=== PATIENT | male | born 1945 | race Caucasian/White ===

== ENCOUNTER 2017-03-19 12:20 | Inpatient (IN) ==
--- NOTE | 2017-03-19 12:45 | Emergency Department Note ---
Disposition Clinical Impression: Aneurysm of left renal artery, Bilateral hydronephrosis, DAVE (acute kidney injury), Parietal lobe infarction, Occipital infarction, Elevated troponin, Acute hyperkalemia, Pulmonary nodule Disposition: Admitted As Inpatient Condition: Undetermined Referrals: Roseann Marinelli DO [Primary Care Provider] - Forms: ED Satisfaction Letter, Work/School Release Time of Disposition: 15:33 General Adult HPI - General Chief complaint: ED General Medical Stated complaint: A-FIB sent per pre-admission Testing Time Seen by Provider: 03/19/17 12:29 Source: patient Mode of arrival: wheelchair Limitations: no limitations Nursing Notes Reviewed: Yes Vital Signs Reviewed: Yes - History of Present Illness HPI Narrative: 71-year-old male with history of atrial fibrillation, hematuria, arrives to [facility] emergency department with concern for not feeling well as well as decreased vision in right eye. The patient was at preadmission testing for determination of an etiology for his hematuria. The patient states that yesterday evening he began experiencing a decreased vision in his right eye. Denies any other complaints at this time. The patient states is morbidly blurred vision and was not feeling well. The patient states upon transport to the hospital for preadmission testing he stated to the nurse that he did not feel well and was experiencing at this decreased vision in right eye. At that time and NIH was performed and the patient was transported to the emergency department with concern for possible CVA given the patient's recent coming off Coumadin for the hematuria despite history of atrial fibrillation. The patient denies any other complaints at this time other than just generally not feeling well as well as his blurred vision in right eye. We are not performing a stroke alert due to the patient's symptoms starting just under 24 hours prior to arrival. Onset (ago): day(s) (1) Pain Scale: 0 Improves with: nothing Worsens with: nothing Associated symptoms: Reports: denies other symptoms Treatments Prior to Arrival: none - Related Data Allergies Allergy/AdvReac Type Severity Reaction Status Date / Time No Known Allergies Allergy Verified 03/19/17 11:56 All systems ED: reviewed and negative except as stated. Constitutional: Denies: fever, chills, weakness Eyes: Reports: vision change. Denies: eye pain, eye discharge ENT ED: Denies: ear pain, dental pain, hearing loss, congestion Cardiovascular: Denies: chest pain, syncope Respiratory: Denies: cough, dyspnea, wheezes Gastrointestinal: Denies: abdominal pain, nausea, vomiting Genitourinary: Denies: urgency, dysuria Musculoskeletal: Denies: back pain Neurological: Denies: headache, weakness, numbness, paresthesias, confusion, abnormal gait, vertigo Past Medical History - Past Medical History Attestation: Yes The following information was validated with the patient. Source: patient Medical history: Reports: non-contributory, GI bleed, hypertension Surgical history: Reports: non-contributory - Social History Smoking Status: Current some day smoker Smokeless Tobacco Status: No Alcohol use: Reports: none Drug use: Reports: none Physical Exam - General Limitations: no limitations General appearance: alert, in no apparent distress - Head Head exam: atraumatic, normocephalic, normal inspection - Eye Eye exam: Present: normal appearance, PERRL, EOMI, other (20/30 in left, 20/25 right eye). Absent: nystagmus, miosis, mydriasis - ENT ENT exam: normal exam, normal oropharynx, mucous membranes moist - Neck Neck exam: Present: normal inspection, full ROM, trachea midline - Chest Chest inspection: Present: normal inspection, symmetric chest wall rise - Respiratory Respiratory exam: Present: normal lung sounds bilaterally - Cardiovascular Cardiovascular exam: Present: regular rate, normal rhythm, normal heart sounds - Abdominal Exam Abdominal exam: Present: soft, Non-Tender. Absent: tenderness, distention, guarding, rebound, rigidity - Extremities Exam Extremities exam: Present: normal inspection, full ROM. Absent: tenderness, pedal edema - Neurological Exam Neurological exam: Present: alert, oriented X3, CN II-XII intact, normal gait - Expanded Neurological Exam Patient oriented to: Present: person, place, time Speech: Present: fluid speech Cranial nerves: EOM function (II, III, IV, ): Normal, facial sensation (V): Normal, facial palsy (VII): Normal Cerebellar function: finger to nose: Normal, heel to gipson: Normal Cerebellar function: normal gait Motor strength - LUE: 5/5 Motor strength - RUE: 5/5 Motor strength - LLE: 5/5 Motor strength - RLE: 5/5 Sensory exam upper extremity: light touch: Normal Sensory exam lower extremity: light touch: Normal Coma Scale Eye Opening: Spontaneous Coma Scale Motor Response: Obeys Commands Coma Scale Verbal Response: Oriented Coma Scale Total: 15 Course - Reevaluation(s) Reevaluation #1: Patient's renal function is worsened. Urinary bladder is not enlarged after urination. Time: 13:59 Reevaluation #2: Radiology called to inform me of an acute infarct in the right parietal- occipital lobes of the head CT. Time: 14:35 - Consultations Consultation #1: Spoke to Dr. Fernández in urology who states that he will see the patient on the floor. He states that he will likely take the patient to the OR tomorrow for this bladder mass as well as bilateral hydroureter renal failure. He did request a PSA. We will perform. Time: 15:13 Consultation #2: Spoke with Dr. Rodas in neurology who agrees that he will see the patient on the floor. Time: 15:46 Vital Signs Temperature 98.1 F 03/19/17 12:22 Pulse Rate 61 03/19/17 12:22 Respiratory Rate 16 03/19/17 12:22 Blood Pressure 177/111 03/19/17 12:22 O2 Sat by Pulse Oximetry 99 03/19/17 12:22 Temperature 98.2 F 03/19/17 15:25 Pulse Rate 66 03/19/17 15:25 Respiratory Rate 25 03/19/17 15:25 Blood Pressure 166/92 03/19/17 15:25 O2 Sat by Pulse Oximetry 96 03/19/17 15:25 Oxygen Delivery Oxygen Delivery Room Air Medical Decision Making - MDM Narrative Medical decision making narrative: Patient CT scan of the head demonstrates new right sided parietal and occipital infarct. Given the patient's symptoms being roughly 24 hours ago, a stroke alert was not activated. The patient was administered 1 dose of aspirin here in the emergency department. The patient's CT scan of the abdomen reveals new pulmonary nodule, new bladder mass that is noted with bilateral hydronephrosis. 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 The patient will be admitted to the hospitalist. After speaking with Dr. Fernández in urology he requested that we perform a PSA. In addition the patient will likely go to the operating room tomorrow per urology. The patient was made aware and agrees to this plan. The patient's NIH is 0. The patient denies any other complaints at this time. We will admit him to the hospitalist service accepted by Dr. Zavala. - Medical Records Medical records reviewed: Yes I reviewed the patient's medical records. - Lab Data Lab results reviewed: Yes I reviewed the patient's lab results. Result diagrams: 03/19/17 12:56 03/19/17 12:56 Lab Results 03/19/17 03/19/17 03/19/17 Range/Units 12:56 12:56 12:56 WBC 14.3 H (4.3-11.1) K/mcL RBC 5.06 (4.19-5.50) M/mcL Hgb 14.3 (12.9-16.9) g/dL Hct 41.9 (37.5-50.1) % MCV 82.8 L (83.0-100.0) fL MCH 28.3 (28.0-33.3) pg MCHC 34.1 (31.6-35.5) g/dL RDW 13.8 (11.5-14.5) % Plt Count 237 (140-400) K/mcL MPV 10.9 (9.4-12.4) fL Immature Gran % 0.4 (0-4) % Seg Neutrophils % 83.7 % Lymphocytes % 8.3 % Monocytes % 6.7 % Eosinophils % 0.6 % Basophils % 0.3 % Neutrophils # 12.0 H (1.6-8.9) K/mcL Lymphocytes # 1.2 (0.6-4.6) K/mcL Monocytes # 1.0 (0.0-1.3) K/mcL Eosinophils # 0.1 (0.0-0.6) K/mcL Basophils # 0.1 (0.0-0.2) K/mcL PT 11.5 (9.4-12.1) Seconds INR 1.1 APTT 26.5 (26.0-36.0) Seconds Sodium 142 (136-145) mEq/L Potassium 5.1 H (3.5-4.5) mEq/L Chloride 109 (98-109) mEq/L Carbon Dioxide 17 L (19-29) mEq/L BUN 96 H (8-26) mg/dL Creatinine 11.86 H (0.72-1.25) mg/dL Est GFR ( Amer) 5 L (> 60) Est GFR (Non-Af Amer) 4 L (> 60) BUN/Creatinine Ratio 8 (6-26) Glucose 120 H (70-99) mg/dL Calculated Osmolality 325 H (280-300) Calcium 9.6 (8.6-10.8) mg/dL Troponin I (0-0.03) ng/mL Ur Specimen Adequacy Urine Color (Yellow) Urine Clarity (Clear) Urine pH (5.0-8.0) pH Units Ur Specific [place] (1.010-1.025) Urine Protein (Neg-Trace) mg/dL Urine Glucose (UA) (Normal) mg/dL Urine Ketones (Negative) mg/dL Urine Blood (Negative) Urine Nitrite (Negative) Urine Bilirubin (Negative) Urine Urobilinogen (Normal) mg/dL Ur Leukocyte Esterase (Negative) Ur Culture Indicated? (NO) 03/19/17 03/19/17 Range/Units 12:56 13:33 WBC (4.3-11.1) K/mcL RBC (4.19-5.50) M/mcL Hgb (12.9-16.9) g/dL Hct (37.5-50.1) % MCV (83.0-100.0) fL MCH (28.0-33.3) pg MCHC (31.6-35.5) g/dL RDW (11.5-14.5) % Plt Count (140-400) K/mcL MPV (9.4-12.4) fL Immature Gran % (0-4) % Seg Neutrophils % % Lymphocytes % % Monocytes % % Eosinophils % % Basophils % % Neutrophils # (1.6-8.9) K/mcL Lymphocytes # (0.6-4.6) K/mcL Monocytes # (0.0-1.3) K/mcL Eosinophils # (0.0-0.6) K/mcL Basophils # (0.0-0.2) K/mcL PT (9.4-12.1) Seconds INR APTT (26.0-36.0) Seconds Sodium (136-145) mEq/L Potassium (3.5-4.5) mEq/L Chloride (98-109) mEq/L Carbon Dioxide (19-29) mEq/L BUN (8-26) mg/dL Creatinine (0.72-1.25) mg/dL Est GFR ( Amer) (> 60) Est GFR (Non-Af Amer) (> 60) BUN/Creatinine Ratio (6-26) Glucose (70-99) mg/dL Calculated Osmolality (280-300) Calcium (8.6-10.8) mg/dL Troponin I 0.13 H* (0-0.03) ng/mL Ur Specimen Adequacy Urine Color Red A (Yellow) Urine Clarity Cloudy A (Clear) Urine pH 7.5 (5.0-8.0) pH Units Ur Specific [place] 1.017 (1.010-1.025) Urine Protein >=1000 H (Neg-Trace) mg/dL Urine Glucose (UA) 100 H (Normal) mg/dL Urine Ketones Negative (Negative) mg/dL Urine Blood Moderate H (Negative) Urine Nitrite Negative (Negative) Urine Bilirubin Negative (Negative) Urine Urobilinogen Normal (Normal) mg/dL Ur Leukocyte Esterase Negative (Negative) Ur Culture Indicated? NO (NO) - Radiology Data Radiology results reviewed: Yes I reviewed the patient's radiology results. - EKG Data EKG #1 EKG attestation: Yes I reviewed and interpreted this EKG. EKG results narrative: Heart rate 60 bpm. QTc 455 ms. Electronic ventricular pacemaker. No ST elevation or ST depression noted. EKG similar appearance EKG performed just prior to arrival. NIH Stroke Scale - Level of Consciousness LOC: Alert - LOC Questions LOC Questions: Answers both correctly - LOC Commands LOC Commands: Performs both correctly - Best Gaze Best Gaze: Normal - Visual Visual: No visual loss - Facial Palsy Facial Palsy: Normal - Motor Arms Motor Arm-Left: No drift for 10 seconds Motor Arm-Right: No drift for 10 seconds - Motor Legs Motor Leg-Left: No drift for 5 seconds Motor Leg-Right: No drift for 5 seconds - Limb Ataxia Limb Ataxia: Normal, No Ataxia - Sensory Sensory: Normal - Best Language Best Language: No aphasia - Dysarthria Dysarthria: Normal - Extinction and Inattention Extinction and Inattention: Normal - NIHSS Total Score NIHSS Total Score: 0
--- NOTE | 2017-03-19 13:02 | Emergency Department Note ---
START Narrative - START START: I examined this patient and my medical decision-making was reviewed with the Resident Physician. I agree with the documented findings, disposition and treatment plan as described except to the extent set forth below. 71 yo M sent to ER from preadmission testing for blurry vision and not feeling right. had a blurry vision episode while driving today. no cp. hx of a fib. off coumadin for few days due to hematuria and is supposed to have a cystoscopy for this by dr gayle. will eval with head CT and labs. looks well ekg shows paced rhythm vss
[2017-03-19 13:13] LABS: Basophils # 0.1 K/mcL (0.0-0.2); Basophils % 0.3 %; Eosinophils # 0.1 K/mcL (0.0-0.6); Eosinophils % 0.6 %; Hematocrit 41.9 % (37.5-50.1); Hemoglobin 14.3 g/dL (12.9-16.9); Immature Granulocytes % 0.4 % (0-4); Lymphocytes # 1.2 K/mcL (0.6-4.6); Lymphocytes % 8.3 %; Mean Corpuscular HGB Conc 34.1 g/dL (31.6-35.5); Mean Corpuscular Hemoglobin 28.3 pg (28.0-33.3); Mean Corpuscular Volume 82.8 fL (83.0-100.0); Mean Platelet Volume 10.9 fL (9.4-12.4); Monocytes % 6.7 %; Platelet Count 237 K/mcL (140-400); Red Blood Count 5.06 M/mcL (4.19-5.50); Red Cell Distribution Width 13.8 % (11.5-14.5); Segmented Neutrophils % 83.7 %
[2017-03-19 13:18] LABS: INR 1.1; Prothrombin Time 11.5 Seconds (9.4-12.1)
[2017-03-19 13:20] LABS: Activated Partial Thrombo Time 26.5 Seconds (26.0-36.0)
[2017-03-19 13:31] LABS: Calcium 9.6 mg/dL (8.6-10.8); Potassium 5.1 mEq/L (3.5-4.5)
[2017-03-19 13:59] LABS: Bilirubin,Urine Negative (Negative); Blood,Urine Moderate (Negative); Clarity,Urine Cloudy (Clear); Glucose,Urine (UA) 100 mg/dL (Normal); Ketones,Urine Negative (Negative); Leukocyte Esterase,Urine Negative (Negative); Nitrite,Urine Negative (Negative); PH,Urine 7.5 pH Units (5.0-8.0); Protein,Urine >=1000 mg/dL (Neg-Trace); Specific Gravity,Urine 1.017 (1.010-1.025); Urobilinogen,Urine Normal (Normal)
[2017-03-19 14:01] LABS: Color,Urine Red (Yellow)
[2017-03-19] MEDS ORDERED: 0.9 % Sodium Chloride 1,000 ML IVC ONE (14:02)
[2017-03-19] MEDS ORDERED: Aspirin 325 MG TABLET PO ONE (14:05)
--- NOTE | 2017-03-19 18:15 | Urology - Consult Note ---
Date of Encounter: 03/19/17 Time of Encounter: 18:02 - Assessment and Plan (1) Elevated serum creatinine Current Visit: Yes Status: Acute Assessment and plan: I spoke with Dr. Read with nephrology and he is going to evaluate the patient this evening. We discussed rushing the patient back to the operating room tonight versus possible dialysis prior to scheduled surgery tomorrow afternoon. We both believe that the patient would benefit from dialysis first then operating room tomorrow afternoon. I have spoken with the anesthesiologist who also agrees with this approach. (2) Malignant neoplasm of prostate Current Visit: Yes Status: Acute Assessment and plan: Mass in the prostatic fossa is most likely recurrent prostate cancer. We will need to obtain the operative note at some point in the future. Plan on possible need for resection of mass tomorrow in the operating room. Sometimes placing ureteral stents in the face of invasive cancer is quite difficult and patient may need interventional radiology to place nephrostomy tubes. (3) Bilateral hydronephrosis Current Visit: Yes Status: Acute Assessment and plan: Likely secondary to recurrent prostate cancer. Patient will be taken to the operating room tomorrow for cystoscopy and possible bilateral ureteral stent placement depending on visualization of ureteral orifices. Again, sometimes placing ureteral stents in the face of metastatic cancers quite difficult and patient could require interventional radiology to place bilateral nephrostomy tubes. This is likely contributing significantly to his renal failure as his bladder is completely decompressed on CT scan. Urology CN:HPI Consult date: 03/19/17 Reason for consult Urology: Hydronephrosis Requesting physician: Aron Nunes History of present illness: Moses is a 71-year-old male who presented today for preadmission testing appointments for surgery scheduled tomorrow. Patient at the time of the visit appeared to have strokelike symptoms. He was sent to the emergency department where a CT head was done which showed a new stroke area in the right side. Patient was also known to me to have a elevated creatinine of 3 which is the reason for his urgent scheduling of the surgery tomorrow. Patient at the arrival of the emergency department was found to have serum creatinine just below 12. Potassium was 5.1. Patient's blood pressure was also markedly elevated. He was having blurry vision as well as some confusion. CT abdomen and pelvis was done which showed stable bilateral hydronephrosis down to mass within the prostatic fossa. Patient failed to mention to me at the initial appointment that he had a prostatectomy done. At this time he cannot tell me the date of the procedure. His PSA was repeated today which was 17. I do not have a comparable PSA. Patient is somewhat confused. Past Med Surg Social Fam HX - Past Medical History Medical history: non-contributory, GI bleed, hypertension - Past Surgical History Surgical History: non-contributory - Social History Smoking Status: Current some day smoker Smokeless Tobacco Status: No Alcohol use: none Drug use: none Medications and Allergies Atorvastatin Calcium [Lipitor] 20 mg PO HS 03/19/17 [History] Cholecalciferol (Vitamin D3) [Vitamin D] 1,000 unit PO DAILY 03/19/17 [History] Losartan Potassium [Cozaar] 50 mg PO DAILY 03/19/17 [History] Meloxicam [Mobic] 7.5 - 15 mg PO DAILY PRN 03/19/17 [History] Metoprolol XL (24 HR) Succ [Toprol XL] 150 mg PO DAILY 03/19/17 [History] Multivitamin [One Daily Multivitamin] 1 each PO DAILY 03/19/17 [History] 3 Allergy/AdvReac Type Severity Reaction Status Date / Time No Known Allergies Allergy Verified 03/19/17 11:56 Review of Systems ROS unobtainable: due to mental status Exam Initial Vital Signs Temp Pulse Resp BP Pulse Ox 98.1 F 61 16 177/111 99 03/19/17 12:22 03/19/17 12:22 03/19/17 12:22 03/19/17 12:22 03/19/17 12:22 - General physical appearance Present: well developed - Neck Present: no masses - Respiratory Present: normal respiratory effort - Abdomen Abdomen: Present: soft - Integumentary Present: no rash - Neurologic Present: normal coordination (Equal strength with bilateral grasp) Urology Results - Labs 03/19/17 12:56 03/19/17 12:56 Abnormal lab results WBC 14.3 K/mcL (4.3-11.1) H 03/19/17 12:56 MCV 82.8 fL (83.0-100.0) L 03/19/17 12:56 Neutrophils # 12.0 K/mcL (1.6-8.9) H 03/19/17 12:56 Potassium 5.1 mEq/L (3.5-4.5) H 03/19/17 12:56 Carbon Dioxide 17 mEq/L (19-29) L 03/19/17 12:56 BUN 96 mg/dL (8-26) H 03/19/17 12:56 Creatinine 11.86 mg/dL (0.72-1.25) H 03/19/17 12:56 Est GFR ( Amer) 5 (> 60) L 03/19/17 12:56 Est GFR (Non-Af Amer) 4 (> 60) L 03/19/17 12:56 Glucose 120 mg/dL (70-99) H 03/19/17 12:56 Calculated Osmolality 325 (280-300) H 03/19/17 12:56 Troponin I 0.13 ng/mL (0-0.03) H* 03/19/17 12:56 Prostate Specific Ag 17.94 ng/mL (0.00-4.00) H 03/19/17 12:56 Urine Color Red (Yellow) A 03/19/17 13:33 Urine Clarity Cloudy (Clear) A 03/19/17 13:33 Urine Protein >=1000 mg/dL (Neg-Trace) H 03/19/17 13:33 Urine Glucose (UA) 100 mg/dL (Normal) H 03/19/17 13:33 Urine Blood Moderate (Negative) H 03/19/17 13:33 All other labs normal. - Imaging CT scan - abdomen: image reviewed CT scan - pelvis: image reviewed Consult Discharge Plan - Plan Referrals: Roseann Marinelli DO [Primary Care Provider] -
[2017-03-19] MEDS ORDERED: Furosemide 40 MG/4 ML VIAL IVP STA (18:21)
[2017-03-19] MEDS ORDERED: Furosemide 40 MG/4 ML VIAL ONE (18:22)
[2017-03-19] MEDS ORDERED: Ondansetron 4 MG/2 ML VIAL IVP PRN (18:23)
--- NOTE | 2017-03-19 18:35 | Nephrology Consult Note ---
Date of Encounter: 03/19/17 Time of Encounter: 18:00 Assessment and Plan (1) DAVE (acute kidney injury) Current Visit: Yes Status: Acute DAVE with b/l hydronephrosis and with uremic symptom. One week ago his SCr was 3.76 and today >11. He will need BUTTERMILK DRIER OPERATOR, but ideally can arrange first thing in the AM. I've placed a consult to IR to request their assistance in the AM. On exam, he has b/l crackles. I suspect there may be pulm edema developing s/p IVF. His admission CXR was without pulm edema. Will check BNP and since he's going to need BUTTERMILK DRIER OPERATOR anyway, to improve his respiratory status overnight, I will give Lasix 40mg IV stat. He may need repeat CXR. Discussed with the hospitalist , and with Dr. Fernández earlier this evening. Hydronephrosis: agree with urologic intervention tomorrow after HD. He was also was taking NSAIDs. There is also concern for CVA. Thank you for consulting me on this very ill, high-risk patient. Will continue to closely follow with you. (2) Dyspnea Current Visit: Yes Status: Acute See above Qualifiers: Dyspnea type: unspecified Qualified Code(s): R06.00 - Dyspnea, unspecified (3) Acute hyperkalemia Current Visit: Yes Status: Resolved See above (4) Bilateral hydronephrosis Current Visit: Yes Status: Acute See above (5) Malignant neoplasm of prostate Current Visit: Yes Status: Acute See above History of Present Illness - Reason for Consult Consult date: 03/19/17 Acute Kidney Injury Requesting physician: Wilfred Fernández - Chief Complaint Renal failure - History of Present Illness Moses Reich is a very pleasant 71 y/o who presented with altered mental status and findings of severe renal failure and bilateral hydronephrosis. I was consulted by [facility] Dr. Fernández and I saw the pt urgently. He was by himself in the room and was very slow to communicate -- thus limiting a complete HPI and ROS. He was able to relate that he has not seen a prior underwater trapper. He denied use of NSAIDs. Had not been eating well and has become progressively more fatigued. He was not short of breath he said until the last hour. He had received IVF in the ER, but these were stopped when the pt arrived on the floor complaining of a new and developing cough/shortness of breath. He thought it was worsening even during my exam and interview. Past Med Surg Social Fam HX - Past Medical History Medical history: non-contributory, GI bleed, hypertension - Past Surgical History Surgical History: non-contributory - Social History Smoking Status: Current some day smoker Smokeless Tobacco Status: No Alcohol use: none Drug use: none Medications and Allergies Atorvastatin Calcium [Lipitor] 20 mg PO HS 03/19/17 [History] Cholecalciferol (Vitamin D3) [Vitamin D] 1,000 unit PO DAILY 03/19/17 [History] Losartan Potassium [Cozaar] 50 mg PO DAILY 03/19/17 [History] Meloxicam [Mobic] 7.5 - 15 mg PO DAILY PRN 03/19/17 [History] Metoprolol XL (24 HR) Succ [Toprol XL] 150 mg PO DAILY 03/19/17 [History] Multivitamin [One Daily Multivitamin] 1 each PO DAILY 03/19/17 [History] Amlodipine Besylate [Amlodipine Besylate] 10 mg PO DAILY 03/21/17 [History] Clopidogrel [Plavix] 75 mg PO DAILY 03/21/17 [History] Warfarin [Coumadin] 5 mg PO 1800 03/21/17 [History] 3 Allergy/AdvReac Type Severity Reaction Status Date / Time No Known Allergies Allergy Verified 03/19/17 11:56 Review of Systems ROS unobtainable: due to mental status Exam - Vital Signs Vital signs: Initial Vital Signs Temp Pulse Resp BP Pulse Ox 98.1 F 61 16 177/111 99 03/19/17 12:22 03/19/17 12:22 03/19/17 12:22 03/19/17 12:22 03/19/17 12:22 Vital Signs - Last 8 Hours Temp Pulse Resp BP Pulse Ox 03/19/17 16:55 98.5 F 62 18 174/71 95 03/19/17 16:40 20 159/84 03/19/17 16:29 63 20 159/84 - General Appearance General appearance: well-developed, well-nourished, appears started age, moderate distress EENT: ATNC, mucous membranes moist Neck: supple Respiratory: rales, course breath sounds Cardiology: edema (trace pretibial pitting edema bilaterally (the pt said this was his normal).), regular rate, regular rhythm, normal S1, normal S2 Gastrointestinal: normoactive bowel sounds, no guarding, obese Integumentary: warm and dry Neurologic: no asterixis, alert and oriented x3, disoriented Musculoskeletal: no erythema, no cyanosis, no clubbing Psychiatric: cooperative Results - Lab Results 03/26/17 05:11 03/26/17 05:11 Most recent lab results Calcium 9.6 mg/dL (8.6-10.8) 03/19/17 12:56 I reviewed the progress notes, labs, meds, vials, imaging. Consult Discharge Plan - Plan Referrals: Roseann Marinelli DO [Primary Care Provider] -
--- NOTE | 2017-03-19 19:21 | Anesthesia Evaluation PreOp ---
Date of Encounter: 03/19/17 Time of Encounter: 19:19 - Past History Planned Operation: Cystoscopy, Bilat. Ureteroascopy Cardiac History: HTN, Hyperlipidemia, Arrhythmia (hx Afib/Flutter), Pacemaker/ ICD ( 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: CVA (within past 24 hrs, loss of vision, no UE or LE weakness or sensory loss) Other Medical History: Renal (ESRD, plan dialysis 03/20/2017, after IR places port for IV acess.), Other (Hx GI Bleed, prostate CA,) Anesthesia History: No Prior Anesthetic Complications, Past Anesthesia (Robotic prostatectomy 2-3 years ago, T&A) Alcohol Use: none Drug use: none Medications and Allergies Atorvastatin Calcium [Lipitor] 20 mg PO HS 03/19/17 [History] Cholecalciferol (Vitamin D3) [Vitamin D] 1,000 unit PO DAILY 03/19/17 [History] Losartan Potassium [Cozaar] 50 mg PO DAILY 03/19/17 [History] Meloxicam [Mobic] 7.5 - 15 mg PO DAILY PRN 03/19/17 [History] Metoprolol XL (24 HR) Succ [Toprol XL] 150 mg PO DAILY 03/19/17 [History] Multivitamin [One Daily Multivitamin] 1 each PO DAILY 03/19/17 [History] 3 Allergy/AdvReac Type Severity Reaction Status Date / Time No Known Allergies Allergy Verified 03/19/17 11:56 - Meds/Allergy Pre-op Review Medications Reviewed: Yes Allergies Reviewed: Yes Beta Blockers on Current Med List: Yes Anesthesia Results - Labs 03/19/17 12:56 03/19/17 12:56 CT OF THE HEAD WITHOUT CONTRAST 03/19/2017 2:20 pm IMPRESSION: Acute infarct involving the right parieto-occipital lobe. No associated mass effect or midline shift. Sequela of remote infarct in the left MCA territory. Age related changes including chronic small vessel ischemic disease and cerebral atrophy. Findings were discussed with Dr. Nunes on 03/19/2017 at 2:34 p.m. - Imaging EKG: other (EKG ordered) Chest x-ray: report reviewed (Bilateral perihilar opacification, right greater than left, likely representing early pulmonary edema. Infiltrate not excluded. Stable mild cardiomegaly.) Anesthesia Exam O2 Sat Height 1.8 m Height 1.8 m Weight 117.934 kg Weight 117.934 kg O2 Sat by Pulse Oximetry 95 O2 Sat by Pulse Oximetry 96 O2 Sat by Pulse Oximetry 97 O2 Sat by Pulse Oximetry 96 O2 Sat by Pulse Oximetry 99 Vital Signs Temp Pulse Resp BP Pulse Ox 98.1 F 61 16 177/111 99 03/19/17 12:22 03/19/17 12:22 03/19/17 12:22 03/19/17 12:22 03/19/17 12:22 Vital Signs/O2 Sat, Most Current Temp Pulse Resp BP Pulse Ox 98.5 F 62 18 174/71 95 03/19/17 16:55 03/19/17 16:55 03/19/17 16:55 03/19/17 16:55 03/19/17 16:55 Height: 5'11'' Weight: 260# NPO (# of Hours): > 8 hrs Pain Scale: 0 Pain Scale Used: Numeric (1 - 10) - HEENT Pupil (Motor): Pupils equal, EOMI Mallampati: III Teeth: Normal Oral Opening: Greater than 3 - VEGETABLE GRADER LOC: Oriented VEGETABLE GRADER Motor: Normal RUE, Normal LUE, Normal RLE, Normal LLE, Normal Face VEGETABLE GRADER Sensory: Normal: RUE, LUE, RLE, LLE, Face - Cardiac Rhythm: Regular Murmur: None JVD: No Carotid Bruit: No - Pulmonary Breath Sounds: bilateral Clear Respiratory Effort: Symmetrical Anesthesia Assess/Plan ASA Score: 4 Modified Deaver Scale for Level of Consciousness: Cooperative, oriented, and tranquil Anesthetic Plan: General Autologous Blood: Yes Monitoring Plan: Standard Monitors Recovery Plan: PACU
--- NOTE | 2017-03-19 19:43 | Neurology - Consult Note ---
Date of Encounter: 03/19/17 Time of Encounter: 19:40 Assessment and Plan (1) Occipital infarction Current Visit: Yes Status: Acute Patient is a 71 year old man with atrial fibrillation, s/p pacemaker placement, currently off coumadin with INR 1.1 who developed acute onset of blurry vision. CT of head positive for right occipital lobe infarct, accounting for his left hemianopsia finding. No other focal neurological deficits. Unable to get MRI of brain due to pacemaker placement. Patient certainly needs anticoagulation once surgery is completed and no longer contraindicated, this has to be coordinated with urology service. Please continue medical and supportive care. Call if any questions History of Present Illness Chief complaint: blurry vision HPI: Mr. Reich is a 71 year old male with PMH significant for atrial fibrillation, pacemaker placement, off coumadin recently for an urgent urological procedure who developed acute onset of blurry vision, especially when looking to the left side. CT of head showed new right occipital parietal infarct. no midline shift. Patient not a candidate for tPA thrombolysis due to symptoms presented more than 24 hours. No focal weakness. No mental status changes. He relates that he was having urinary bleeding and has been evaluated and treated by urology. Currently patient denies neurological symptoms except blurry vision. Has clear left hemianopsia. Past Med Surg Social Fam HX - Past Medical History Medical history: non-contributory, GI bleed, hypertension - Past Surgical History Surgical History: non-contributory - Social History Smoking Status: Current some day smoker Smokeless Tobacco Status: No Alcohol use: none Drug use: none Medications and Allergies Atorvastatin Calcium [Lipitor] 20 mg PO HS 03/19/17 [History] Cholecalciferol (Vitamin D3) [Vitamin D] 1,000 unit PO DAILY 03/19/17 [History] Losartan Potassium [Cozaar] 50 mg PO DAILY 03/19/17 [History] Meloxicam [Mobic] 7.5 - 15 mg PO DAILY PRN 03/19/17 [History] Metoprolol XL (24 HR) Succ [Toprol XL] 150 mg PO DAILY 03/19/17 [History] Multivitamin [One Daily Multivitamin] 1 each PO DAILY 03/19/17 [History] 3 Allergy/AdvReac Type Severity Reaction Status Date / Time No Known Allergies Allergy Verified 03/19/17 11:56 All Systems: A 10-system review of systems was performed and is negative for pertinent findings except as documented above in the HPI. Physical Examination - Vital Signs Vital Signs: Initial Vital Signs Temp Pulse Resp BP Pulse Ox 98.1 F 61 16 177/111 99 03/19/17 12:22 03/19/17 12:22 03/19/17 12:22 03/19/17 12:22 03/19/17 12:22 - Constitutional General appearance: comfortable - Neurologic Sensorimotor examination: intact Detailed motor examination: grossly full strength in all extremities Motor examination - right side: 5/5: deltoids, biceps, triceps, wrist flexion, wrist extension, wildlife biology technician, hip flexors, tibialis Anterior, quadriceps, toe extension (EHL), plantarflexion Motor examination - left side: 5/5: deltoids, biceps, triceps, wrist flexion, wrist extension, hip flexors, wildlife biology technician, quadriceps, tibialis Anterior, toe extension (EHL), plantarflexion Detailed sensory examination: intact (Grossly intact) Posture: other (None) Reflex and gait examination: other (Gait not assessed) Reflexes: Biceps: 1+, Triceps: 1+, Brachioradialis: 1+, Patella: 1+, Achilles: 1 + Mental Status Examination: awake, alert, oriented to person, oriented to place, oriented to time, follows commands appropriately, answers questions appropriately, no agnosia, no aphasia, no aproxia Cranial nerve examination: PERRL, visual moreno intact (Left visual field loss noted), corneal reflexes brisk symmetrically, sensory to face intact, mastication intact, no facial asymmetry is present, no dysarthria, hearing is intact symmetrically, soft palate elevates bilaterally upon phonation, gag reflex intact, flexes SCM and trapezius muscles symmetrically with full power, tongue protrudes midline Results - Laboratory Findings CBC and BMP: 03/19/17 12:56 03/19/17 12:56 Abnormal lab findings: Abnormal lab results WBC 14.3 K/mcL (4.3-11.1) H 03/19/17 12:56 MCV 82.8 fL (83.0-100.0) L 03/19/17 12:56 Neutrophils # 12.0 K/mcL (1.6-8.9) H 03/19/17 12:56 Potassium 5.1 mEq/L (3.5-4.5) H 03/19/17 12:56 Carbon Dioxide 17 mEq/L (19-29) L 03/19/17 12:56 BUN 96 mg/dL (8-26) H 03/19/17 12:56 Creatinine 11.86 mg/dL (0.72-1.25) H 03/19/17 12:56 Est GFR ( Amer) 5 (> 60) L 03/19/17 12:56 Est GFR (Non-Af Amer) 4 (> 60) L 03/19/17 12:56 Glucose 120 mg/dL (70-99) H 03/19/17 12:56 Calculated Osmolality 325 (280-300) H 03/19/17 12:56 Troponin I 0.13 ng/mL (0-0.03) H* 03/19/17 12:56 Prostate Specific Ag 17.94 ng/mL (0.00-4.00) H 03/19/17 12:56 Urine Color Red (Yellow) A 03/19/17 13:33 Urine Clarity Cloudy (Clear) A 03/19/17 13:33 Urine Protein >=1000 mg/dL (Neg-Trace) H 03/19/17 13:33 Urine Glucose (UA) 100 mg/dL (Normal) H 03/19/17 13:33 Urine Blood Moderate (Negative) H 03/19/17 13:33 Consult Discharge Plan - Plan Referrals: Roseann Marinelli DO [Primary Care Provider] -
--- NOTE | 2017-03-19 20:19 | Anesthesia Evaluation PreOp ---
Date of Encounter: 03/19/17 Time of Encounter: 20:17 - Past History Planned Operation: Cystoscopy Cardiac History: Pacemaker/ICD (pacemaker placed over 20 years ago for AFib/ Flutter. 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: CVA (within past 24 hrs, loss of vision, no UE or LE weakness) Other Medical History: Other (Hematuria) Alcohol Use: none Drug use: none Medications and Allergies Atorvastatin Calcium [Lipitor] 20 mg PO HS 03/19/17 [History] Cholecalciferol (Vitamin D3) [Vitamin D] 1,000 unit PO DAILY 03/19/17 [History] Losartan Potassium [Cozaar] 50 mg PO DAILY 03/19/17 [History] Meloxicam [Mobic] 7.5 - 15 mg PO DAILY PRN 03/19/17 [History] Metoprolol XL (24 HR) Succ [Toprol XL] 150 mg PO DAILY 03/19/17 [History] Multivitamin [One Daily Multivitamin] 1 each PO DAILY 03/19/17 [History] 3 Allergy/AdvReac Type Severity Reaction Status Date / Time No Known Allergies Allergy Verified 03/19/17 11:56 Anesthesia Results - Labs 03/19/17 12:56 03/19/17 12:56
[2017-03-19 20:37] LABS: Hepatitis A Antibody IgM Nonreactive (Nonreactive); Hepatitis B Core IgM Nonreactive (Nonreactive); Hepatitis B Surface Antigen Nonreactive (Nonreactive); Hepatitis C Virus Antibody Nonreactive (Nonreactive)
--- NOTE | 2017-03-19 22:13 | Internal Med History&Physical ---
Date of Encounter: 03/19/17 Time of Encounter: 18:15 Assessment and Plan (1) Hematuria Current visit: Yes Status: Acute CT dbomen/pelvis shows bladder mass in inferior part, could be recurrence of prostate cancer; PSA elevated at 17.94. Urology consult appreciated- plan for possible OR tomorrow for excision of bladder mass and possible ureteral stent placement; monitor Hb Q8hrly; Knox catheterization; monitor urine output; Qualifiers: Hematuria type: gross Qualified Code(s): R31.0 - Gross hematuria (2) DAVE (acute kidney injury) Current visit: Yes Status: Acute Prior serum creatinine values not available; creatinine noted to be 11.86 today , up from 3.69 a week ago. Likely post-renal etiology due to obstructive uropathy. CT abdomen/pelvis shows B/L moderate hydronephrosis and bladder mass, could be blocking urine flow. Nephrology consulted; recommend IV Lasix spot dosing and close monitoring of vital signs. Patient also has associated hyperkalemia, metabolic acidosis, uremic encephalopathy; may need hemodialysis in am prior to scheduled OR; high risk for complications. Continue Telemetry monitoring. Repeat chest XRay does show pulmonary edema; (3) Occipital infarction Current visit: Yes Status: Acute Patient presented with acute right-sided blurred vision; CT head shows acute infarct in right parieto-occipital lobe. Neurology consult appreciated, recommend to continue anticoagulation with Coumadin when cleared by Urology after OR tomorrow. PT/OT evaluation. Check lipid profile and HbA1C. Continue statin. (4) Acute hyperkalemia Current visit: Yes Status: Acute continue to monitor; low K, renal diet; Telemetry monitoring; plan for HD tomorrow; (5) Malignant neoplasm of prostate Current visit: Yes Status: Chronic F/up with Urology; s/p TURP; noted top have elevated PSA; (6) Atrial fibrillation Current visit: Yes Status: Chronic s/p PPM placement. Currently rate-controlled; continue beta juan pablo; anticoagulation with Coumadin currently on hold due to surgery; INR 1.1; Qualifiers: Atrial fibrillation type: chronic Qualified Code(s): I48.2 - Chronic atrial fibrillation (7) Elevated troponin Current visit: Yes Status: Acute likely due to volume overload and acute renal failure; continue to trend Troponins and Telemetry; Internal Medicine - H&P: HPI Chief complaint: Blurred vision Admitted From: Emergency Dept Plans for Post Hospital Care: Transfer Inp Rehab Fac History of present illness: Mr. Reich is a 71 year old male with h/o- prostate cancer s/p TURP, a.fib on Coumadin was sent from Preop clinic with c/o- blurred vision in his right eye and not feeling well for the last 1-2 days. Patient has been taken off Coumadin for the last 2 weeks in anticipation of Cystoscopy to evaluate hematuria. Patient is currently able to answer appropriately although he does seem a bit confused intermittently. He denies nausea, vomiting, abdominal pain but has had hematuria off and on for the last month. No recent cough, cold, chest congestion or antibiotic use. He is ADL-independent and ambulatory at baseline. He does not recollect having CKD. He further denies focal weakness, paresthesias, dysphagia, slurred speech or facial deviation. No other neurologic symptoms except right-sided blurred vision. Past Med Surg Social Fam HX - Past Medical History Medical history: atrial fibrillation, cancer (prostate cancer), GI bleed, hypertension - Past Surgical History Surgical History: other (TURP, tonsillectomy), pacemaker - Social History Smoking Status: Former smoker Smokeless Tobacco Status: No Alcohol use: none Drug use: none Occupational status: retired Current living situation: Home, With Family Activity Level: Independent ambulation Recent Out of Country Travel Within the Last 8 Weeks: No Exposure or Possible Exposure to Illness During Travel: No - Additional Family History Additional family history: Patient is adopted, does not know biological family history Internal Medicine - H&P: Meds Atorvastatin Calcium [Lipitor] 20 mg PO HS 03/19/17 [History] Cholecalciferol (Vitamin D3) [Vitamin D] 1,000 unit PO DAILY 03/19/17 [History] Losartan Potassium [Cozaar] 50 mg PO DAILY 03/19/17 [History] Meloxicam [Mobic] 7.5 - 15 mg PO DAILY PRN 03/19/17 [History] Metoprolol XL (24 HR) Succ [Toprol XL] 150 mg PO DAILY 03/19/17 [History] Multivitamin [One Daily Multivitamin] 1 each PO DAILY 03/19/17 [History] 3 Allergy/AdvReac Type Severity Reaction Status Date / Time No Known Allergies Allergy Verified 03/19/17 11:56 All Systems PM: A 10-system review of systems was performed and is negative for pertinent findings except as documented above in the HPI. - Constitutional Constitutional: lethargy - EENT Eyes: as per HPI, blurry vision, change in vision Ears: no ear discharge, no ear pain, no tinnitus Nose, mouth and throat: no dysphagia, no nasal discharge, no neck pain, no sore throat - Cardiovascular Cardiovascular ROS IM: no chest pain, no diaphoresis, no dyspnea, no lightheadedness, no palpitations, no syncope - Respiratory Respiratory: no cough, no dyspnea, no wheezing, no excessive phlegm production - Gastrointestinal Gastrointestinal: no abdominal pain, no diarrhea, no hematemesis, no hematochezia, no melena, no nausea, no vomiting - Genitourinary Genitourinary ROS male: hematuria - Musculoskeletal Musculoskeletal ROS IM: no numbness, no tingling - Integumentary Integumentary IM: no rash, no unusual bruising - Neurological Neurological ROS: no confusion, no convulsions, no focal weakness, no numbness, no tingling, no tremor(s) - Hematologic/Lymphatic Hematologic/Lymphatic: no easy bruising - Constitutional Vitals: Temp Pulse Resp BP Pulse Ox 98.5 F 62 18 174/71 95 03/19/17 16:55 03/19/17 16:55 03/19/17 16:55 03/19/17 16:55 03/19/17 16:55 General appearance: Present: A&O X 3 (slightly confused occasionally), answers questions appropriately - Neck Neck exam general surgery: Present: supple, trachea midline. Absent: lymphadenopathy - Respiratory Respiratory exam: Present: rales (B/l coarse breath sounds with bibasal crackles +). Absent: accessory muscle use, rhonchi, wheezes - Cardiovascular Cardiovascular exam: Present: RRR, +S1, +S2. Absent: diastolic murmur, gallop, rubs, systolic murmur - GI/Abdominal GI/Abdominal exam: Present: normal bowel sounds, soft (obese), no peritoneal signs. Absent: distended, tenderness - Extremities Exam Extremities exam: Present: warm, radial pulses palpable and symmetrical. Absent : calf tenderness, cyanotic, pedal edema - Neurological Exam Neurological exam: Present: oriented X3, no focal deficits. Absent: pronater drift, facial droop, speech deficit - Skin Skin exam: Present: dry, intact Internal Med - H&P Results - Labs CBC & Chem 7: 03/19/17 12:56 03/19/17 12:56 Labs: Cardiac Enzymes 03/19/17 Range/Units 18:59 Troponin I 0.11 H* (0-0.03) ng/mL - EKG Data -: EKG Interpreted by Myself (ventricular paced rhythm) - Impressions ITS Impressions Chest X-Ray 03/19/17 18:42 IMPRESSION: Bilateral perihilar opacification, right greater than left, likely representing early pulmonary edema. Infiltrate not excluded. Stable mild cardiomegaly. D/ / Fredrick Hester MD / Fredrick Hester MD Interpreting Provider: Fredrick Hester MD
[2017-03-19 23:48] LABS: Basophils # 0.1 K/mcL (0.0-0.2); Basophils % 0.3 %; Eosinophils # 0.1 K/mcL (0.0-0.6); Eosinophils % 0.5 %; Hematocrit 44.6 % (37.5-50.1); Hemoglobin 14.7 g/dL (12.9-16.9); Immature Granulocytes % 0.5 % (0-4); Lymphocytes # 1.1 K/mcL (0.6-4.6); Lymphocytes % 6.3 %; Mean Corpuscular Hemoglobin 28.2 pg (28.0-33.3); Mean Corpuscular Volume 85.6 fL (83.0-100.0); Mean Platelet Volume 11.6 fL (9.4-12.4); Monocytes # 1.1 K/mcL (0.0-1.3); Monocytes % 6.6 %; Neutrophils # 14.8 K/mcL (1.6-8.9); Platelet Count 265 K/mcL (140-400); Red Blood Count 5.21 M/mcL (4.19-5.50); Red Cell Distribution Width 13.6 % (11.5-14.5); Segmented Neutrophils % 85.8 %
[2017-03-20] MEDS ORDERED: 0.9 % Sodium Chloride 250 ML IVC PRN (06:00)
[2017-03-20 06:49] LABS: Basophils # 0.1 K/mcL (0.0-0.2); Basophils % 0.3 %; Eosinophils % 0.2 %; Hematocrit 42.1 % (37.5-50.1); Hemoglobin 14.1 g/dL (12.9-16.9); Immature Granulocytes % 0.6 % (0-4); Lymphocytes % 6.6 %; Mean Corpuscular HGB Conc 33.5 g/dL (31.6-35.5); Mean Corpuscular Hemoglobin 27.8 pg (28.0-33.3); Mean Platelet Volume 11.2 fL (9.4-12.4); Monocytes % 6.6 %; Neutrophils # 13.2 K/mcL (1.6-8.9); Platelet Count 251 K/mcL (140-400); Red Blood Count 5.07 M/mcL (4.19-5.50); Red Cell Distribution Width 13.9 % (11.5-14.5); Segmented Neutrophils % 85.7 %
[2017-03-20 06:59] LABS: Hemoglobin A1C 6.1 %
[2017-03-20 07:06] LABS: Calcium 9.7 mg/dL (8.6-10.8); Magnesium 2.6 mg/dL (1.6-2.6); Phosphorous 6.4 mg/dL (2.3-4.7); Potassium 5.3 mEq/L (3.5-4.5)
--- NOTE | 2017-03-20 07:16 | Internal Med Progress Note ---
<Fredrick Smiley - Last Filed: 03/20/17 14:10> Date of Encounter: 03/20/17 Time of Encounter: 07:16 - Assessment and plan (1) DAVE (acute kidney injury) Current Visit: Yes Status: Acute Assessment and plan: Creatinine 13.97, was 11.86 yesterday, and 3.69 a week ago. Likely post-renal etiology due to obstructive uropathy. CT abdomen/pelvis shows B/L moderate hydronephrosis and bladder mass, could be blocking urine flow. CXR shows pulmonary edema Patient also has associated hyperkalemia, metabolic acidosis, uremic encephalopathy; Nephrology consulted; recommends IV Lasix spot dosing and close monitoring of vital signs. Anticipate temp CVC placement and hemodialysis today; re-evaluate need for another dialysis treatment tomorrow Anticipate bilateral pcn tubes by IR placement this am after dialysis early this am Continue Telemetry monitoring. (2) Malignant neoplasm of prostate Current Visit: Yes Status: Acute Assessment and plan: Patient will have bilateral pcn tubes placed by IR placed this AM Urology following (3) Occipital infarction Current Visit: Yes Status: Acute Assessment and plan: Patient presented with acute right-sided blurred vision CT head shows acute infarct in right parieto-occipital lobe Unable to get MRI of brain due to pacemaker placement Neurology consult appreciated, recommended to continue anticoagulation with Coumadin when cleared by Urology after OR today. PT/OT evaluation. Continue statin (4) Acute encephalopathy Current Visit: Yes Status: Acute Assessment and plan: Multifactorial, likely due to uremia Patient passed bedside swallow at 14:25, will start cardiac diet Continue to monitor (5) Acute hyperkalemia Current Visit: Yes Status: Acute Assessment and plan: K+ 5.3 Should improve after dialysis Continue to monitor (6) Elevated troponin Current Visit: Yes Status: Acute Assessment and plan: Likely due to volume overload and acute renal failure; continue to trend serial troponins, dialysis, and telemetry (7) Hematuria Current Visit: Yes Status: Acute Assessment and plan: CT abdomen/pelvis shows bladder mass in inferior part, could be recurrence of prostate cancer; PSA elevated at 17.94. Urology consult appreciated- plan for possible OR today for excision of bladder mass and possible ureteral stent placement; Monitor Hgb Q8h [place] catheterization Monitor input and urine output Qualifiers: Hematuria type: gross Qualified Code(s): R31.0 - Gross hematuria (8) Atrial fibrillation Current Visit: Yes Status: Chronic Assessment and plan: S/p PPM placement. Currently rate-controlled; continue beta juan pablo; h/o anticoagulation with Coumadin; INR 1.1 Coumadin held for the last 2 weeks in anticipation of Cystoscopy to evaluate hematuria Qualifiers: Atrial fibrillation type: chronic Qualified Code(s): I48.2 - Chronic atrial fibrillation (9) DVT prophylaxis Current Visit: Yes Status: Acute Assessment and plan: SCDs - Subjective Interval history: Patient seen and examined. Patient appears slightly confused, disoriented to time, and answers questions appropriately. He c/o blurry vision, dry mouth, and chills. Patient denies fever, chills, CP, SOB, abd pain, N/V/D, or leg edema. Case discussed with family at bedside. - Constitutional Vitals: Temp Pulse Resp BP Pulse Ox 98.9 F 60 27 168/90 100 03/20/17 04:15 03/20/17 04:15 03/20/17 04:36 03/20/17 04:15 03/20/17 04:36 General appearance: Present: cooperative, A&O X 2, mild distress, obese, answers questions appropriately Exam: slightly confused, disoriented to time, and answers questions appropriately - Head Head exam: Present: atraumatic, normal inspection, normocephalic - Eye Eye exam: Present: EOMI, PERRL - ENT ENT exam: Present: mucous membranes dry, normal oropharynx - Neck Neck exam general surgery: Present: normal inspection, supple - Respiratory Respiratory exam: Present: CTAB. Absent: wheezes - Cardiovascular Cardiovascular exam: Present: RRR, +S1, +S2 - GI/Abdominal GI/Abdominal exam: Present: normal bowel sounds, soft. Absent: distended, tenderness - Extremities Exam Extremities exam: Present: normal capillary refill, normal inspection, pedal edema (2+), warm - Back Exam Back exam: Absent: paraspinal tenderness, tenderness Additional comments: bilateral nephrostomy tubes in place with good urine output - Neurological Exam Neurological exam: Present: altered, oriented X3, no focal deficits, strengths equal and symetr throughout. Absent: motor sensory deficit, facial droop, speech deficit - Psychiatric Psychiatric exam: Present: anxious, normal affect - Skin Skin exam: Present: dry, normal color, warm Internal Medicine: Result - Labs CBC & Chem 7: 03/20/17 06:34 03/20/17 06:34 Labs: Short CBC 03/19/17 03/20/17 Range/Units 21:48 06:34 WBC 17.2 H 15.4 H (4.3-11.1) K/mcL Hgb 14.7 14.1 (12.9-16.9) g/dL Hct 44.6 42.1 (37.5-50.1) % Plt Count 265 251 (140-400) K/mcL Neutrophils # 14.8 H 13.2 H (1.6-8.9) K/mcL BMP 03/20/17 06:34 Sodium 142 Potassium 5.3 H Chloride 109 Carbon Dioxide 14 L BUN 102 H Creatinine 13.97 H Glucose 125 H Calcium 9.7 Cardiac Enzymes 03/19/17 03/20/17 03/20/17 Range/Units 18:59 01:04 06:34 Troponin I 0.11 H* 0.12 H* 0.13 H* (0-0.03) ng/mL - ABG Interpretation ABG results: PT/INR, D-dimer PT 11.5 Seconds (9.4-12.1) 03/19/17 12:56 - Impressions ITS Impressions Chest X-Ray 03/19/17 12:37 IMPRESSION: No acute abnormality identified. No abnormal pulmonary vascular congestion. Elevated right hemidiaphragm. Pacemaker in place. D/ / Lucien Villagomez MD / Lucien Villagomez MD Interpreting Provider: Lucien Villagomez MD Head CT 03/19/17 12:37 IMPRESSION: Acute infarct involving the right parieto-occipital lobe. No associated mass effect or midline shift. Sequela of remote infarct in the left MCA territory. Age related changes including chronic small vessel ischemic disease and cerebral atrophy. Findings were discussed with Dr. Nunes on 03/19/2017 at 2:34 p.m. D/ / 03/19/2017 14:59:41 Joseline Villar MD / pablo Interpreting Provider: Joseline Villar MD Abdomen/Pelvis CT 03/19/17 13:59 IMPRESSION: Persistent overall stable bilateral moderate hydronephrosis. This is felt secondary to a soft tissue mass seen along the inferior aspect of the bladder, best seen on and around axial images 138 through 149. As discussed on the previous examination, in this patient status post prostatectomy, this is concerning for possible recurrence or related to a bladder mass. 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 Small bilateral pleural effusions. There is a 4.3 mm pulmonary nodule in the right middle lobe. Recommend follow up based on Fleischner criteria as below for a nodule seen in the lung bases on a abdomen study. RECOMMENDATIONS: Guidelines for follow-up and management of pulmonary nodules found on abdomen CT: <6 mm - No follow up recommend on the basis of the estimated low risk of malignancy. 6-8-mm - recommend follow-up chest CT after an appropriate interval (3-12 months depending on clinical risk). >8mm - immediate chest CT for further evaluation. Radiology 2017 http://pubs.rsna.org/doi/full/10.1148/radiol.[email or web address] D/ / Fredrick Ramos MD / Fredrick Ramos MD Interpreting Provider: Fredrick Ramos MD Chest X-Ray 03/19/17 18:42 IMPRESSION: Bilateral perihilar opacification, right greater than left, likely representing early pulmonary edema. Infiltrate not excluded. Stable mild cardiomegaly. D/ / Fredrick Hester MD / Fredrick Hester MD Interpreting Provider: Fredrick Hester MD Guidance Needle Placement Ultrasound 03/20/17 00:00 IMPRESSION: Successful ultrasound guided non-tunneled temporary hemodialysis catheter placement. D/ / 03/20/2017 14:31:04 Toya Stanford MD / pablo Interpreting Provider: Toya Stanford MD Insertion Non-Tunneled Catheter 03/20/17 00:00 IMPRESSION: Successful ultrasound guided non-tunneled temporary hemodialysis catheter placement. D/ / 03/20/2017 14:31:04 Toya Stanford MD / pablo Interpreting Provider: Toya Stanford MD Chest X-Ray 03/20/17 11:29 IMPRESSION: Placement of right IJ central venous catheter with tip at SVC/right atrial junction. No pneumothorax. Mild pulmonary vascular congestion along with mild patchy airspace opacities to the lungs bilaterally, right worse than left. Opacities to the left appear similar to prior exam whereas opacities to the right appear mildly worsened from prior exam. Findings may reflect worsening multifocal infiltrates or somewhat asymmetric pulmonary edema. Stable cardiomegaly. D/ / 03/20/2017 11:50:51 Lam Eastman MD / geovany Interpreting Provider: Lam Eastman MD Consult Discharge Plan - Plan Referrals: Roseann Marinelli DO [Primary Care Provider] - <Catarino Agustin P - Last Filed: 03/20/17 18:19> Date of Encounter: 03/20/17 - Constitutional Vitals: Temp Pulse Resp BP Pulse Ox 98.3 F 63 18 166/83 96 03/20/17 14:35 03/20/17 14:35 03/20/17 14:35 03/20/17 14:35 03/20/17 14:35 Internal Medicine: Result - Labs CBC & Chem 7: 03/20/17 06:34 03/20/17 06:34 Labs: Short CBC 03/19/17 03/20/17 Range/Units 21:48 06:34 WBC 17.2 H 15.4 H (4.3-11.1) K/mcL Hgb 14.7 14.1 (12.9-16.9) g/dL Hct 44.6 42.1 (37.5-50.1) % Plt Count 265 251 (140-400) K/mcL Neutrophils # 14.8 H 13.2 H (1.6-8.9) K/mcL BMP 03/20/17 06:34 Sodium 142 Potassium 5.3 H Chloride 109 Carbon Dioxide 14 L BUN 102 H Creatinine 13.97 H Glucose 125 H Calcium 9.7 Cardiac Enzymes 03/19/17 03/20/17 03/20/17 Range/Units 18:59 01:04 06:34 Troponin I 0.11 H* 0.12 H* 0.13 H* (0-0.03) ng/mL - ABG Interpretation ABG results: PT/INR, D-dimer PT 11.5 Seconds (9.4-12.1) 03/19/17 12:56 - Impressions Impressions Chest X-Ray 03/19/17 18:42 IMPRESSION: Bilateral perihilar opacification, right greater than left, likely representing early pulmonary edema. Infiltrate not excluded. Stable mild cardiomegaly. D/ / Fredrick Hester MD / Fredrick Hester MD Interpreting Provider: Fredrick Hester MD Guidance Needle Placement Ultrasound 03/20/17 00:00 IMPRESSION: Successful ultrasound guided non-tunneled temporary hemodialysis catheter placement. D/ / 03/20/2017 14:31:04 Toya Stanford MD / pablo Interpreting Provider: Toya Stanford MD Guidance Needle Placement Ultrasound 03/20/17 00:00 IMPRESSION: Successful bilateral percutaneous nephrostomy tube placement. Moderate sedation given over 30 minutes. D/ / 03/20/2017 15:10:43 Toya Stanford MD / pablo Interpreting Provider: Toya Stanford MD Insertion Non-Tunneled Catheter 03/20/17 00:00 IMPRESSION: Successful ultrasound guided non-tunneled temporary hemodialysis catheter placement. D/ / 03/20/2017 14:31:04 Toya Stanford MD / pablo Interpreting Provider: Toya Stanford MD Nephrostomy 03/20/17 00:00 IMPRESSION: Successful bilateral percutaneous nephrostomy tube placement. Moderate sedation given over 30 minutes. D/ / 03/20/2017 15:10:43 Toya Stanford MD / pablo Interpreting Provider: Toay Stanford MD Nephrostomy 03/20/17 00:00 IMPRESSION: Successful bilateral percutaneous nephrostomy tube placement. Moderate sedation given over 30 minutes. D/ / 03/20/2017 15:10:43 Toya Stanford MD / pablo Interpreting Provider: Toya Stanford MD Chest X-Ray 03/20/17 11:29 IMPRESSION: Placement of right IJ central venous catheter with tip at SVC/right atrial junction. No pneumothorax. Mild pulmonary vascular congestion along with mild patchy airspace opacities to the lungs bilaterally, right worse than left. Opacities to the left appear similar to prior exam whereas opacities to the right appear mildly worsened from prior exam. Findings may reflect worsening multifocal infiltrates or somewhat asymmetric pulmonary edema. Stable cardiomegaly. D/ / 03/20/2017 11:50:51 Lam Eastman MD / [facility] Interpreting Provider: Lam Eastman MD - Attending Attestation I examined this patient and my medical decision-making was reviewed with the Resident Physician. I agree with the documented findings, disposition and treatment plan as described except to the extent set forth below. We will follow the recommendation from nephrology/urology
--- NOTE | 2017-03-20 07:25 | Urology Progress Note ---
Date of Encounter: 03/20/17 Time of Encounter: 07:22 - Assessment and Plan (1) Elevated serum creatinine Current Visit: Yes Status: Acute (2) Malignant neoplasm of prostate Current Visit: Yes Status: Chronic Assessment and plan: goal at this time is renal decompression. will need to start ketoconazole and prednisone in near future. patient will also need to be started on lupron as outpatient. (3) Bilateral hydronephrosis Current Visit: Yes Status: Acute Assessment and plan: patient will have attempted bilateral pcn tubes by IR placed this am. patient going for dialysis access early this am and makes most sense to have IR try to place pcn tubes. will leave patient on OR schedule incase they are unable to place them. Progress Note Narrative: patient seen. sleeping this am. serum creatinine worse. no uop overnight. Objective Initial Vital Signs Temp Pulse Resp BP Pulse Ox 98.1 F 61 16 177/111 99 03/19/17 12:22 03/19/17 12:22 03/19/17 12:22 03/19/17 12:22 03/19/17 12:22 - General physical appearance Present: well developed - Abdomen Present: soft - Labs 03/20/17 06:34 03/20/17 06:34 Diabetes panel 03/20/17 03/20/17 Range/Units 06:34 06:34 Sodium 142 (136-145) mEq/L Potassium 5.3 H (3.5-4.5) mEq/L Chloride 109 (98-109) mEq/L Carbon Dioxide 14 L (19-29) mEq/L BUN 102 H (8-26) mg/dL Creatinine 13.97 H (0.72-1.25) mg/dL Glucose 125 H (70-99) mg/dL Hemoglobin A1c 6.1 H ( - 5.6) % Calcium 9.7 (8.6-10.8) mg/dL Triglycerides 139 (< 150) mg/dL HDL Cholesterol 35 L (40-59) mg/dL Calcium panel 03/20/17 Range/Units 06:34 Calcium 9.7 (8.6-10.8) mg/dL Phosphorus 6.4 H (2.3-4.7) mg/dL Pituitary panel 03/20/17 Range/Units 06:34 Sodium 142 (136-145) mEq/L Potassium 5.3 H (3.5-4.5) mEq/L Chloride 109 (98-109) mEq/L Carbon Dioxide 14 L (19-29) mEq/L BUN 102 H (8-26) mg/dL Creatinine 13.97 H (0.72-1.25) mg/dL Glucose 125 H (70-99) mg/dL Calcium 9.7 (8.6-10.8) mg/dL Adrenal panel 03/20/17 Range/Units 06:34 Sodium 142 (136-145) mEq/L Potassium 5.3 H (3.5-4.5) mEq/L Chloride 109 (98-109) mEq/L Carbon Dioxide 14 L (19-29) mEq/L BUN 102 H (8-26) mg/dL Creatinine 13.97 H (0.72-1.25) mg/dL Glucose 125 H (70-99) mg/dL Calcium 9.7 (8.6-10.8) mg/dL Consult Discharge Plan - Plan Referrals: Roseann Marinelli DO [Primary Care Provider] -
[2017-03-20] MEDS ORDERED: Metoprolol XL (24 HR) Succ 50 MG TAB.ER.24H PO SCH (09:00)
--- NOTE | 2017-03-20 09:06 | Nephrology Progress Note ---
Date of Encounter: 03/20/17 Time of Encounter: 09:04 - Assessment and Plan (1) DAVE (acute kidney injury) Current Visit: Yes Status: Acute Kidney function continues to worsen Scr 13.97, GFr 4 Temp HD line to be placed this morning followed by HD. Bilat PCN tubes to be placed this morning also Strict I/Os Will re-evaluate need for another dialysis treatment tomorrow; hopefully with pcn tubes patient will have a large amount of urine output and kidney function will start to improve. (2) Acute hyperkalemia Current Visit: Yes Status: Acute K+ 5.3 Should improve after dialysis (3) Bilateral hydronephrosis Current Visit: Yes Status: Acute per urology team (4) Malignant neoplasm of prostate Current Visit: Yes Status: Acute per primary team Subjective Principal diagnosis: DAVE, hyperkalemia, bilateral hydronephrosis Interval history: Patient seen and examined. Lying on side in bed, appears to have some difficulty in answering my questions--takes him a little bit of time to respond. Objective - Vital Signs Vital signs: Vital Signs Temp Pulse Resp BP Pulse Ox 03/20/17 07:25 97.8 F 60 20 164/84 94 03/20/17 04:36 27 100 03/20/17 04:15 98.9 F 60 26 168/90 03/20/17 04:13 98.9 F 63 26 168/90 98 03/20/17 00:50 25 96 03/20/17 00:33 63 20 188/96 96 03/20/17 00:15 98.5 F 63 20 188/96 03/19/17 22:00 190/102 03/19/17 20:15 98.5 F 62 20 189/101 93 Intake and Output 03/19/17 03/20/17 03/20/17 23:59 07:59 15:59 Intake Total 0 / 0 50 / 50 Balance 0 / 0 50 / 50 Intake: Oral 0 / 0 50 / 50 Other: # Voids 1 0 - General Appearance General appearance: Present: obese EENT: Present: ATNC, mucous membranes moist, hearing intact, vision intact Neck: Present: supple Respiratory: Present: clear Cardiology: Present: edema, normal S1, normal S2 Gastrointestinal: Present: no tenderness, no guarding, obese Integumentary: Present: warm and dry Neurologic: Present: alert and oriented x3 (slow responses to questions) Psychiatric: Present: mood/affect appropriate, cooperative - Lab 03/20/17 06:34 03/20/17 06:34 Most recent lab results Calcium 9.7 mg/dL (8.6-10.8) 03/20/17 06:34 Phosphorus 6.4 mg/dL (2.3-4.7) H 03/20/17 06:34 Magnesium 2.6 mg/dL (1.6-2.6) 03/20/17 06:34 Consult Discharge Plan - Plan Referrals: Roseann Marinelli DO [Primary Care Provider] -
[2017-03-20] MEDS ORDERED: Heparin 1,000 UNITS/500 mL NS 500 ML ONE (09:36)
[2017-03-20] MEDS ORDERED: Piperacillin/Tazobactam 3.375 GM in D5% in Water (Mini-Bag+) 100 ML IVPB ONE (09:50)
--- NOTE | 2017-03-20 09:53 | Pre-Sedation Evaluation ---
Pre-sedation evaluation - Pre-sedation checklist Date of procedure: 03/20/17 Procedure: nephrostomy bilateral, central line Recent Vitals: Last Vital Signs Temp 97.8 F 03/20/17 07:25 Pulse 60 03/20/17 07:25 Resp 20 03/20/17 07:25 BP 164/84 03/20/17 07:25 Pulse Ox 94 03/20/17 07:25 Dietary Status: NPO after Midnight Airway Assessment: Patient can open mouth completely, TMJ function normal, Micrognathia (under-bite, receding chin) absent, Neck with adequate range of motion Possible difficult airway: No ASA Classification *see protocol: CLASS II-Mild systemic disease Plan of Care: Pt appropriate candidate for procedure/moderate/conscious sedation , Risks/benefits of procedure/sedation discussed w/ patient/family, If not NPO; Risk of intake outweiged by necessity to perform procedure
[2017-03-20] MEDS ORDERED: Ampicillin/Sulbactam 1,500 MG in 0.9 % Sodium Chloride Mini Bag 100 ML IVPB ONE (09:57)
[2017-03-20] MEDS: Multivit/Ca/Min/Fe/FA 1 TAB TABLET PO SCH (10:00)
[2017-03-20] MEDS: Cholecalciferol (D-3) 1,000 UNIT TABLET PO SCH (10:00)
[2017-03-20] MEDS ORDERED: 0.9 % Sodium Chloride 1,000 ML ONE (10:14)
[2017-03-20] MEDS: *HR* FentaNYL (PF) 100 MCG/2 ML VIAL IVP PRN ×3 (10:32→11:05)
[2017-03-20] MEDS: *HR* Midazolam HCl 2 MG/2 ML VIAL IVP PRN ×3 (10:32→11:05)
[2017-03-20] MEDS ORDERED: *HR* Heparin 5,000 UNIT/ML VIAL ONE (10:39)
--- NOTE | 2017-03-20 11:16 | Electrocardiograph Report ---
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
[2017-03-20] MEDS ORDERED: *HR* FentaNYL (PF) 100 MCG/2 ML VIAL ONE (11:36)
[2017-03-20] MEDS ORDERED: *HR* Propofol 200 MG/20 ML VIAL IVP ONE (11:36)
--- NOTE | 2017-03-20 11:46 | IR Procedure Note ---
Date of procedure: 03/20/17 Consent Obtained: Written consent Timeout: Correct patient and procedure verified, Correct site verified, Time out performed, Skin prep completed Indications: renal failure, bilareal renal obstruction, prostate cancer Procedure Performed: temp HDC, bilateral nephrostomy tubes Site/Technique: rt IJ temp HD, bilateral 10F nephrostomy tubes Results/Findings: adequate placement Estimated blood loss (cc): 4 Complications: None; Tolerated procedure well Post Procedure Treatment Plan: OK to use catheters
[2017-03-20] MEDS ORDERED: *HR* Morphine 2 MG/ML SYRINGE IVP PRN ×2 (16:16→16:28)
--- NOTE | 2017-03-20 17:01 | Electrocardiograph Report ---
[address] [address] Test Date: 2017-03-19 Pat Name: Moses Reich Department: 103 Room: [facility] Gender: M Liability Analyst: AM : 1945 Requested By: Catarino Agustin Order Number: [id number] Reading MD: Can Dennis Measurements Intervals [place] Rate: 60 P: [place]: 0 QRS: -52 QRSD: 160 T: 17 QT: 455 QTc: 455 Interpretive Statements ELECTRONIC VENTRICULAR PACEMAKER ABNORMAL RHYTHM ECG Electronically Signed On 03-20-2017 16:59:42 EDT by Can Dennis
--- NOTE | 2017-03-20 17:06 | Electrocardiograph Report ---
[address] [address] Test Date: 2017-03-19 Pat Name: Moses Reich Department: 111 Room: [facility] Gender: M Principal Cloud Architect: [id number] : 1945 Requested By: Catarino Agustin Order Number: [id number] Reading MD: Can Dennis Measurements Intervals [place] Rate: 62 P: ID: 0 QRS: -80 QRSD: 165 T: 71 QT: 460 QTc: 465 Interpretive Statements ELECTRONIC VENTRICULAR PACEMAKER ABNORMAL RHYTHM ECG Electronically Signed On 03-20-2017 17:04:15 EDT by Can Dennis
[2017-03-21 05:27] LABS: INR 1.2; Prothrombin Time 13.4 Seconds (9.4-12.1)
[2017-03-21 05:36] LABS: Hematocrit 43.9 % (37.5-50.1); Hemoglobin 14.9 g/dL (12.9-16.9); Mean Corpuscular HGB Conc 33.9 g/dL (31.6-35.5); Mean Corpuscular Hemoglobin 28.1 pg (28.0-33.3); Mean Corpuscular Volume 82.7 fL (83.0-100.0); Mean Platelet Volume 11.1 fL (9.4-12.4); Platelet Count 244 K/mcL (140-400); Red Blood Count 5.31 M/mcL (4.19-5.50); Red Cell Distribution Width 13.8 % (11.5-14.5)
[2017-03-21 05:37] LABS: Calcium 10.1 mg/dL (8.6-10.8)
[2017-03-21 05:40] LABS: Potassium 4.1 mEq/L (3.5-4.5)
[2017-03-21] MEDS ORDERED: 0.9 % Sodium Chloride 250 ML IVC PRN (06:04)
--- NOTE | 2017-03-21 06:45 | Internal Med Progress Note ---
<Fredrick Smiley - Last Filed: 03/21/17 09:10> Date of Encounter: 03/21/17 Time of Encounter: 06:45 - Assessment and plan (1) DAVE (acute kidney injury) Current Visit: Yes Status: Acute Assessment and plan: Creatinine 7.97. Likely post-renal etiology due to obstructive uropathy. CT abdomen/pelvis shows B/L moderate hydronephrosis and bladder mass, could be blocking urine flow. CXR shows pulmonary edema Patient also has associated uremic encephalopathy; Nephrology consulted; recommends IV Lasix spot dosing and close monitoring of vital signs. S/p temp CVC placement and hemodialysis 03/20/17 S/p bilateral pcn tubes by IR placement He accidentally pulled on of his nephrostomy tubes during transfer but it seems to be draining adequately. KUB pending. Continue Telemetry monitoring S/p another dialysis treatment today Nephrology following (2) Malignant neoplasm of prostate Current Visit: Yes Status: Acute Assessment and plan: Continue anticoagulation for A-fib with Coumadin once cleared by Urology Will need to be started on anti-androgen soon once ok with nephrology Urology following (3) Occipital infarction Current Visit: Yes Status: Acute Assessment and plan: Patient presented with acute right-sided blurred vision CT head shows acute infarct in right parieto-occipital lobe Unable to get MRI of brain due to pacemaker placement Neurology consult appreciated, recommended to continue anticoagulation with Coumadin when cleared by Urology PT/OT evaluation. Continue statin (4) Acute encephalopathy Current Visit: Yes Status: Resolved Assessment and plan: Multifactorial, likely due to uremic encephalopathy A&Ox3 today after dialysis Patient passed bedside swallow, on cardiac diet Continue to monitor (5) Acute hyperkalemia Current Visit: Yes Status: Resolved Assessment and plan: S/p dialysis Continue to monitor (6) Elevated troponin Current Visit: Yes Status: Acute Assessment and plan: Likely due to volume overload and acute renal failure; continue telemetry (7) Hematuria Current Visit: Yes Status: Acute Assessment and plan: CT abdomen/pelvis shows bladder mass in inferior part, could be recurrence of prostate cancer; PSA elevated at 17.94. Urology consult appreciated Monitor input and urine output Qualifiers: Hematuria type: gross Qualified Code(s): R31.0 - Gross hematuria (8) Atrial fibrillation Current Visit: Yes Status: Chronic Assessment and plan: S/p PPM placement. Currently rate-controlled; continue beta juan pablo; h/o anticoagulation with Coumadin; INR 1.1 Coumadin held for the last 2 weeks in anticipation of Cystoscopy to evaluate hematuria Continue anticoagulation with Coumadin when cleared by Urology Qualifiers: Atrial fibrillation type: chronic Qualified Code(s): I48.2 - Chronic atrial fibrillation (9) DVT prophylaxis Current Visit: Yes Status: Acute Assessment and plan: SCDs - Subjective Interval history: Patient seen and examined. Patient A&Ox3, reports mild discomfort, weakness, and answers questions appropriately. He accidentally pulled on of his nephrostomy tubes during transfer but it seems to be draining adequately. KUB pending. Patient denies fever, chills, CP, SOB, abd pain, N/V/D, or leg edema. Patient is asking for food. - Constitutional Vitals: Temp Pulse Resp BP Pulse Ox 98.2 F 60 16 176/92 97 03/20/17 23:20 03/21/17 04:54 03/21/17 04:54 03/21/17 04:54 03/21/17 03:44 General appearance: Present: mild distress, A&O X 3, pleasant, obese, answers questions appropriately Exam: General appearance: Present: cooperative, A&O X 2, mild distress, obese, answers questions appropriately Exam: slightly confused, disoriented to time, and answers questions appropriately - Head Head exam: Present: atraumatic, normal inspection, normocephalic - Eye Eye exam: Present: EOMI, PERRL - ENT ENT exam: Present: mucous membranes dry, normal oropharynx - Neck Neck exam general surgery: Present: normal inspection, supple - Respiratory Respiratory exam: Present: CTAB. Absent: wheezes - Cardiovascular Cardiovascular exam: Present: RRR, +S1, +S2 - GI/Abdominal GI/Abdominal exam: Present: normal bowel sounds, soft. Absent: distended, tenderness - Extremities Exam Extremities exam: Present: normal capillary refill, normal inspection, pedal edema (2+), warm - Back Exam Back exam: Absent: paraspinal tenderness, tenderness Additional comments: bilateral nephrostomy tubes in place with good urine output - Neurological Exam Neurological exam: Present: altered, oriented X3, no focal deficits, strengths equal and symetr throughout. Absent: motor sensory deficit, facial droop, speech deficit - Psychiatric Psychiatric exam: Present: anxious, normal affect - Skin Skin exam: Present: dry, normal color, warm - Head Head exam: Present: atraumatic, normal inspection, normocephalic - Eye Eye exam: Present: EOMI, PERRL - ENT ENT exam: Present: mucous membranes moist, normal oropharynx - Neck Neck exam general surgery: Present: normal inspection, supple. Absent: lymphadenopathy, tenderness - Respiratory Respiratory exam: Present: CTAB. Absent: accessory muscle use, rales, respiratory distress, rhonchi, wheezes - Cardiovascular Cardiovascular exam: Present: RRR, +S1, +S3 - GI/Abdominal GI/Abdominal exam: Present: normal bowel sounds, soft. Absent: distended, guarding, tenderness - Additional comments: Bilateral nephrostomy tubes in place, serosangiunous drainage, dressing C/D/I - Extremities Exam Extremities exam: Present: full ROM, warm. Absent: pedal edema - Incison Incision: Present: clean and dry, intact - Back Exam Back exam: Present: normal inspection Additional comments: Bilateral nephrostomy tubes in place, serosangiunous drainage, dressing C/D/I - Neurological Exam Neurological exam: Present: alert, oriented X3, no focal deficits. Absent: altered, speech deficit - Psychiatric Psychiatric exam: Present: normal affect, normal mood - Skin Skin exam: Present: dry, normal color, warm Internal Medicine: Result - Labs CBC & Chem 7: 03/21/17 04:58 03/21/17 04:58 Labs: Short CBC 03/20/17 03/21/17 Range/Units 06:34 04:58 WBC 15.4 H 12.9 H (4.3-11.1) K/mcL Hgb 14.1 14.9 (12.9-16.9) g/dL Hct 42.1 43.9 (37.5-50.1) % Plt Count 251 244 (140-400) K/mcL Neutrophils # 13.2 H (1.6-8.9) K/mcL BMP 03/20/17 03/21/17 06:34 04:58 Sodium 142 144 Potassium 5.3 H 4.1 D Chloride 109 108 Carbon Dioxide 14 L 20 BUN 102 H 66 H D Creatinine 13.97 H 7.97 H Glucose 125 H 118 H Calcium 9.7 10.1 Cardiac Enzymes 03/20/17 Range/Units 06:34 Troponin I 0.13 H* (0-0.03) ng/mL - ABG Interpretation ABG results: PT/INR, D-dimer PT 13.4 Seconds (9.4-12.1) H 03/21/17 04:58 - Impressions Impressions Guidance Needle Placement Ultrasound 03/20/17 00:00 IMPRESSION: Successful ultrasound guided non-tunneled temporary hemodialysis catheter placement. D/ / 03/20/2017 14:31:04 Toya Stanford MD / pablo Interpreting Provider: Toya Stanford MD Guidance Needle Placement Ultrasound 03/20/17 00:00 IMPRESSION: Successful bilateral percutaneous nephrostomy tube placement. Moderate sedation given over 30 minutes. D/ / 03/20/2017 15:10:43 Toya Stanford MD / pablo Interpreting Provider: Toya Stanford MD Insertion Non-Tunneled Catheter 03/20/17 00:00 IMPRESSION: Successful ultrasound guided non-tunneled temporary hemodialysis catheter placement. D/ / 03/20/2017 14:31:04 Toya Stanford MD / pablo Interpreting Provider: Toya Stanford MD Nephrostomy 03/20/17 00:00 IMPRESSION: Successful bilateral percutaneous nephrostomy tube placement. Moderate sedation given over 30 minutes. D/ / 03/20/2017 15:10:43 Toya Stanford MD / pablo Interpreting Provider: Toya Stanford MD Nephrostomy 03/20/17 00:00 IMPRESSION: Successful bilateral percutaneous nephrostomy tube placement. Moderate sedation given over 30 minutes. D/ / 03/20/2017 15:10:43 Toya Stanford MD / pablo Interpreting Provider: Toya Stanford MD Chest X-Ray 03/20/17 11:29 IMPRESSION: Placement of right IJ central venous catheter with tip at SVC/right atrial junction. No pneumothorax. Mild pulmonary vascular congestion along with mild patchy airspace opacities to the lungs bilaterally, right worse than left. Opacities to the left appear similar to prior exam whereas opacities to the right appear mildly worsened from prior exam. Findings may reflect worsening multifocal infiltrates or somewhat asymmetric pulmonary edema. Stable cardiomegaly. D/ / 03/20/2017 11:50:51 Lam Eastman MD / geovany Interpreting Provider: Lam Eastman MD Consult Discharge Plan - Plan Referrals: Roseann Marinelli DO [Primary Care Provider] - <Catarino Agustin P - Last Filed: 03/21/17 17:45> Date of Encounter: 03/21/17 - Constitutional Vitals: Temp Pulse Resp BP Pulse Ox 99 F 60 18 140/88 97 03/21/17 15:00 03/21/17 15:00 03/21/17 15:00 03/21/17 15:00 03/21/17 15:00 Internal Medicine: Result - Labs CBC & Chem 7: 03/21/17 04:58 03/21/17 04:58 Labs: Short CBC 03/21/17 Range/Units 04:58 WBC 12.9 H (4.3-11.1) K/mcL Hgb 14.9 (12.9-16.9) g/dL Hct 43.9 (37.5-50.1) % Plt Count 244 (140-400) K/mcL BMP 03/21/17 04:58 Sodium 144 Potassium 4.1 D Chloride 108 Carbon Dioxide 20 BUN 66 H D Creatinine 7.97 H Glucose 118 H Calcium 10.1 - ABG Interpretation ABG results: PT/INR, D-dimer PT 13.4 Seconds (9.4-12.1) H 03/21/17 04:58 - Impressions Impressions KUB X-Ray 03/21/17 09:00 IMPRESSION: Bilateral nephrostomy tubes are noted, do not seem significantly changed since 03/20/2017. If there remains clinical suspicion for displacement recommend ultrasound or CT. D/ / 03/21/2017 10:31:59 Aleja Trejo MD / geovany Interpreting Provider: Aleja Trejo MD - Attending Attestation I examined this patient and my medical decision-making was reviewed with the Resident Physician. I agree with the documented findings, disposition and treatment plan as described except to the extent set forth below.
[2017-03-21] MEDS: Multivit/Ca/Min/Fe/FA 1 TAB TABLET PO SCH (06:46)
[2017-03-21] MEDS: Cholecalciferol (D-3) 1,000 UNIT TABLET PO SCH (06:46)
--- NOTE | 2017-03-21 08:14 | Urology Progress Note ---
Date of Encounter: 03/21/17 Time of Encounter: 08:12 - Assessment and Plan (1) Elevated serum creatinine Current Visit: Yes Status: Acute Assessment and plan: improving (2) Malignant neoplasm of prostate Current Visit: Yes Status: Acute Assessment and plan: will need to clarify whether patient had a prostatectomy or not. will need to be started on anti-androgen soon. (3) Bilateral hydronephrosis Current Visit: Yes Status: Acute Assessment and plan: improving. ok to start anticoag. just will need to keep a close eye on urine color. Progress Note Narrative: patient seen. asleep. creatinine improved (unsure whether from dialysis or nephrostomy tubes). urine clearing in bags Objective Initial Vital Signs Temp Pulse Resp BP Pulse Ox 98.1 F 61 16 177/111 99 03/19/17 12:22 03/19/17 12:22 03/19/17 12:22 03/19/17 12:22 03/19/17 12:22 - General physical appearance Present: well developed - Abdomen Present: soft - Labs 03/21/17 04:58 03/21/17 04:58 Diabetes panel 03/21/17 Range/Units 04:58 Sodium 144 (136-145) mEq/L Potassium 4.1 D (3.5-4.5) mEq/L Chloride 108 (98-109) mEq/L Carbon Dioxide 20 (19-29) mEq/L BUN 66 H D (8-26) mg/dL Creatinine 7.97 H (0.72-1.25) mg/dL Glucose 118 H (70-99) mg/dL Calcium 10.1 (8.6-10.8) mg/dL Calcium panel 03/21/17 Range/Units 04:58 Calcium 10.1 (8.6-10.8) mg/dL Pituitary panel 03/21/17 Range/Units 04:58 Sodium 144 (136-145) mEq/L Potassium 4.1 D (3.5-4.5) mEq/L Chloride 108 (98-109) mEq/L Carbon Dioxide 20 (19-29) mEq/L BUN 66 H D (8-26) mg/dL Creatinine 7.97 H (0.72-1.25) mg/dL Glucose 118 H (70-99) mg/dL Calcium 10.1 (8.6-10.8) mg/dL Adrenal panel 03/21/17 Range/Units 04:58 Sodium 144 (136-145) mEq/L Potassium 4.1 D (3.5-4.5) mEq/L Chloride 108 (98-109) mEq/L Carbon Dioxide 20 (19-29) mEq/L BUN 66 H D (8-26) mg/dL Creatinine 7.97 H (0.72-1.25) mg/dL Glucose 118 H (70-99) mg/dL Calcium 10.1 (8.6-10.8) mg/dL Consult Discharge Plan - Plan Referrals: Roseann Marinelli DO [Primary Care Provider] -
[2017-03-21] MEDS: Metoprolol XL (24 HR) Succ 50 MG TAB.ER.24H PO SCH (11:30)
--- NOTE | 2017-03-21 12:09 | Nephrology Progress Note ---
Date of Encounter: 03/21/17 Time of Encounter: 12:07 - Assessment and Plan (1) DAVE (acute kidney injury) Current Visit: Yes Status: Acute Secondary to obstruction. S/p Placement of nephrostomy tube. HD today. Will assess for renal recovery over the weekend. (2) Bilateral hydronephrosis Current Visit: Yes Status: Acute S/p bilateral nephrostomy tubes. Per urology. (3) Atrial fibrillation Current Visit: Yes Status: Chronic Rate controlled. Qualifiers: Atrial fibrillation type: chronic Qualified Code(s): I48.2 - Chronic atrial fibrillation (4) Acute hyperkalemia Current Visit: Yes Status: Resolved Resolved with dialysis. (5) Acidosis Current Visit: Yes Status: Acute Improved with dialysis. Subjective Principal diagnosis: DAVE, hyperkalemia, bilateral hydronephrosis Interval history: Patient seen while on dialysis. He has no new complaint other than wanting something to eat. Objective - Vital Signs Vital signs: Vital Signs Temp Pulse Resp BP Pulse Ox 03/21/17 10:42 98.4 F 63 18 168/102 97 03/21/17 09:35 98.9 F 18 168/88 03/21/17 09:20 162/88 03/21/17 09:05 154/88 03/21/17 08:50 135/77 03/21/17 08:35 141/83 03/21/17 08:20 144/88 03/21/17 08:05 177/95 03/21/17 07:50 81/60 03/21/17 07:35 180/95 03/21/17 07:20 190/83 03/21/17 07:07 99 F 64 16 174/82 96 03/21/17 07:05 192/98 03/21/17 06:50 98.8 F 16 196/95 03/21/17 04:54 60 16 176/92 03/21/17 03:44 66 16 176/92 97 03/20/17 23:20 98.2 F 64 14 173/83 96 03/20/17 21:45 98.2 F 64 16 173/83 96 03/20/17 20:20 98.1 F 61 18 103/85 03/20/17 19:12 98.1 F 61 20 103/85 91 03/20/17 14:35 98.3 F 63 18 166/83 96 03/20/17 14:25 97.7 F 18 183/94 03/20/17 14:16 57 16 166/83 94 03/20/17 13:55 176/91 03/20/17 13:40 195/92 03/20/17 13:25 188/91 03/20/17 13:10 171/66 03/20/17 12:55 166/87 03/20/17 12:40 135/95 03/20/17 12:25 187/87 03/20/17 12:10 202/85 Intake and Output 03/20/17 03/21/17 03/21/17 23:59 07:59 15:59 Intake Total 60 / 60 1600 / 1600 Output Total 2250 / 2250 1675 / 1675 2850 / 2850 Balance -2190 / -2190 -75 / -75 -2850 / -2850 Intake: Oral 60 / 60 1000 / 1000 Intake, Rinseback and Flushes 600 / 600 Output: Urine 400 / 400 Total Dialysis (HD) Output 2100 / 2100 Left Nephrostomy 1275 / 1275 550 / 550 250 / 250 Right Nephrostomy 225 / 225 125 / 125 100 / 100 Wound Drainage 750 / 750 1000 / 1000 Left Lower Back 250 / 250 900 / 900 Right Lower Back 500 / 500 100 / 100 Other: Meal Dinner Percent of Meal Consumed 5% Weight 118.4 kg Hemodialysis Net Fluid Removed 842 1500 (mL) Patient Weight 03/21/17 23:59 Weight 118.4 kg - General Appearance General appearance: Present: well-developed, well-nourished, obese EENT: Present: ATNC Neck: Present: supple Additional Comments: Respirations are unlabored. Cardiology: Present: regular rate Gastrointestinal: Present: obese Integumentary: Present: warm and dry Neurologic: Present: alert and oriented x3 Musculoskeletal: Present: no cyanosis Psychiatric: Present: mood/affect appropriate - Lab 03/21/17 04:58 03/21/17 04:58 Most recent lab results Calcium 10.1 mg/dL (8.6-10.8) 03/21/17 04:58 Phosphorus 6.4 mg/dL (2.3-4.7) H 03/20/17 06:34 Magnesium 2.6 mg/dL (1.6-2.6) 03/20/17 06:34 Consult Discharge Plan - Plan Referrals: Roseann Marinelli DO [Primary Care Provider] -
--- NOTE | 2017-03-22 04:44 | Event Note ---
Date of Encounter: 03/22/17 Time of Encounter: 04:39 Response code was called at 0422 this morning. Patient was reportedly being taken to the bathroom when he began to slump to the side, had a blank expression on his face with diaphoresis and looked pale. Physician arrived at bedside. Vital signs upon arrival within normal limits. EKG was obtained and showed ventricularly paced rhythm without evidence of ischemia. Physical examination revealed patient alert and oriented 3, answering questions appropriately, voiced no complaints. No postictal confusion. No incontinence. cardiac auscultion revealed regular rate and rhythm. No motor or sensory deficits. Likely vasovagal episode. Pt was stable and resting comfortably immediately following episode.
--- NOTE | 2017-03-22 07:45 | Internal Med Progress Note ---
<Fredrick Smiley - Last Filed: 03/22/17 09:33> Date of Encounter: 03/22/17 Time of Encounter: 07:44 - Assessment and plan (1) DAVE (acute kidney injury) Current Visit: Yes Status: Acute Assessment and plan: Creatinine 5.27. Likely post-renal etiology due to obstructive uropathy. CT abdomen/pelvis shows B/L moderate hydronephrosis and bladder mass, could be blocking urine flow. CXR shows pulmonary edema Patient had associated uremic encephalopathy; Nephrology consulted; recommended IV Lasix spot dosing and close monitoring of vital signs. S/p temp CVC placement and hemodialysis 03/20/17 & 03/21/17 S/p bilateral pcn tubes placed by IR KUB shows no nephrostomy tube displacement Continue Telemetry monitoring Nephrology following, may need another dialysis treatment today (2) Malignant neoplasm of prostate Current Visit: Yes Status: Acute Assessment and plan: Continue anticoagulation for A-fib with Coumadin once cleared by Urology Will need to be started on anti-androgen soon once ok with nephrology Urology following (3) Occipital infarction Current Visit: Yes Status: Acute Assessment and plan: Patient presented with acute right-sided blurred vision CT head shows acute infarct in right parieto-occipital lobe Unable to get MRI of brain due to pacemaker placement Neurology consult appreciated, recommended to continue anticoagulation with Coumadin when cleared by Urology PT/OT evaluation. Continue statin (4) Acute encephalopathy Current Visit: Yes Status: Resolved Assessment and plan: Multifactorial, likely due to uremic encephalopathy A&Ox3 today after dialysis Patient passed bedside swallow, on cardiac diet Continue to monitor (5) Acute hyperkalemia Current Visit: Yes Status: Resolved Assessment and plan: Resolved s/p dialysis Continue to monitor (6) Elevated troponin Current Visit: Yes Status: Acute Assessment and plan: Likely due to volume overload and acute renal failure; continue telemetry Downtrending serial troponins (7) Hematuria Current Visit: Yes Status: Acute Assessment and plan: CT abdomen/pelvis shows bladder mass in inferior part, could be recurrence of prostate cancer; PSA elevated at 17.94. Urology consult appreciated Monitor input and urine output Qualifiers: Hematuria type: gross Qualified Code(s): R31.0 - Gross hematuria (8) Atrial fibrillation Current Visit: Yes Status: Chronic Assessment and plan: S/p PPM placement. Currently rate-controlled; continue beta juan pablo; h/o anticoagulation with Coumadin; INR 1.2 Coumadin held for the last 2 weeks in anticipation of Cystoscopy to evaluate hematuria Continue anticoagulation with Coumadin when cleared by Urology Qualifiers: Atrial fibrillation type: chronic Qualified Code(s): I48.2 - Chronic atrial fibrillation (9) DVT prophylaxis Current Visit: Yes Status: Acute Assessment and plan: SCDs - Subjective Interval history: Patient seen and examined. Nursing reports vasovagal episode last PM while attempting to use the bathroom. Patient does not recall passing out episode overnight. Patient denies fever, chills, CP, SOB, abd pain, N/V/D, or leg edema. Patient refused morning labs this morning but later agreed to blood draw after discussion at bedside. - Constitutional Vitals: Temp Pulse Resp BP Pulse Ox 99.7 F H 66 20 160/97 94 03/22/17 07:10 03/22/17 07:10 03/22/17 07:10 03/22/17 07:10 03/22/17 07:10 General appearance: Present: pleasant, no acute distress, obese, answers questions appropriately Exam: somnolent - Head Head exam: Present: atraumatic, normal inspection, normocephalic - Eye Eye exam: Present: EOMI, PERRL - ENT ENT exam: Present: mucous membranes dry, normal oropharynx - Neck Neck exam general surgery: Present: normal inspection, supple - Respiratory Respiratory exam: Present: CTAB. Absent: rales, rhonchi, wheezes - Cardiovascular Cardiovascular exam: Present: RRR, +S1, +S2 - GI/Abdominal GI/Abdominal exam: Present: normal bowel sounds, soft. Absent: distended, tenderness - Additional comments: bilateral nephrostomy tubes with serosanguineous drainage - Extremities Exam Extremities exam: Present: normal inspection, warm. Absent: pedal edema - Back Exam Back exam: Present: normal inspection. Absent: paraspinal tenderness, tenderness - Neurological Exam Neurological exam: Present: alert. Absent: no focal deficits, speech deficit - Psychiatric Psychiatric exam: Present: flat affect, normal mood - Skin Skin exam: Present: dry, normal color, warm Internal Medicine: Result - Labs CBC & Chem 7: 03/22/17 08:14 03/22/17 08:14 - ABG Interpretation ABG results: PT/INR, D-dimer PT 13.4 Seconds (9.4-12.1) H 03/21/17 04:58 - Impressions Impressions KUB X-Ray 03/21/17 09:00 IMPRESSION: Bilateral nephrostomy tubes are noted, do not seem significantly changed since 03/20/2017. If there remains clinical suspicion for displacement recommend ultrasound or CT. D/ / 03/21/2017 10:31:59 Aleja Trejo MD / geovany Interpreting Provider: Aleja Trejo MD Consult Discharge Plan - Plan Referrals: Roseann Marinelli DO [Primary Care Provider] - <Catarino Agustin P - Last Filed: 03/22/17 18:37> Date of Encounter: 03/22/17 - Constitutional Vitals: Temp Pulse Resp BP Pulse Ox 97.4 F L 63 18 153/84 95 03/22/17 15:29 03/22/17 15:29 03/22/17 15:29 03/22/17 15:29 03/22/17 15:29 Internal Medicine: Result - Labs CBC & Chem 7: 03/22/17 08:14 03/22/17 08:14 Labs: Short CBC 03/22/17 Range/Units 08:14 WBC 15.3 H (4.3-11.1) K/mcL Hgb 16.1 (12.9-16.9) g/dL Hct 47.7 (37.5-50.1) % Plt Count 237 (140-400) K/mcL Neutrophils # 12.5 H (1.6-8.9) K/mcL BMP 03/22/17 08:14 Sodium 141 Potassium 3.8 Chloride 103 Carbon Dioxide 23 BUN 47 H D Creatinine 5.27 H Glucose 132 H Calcium 10.1 Cardiac Enzymes 03/22/17 Range/Units 08:14 Troponin I 0.11 H* (0-0.03) ng/mL - ABG Interpretation ABG results: PT/INR, D-dimer PT 13.4 Seconds (9.4-12.1) H 03/21/17 04:58 - Attending Attestation I examined this patient and my medical decision-making was reviewed with the Resident Physician. I agree with the documented findings, disposition and treatment plan as described except to the extent set forth below.
--- NOTE | 2017-03-22 07:56 | Urology Progress Note ---
Date of Encounter: 03/22/17 Time of Encounter: 07:55 - Assessment and Plan (1) Elevated serum creatinine Current Visit: Yes Status: Acute Assessment and plan: awaiting labs (2) Malignant neoplasm of prostate Current Visit: Yes Status: Acute (3) Bilateral hydronephrosis Current Visit: Yes Status: Acute Assessment and plan: sp bilateral pcn tube placement. continue drainage. Progress Note Narrative: patient seen. sleepy this am. labs pending. ok uop from pcn tubes. Objective Initial Vital Signs Temp Pulse Resp BP Pulse Ox 98.1 F 61 16 177/111 99 03/19/17 12:22 03/19/17 12:22 03/19/17 12:22 03/19/17 12:22 03/19/17 12:22 - General physical appearance Present: well developed - Abdomen Present: soft (bilateral pcn tubes with slightly bloody urine in each. ) - Labs 03/21/17 04:58 03/21/17 04:58 Consult Discharge Plan - Plan Referrals: Roseann Marinelli DO [Primary Care Provider] -
[2017-03-22 09:10] LABS: Basophils # 0.1 K/mcL (0.0-0.2); Basophils % 0.3 %; Eosinophils % 0.2 %; Hematocrit 47.7 % (37.5-50.1); Hemoglobin 16.1 g/dL (12.9-16.9); Immature Granulocytes % 0.7 % (0-4); Immature Platelets 9.8 % (1.1-6.1); Lymphocytes # 1.1 K/mcL (0.6-4.6); Lymphocytes % 7.4 %; Mean Corpuscular HGB Conc 33.8 g/dL (31.6-35.5); Mean Corpuscular Hemoglobin 28.1 pg (28.0-33.3); Mean Corpuscular Volume 83.4 fL (83.0-100.0); Mean Platelet Volume 11.4 fL (9.4-12.4); Monocytes # 1.5 K/mcL (0.0-1.3); Monocytes % 9.6 %; Neutrophils # 12.5 K/mcL (1.6-8.9); Platelet Count 237 K/mcL (140-400); Red Blood Count 5.72 M/mcL (4.19-5.50); Red Cell Distribution Width 13.5 % (11.5-14.5); Segmented Neutrophils % 81.8 %
[2017-03-22 09:24] LABS: Calcium 10.1 mg/dL (8.6-10.8); Potassium 3.8 mEq/L (3.5-4.5)
[2017-03-22] MEDS: Cholecalciferol (D-3) 1,000 UNIT TABLET PO SCH (10:36)
[2017-03-22] MEDS: Multivit/Ca/Min/Fe/FA 1 TAB TABLET PO SCH (10:36)
[2017-03-22] MEDS: Metoprolol XL (24 HR) Succ 50 MG TAB.ER.24H PO SCH (10:36)
--- NOTE | 2017-03-22 11:51 | Nephrology Progress Note ---
Date of Encounter: 03/22/17 Time of Encounter: 11:51 - Assessment and Plan (1) DAVE (acute kidney injury) Current Visit: Yes Status: Acute Secondary to obstruction. S/p Placement of nephrostomy tube. No HD today. Will assess for renal recovery over the weekend. (2) Bilateral hydronephrosis Current Visit: Yes Status: Acute S/p bilateral nephrostomy tubes. Per urology. Good urine output. (3) Atrial fibrillation Current Visit: Yes Status: Chronic Rate controlled. Qualifiers: Atrial fibrillation type: chronic Qualified Code(s): I48.2 - Chronic atrial fibrillation (4) Acute hyperkalemia Current Visit: Yes Status: Resolved Resolved with dialysis. (5) Acidosis Current Visit: Yes Status: Acute Improved with dialysis. Subjective Principal diagnosis: DAVE, hyperkalemia, bilateral hydronephrosis Interval history: Patient seen. No new complaint. Primary team in the room. Objective - Vital Signs Vital signs: Vital Signs Temp Pulse Resp BP Pulse Ox 03/22/17 10:58 97.6 F 65 18 161/97 95 03/22/17 07:10 99.7 F H 66 20 160/97 94 03/22/17 04:34 98.8 F 66 16 158/105 91 03/22/17 03:27 98.4 F 67 17 163/100 93 03/21/17 23:26 99.7 F H 62 17 156/81 97 03/21/17 19:18 98.9 F 60 18 142/87 91 03/21/17 15:00 99 F 60 18 140/88 97 Intake and Output 03/21/17 03/22/17 03/22/17 23:59 07:59 15:59 Intake Total 700 / 700 300 / 300 Output Total 750 / 750 1100 / 1100 650 / 650 Balance -50 / -50 -800 / -800 -650 / -650 Intake: Oral 700 / 700 300 / 300 Output: Urine 0 / 0 0 / 0 Wound Drainage 750 / 750 1100 / 1100 650 / 650 Left Lower Back 750 / 750 800 / 800 500 / 500 Right Lower Back 300 / 300 150 / 150 Other: Meal Dinner Percent of Meal Consumed 50% Blood Glucose* 139 - General Appearance General appearance: Present: well-developed, well-nourished EENT: Present: ATNC Cardiology: Present: regular rate Psychiatric: Present: mood/affect appropriate - Lab 03/22/17 08:14 03/22/17 08:14 Most recent lab results Calcium 10.1 mg/dL (8.6-10.8) 03/22/17 08:14 Phosphorus 6.4 mg/dL (2.3-4.7) H 03/20/17 06:34 Magnesium 2.6 mg/dL (1.6-2.6) 03/20/17 06:34 Consult Discharge Plan - Plan Referrals: Roseann Marinelli DO [Primary Care Provider] -
[2017-03-22] MEDS: *HR* OxyCODONE/APAP 5/325 TABLET PO PRN (22:48)
[2017-03-23 03:36] LABS: Hematocrit 46.8 % (37.5-50.1); Hemoglobin 15.9 g/dL (12.9-16.9); Mean Corpuscular Hemoglobin 27.9 pg (28.0-33.3); Mean Corpuscular Volume 82.2 fL (83.0-100.0); Mean Platelet Volume 11.3 fL (9.4-12.4); Platelet Count 235 K/mcL (140-400); Red Blood Count 5.69 M/mcL (4.19-5.50); Red Cell Distribution Width 13.4 % (11.5-14.5)
[2017-03-23 03:43] LABS: Potassium 3.9 mEq/L (3.5-4.5)
--- NOTE | 2017-03-23 07:17 | Internal Med Progress Note ---
<Fredrick Smiley - Last Filed: 03/23/17 12:33> Date of Encounter: 03/23/17 Time of Encounter: 07:15 - Assessment and plan (1) Meningitis Current Visit: Yes Status: Suspected Assessment and plan: Suspected acute meningitis Patent with fever 100.3F, nuchal rigidity, and change in mental status Case discussed with neurologist, Dr. Cherry, recommends holding off on Dexamethasone ath ithis time, start Ampicillin, Rocephin, and Vancomycin ( pharmacy to dose due to DAVE/acute renal failure) Anticipate lumbar puncture Transfer patient to ICU step-down (2N unit) Neurology consulted (2) Sepsis Current Visit: Yes Status: Acute Assessment and plan: Patient febrile 100.3F overnight, WBC increasing 18.9, encephalopathic Roca-cultures pending Lactic acid 1.1 CXR shows improved pulmonary edema Case discussed with Nephrology/ Dr. Brennan, one time dose of Vancomycn is ok Continue empiric antibiotics Qualifiers: Sepsis type: sepsis due to unspecified organism Qualified Code(s): A41.9 - Sepsis, unspecified organism (3) DAVE (acute kidney injury) Current Visit: Yes Status: Acute Assessment and plan: Creatinine 4.83. Likely post-renal etiology due to obstructive uropathy. CT abdomen/pelvis shows B/L moderate hydronephrosis and bladder mass, could be blocking urine flow. CXR shows pulmonary edema Patient had associated uremic encephalopathy S/p temp CVC placement and hemodialysis 03/20/17 & 03/21/17 S/p bilateral pcn tubes placed by IR KUB shows no nephrostomy tube displacement Continue Telemetry monitoring Nephrology following, may need another dialysis treatment today (4) Malignant neoplasm of prostate Current Visit: Yes Status: Acute Assessment and plan: Continue anticoagulation for A-fib with Coumadin once cleared by Urology Will need to be started on anti-androgen, casodex, lupron as outpatient Urology following (5) Occipital infarction Current Visit: Yes Status: Acute Assessment and plan: Patient presented with acute right-sided blurred vision CT head shows acute infarct in right parieto-occipital lobe Unable to get MRI of brain due to pacemaker placement PT/OT evaluation. Continue statin Echo pending Carotid U/S pending Repeat CT brain reveals subacute right parieto-occipital infarct. No new acute abnormality. EEG pending Neurology consult appreciated, recommended to continue anticoagulation with Coumadin when cleared by Urology (6) Acute encephalopathy Current Visit: Yes Status: Acute Assessment and plan: Persistent, multifactorial, likely due to uremic encephalopathy A&Ox3 today after dialysis Patient passed bedside swallow, on cardiac diet Continue to monitor (7) Acute hyperkalemia Current Visit: Yes Status: Resolved Assessment and plan: Resolved s/p dialysis Continue to monitor (8) Elevated troponin Current Visit: Yes Status: Acute Assessment and plan: Likely due to volume overload and acute renal failure; continue telemetry Downtrending serial troponins (9) Hematuria Current Visit: Yes Status: Acute Assessment and plan: CT abdomen/pelvis shows bladder mass in inferior part, could be recurrence of prostate cancer; PSA elevated at 17.94. Urology consult appreciated Monitor input and urine output Qualifiers: Hematuria type: gross Qualified Code(s): R31.0 - Gross hematuria (10) Atrial fibrillation Current Visit: Yes Status: Chronic Assessment and plan: CHADS-VASc Score 4 S/p PPM placement. Currently rate-controlled; continue beta juan pablo; h/o anticoagulation with Coumadin; INR 1.2 Coumadin held for the last 2 weeks in anticipation of Cystoscopy to evaluate hematuria Echo pending to r/o apical clot formation TSH 2.628 Resume anticoagulation with Coumadin when cleared by Urology Qualifiers: Atrial fibrillation type: chronic Qualified Code(s): I48.2 - Chronic atrial fibrillation (11) DVT prophylaxis Current Visit: Yes Status: Acute Assessment and plan: SCDs, resume anticoagulation with Coumadin when cleared by Urology - Subjective Interval history: Patient seen and examined. Nursing reports was hypertensive last night 170/83. He is A&Ox4 but is still confused. He report fatigue, neck stiffness, and had low grade temperature overnight. Patient denies chills, CP, SOB, abd pain, N/V/D , or leg edema. Case discussed with Nephrology/ Dr. Brennan and Neurology/ Dr. Lopez. - Constitutional Vitals: Temp Pulse Resp BP Pulse Ox 100.3 F H 84 16 169/84 95 03/23/17 00:02 03/23/17 05:33 03/23/17 05:33 03/23/17 05:33 03/23/17 05:33 General appearance: Present: pleasant, no acute distress, obese, answers questions appropriately - Head Head exam: Present: atraumatic, normal inspection, normocephalic - Eye Eye exam: Present: EOMI, PERRL - ENT ENT exam: Present: mucous membranes moist, normal oropharynx - Neck Neck exam general surgery: Present: normal inspection, tenderness, nuchal rigidity, trachea midline. Absent: full ROM, lymphadenopathy, supple - Respiratory Respiratory exam: Present: CTAB. Absent: rales, wheezes - Cardiovascular Cardiovascular exam: Present: RRR, +S1, +S2 - GI/Abdominal GI/Abdominal exam: Present: normal bowel sounds, soft. Absent: guarding - Additional comments: bilateral nephrostomy tubes in place with serosanguineous drainage. dressing C/D /I - Extremities Exam Extremities exam: Present: normal inspection, warm. Absent: pedal edema - Back Exam Back exam: Present: normal inspection. Absent: paraspinal tenderness, tenderness Additional comments: bilateral nephrostomy tubes in place with serosanguineous drainage. dressing C/D /I - Neurological Exam Neurological exam: Present: alert, altered, oriented X3, strengths equal and symetr throughout. Absent: no focal deficits, facial droop, speech deficit - Expanded Neurological Exam Neurological exam expanded: Present: inattentive. Absent: expressive aphasia, tremor Patient oriented to: Present: person, place, time Speech: Absent: slurred Cranial Nerves: EOM's intact PM: Abnormal Left, Abnormal Right, nystagmus PM: Abnormal Left, Abnormal Right (unale to co-operate with exam), tongue deviation PM: Normal Sensory exam: lower extremity light touch: Normal, upper extremity light touch: Normal Neuro motor strength exam: LUE: 5, RUE: 5, LLE: 4, RLE: 4 Coma Scale Eye Opening: Spontaneous Coma Scale Motor Response: Obeys Commands Coma Scale Verbal Response: Confused Coma Scale Total: 14 - Psychiatric Psychiatric exam: Present: normal affect, normal mood - Skin Skin exam: Present: dry, intact, normal color, warm Internal Medicine: Result - Labs CBC & Chem 7: 03/23/17 03:22 03/23/17 03:22 Labs: Short CBC 03/22/17 03/23/17 Range/Units 08:14 03:22 WBC 15.3 H 18.9 H (4.3-11.1) K/mcL Hgb 16.1 15.9 (12.9-16.9) g/dL Hct 47.7 46.8 (37.5-50.1) % Plt Count 237 235 (140-400) K/mcL Neutrophils # 12.5 H (1.6-8.9) K/mcL BMP 03/22/17 03/23/17 08:14 03:22 Sodium 141 140 Potassium 3.8 3.9 Chloride 103 103 Carbon Dioxide 23 22 BUN 47 H D 52 H Creatinine 5.27 H 4.83 H Glucose 132 H 141 H Calcium 10.1 10.0 Cardiac Enzymes 03/22/17 Range/Units 08:14 Troponin I 0.11 H* (0-0.03) ng/mL - ABG Interpretation ABG results: PT/INR, D-dimer PT 13.4 Seconds (9.4-12.1) H 03/21/17 04:58 Consult Discharge Plan - Plan Referrals: Roseann Marinelli DO [Primary Care Provider] - <Catarino Agustin P - Last Filed: 03/23/17 17:55> Date of Encounter: 03/23/17 - Constitutional Vitals: Temp Pulse Resp BP Pulse Ox 98.6 F 63 20 186/96 97 03/23/17 13:00 03/23/17 13:00 03/23/17 13:00 03/23/17 13:00 03/23/17 13:00 Internal Medicine: Result - Labs CBC & Chem 7: 03/23/17 03:22 03/23/17 03:22 Labs: Short CBC 03/23/17 Range/Units 03:22 WBC 18.9 H (4.3-11.1) K/mcL Hgb 15.9 (12.9-16.9) g/dL Hct 46.8 (37.5-50.1) % Plt Count 235 (140-400) K/mcL [facility] 03/23/17 03:22 Sodium 140 Potassium 3.9 Chloride 103 Carbon Dioxide 22 BUN 52 H Creatinine 4.83 H Glucose 141 H Calcium 10.0 Liver Function 03/23/17 Range/Units 11:27 Total Bilirubin 1.5 H (0.2-1.2) mg/dL Direct Bilirubin 0.6 H (0.0-0.5) mg/dL AST 22 (5-34) Units/L ALT 22 (0-55) Units/L Alkaline Phosphatase 92 (38-126) Units/L Albumin 3.9 (3.5-5.0) g/dL Urine 03/23/17 Range/Units 12:10 Urine Color Yellow (Yellow) Urine Clarity Cloudy A (Clear) Urine pH 6.0 (5.0-8.0) pH Units Ur Specific [place] > 1.030 H (1.010-1.025) Urine Protein 100 H (Neg-Trace) mg/dL Urine Glucose (UA) Normal (Normal) mg/dL - ABG Interpretation ABG results: ABG ABG pH 7.50 pH Units (7.32-7.45) H 03/23/17 10:14 ABG pCO2 30 mmHg (35-45) L 03/23/17 10:14 ABG pO2 64 mmHg (85-104) L 03/23/17 10:14 ABG O2 Saturation 94 % (95-98) L 03/23/17 10:14 PT/INR, D-dimer PT 13.7 Seconds (9.4-12.1) H 03/23/17 11:17 - Impressions Impressions KUB X-Ray 03/21/17 09:00 IMPRESSION: Bilateral nephrostomy tubes are noted, do not seem significantly changed since 03/20/2017. If there remains clinical suspicion for displacement recommend ultrasound or CT. D/ / 03/21/2017 10:31:59 Aleja Trejo MD / [email or web address] Interpreting Provider: Aleja Trejo MD Chest X-Ray 03/23/17 09:42 IMPRESSION: Improved pulmonary edema. Interval placement of a right IJ central line with the tip projecting over the right atrium. D/ / Sheldon Patel MD / Sheldon Patel MD Interpreting Provider: Sheldon Patel MD Head CT 03/23/17 09:59 IMPRESSION: Subacute right parieto-occipital infarct. No new acute abnormality. D/ / 03/23/2017 11:05:49 Calin Vazquez MD / [email or web address] Interpreting Provider: Calin Vazquez MD - Attending Attestation I examined this patient and my medical decision-making was reviewed with the Resident Physician. I agree with the documented findings, disposition and treatment plan as described except to the extent set forth below. 71/male Admitted with uremic encephalopathy secondary to bladder outlet obstruction. He has bilateral PCN tubes. He has a right central venous catheter for dialysis. Noted that today patient had an abnormal behavior this morning. White count is elevated and concern for sepsis was raised. Case discussed with neurology and we will follow their recommendations. Case discussed with nephrology and per nephrology: A gram of vancomycin one dose is adequate for now. We will follow the recommendations from nephrology. Input from nephrology/urology/neurology really appreciated
--- NOTE | 2017-03-23 08:20 | Urology Progress Note ---
Date of Encounter: 03/23/17 Time of Encounter: 08:18 - Assessment and Plan (1) Elevated serum creatinine Current Visit: Yes Status: Acute Assessment and plan: improving. continue b/l pcn tubes (2) Malignant neoplasm of prostate Current Visit: Yes Status: Acute Assessment and plan: will start casodex, lupron as outpatient. trying to clarify if patient had his prostate removed and if he did when and where. Will f/u with pcp tomorrow for those records. (3) Bilateral hydronephrosis Current Visit: Yes Status: Acute Assessment and plan: continue pcn tubes at this time. Progress Note Narrative: patient seen this am. much more confused. Still can not answer me where he had his prostate surgery done. Objective Initial Vital Signs Temp Pulse Resp BP Pulse Ox 98.1 F 61 16 177/111 99 03/19/17 12:22 03/19/17 12:22 03/19/17 12:22 03/19/17 12:22 03/19/17 12:22 - General physical appearance Present: well developed - Abdomen Present: soft (one perumbilical incision with possible one right lat abd port incision. no other obvious trocar sites. ) - Labs 03/23/17 03:22 03/23/17 03:22 Diabetes panel 03/22/17 03/23/17 Range/Units 08:14 03:22 Sodium 141 140 (136-145) mEq/L Potassium 3.8 3.9 (3.5-4.5) mEq/L Chloride 103 103 (98-109) mEq/L Carbon Dioxide 23 22 (19-29) mEq/L BUN 47 H D 52 H (8-26) mg/dL Creatinine 5.27 H 4.83 H (0.72-1.25) mg/dL Glucose 132 H 141 H (70-99) mg/dL Calcium 10.1 10.0 (8.6-10.8) mg/dL Calcium panel 03/22/17 03/23/17 Range/Units 08:14 03:22 Calcium 10.1 10.0 (8.6-10.8) mg/dL Pituitary panel 03/22/17 03/23/17 Range/Units 08:14 03:22 Sodium 141 140 (136-145) mEq/L Potassium 3.8 3.9 (3.5-4.5) mEq/L Chloride 103 103 (98-109) mEq/L Carbon Dioxide 23 22 (19-29) mEq/L BUN 47 H D 52 H (8-26) mg/dL Creatinine 5.27 H 4.83 H (0.72-1.25) mg/dL Glucose 132 H 141 H (70-99) mg/dL Calcium 10.1 10.0 (8.6-10.8) mg/dL Adrenal panel 03/22/17 03/23/17 Range/Units 08:14 03:22 Sodium 141 140 (136-145) mEq/L Potassium 3.8 3.9 (3.5-4.5) mEq/L Chloride 103 103 (98-109) mEq/L Carbon Dioxide 23 22 (19-29) mEq/L BUN 47 H D 52 H (8-26) mg/dL Creatinine 5.27 H 4.83 H (0.72-1.25) mg/dL Glucose 132 H 141 H (70-99) mg/dL Calcium 10.1 10.0 (8.6-10.8) mg/dL Consult Discharge Plan - Plan Referrals: Roseann Marinelli DO [Primary Care Provider] -
[2017-03-23] MEDS ORDERED: Vancomycin (wt based) 1,000 MG VIAL IVPB ONE (09:47)
[2017-03-23] MEDS: Cholecalciferol (D-3) 1,000 UNIT TABLET PO SCH (09:54)
[2017-03-23] MEDS: Multivit/Ca/Min/Fe/FA 1 TAB TABLET PO SCH (09:55)
[2017-03-23] MEDS: Acetaminophen 325 MG TABLET PO PRN (09:55)
[2017-03-23] MEDS: Metoprolol XL (24 HR) Succ 50 MG TAB.ER.24H PO SCH (09:55)
[2017-03-23] MEDS ORDERED: Piperacillin/Tazobactam 3.375 GM in D5% in Water (Mini-Bag+) 100 ML IVPB SCH (10:00)
[2017-03-23 10:18] LABS: ABG Base Excess 1 mEq/L (-2 to 3); ABG HCO3 23 mEq/L (21-27); ABG Oxygen Saturation 94 % (95-98); ABG PCO2 30 mmHg (35-45); ABG PO2 64 mmHg (85-104); ABG TCO2 24 mEq/L (20-26)
[2017-03-23] MEDS ORDERED: Vancomycin 1,750 MG in D5% in Water 500 ML IVPB ONE (11:00)
[2017-03-23] MEDS: Piperacillin/Tazobactam 3.375 GM in D5% in Water (Mini-Bag+) 100 ML IVPB SCH ×2 (11:20→22:53)
[2017-03-23] MEDS: Bicalutamide 50 MG TABLET PO SCH (11:29)
[2017-03-23 11:48] LABS: INR 1.3; Prothrombin Time 13.7 Seconds (9.4-12.1)
[2017-03-23 11:51] LABS: Activated Partial Thrombo Time 25.2 Seconds (26.0-36.0)
[2017-03-23 11:52] LABS: Albumin 3.9 g/dL (3.5-5.0); Albumin/Globulin Ratio 0.8 (1.1-2.2); Bilirubin,Direct 0.6 mg/dL (0.0-0.5); Bilirubin,Indirect 0.9 mg/dL (0.0-1.2); Bilirubin,Total 1.5 mg/dL (0.2-1.2); Total Protein 8.9 g/dL (6.0-8.3)
[2017-03-23 12:19] LABS: Bilirubin,Urine Negative (Negative); Blood,Urine Large (Negative); Clarity,Urine Cloudy (Clear); Color,Urine Yellow (Yellow); Glucose,Urine (UA) Normal (Normal); Ketones,Urine Negative (Negative); Leukocyte Esterase,Urine Negative (Negative); Nitrite,Urine Negative (Negative); Protein,Urine 100 mg/dL (Neg-Trace); Specific Gravity,Urine > 1.030 (1.010-1.025); Urobilinogen,Urine Normal (Normal)
[2017-03-23 12:21] LABS: Bacteria,Urine None Seen per hpf (None-Few); Hyaline Casts,Urine None Seen per lpf (None-Few); RBC,Urine TNTC per hpf (0-3); Squamous Epithelial Cell,Urine Many per lpf (None-Few)
[2017-03-23] MEDS: Ampicillin 2 GM in 0.9 % Sodium Chloride Mini Bag 100 ML IVPB SCH ×3 (12:31→20:06)
[2017-03-23] MEDS ORDERED: Vancomycin 1,750 MG in D5% in Water 250 ML IVPB SCH (13:00)
--- NOTE | 2017-03-23 13:14 | Nephrology Progress Note ---
Date of Encounter: 03/23/17 Time of Encounter: 13:13 - Assessment and Plan (1) DAVE (acute kidney injury) Current Visit: Yes Status: Acute Secondary to obstruction. S/p Placement of nephrostomy tube. No need for HD today. Will assess for renal recovery over the weekend. Renal dose medications. Avoid nephrotoxins. (2) Bilateral hydronephrosis Current Visit: Yes Status: Acute S/p bilateral nephrostomy tubes. Per urology. Good urine output. (3) Atrial fibrillation Current Visit: Yes Status: Chronic Rate controlled. Primary team awaiting clearance by urology for anticoagulation. Qualifiers: Atrial fibrillation type: chronic Qualified Code(s): I48.2 - Chronic atrial fibrillation (4) Sepsis Current Visit: Yes Status: Acute Patient with sepsis of unclear etiology. Discussed plan of care with Dr. Agustin (hospitalist) and later Dr. Arvizu ( neurology). With new sepsis and neck pain I think that empiric antibiotics is prudent, although the patient reports that at least part of the neck pain is reproducible. Will defer to primary team and neurology the decision regarding lumbar puncture. Ok with vancomycin with very close monitoring until culture data is available. Qualifiers: Sepsis type: sepsis due to unspecified organism Qualified Code(s): A41.9 - Sepsis, unspecified organism (5) Hypertension Current Visit: Yes Status: Acute Uncontrolled off home antihypertensives. With subacute CVA will slowly add back antihypertensives. Will add amlodipine now at 1/2 home dose and this can be increased to home dose as needed. Patient with neck pain that may need imaging. Will defer to primary team. Analgesia as needed. Qualifiers: Qualified Code(s): I10 - Essential (primary) hypertension (6) Parietal lobe infarction Current Visit: Yes Status: Acute Per primary team. Agree with neurology consult. (7) Occipital infarction Current Visit: Yes Status: Acute Per primary team. Agree with neurology consult. Subjective Principal diagnosis: DAVE, hyperkalemia, bilateral hydronephrosis Interval history: Patient seen. No new complaint. Discussed care with primary team. His son and daughter are in the room. I had a long discussion with both of them regarding the patient's care as it pertains to renal function. Objective - Vital Signs Vital signs: Vital Signs Temp Pulse Resp BP Pulse Ox 03/23/17 05:33 84 16 169/84 95 03/23/17 00:02 100.3 F H 53 15 163/66 93 03/22/17 21:42 97.6 F 63 17 170/83 95 03/22/17 15:29 97.4 F L 63 18 153/84 95 Intake and Output 03/22/17 03/23/17 03/23/17 23:59 07:59 15:59 Output Total 1050 / 1050 900 / 900 600 / 600 Balance -1050 / -1050 -900 / -900 -600 / -600 Output: Left Nephrostomy 300 / 300 Right Nephrostomy 100 / 100 Wound Drainage 1050 / 1050 900 / 900 200 / 200 Left Lower Back 800 / 800 650 / 650 200 / 200 Right Lower Back 250 / 250 250 / 250 - General Appearance General appearance: Present: well-developed, well-nourished EENT: Present: ATNC Additional Comments: Pain on the left side of the patient's neck. He will not allow me to palpate the area. Reproducible with movement. Respiratory: Present: course breath sounds Cardiology: Present: no edema, regular rate Gastrointestinal: Present: obese Integumentary: Present: warm and dry Neurologic: Present: alert and oriented x3 Psychiatric: Present: mood/affect appropriate - Lab 03/23/17 03:22 03/23/17 03:22 Most recent lab results ABG pH 7.50 pH Units (7.32-7.45) H 03/23/17 10:14 ABG pCO2 30 mmHg (35-45) L 03/23/17 10:14 ABG pO2 64 mmHg (85-104) L 03/23/17 10:14 ABG HCO3 23 mEq/L (21-27) 03/23/17 10:14 ABG O2 Saturation 94 % (95-98) L 03/23/17 10:14 Calcium 10.0 mg/dL (8.6-10.8) 03/23/17 03:22 Phosphorus 6.4 mg/dL (2.3-4.7) H 03/20/17 06:34 Magnesium 2.6 mg/dL (1.6-2.6) 03/20/17 06:34 Consult Discharge Plan - Plan Referrals: Roseann Marinelli DO [Primary Care Provider] -
[2017-03-23] MEDS: *HR* Morphine 2 MG/ML SYRINGE IVP PRN (13:29)
--- NOTE | 2017-03-23 13:58 | Neurology - Consult Note ---
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 His already been started on broad-spectrum antibiotics suggested that he should continue to try to attempt the spinal tap at the bedside and I believe it would be difficult because of the positioning as he is also complaining of this left- sided neck pain at the same time he also has bilateral tube placed in because of hydronephrosis. At the same time I suggest that we should check for other metabolic infectious etiologies as well and continue to treat accordingly (2) Occipital infarction Current Visit: Yes Status: Acute This patient who already had a occipital infarct. Residual left hemianopia seems to be stable and did not have any other new symptoms CT scan today seems to be stable unfortunately he cannot be on any anticoagulation or even antiplatelet agent because of hematuria and with these multiple tubes placed in. He also has a history of atrial fibrillation and he remained at very high risk for any embolic infarct but unfortunately at this time do not have any option for the treatment. Suggest continue to monitor his heart and keep his heart rate and a stable range (3) Bilateral hydronephrosis Current Visit: Yes Status: Acute (4) DAVE (acute kidney injury) Current Visit: Yes Status: Acute History of Present Illness HPI: Mr. Reich is a 71 year old male H significant for atrial fibrillation, pacemaker placement, off coumadin due to hematuria and recent placement of urostomy , also had prostate cancer and found to have right occipital infarct on CT (03/19) with complain of blurry vision, in left eye. he didt not had any focal weakness and No mental status changes untill for the past two days noted to have confusion off and on. despite that his kidney function is getter better. repeat CT of head showed right occipital infarct no new infarct or bleed reported clinically no other symptoms except blurred vision in left eye, episodic confusion and neck pain on left side of neck sharp in nature. Past Med Surg Social Fam HX - Past Medical History Medical history: atrial fibrillation, cancer (prostate cancer), GI bleed, hypertension - Past Surgical History Surgical History: other (TURP, tonsillectomy), pacemaker - Social History Smoking Status: Former smoker Smokeless Tobacco Status: No Alcohol use: none Drug use: none Medications and Allergies Atorvastatin Calcium [Lipitor] 20 mg PO HS 03/19/17 [History] Cholecalciferol (Vitamin D3) [Vitamin D] 1,000 unit PO DAILY 03/19/17 [History] Losartan Potassium [Cozaar] 50 mg PO DAILY 03/19/17 [History] Meloxicam [Mobic] 7.5 - 15 mg PO DAILY PRN 03/19/17 [History] Metoprolol XL (24 HR) Succ [Toprol XL] 150 mg PO DAILY 03/19/17 [History] Multivitamin [One Daily Multivitamin] 1 each PO DAILY 03/19/17 [History] Amlodipine Besylate [Amlodipine Besylate] 10 mg PO DAILY 03/21/17 [History] Clopidogrel [Plavix] 75 mg PO DAILY 03/21/17 [History] Warfarin [Coumadin] 5 mg PO 1800 03/21/17 [History] 3 Allergy/AdvReac Type Severity Reaction Status Date / Time No Known Allergies Allergy Verified 03/19/17 11:56 All Systems: A 10-system review of systems was performed and is negative for pertinent findings except as documented above in the HPI. Physical Examination - Vital Signs Vital Signs: Initial Vital Signs Temp Pulse Resp BP Pulse Ox 98.1 F 61 16 177/111 99 03/19/17 12:22 03/19/17 12:22 03/19/17 12:22 03/19/17 12:22 03/19/17 12:22 - Constitutional General appearance: comfortable - Neurologic Sensorimotor examination: intact Detailed motor examination: grossly full strength in all extremities Detailed sensory examination: intact Reflexes: Biceps: 1+, Triceps: 1+, Brachioradialis: 1+, Patella: 1+, Achilles: 1 + Mental Status Examination: awake, alert, oriented to person, oriented to place, makes eye contact, follows simple commands, localizes noxious stimulation Cranial nerve examination: PERRL, EOMI (decrease vision in lEFT visual field ( Left Hemianopsia) ), sensory to face intact, no facial asymmetry is present, no dysarthria, hearing is intact symmetrically Cerebellar examination: no dysmetria Results - Laboratory Findings CBC and BMP: 10/29/17 03:22 03/23/17 03:22 Abnormal lab findings: Abnormal lab results WBC 18.9 K/mcL (4.3-11.1) H 03/23/17 03:22 RBC 5.69 M/mcL (4.19-5.50) H 03/23/17 03:22 MCV 82.2 fL (83.0-100.0) L 03/23/17 03:22 MCH 27.9 pg (28.0-33.3) L 03/23/17 03:22 Neutrophils # 12.5 K/mcL (1.6-8.9) H 03/22/17 08:14 Monocytes # 1.5 K/mcL (0.0-1.3) H 03/22/17 08:14 Immature Plt Fraction 9.8 % (1.1-6.1) H 03/22/17 08:14 PT 13.7 Seconds (9.4-12.1) H 03/23/17 11:17 APTT 25.2 Seconds (26.0-36.0) L 03/23/17 11:17 ABG pH 7.50 pH Units (7.32-7.45) H 03/23/17 10:14 ABG pCO2 30 mmHg (35-45) L 03/23/17 10:14 ABG pO2 64 mmHg (85-104) L 03/23/17 10:14 ABG O2 Saturation 94 % (95-98) L 03/23/17 10:14 BUN 52 mg/dL (8-26) H 03/23/17 03:22 Creatinine 4.83 mg/dL (0.72-1.25) H 03/23/17 03:22 Est GFR ( Amer) 15 (> 60) L 03/23/17 03:22 Est GFR (Non-Af Amer) 12 (> 60) L 03/23/17 03:22 Glucose 141 mg/dL (70-99) H 03/23/17 03:22 Hemoglobin A1c 6.1 % (-5.6) H 03/20/17 06:34 Calculated Osmolality 306 (280-300) H 03/23/17 03:22 Phosphorus 6.4 mg/dL (2.3-4.7) H 03/20/17 06:34 Total Bilirubin 1.5 mg/dL (0.2-1.2) H 03/23/17 11:27 Direct Bilirubin 0.6 mg/dL (0.0-0.5) H 03/23/17 11:27 Troponin I 0.11 ng/mL (0-0.03) H* 03/22/17 08:14 B-Natriuretic Peptide 552 pg/mL (0-100) H 03/19/17 18:59 Serum Total Protein 8.9 g/dL (6.0-8.3) H 03/23/17 11:27 Globulin 5.0 g/dL (2.4-3.5) H 03/23/17 11:27 Albumin/Globulin Ratio 0.8 (1.1-2.2) L 03/23/17 11:27 LDL Cholesterol, Calc 111 mg/dL (0-99) H 03/20/17 06:34 HDL Cholesterol 35 mg/dL (40-59) L 03/20/17 06:34 Cholesterol/HDL Ratio 5.0 (0-4.9) H 03/20/17 06:34 Prostate Specific Ag 17.94 ng/mL (0.00-4.00) H 03/19/17 12:56 Urine Clarity Cloudy (Clear) A 03/23/17 12:10 Ur Specific [place] > 1.030 (1.010-1.025) H 03/23/17 12:10 Urine Protein 100 mg/dL (Neg-Trace) H 03/23/17 12:10 Urine Blood Large (Negative) H 03/23/17 12:10 Urine Microscopic RBC TNTC per hpf (0-3) H 03/23/17 12:10 Urine Microscopic WBC 5-15 per hpf (0-3) H 03/23/17 12:10 Ur Squamous Epith Cells Many per lpf (None-Few) H 03/23/17 12:10 Consult Discharge Plan - Plan Referrals: Roseann Marinelli DO [Primary Care Provider] -
[2017-03-23] MEDS ORDERED: Aminoglycoside Consult 1 EACH MC ONE (14:37)
[2017-03-23] MEDS ORDERED: Lidocaine -MPF 2% 5 ML VIAL INFILT ONE (14:45)
[2017-03-23 16:00] LABS: Glucose,CSF 108 mg/dL (40-70); Total Protein,CSF 42 mg/dL (15-45)
[2017-03-23 16:11] LABS: Red Blood Cell,CSF < 0.002 M/mcL
[2017-03-23 16:12] LABS: Appearance,CSF Clear (Clear)
[2017-03-23] MEDS ORDERED: Ampicillin 2 GM VIAL ONE ×2 (16:39→16:40)
[2017-03-23] MEDS: amLODIPine 5 MG TABLET PO SCH (17:22)
[2017-03-24] MEDS ORDERED: Ampicillin 2 GM in 0.9 % Sodium Chloride Mini Bag 100 ML IVPB SCH (02:00)
[2017-03-24 04:11] LABS: Hematocrit 47.7 % (37.5-50.1); Mean Corpuscular HGB Conc 33.5 g/dL (31.6-35.5); Mean Corpuscular Hemoglobin 28.1 pg (28.0-33.3); Mean Corpuscular Volume 83.7 fL (83.0-100.0); Mean Platelet Volume 11.2 fL (9.4-12.4); Platelet Count 234 K/mcL (140-400); Red Cell Distribution Width 13.9 % (11.5-14.5)
[2017-03-24 04:24] LABS: Potassium 3.7 mEq/L (3.5-4.5)
[2017-03-24] MEDS: *HR* Morphine 2 MG/ML SYRINGE IVP PRN (06:17)
--- NOTE | 2017-03-24 07:07 | Internal Med Progress Note ---
<Fredrick Smiley - Last Filed: 03/24/17 13:14> Date of Encounter: 03/24/17 Time of Encounter: 07:07 - Assessment and plan (1) Meningitis Current Visit: Yes Status: Suspected Assessment and plan: Suspected acute viral meningitis, s/p lumbar puncture 03/23/17 CSF results show increased CSF glucose, total nucleated cells < 3, total protein 42, CSF culture pending Patent was fever 100.3F, nuchal rigidity, and change in mental status. Patient reports mild relief in neck pain after occipital nerve block yesterday and lidocaine patch application. Case discussed with neurologist, Dr. Cherry, recommends holding off on Dexamethasone at this time Acyclovir started EEG pending Case discussed with Sourcing Analyst/ Dr. Brennan, will discontinue Vancomycin and consider another dialysis treatment tomorrow. Transfer patient to ICU step-down (2N unit) Neurology following ID consulted (2) Sepsis Current Visit: Yes Status: Acute Assessment and plan: Patient was febrile 100.3F, WBC downtrending, encephalopathic Roca-cultures pending Lactic acid 1.1 --> 1.2 CXR shows improved pulmonary edema Case discussed with Nephrology/ Dr. Brennan, one time dose of Vancomycn given Continue empiric antibiotics Qualifiers: Sepsis type: sepsis due to unspecified organism Qualified Code(s): A41.9 - Sepsis, unspecified organism (3) Cerebrovascular accident (CVA) due to bilateral stenosis of carotid arteries Current Visit: Yes Status: Acute Assessment and plan: Patient with acute residual left hemianopia 03/19/17 CT head shows acute infarct in right parieto-occipital lobe 03/23/[address] brain reveals subacute right parieto-occipital infarct. No new acute abnormality. Unable to get MRI of brain due to pacemaker placement PT/OT evaluation. Continue statin Echo LVEF 50-55%. Overall, LV systolic function appears normal. There is atypical septal motion present. Carotid U/S revealed left ICA 60-79% stenosis and calcified plaque. Right carotid unable to image due to tubing in neck CTA head and neck reveals severe, greater than 70%, stenosis of the bilateral internal carotid arteries, moderate stenosis of the right vertebral artery origin, moderate narrowing of the distal right M1 segment, severe focal narrowing of the bilateral intracranial vertebral arteries, proximal to the bilateral PICA origins, severe stenosis of the right posterior cerebral artery at the P2/P3 junction. Vascular surgery consulted for bilateral carotid stenosis. EEG pending Neurology consult appreciated, recommended to continue anticoagulation with Coumadin when cleared by Urology (4) DAVE (acute kidney injury) Current Visit: Yes Status: Acute Assessment and plan: Creatinine 5.22. Likely post-renal etiology due to obstructive uropathy and IV contrast CT abdomen/pelvis shows B/L moderate hydronephrosis and bladder mass, could be blocking urine flow. CXR shows pulmonary edema Patient had associated uremic encephalopathy S/p temp CVC placement and hemodialysis 03/20/17 & 03/21/17 S/p bilateral pcn tubes placed by IR KUB shows no nephrostomy tube displacement Continue Telemetry monitoring Case discussed with Sourcing Analyst/ Dr. Brennan, will discontinue Vancomycin Nephrology following, may need another dialysis treatment tomorrow if SrCr continue to rise (5) Malignant neoplasm of prostate Current Visit: Yes Status: Acute Assessment and plan: Continue anticoagulation for A-fib with Coumadin once cleared by Urology Will need to be started on anti-androgen, casodex, lupron as outpatient Urology following (6) Acute encephalopathy Current Visit: Yes Status: Acute Assessment and plan: Persistent, multifactorial, likely due to uremic encephalopathy vs. meningitis Patient passed bedside swallow, on cardiac diet Continue to monitor (7) Acute hyperkalemia Current Visit: Yes Status: Resolved Assessment and plan: Resolved s/p dialysis Continue to monitor (8) Elevated troponin Current Visit: Yes Status: Acute Assessment and plan: Likely due to volume overload and acute renal failure; continue telemetry Downtrending serial troponins (9) Hematuria Current Visit: Yes Status: Acute Assessment and plan: CT abdomen/pelvis shows bladder mass in inferior part, could be recurrence of prostate cancer; PSA elevated at 17.94. Urology consult appreciated Monitor input and urine output Qualifiers: Hematuria type: gross Qualified Code(s): R31.0 - Gross hematuria (10) Atrial fibrillation Current Visit: Yes Status: Chronic Assessment and plan: CHADS-VASc Score 4 S/p PPM placement. Currently rate-controlled; continue beta juan pablo; h/o anticoagulation with Coumadin; INR 1.2 Coumadin held for the last 2 weeks in anticipation of Cystoscopy to evaluate hematuria Echo LVEF 50-55%. Overall, LV systolic function appears normal. There is atypical septal motion present. TSH 2.628 Resume anticoagulation with Coumadin when cleared by Urology Qualifiers: Atrial fibrillation type: chronic Qualified Code(s): I48.2 - Chronic atrial fibrillation (11) DVT prophylaxis Current Visit: Yes Status: Acute Assessment and plan: SCDs, resume anticoagulation with Coumadin when cleared by Urology - Subjective Interval history: Patient seen and examined. Nursing reports was hypertensive last night 199/91. He is A&Ox4 but remains mildly confused per family. He reports fatigue, neck stiffness, and afebrile overnight. Patient reports mild relief in neck pain after occipital nerve block yesterday and lidocaine patch application. Vascular surgery consulted today for bilateral carotid stenosis. Serum creatinine is elevated today due to IV contrast yesterday. Case discussed with Sourcing Analyst/ Dr. Brennan, will discontinue Vancomycin and consider another dialysis treatment tomorrow. Patient denies fever, chills, CP, SOB, abd pain, N/V/D, or leg edema. - Constitutional Vitals: Temp Pulse Resp BP Pulse Ox 98.3 F 62 17 167/97 96 03/23/17 20:19 03/24/17 05:17 03/24/17 05:17 03/24/17 05:17 03/24/17 05:17 General appearance: Present: mild distress, A&O X 3, pleasant, obese, answers questions appropriately Exam: remains mildly confused - Head Head exam: Present: atraumatic, normal inspection, normocephalic - Eye Eye exam: Present: EOMI, PERRL - ENT ENT exam: Present: mucous membranes moist, normal oropharynx - Neck Neck exam general surgery: Present: normal inspection, tenderness, nuchal rigidity, trachea midline. Absent: full ROM, lymphadenopathy, thyromegaly, supple Additional comments: slightly improved neck ROM compared to yesterday but still very tender - Respiratory Respiratory exam: Present: CTAB. Absent: rales, wheezes - Cardiovascular Cardiovascular exam: Present: irregular rhythm, +S1, +S2 - GI/Abdominal GI/Abdominal exam: Present: normal bowel sounds, soft. Absent: distended, guarding, tenderness - Additional comments: bilateral nephrostomy tubes in place with adequate yellow and serosanquinous drainage - Extremities Exam Extremities exam: Present: normal inspection, warm, radial pulses palpable and symmetrical. Absent: full ROM, pedal edema Additional comments: positive pain with Kernig's maneuver - Back Exam Additional comments: bilateral nephrostomy tubes in place with adequate yellow and serosanquinous drainage - Neurological Exam Neurological exam: Present: alert, altered, oriented X3, strengths equal and symetr throughout. Absent: facial droop, speech deficit Additional comments: pain with Kernig's maneuver - Psychiatric Psychiatric exam: Present: flat affect Additional comments: mildly confused - Skin Skin exam: Present: dry, intact, warm. Absent: rash Internal Medicine: Result - Labs CBC & Chem 7: 03/24/17 03:50 03/24/17 03:50 Labs: Short CBC 03/24/17 Range/Units 03:50 WBC 17.9 H (4.3-11.1) K/mcL Hgb 16.0 (12.9-16.9) g/dL Hct 47.7 (37.5-50.1) % Plt Count 234 (140-400) K/mcL BMP 03/24/17 03:50 Sodium 141 Potassium 3.7 Chloride 103 Carbon Dioxide 21 BUN 54 H Creatinine 5.22 H Glucose 154 H Calcium 10.0 Liver Function 03/23/17 Range/Units 11:27 Total Bilirubin 1.5 H (0.2-1.2) mg/dL Direct Bilirubin 0.6 H (0.0-0.5) mg/dL AST 22 (5-34) Units/L ALT 22 (0-55) Units/L Alkaline Phosphatase 92 (38-126) Units/L Albumin 3.9 (3.5-5.0) g/dL Urine 03/23/17 Range/Units 12:10 Urine Color Yellow (Yellow) Urine Clarity Cloudy A (Clear) Urine pH 6.0 (5.0-8.0) pH Units Ur Specific [place] > 1.030 H (1.010-1.025) Urine Protein 100 H (Neg-Trace) mg/dL Urine Glucose (UA) Normal (Normal) mg/dL - ABG Interpretation ABG results: ABG ABG pH 7.50 pH Units (7.32-7.45) H 03/23/17 10:14 ABG pCO2 30 mmHg (35-45) L 03/23/17 10:14 ABG pO2 64 mmHg (85-104) L 03/23/17 10:14 ABG O2 Saturation 94 % (95-98) L 10/29/17 10:14 PT/INR, D-dimer PT 13.7 Seconds (9.4-12.1) H 03/23/17 11:17 - Pulse Oximetry Interpretation Digit-Finger Pulse Oximetry Readin (on 2L O2 via NC) - Impressions Impressions KUB X-Ray 03/21/17 09:00 IMPRESSION: Bilateral nephrostomy tubes are noted, do not seem significantly changed since 03/20/2017. If there remains clinical suspicion for displacement recommend ultrasound or CT. D/ / 03/21/2017 10:31:59 Aleja Trejo MD / geovany Interpreting Provider: Aleja Trejo MD Chest X-Ray 03/23/17 09:42 IMPRESSION: Improved pulmonary edema. Interval placement of a right IJ central line with the tip projecting over the right atrium. D/ / Sheldon Patel MD / Sheldon Patel MD Interpreting Provider: Sheldon Patel MD Head CT 03/23/17 09:59 IMPRESSION: Subacute right parieto-occipital infarct. No new acute abnormality. D/ / 03/23/2017 11:05:49 Calin Vazquez MD / [email or web address] Interpreting Provider: Calin Vazquez MD Head CTA 03/23/17 17:03 IMPRESSION: There is severe, greater than 70%, stenosis of the bilateral internal carotid arteries by NASCET criteria. There is moderate stenosis of the right vertebral artery origin. Moderate narrowing of the distal right M1 segment. Severe focal narrowing of the bilateral intracranial vertebral arteries, proximal to the bilateral PICA origins. Severe stenosis of the right posterior cerebral artery at the P2/P3 junction. Loss of li-white matter differentiation in the medial right occipital and parietal lobes is unchanged and consistent with acute to subacute infarct. Remote small left MCA vascular territory infarct is unchanged. D/ / 03/23/2017 19:56:50 Karthik Trejo MD / david Interpreting Provider: Karthik Trejo MD Neck CTA 03/23/17 17:03 IMPRESSION: There is severe, greater than 70%, stenosis of the bilateral internal carotid arteries by NASCET criteria. There is moderate stenosis of the right vertebral artery origin. Moderate narrowing of the distal right M1 segment. Severe focal narrowing of the bilateral intracranial vertebral arteries, proximal to the bilateral PICA origins. Severe stenosis of the right posterior cerebral artery at the P2/P3 junction. Loss of li-white matter differentiation in the medial right occipital and parietal lobes is unchanged and consistent with acute to subacute infarct. Remote small left MCA vascular territory infarct is unchanged. D/ / 03/23/2017 19:56:50 Karthik Trejo MD / david Interpreting Provider: Karthik Trejo MD - VTE Documentation of Mechanical Device: Intermittent pneumatic compression device Consult Discharge Plan - Plan Referrals: Roseann Marinelli DO [Primary Care Provider] - <Catarino Agustin P - Last Filed: 03/24/17 17:53> Date of Encounter: 03/24/17 - Constitutional Vitals: Temp Pulse Resp BP Pulse Ox 97.9 F 60 18 175/87 96 03/24/17 15:24 03/24/17 15:24 03/24/17 15:24 03/24/17 17:19 03/24/17 15:24 Internal Medicine: Result - Labs CBC & Chem 7: 03/24/17 03:50 03/24/17 03:50 Labs: Short CBC 03/24/17 Range/Units 03:50 WBC 17.9 H (4.3-11.1) K/mcL Hgb 16.0 (12.9-16.9) g/dL Hct 47.7 (37.5-50.1) % Plt Count 234 (140-400) K/mcL BMP 03/24/17 03:50 Sodium 141 Potassium 3.7 Chloride 103 Carbon Dioxide 21 BUN 54 H Creatinine 5.22 H Glucose 154 H Calcium 10.0 - ABG Interpretation ABG results: ABG ABG pH 7.50 pH Units (7.32-7.45) H 03/23/17 10:14 ABG pCO2 30 mmHg (35-45) L 03/23/17 10:14 ABG pO2 64 mmHg (85-104) L 03/23/17 10:14 ABG O2 Saturation 94 % (95-98) L 03/23/17 10:14 PT/INR, D-dimer PT 13.7 Seconds (9.4-12.1) H 03/23/17 11:17 - Impressions Impressions Echocardiogram 03/23/17 07:22 Impressions: LVEF 50-55%. Overall, LV systolic function appears normal. Not all wall segments were well visualized. There is atypical septal motion present. Indeterminate diastolic function. Mild concentric left ventricular hypertrophy. No significant valvular dysfunction. There is a trivial pericardial effusion present without tamponade. Borderline pulmonary hypertension by TR gradient. Suboptimal image quality to detect PFO with saline contrast injection. Left Ventricular Wall Motion: Rest Echo Findings The apex, apical inferior, mid inferior, basal inferior, apical anterior, mid anterior and basal anterior thomas were not visualized. All other wall segments showed normal motion. Findings: Study Quality * Technically adequate exam. ECG Findings * Paced rhythm. Left Ventricle * Indeterminate diastolic function. * Atypical septal motion consistent with paced rhythm. * Mild concentric left ventricular hypertrophy. * LVEF 50-55%. Right Ventricle * Not well visualized. Left Atrium * Moderately dilated left atrium. Right Atrium * Normal right atrial size. Aortic Valve * No aortic regurgitation. * Trileaflet aortic valve. * No aortic stenosis. Mitral Valve * Normal mitral valve structure. * No mitral stenosis. * Trace mitral regurgitation. Tricuspid Valve * Tricuspid valve not well visualized. * Trace tricuspid regurgitation. Pulmonic Valve * Pulmonic valve is not well visualized. * No pulmonic stenosis. * No pulmonic regurgitation. Pulmonary Artery * Pulmonary artery not well visualized. Aorta * Normally sized aortic root. Pericardium * There is a trivial pericardial effusion present. Interatrial Septum * No evidence of PFO by color Doppler. IVC * The IVC is not well evaluated. Head CTA 03/23/17 17:03 IMPRESSION: There is severe, greater than 70%, stenosis of the bilateral internal carotid arteries by NASCET criteria. There is moderate stenosis of the right vertebral artery origin. Moderate narrowing of the distal right M1 segment. Severe focal narrowing of the bilateral intracranial vertebral arteries, proximal to the bilateral PICA origins. Severe stenosis of the right posterior cerebral artery at the P2/P3 junction. Loss of li-white matter differentiation in the medial right occipital and parietal lobes is unchanged and consistent with acute to subacute infarct. Remote small left MCA vascular territory infarct is unchanged. D/ / 03/23/2017 19:56:50 Karthik Trejo MD / david Interpreting Provider: Karthik Trejo MD Neck CTA 03/23/17 17:03 IMPRESSION: There is severe, greater than 70%, stenosis of the bilateral internal carotid arteries by NASCET criteria. There is moderate stenosis of the right vertebral artery origin. Moderate narrowing of the distal right M1 segment. Severe focal narrowing of the bilateral intracranial vertebral arteries, proximal to the bilateral PICA origins. Severe stenosis of the right posterior cerebral artery at the P2/P3 junction. Loss of li-white matter differentiation in the medial right occipital and parietal lobes is unchanged and consistent with acute to subacute infarct. Remote small left MCA vascular territory infarct is unchanged. D/ / 03/23/2017 19:56:50 Karthik Trejo MD / david Interpreting Provider: Karthik Trejo MD - Attending Attestation I examined this patient and my medical decision-making was reviewed with the Resident Physician. I agree with the documented findings, disposition and treatment plan as described except to the extent set forth below. 71M Acute CVA, Meningitis, DAEV due to obstructive uropathy from prostate cancer. S/p bilateral nephrostomy tube placement 03/20/17. Started on temporary dialysis, creatinine 5.22. Allow permissive HTN due to acute CVA. CTA neck shows severe bilateral carotid stenosis. LP results pending. Urology, vascular surgery, nephrology, ID, and neurology following.
[2017-03-24] MEDS: Acyclovir 750 MG in D5% in Water 250 ML IVPB SCH (10:36)
[2017-03-24] MEDS: Ampicillin 2 GM in 0.9 % Sodium Chloride Mini Bag 100 ML IVPB SCH ×3 (10:36→21:51)
[2017-03-24] MEDS: Multivit/Ca/Min/Fe/FA 1 TAB TABLET PO SCH (10:37)
[2017-03-24] MEDS: amLODIPine 5 MG TABLET PO SCH (10:37)
[2017-03-24] MEDS: Cholecalciferol (D-3) 1,000 UNIT TABLET PO SCH (10:37)
[2017-03-24] MEDS: Bicalutamide 50 MG TABLET PO SCH (10:37)
[2017-03-24] MEDS: Metoprolol XL (24 HR) Succ 50 MG TAB.ER.24H PO SCH (10:37)
--- NOTE | 2017-03-24 12:51 | Nephrology Progress Note ---
Date of Encounter: 03/24/17 Time of Encounter: 12:49 - Assessment and Plan (1) DAVE (acute kidney injury) Current Visit: Yes Status: Acute Secondary to obstruction. S/p Placement of nephrostomy tube. No need for HD today. Will assess for renal recovery. Patient received vancomycin and CT with contrast 03/23 which may impair his recovery. Renal dose medications. Avoid nephrotoxins. (2) Bilateral hydronephrosis Current Visit: Yes Status: Acute S/p bilateral nephrostomy tubes. Per urology. Good urine output. Need accurate Is and Os (3) Atrial fibrillation Current Visit: Yes Status: Chronic Rate controlled. Primary team awaiting clearance by urology for anticoagulation. Qualifiers: Atrial fibrillation type: chronic Qualified Code(s): I48.2 - Chronic atrial fibrillation (4) Sepsis Current Visit: Yes Status: Acute Patient with sepsis of unclear etiology. Started on empiric antibiotics 03/23. LP without infection. Await culture data. I recommend discontinuing vancomycin for now. Currently afebrile. Qualifiers: Sepsis type: sepsis due to unspecified organism Qualified Code(s): A41.9 - Sepsis, unspecified organism (5) Hypertension Current Visit: Yes Status: Acute Uncontrolled off home antihypertensives. With subacute CVA will slowly add back antihypertensives. Added amlodipine 5mg daily 03/23. Will increase to 5mg bid 03/24. Qualifiers: Qualified Code(s): I10 - Essential (primary) hypertension (6) Cerebrovascular accident (CVA) due to bilateral stenosis of carotid arteries Current Visit: Yes Status: Acute Per primary team. Neurology following. Patient with significant carotid stenosis and a history of afib. Holding anticoagulation until cleared by urology. Patient may need palliative care to discuss goals of care. PT/OT consult. Subjective Principal diagnosis: DAVE, hyperkalemia, bilateral hydronephrosis Interval history: Patient seen. No new complaint. Discussed care with primary team. His son is in the room. Patient asks numerous questions. Occasionally he seems to have difficulty focusing on the topic. Objective - Vital Signs Vital signs: Vital Signs Temp Pulse Resp BP Pulse Ox 03/24/17 11:08 98.1 F 63 14 185/100 93 03/24/17 07:09 98.1 F 63 18 176/81 95 03/24/17 05:17 62 17 167/97 96 03/24/17 01:00 61 17 168/84 97 03/23/17 20:19 98.3 F 60 16 199/91 97 03/23/17 19:53 96 03/23/17 13:00 98.6 F 63 20 186/96 97 Intake and Output 03/23/17 03/24/17 03/24/17 23:59 07:59 15:59 Intake Total 300 / 300 Output Total 1050 / 1050 950 / 950 280 / 280 Balance -750 / -750 -950 / -950 -280 / -280 Intake: IV Fluids 300 / 300 Ampicillin 2 GM In 0.9 % Sodium 100 / 100 Chloride (Mini-Bag +) 100 ML @ 200 mls/hr IVPB Q4HR KATHLEEN Rx#: [id number] Zosyn 3.375 GM In Dextrose 5% ( 100 / 100 Minibag+) 100 ML 100 ML @ 25 mls/hr IVPB Q12H KATHLEEN Rx#: [id number] Rocephin 2,000 MG In Dextrose 5 100 / 100 % (Minibag+) 100 ML 100 ML @ 200 mls/hr IVPB Q12HR KATHLEEN Rx#: [id number] Output: Left Nephrostomy 300 / 300 425 / 425 100 / 100 Right Nephrostomy 250 / 250 525 / 525 180 / 180 Wound Drainage 500 / 500 Left Lower Back 400 / 400 Right Lower Back 100 / 100 - General Appearance General appearance: Present: well-developed, well-nourished EENT: Present: ATNC Additional Comments: Right IJ dialysis catheter in place. Additional Comments: respirations are unlabored. Cardiology: Present: regular rate Additional Comments: Alert. Psychiatric: Present: mood/affect appropriate - Lab 03/24/17 03:50 03/24/17 03:50 Most recent lab results ABG pH 7.50 pH Units (7.32-7.45) H 03/23/17 10:14 ABG pCO2 30 mmHg (35-45) L 03/23/17 10:14 ABG pO2 64 mmHg (85-104) L 03/23/17 10:14 ABG HCO3 23 mEq/L (21-27) 03/23/17 10:14 ABG O2 Saturation 94 % (95-98) L 03/23/17 10:14 Calcium 10.0 mg/dL (8.6-10.8) 03/24/17 03:50 Phosphorus 6.4 mg/dL (2.3-4.7) H 03/20/17 06:34 Magnesium 2.6 mg/dL (1.6-2.6) 03/20/17 06:34 - VTE Documentation of Mechanical Device: Intermittent pneumatic compression device Consult Discharge Plan - Plan Referrals: Roseann Marinelli DO [Primary Care Provider] -
--- NOTE | 2017-03-24 14:19 | Neurology Progress Note ---
Date of Encounter: 03/24/17 Time of Encounter: 08:00 Assessment and Plan (1) Acute encephalopathy Current Visit: Yes Status: Acute Patient continued to have mild confusion though he is more awake and alert today did not have any seizures last night not complaining of neck pain as much. CSF was negative for any acute infectious etiology at this time I would recommend that patient check for other causes of fever and particularly he has multiple lines as well as nephrostomy tube need to check that they could be the source of the infection. Will review EEG today no evidence of acute stroke on his previous imaging studies may do MRI when he is clinically more stable (2) Occipital infarction Current Visit: Yes Status: Acute (3) Bilateral hydronephrosis Current Visit: Yes Status: Acute (4) DAVE (acute kidney injury) Current Visit: Yes Status: Acute Subjective Principal diagnosis: DAVE, hyperkalemia, bilateral hydronephrosis Interval history: The patient is slightly improved though still having some confusion. Not much neck pain as he was screaming yesterday and today he seems to be quite and stable. CSF negative for any acute infectious etiology white count has been negative as well as Gram stain proteins were also within normal limits cultures are pending Objective - Constitutional Vitals: Temp Pulse Resp BP Pulse Ox 98.1 F 63 14 185/100 93 03/24/17 11:08 03/24/17 11:08 03/24/17 11:08 03/24/17 11:08 03/24/17 11:08 - Neurological Exam Sensorimotor examination: Present: intact Motor Examination: Present: grossly full strength in all extremities Motor examination - left side: 5/5: deltoids, biceps, triceps, wrist flexion, wrist extension, hip flexors, sizer machine, quadriceps, tibialis Anterior, toe extension (EHL), plantarflexion Sensation intact: Present: intact Posture: Present: other (None) Reflex and gait examination: other (Gait not assessed) Mental Status Examination: Present: awake, alert, oriented to person, oriented to place, makes eye contact, follows simple commands, localizes noxious stimulation Cranial nerve examination: Present: PERRL, EOMI (decrease vision in lEFT visual field ( Left Hemianopsia) ), sensory to face intact, no facial asymmetry is present, no dysarthria, hearing is intact symmetrically Cerebellar examination: Present: no dysmetria - VTE Documentation of Mechanical Device: Intermittent pneumatic compression device Results - Laboratory Findings CBC and BMP: 03/24/17 03:50 03/24/17 03:50 Abnormal lab findings: Abnormal lab results WBC 17.9 K/mcL (4.3-11.1) H 03/24/17 03:50 RBC 5.70 M/mcL (4.19-5.50) H 03/24/17 03:50 Neutrophils # 12.5 K/mcL (1.6-8.9) H 03/22/17 08:14 Monocytes # 1.5 K/mcL (0.0-1.3) H 03/22/17 08:14 Immature Plt Fraction 9.8 % (1.1-6.1) H 03/22/17 08:14 PT 13.7 Seconds (9.4-12.1) H 03/23/17 11:17 APTT 25.2 Seconds (26.0-36.0) L 03/23/17 11:17 ABG pH 7.50 pH Units (7.32-7.45) H 03/23/17 10:14 ABG pCO2 30 mmHg (35-45) L 03/23/17 10:14 ABG pO2 64 mmHg (85-104) L 03/23/17 10:14 ABG O2 Saturation 94 % (95-98) L 03/23/17 10:14 BUN 54 mg/dL (8-26) H 03/24/17 03:50 Creatinine 5.22 mg/dL (0.72-1.25) H 03/24/17 03:50 Est GFR ( Amer) 13 (> 60) L 03/24/17 03:50 Est GFR (Non-Af Amer) 11 (> 60) L 03/24/17 03:50 Glucose 154 mg/dL (70-99) H 03/24/17 03:50 POC Glucose 139 (58-89) H 03/22/17 04:45 Hemoglobin A1c 6.1 % (-5.6) H 03/20/17 06:34 Calculated Osmolality 310 (280-300) H 03/24/17 03:50 Phosphorus 6.4 mg/dL (2.3-4.7) H 03/20/17 06:34 Total Bilirubin 1.5 mg/dL (0.2-1.2) H 03/23/17 11:27 Direct Bilirubin 0.6 mg/dL (0.0-0.5) H 03/23/17 11:27 Troponin I 0.11 ng/mL (0-0.03) H* 03/22/17 08:14 B-Natriuretic Peptide 552 pg/mL (0-100) H 03/19/17 18:59 Serum Total Protein 8.9 g/dL (6.0-8.3) H 03/23/17 11:27 Globulin 5.0 g/dL (2.4-3.5) H 03/23/17 11:27 Albumin/Globulin Ratio 0.8 (1.1-2.2) L 03/23/17 11:27 LDL Cholesterol, Calc 111 mg/dL (0-99) H 03/20/17 06:34 HDL Cholesterol 35 mg/dL (40-59) L 03/20/17 06:34 Cholesterol/HDL Ratio 5.0 (0-4.9) H 03/20/17 06:34 Prostate Specific Ag 17.94 ng/mL (0.00-4.00) H 03/19/17 12:56 Urine Clarity Cloudy (Clear) A 03/23/17 12:10 Ur Specific [place] > 1.030 (1.010-1.025) H 03/23/17 12:10 Urine Protein 100 mg/dL (Neg-Trace) H 03/23/17 12:10 Urine Blood Large (Negative) H 03/23/17 12:10 Urine Microscopic RBC TNTC per hpf (0-3) H 03/23/17 12:10 Urine Microscopic WBC 5-15 per hpf (0-3) H 03/23/17 12:10 Ur Squamous Epith Cells Many per lpf (None-Few) H 03/23/17 12:10 CSF Glucose 108 mg/dL (40-70) H 03/23/17 14:35 Consult Discharge Plan - Plan Referrals: Roseann Marinelli DO [Primary Care Provider] -
--- NOTE | 2017-03-24 14:49 | EEG/EMG/Oth Biometrics Report ---
EEG Procedure Report Date of procedure: 03/24/17 EEG Procedure: Routine EEG Procedure Note: pt with episodic confusion Routine 18-channel digital EEG was obtained to rule out any seizure activity or focal abnormalities. FINDINGS: Background rhythm during awake stage shows well-organized, well- developed, average voltage 4 to 8 hertz theta and delta mixed activity in the posterior regions. It blocks with eye opening and it is bilaterally synchronous and symmetrical. No [id number] discharges or any lateralizing abnormalities are seen. Photic stimulation did not produce any abnormalities. Hyperventilation was not performed. No abnormalities were found during the procedure. Intermittent EMG artifacts were seen. Stage II sleep was not achieved. IMPRESSION: Abnormal study. This study demonstrated evidence of generalized Mild slowing, which is a nonspecific pattern predominantly seen in patient with diffuse cortical dysfunction, consistent with Mild encephalopathy No epileptiform discharges or any other paroxysmal activities or focal abnormalities seen. Clinical correlation is recommended.
--- NOTE | 2017-03-24 15:45 | Urology Progress Note ---
Date of Encounter: 03/24/17 Time of Encounter: 15:43 - Assessment and Plan (1) Elevated serum creatinine Current Visit: Yes Status: Acute Assessment and plan: per nephrology. (2) Malignant neoplasm of prostate Current Visit: Yes Status: Acute Assessment and plan: on casodex. per daughter had robotic prostatectomy. (3) Bilateral hydronephrosis Current Visit: Yes Status: Acute Assessment and plan: keep pcn tubes in place Progress Note Narrative: patient seen. feeling slightly better. serum creatinine slighlty worse. ok uop Objective Initial Vital Signs Temp Pulse Resp BP Pulse Ox 98.1 F 61 16 177/111 99 03/19/17 12:22 03/19/17 12:22 03/19/17 12:22 03/19/17 12:22 03/19/17 12:22 - Abdomen Present: soft - Labs 03/24/17 03:50 03/24/17 03:50 Diabetes panel 03/24/17 Range/Units 03:50 Sodium 141 (136-145) mEq/L Potassium 3.7 (3.5-4.5) mEq/L Chloride 103 (98-109) mEq/L Carbon Dioxide 21 (19-29) mEq/L BUN 54 H (8-26) mg/dL Creatinine 5.22 H (0.72-1.25) mg/dL Glucose 154 H (70-99) mg/dL Calcium 10.0 (8.6-10.8) mg/dL Calcium panel 03/24/17 Range/Units 03:50 Calcium 10.0 (8.6-10.8) mg/dL Pituitary panel 03/24/17 Range/Units 03:50 Sodium 141 (136-145) mEq/L Potassium 3.7 (3.5-4.5) mEq/L Chloride 103 (98-109) mEq/L Carbon Dioxide 21 (19-29) mEq/L BUN 54 H (8-26) mg/dL Creatinine 5.22 H (0.72-1.25) mg/dL Glucose 154 H (70-99) mg/dL Calcium 10.0 (8.6-10.8) mg/dL Adrenal panel 03/24/17 Range/Units 03:50 Sodium 141 (136-145) mEq/L Potassium 3.7 (3.5-4.5) mEq/L Chloride 103 (98-109) mEq/L Carbon Dioxide 21 (19-29) mEq/L BUN 54 H (8-26) mg/dL Creatinine 5.22 H (0.72-1.25) mg/dL Glucose 154 H (70-99) mg/dL Calcium 10.0 (8.6-10.8) mg/dL - VTE Documentation of Mechanical Device: Intermittent pneumatic compression device Consult Discharge Plan - Plan Referrals: Roseann Marinelli DO [Primary Care Provider] -
--- NOTE | 2017-03-24 16:57 | Electrocardiograph Report ---
[place] [id number] Test Date: 2017-03-22 Pat Name: Moses Reich Department: 111 Room: [facility] Gender: M Pie Dough Roller: [id number] : [id number] Requested By: Catarino Agustin Order Number: [id number] Reading MD: Niki Otero Measurements Intervals [place] Rate: 65 P: [place]: 0 QRS: 261 QRSD: 163 T: 74 QT: 482 QTc: 494 Interpretive Statements ELECTRONIC VENTRICULAR PACEMAKER ABNORMAL RHYTHM ECG Electronically Signed On 03-24-2017 16:55:53 EDT by Niki Otero
--- NOTE | 2017-03-24 16:58 | Vascular/Endovascular H&P ---
Date of Encounter: 03/24/17 Assessment and Plan (1) DAVE (acute kidney injury) Current Visit: Yes Status: Acute (2) Hypertension Current Visit: Yes Status: Acute Qualifiers: Qualified Code(s): I10 - Essential (primary) hypertension (3) Cerebrovascular accident (CVA) due to bilateral stenosis of carotid arteries Current Visit: Yes Status: Acute History of Present Illness HPI: Mr. Reich is a 71 year old male Past Med Surg Social Fam HX - Past Medical History Medical history: atrial fibrillation, cancer, GI bleed, hypertension - Past Surgical History Surgical History: other, pacemaker - Social History Smoking Status: Former smoker Smokeless Tobacco Status: No Alcohol use: none Drug use: none Medications and Allergies Atorvastatin Calcium [Lipitor] 20 mg PO HS 03/19/17 [History] Cholecalciferol (Vitamin D3) [Vitamin D] 1,000 unit PO DAILY 03/19/17 [History] Losartan Potassium [Cozaar] 50 mg PO DAILY 03/19/17 [History] Meloxicam [Mobic] 7.5 - 15 mg PO DAILY PRN 03/19/17 [History] Metoprolol XL (24 HR) Succ [Toprol XL] 150 mg PO DAILY 03/19/17 [History] Multivitamin [One Daily Multivitamin] 1 each PO DAILY 03/19/17 [History] Amlodipine Besylate [Amlodipine Besylate] 10 mg PO DAILY 03/21/17 [History] Clopidogrel [Plavix] 75 mg PO DAILY 03/21/17 [History] Warfarin [Coumadin] 5 mg PO 1800 03/21/17 [History] 3 Allergy/AdvReac Type Severity Reaction Status Date / Time No Known Allergies Allergy Verified 03/19/17 11:56 All Systems Review: A 10-system review of systems was performed and is negative for pertinent findings except as documented above in the HPI. Exam Vital Signs, Last 4 Hours Temp Pulse Resp BP Pulse Ox 03/24/17 15:24 97.9 F 60 18 193/95 96 Results 03/24/17 03:50 03/24/17 03:50 Lab Results, Last 24 hours 03/24/17 03/24/17 03:50 03:50 WBC 17.9 H Hgb 16.0 Hct 47.7 Plt Count 234 Sodium 141 Potassium 3.7 Chloride 103 Carbon Dioxide 21 BUN 54 H Creatinine 5.22 H Glucose 154 H Calcium 10.0 - Imaging / Other Tests CT/CTA: image reviewed (There is severe, greater than 70%, stenosis of the bilateral internal carotid arteries by NASCET criteria. There is moderate stenosis of the right vertebral artery origin. Moderate narrowing of the distal right M1 segment. Severe focal narrowing of the bilateral intracranial vertebral arteries, proximal to the bilateral PICA origins. Severe stenosis of the right posterior cerebral artery at the P2/P3 junction. Loss of li-white matter differentiation in the medial right occipital and parietal lobes is unchanged and consistent with acute to subacute infarct. Remote small left MCA vascular territory infarct is unchanged.) - VTE Documentation of Mechanical Device: Intermittent pneumatic compression device
[2017-03-24] MEDS: cefTRIAXone 2,000 MG in Water for inj. (sterile) 20 ML IVP SCH (18:15)
[2017-03-25] MEDS: Ampicillin 2 GM in 0.9 % Sodium Chloride Mini Bag 100 ML IVPB SCH ×2 (01:46→08:12)
[2017-03-25] MEDS: cefTRIAXone 2,000 MG in Water for inj. (sterile) 20 ML IVP SCH (05:23)
[2017-03-25 06:10] LABS: Hematocrit 43.7 % (37.5-50.1); Hemoglobin 14.4 g/dL (12.9-16.9); Mean Corpuscular Hemoglobin 27.9 pg (28.0-33.3); Mean Corpuscular Volume 84.5 fL (83.0-100.0); Mean Platelet Volume 11.5 fL (9.4-12.4); Platelet Count 255 K/mcL (140-400); Red Blood Count 5.17 M/mcL (4.19-5.50); Red Cell Distribution Width 13.7 % (11.5-14.5)
[2017-03-25 06:26] LABS: Calcium 9.7 mg/dL (8.6-10.8); Potassium 3.9 mEq/L (3.5-4.5)
--- NOTE | 2017-03-25 06:38 | Vascular/Endovasc Consult Note ---
Date of Encounter: 03/24/17 Time of Encounter: 17:15 Assessment and Plan (1) Cerebrovascular accident (CVA) due to bilateral stenosis of carotid arteries Current Visit: Yes Status: Acute The pathophsyiology and natural history of carotid stenosis was discussed with the patient and all questions were answered. The patient has bilateral 70% internal carotid artery stenosis and a recent right parieto-occipital lobe infarct with resultanat left hemianopsia. The patient is not currently a candidate for surgery given his ongoing acute kidney injury, elevated white blood cell count and confusion. At this time, continue with a statin. Begin aspirin when patient is able to tolerate. Carotid endarterectomy can be considered once his acute issues resolve. (2) DAVE (acute kidney injury) Current Visit: Yes Status: Acute (3) Hypertension Current Visit: Yes Status: Acute Qualifiers: Hypertension type: essential hypertension Qualified Code(s): I10 - Essential (primary) hypertension - History of Present Illness Consult date: 03/24/17 Requesting physician: Fredrick Smiley Consult reason: Carotid stenosis, CVA Chief complaint: Carotid stenosis History of present illness: Mr. Reich is a 71 year old male with a history of atrial fibrillation s/p pacemaker placement and hypertension. He was seen in the ER and admitted on with complaints of hematuria, hydronephrosis and acute renal failure. He had been off his coumadin due to his hematuria and need for cystoscopy. The patient also reported visual disturbances left hemianopsia. He was found on CT scan to have cerebral infarction in the right parieto-occipital lobe. After admission, he underwent a CTA of the head and neck and was found to have significant carotid and vertebral artery stenosis. The patient has had a complicated course during his hospitalization including requiring dialysis an elevated white blood cell count of uncertain etiology and ongoing confusion. Vascular surgery has been consulted regarding his carotid stenosis. At the time of consultation, the patient is alert and pleasant. He is without complaints except his left hemianopsia. He denies any chest pain or shortness of breath. Past Med Surg Social Fam HX - Past Medical History Medical history: atrial fibrillation, cancer, GI bleed, hypertension - Past Surgical History Surgical History: other, pacemaker - Social History Smoking Status: Former smoker Smokeless Tobacco Status: No Alcohol use: none Drug use: none Medications and Allergies Atorvastatin Calcium [Lipitor] 20 mg PO HS 03/19/17 [History] Cholecalciferol (Vitamin D3) [Vitamin D] 1,000 unit PO DAILY 03/19/17 [History] Losartan Potassium [Cozaar] 50 mg PO DAILY 03/19/17 [History] Meloxicam [Mobic] 7.5 - 15 mg PO DAILY PRN 03/19/17 [History] Metoprolol XL (24 HR) Succ [Toprol XL] 150 mg PO DAILY 03/19/17 [History] Multivitamin [One Daily Multivitamin] 1 each PO DAILY 03/19/17 [History] Amlodipine Besylate [Amlodipine Besylate] 10 mg PO DAILY 03/21/17 [History] Clopidogrel [Plavix] 75 mg PO DAILY 03/21/17 [History] Warfarin [Coumadin] 5 mg PO 1800 03/21/17 [History] 3 Allergy/AdvReac Type Severity Reaction Status Date / Time No Known Allergies Allergy Verified 03/19/17 11:56 All Systems Review: A 10-system review of systems was performed and is negative for pertinent findings except as documented above in the HPI. - Constitutional Constitutional: no chills, no fever(s) Exam Vital Signs, Last 4 Hours Temp Pulse Resp BP Pulse Ox 03/25/17 05:10 98.3 F 64 20 162/87 98 General: Present: Conversant, No Apparent Distress HEENT: Present: Atraumatic, Normocephaly, Pupils equal Neck: Present: Left Carotid bruit, Right Carotid bruit. Absent: JVD, Lymphadenopathy, Tracheal deviation Cardiac: Present: Reg Rate and Rhythm (paced), Normal S1 and S2 Lungs: Present: Normal Breath Sounds, No Wheeze, Rales, Rhonchi Neuro: Present: Alert and responsive, Motor nerves grossly intact, Sensory nerves grossly intact Abdomen: Present: Soft, Non-tender. Absent: Masses Vascular: Present: Normal capillary refill. Absent: Cyanosis, Edema Skin: Absent: No rashes noted on visualized skin Musculoskeletal: Present: No Chest Wall Tenderness Consult Discharge Plan - Plan Instructions: Atrial Fibrillation (DC), Hemodialysis (DC), Hemodialysis (GEN), Dialysis Diet (DC), Dialysis Diet (GEN), Peripheral Vascular Disorders (DC), Sepsis (DC), Ischemic Stroke (DC), Ischemic Stroke (GEN), Chronic Hypertension ( DC) Referrals: Roseann Marinelli DO [Primary Care Provider] -
[2017-03-25] MEDS: Bicalutamide 50 MG TABLET PO SCH (08:09)
[2017-03-25] MEDS: amLODIPine 5 MG TABLET PO SCH (08:09)
[2017-03-25] MEDS: Metoprolol XL (24 HR) Succ 50 MG TAB.ER.24H PO SCH (08:09)
[2017-03-25] MEDS: Multivit/Ca/Min/Fe/FA 1 TAB TABLET PO SCH (08:09)
[2017-03-25] MEDS: Cholecalciferol (D-3) 1,000 UNIT TABLET PO SCH (08:10)
[2017-03-25] MEDS: Acyclovir 750 MG in D5% in Water 250 ML IVPB SCH (08:12)
[2017-03-25] MEDS ORDERED: *HR* Heparin 10,000 UNIT/10 ML VIAL IV PRN (09:11)
[2017-03-25] MEDS ORDERED: 0.9 % Sodium Chloride 250 ML IVC PRN (09:11)
--- NOTE | 2017-03-25 10:22 | Infectious Disease Consult ---
Date of Encounter: 03/25/17 Time of Encounter: 10:20 Assessment and Plan (1) Leukocytosis Status: Acute Assessment and plan: The patient's WBC has been elevated since admission. Stable at around 17. No bands. Neutrophilic predominance. Etiology unclear, but given the clinical picture, consider non-infectious etiologies (malignancy, stroke, etc.). The patient had one isolated low-grade fever on 03/23/17 and has been afebrile since then. Clinically, the patient's urine does not appear infected. Would not recommend collecting urine specimen from the PCN tube bags as they are likely contaminated at this point. Status post LP. No pleocytosis. Culture is negative. Not likely meningitis. The patient does complain of left posterior/lateral neck pain, but CT of the neck shows no infectious etiologies. Check procalcitonin. Check peripheral smear. Get blood cultures x 2 sets from the patient's HD line. Consider getting CT of the chest, abdomen, and pelvis to evaluate for infectious etiologies. Discontinue Rocephin, Ampicillin, and Acyclovir and observe off antibiotics. Case discussed with Dr. Terrell via telephone. We will continue to follow. Qualifiers: Leukocytosis type: unspecified Qualified Code(s): D72.829 - Elevated white blood cell count, unspecified (2) Bladder mass Status: Acute Assessment and plan: CT of the abdomen and pelvis completed 03/19/17 showed bilateral moderate hydronephrosis, likely secondary to a soft tissue mass seen along the inferior aspect of the bladder concerning for recurrence of prostate cancer. Urology consulted and following. High index of suspicion that this is recurrence of the patient's prostate cancer. (3) Cerebrovascular accident (CVA) due to bilateral stenosis of carotid arteries Status: Acute Assessment and plan: The patient presented with confusion and hemianopsia. CT of the head showed an acute infarct involving the right parieto-occipital lobe without associated mass effect or midline shift. Neurology consulted and following. CTA of the head and neck showed severe, greater than 70%, stenosis of the bilateral ICA, moderate stenosis of the right vertebral artery origin, moderate narrowing of the distal right M1 segment, severe focal narrowing of the bilateral intracranial vertebral arteries, proximal to the bilateral PICA origins, and severe stenosis of the right posterior cerebral artery at the P2/ P3 junction. Vascular surgery consulted. Await recommendations. (4) Acute encephalopathy Status: Acute Assessment and plan: Likely secondary to CVA. Improved per family's report. Repeat CT of the head showed no additional findings. EEG negative for seizures. Continue to monitor closely. (5) DAVE (acute kidney injury) Status: Acute Assessment and plan: Likely post-renal, secondary to bladder mass. Serum creatinine 11 on arrival. Improved overall, but serum creatinine when back up today. The patient did receive IV contrast and IV Vancomycin that could be contributing to the acute worsening. Nephrology consulted and following. Case discussed with Dr. Brennan. Planning for HD later today. Continue to trend. Dose-adjust antibiotics as needed. Avoid nephrotoxins as able. (6) Bilateral hydronephrosis Status: Acute Assessment and plan: Likely secondary to bladder mass. Status post PCN tube placement 03/20/17 by Interventional Radiology. (7) Hematuria Status: Acute Assessment and plan: Likely secondary to bladder mass. Resolved. Qualifiers: Hematuria type: gross Qualified Code(s): R31.0 - Gross hematuria (8) Neck pain Status: Acute Assessment and plan: Etiology unclear, but does not appear to be infectious. CT of the neck is negative for abscess. Status post cervical nerve block. Pain management per the primary team. (9) Aneurysm of left renal artery Status: Acute (10) Elevated troponin Status: Acute (11) Pulmonary nodule Status: Acute (12) Atrial fibrillation Status: Chronic Assessment and plan: Previously on Coumadin, but the patient tells me he was recently switched to Eliquis about a month ago. Rate controlled. Further management per the primary team. Qualifiers: Atrial fibrillation type: chronic Qualified Code(s): I48.2 - Chronic atrial fibrillation Infectious Disease HPI - Data of Consult Patient: new to practice Consult date: 03/25/17 Requesting Physician: Hoda Zavala MD Primary Care Provider: Roseann Marinelli - Consult Narrative Reason for consult: "Likely meningitis" History of present illness: Mr. Reich is a 71 year old male with a past medical history of A-fib, HTN, pacemaker, hematuria, and prostate cancer status post robotic prostatectomy in 2010. The patient was admitted to the hospital 03/19/17 for DAVE and CVA. We are consulted 03/25/17 for possible meningitis. The patient is a 71 year old male with a past medical history as stated above. The patient presented to the ER from pre-admission testing with complaints of blurred vision in the right eye and confusion. The patient had been evaluated by Dr. Fernández ([facility]) for hematuria and hydronephrosis and was scheduled to undergo cystoscopy and bilateral ureteroscopy on 03/20/17. Upon arrival to the [facility] clinic, he was noted to have right eye hemianopsia and was feeling generally unwell and was transported to the ED. Upon arrival, the patient was afebrile, but was hypertensive. Labs revealed a neutrophilic leukocytosis and an DAVE. CXR was normal. CT of the head showed an acute right parieto-occipital love infarct. CT of the abdomen and pelvis showed bilateral moderate hydronephrosis, likely secondary to a soft tissue mass in the bladder. The patient was admitted to the hospital for further evaluation and treatment. Since admission, the patient has been evaluated by urology and nephrology. He underwent the insertion of a temporary dialysis catheter and bilateral percutaneous nephrostomy tube placement. His leukocytosis improved, but then worsened again and 17 today. He did have one isolated low-grade fever of 100.3. Repeat CXR showed pulmonary edema, but no infiltrate. Repeat CT of the head showed no acute abnormality. Urinalysis was unremarkable. The patient complained of left posteriolateral neck and head pain so an LP was performed that showed no pleocytosis and minimally elevated glucose. He was started on empiric Rocephin, Ampicillin, and Acyclovir. He was also given one dose of IV Vanc. CSF culture is negative. Blood cultures were obtained x 2 sets and are pending. The patient had a CTA of the head and neck that showed multiple areas of stenosis, but no evidence of infection. Vascular surgery has been consulted for carotid stenosis. The patient's DAVE has been improving. We've been asked to evaluate and make further recommendations. During my exam today, the patient is awake, alert, oriented x 3. He is somewhat of a poor historian regarding the events leading up to his hospitalization and why he was going to [facility], so some information is obtained from his son and daughter who are at the bedside. The patient states that as far as he can remember he was in his usual state of health until a couple of days before he went to his [facility] appt. He said he started feeling generally unwell on Friday and noticed that his right eye was blurry on Friday. He denies any fevers, chills, or rigors. Denies headache or neck pain prior to admission. Denies congestion, earache, or sore throat. Denies nausea, vomiting, or diarrhea. Denies abdominal pain and states his appetite has been good. Denies pain in his back or extremities, but reports bilateral foot and ankle pain when performing my exam. He denies difficulty swallowing. He denies oral thrush or new skin lesions. The patient lives at home, essentially alone. He does have a , but she spends the majority of her time staying in an apartment in [place] where she has family. He is retired from the [employer]. He smokes about a pack of cigarettes per day. Denies alcohol or illicit drug use. He recently traveled to [place] to visit his family about 4 months ago. CC: Hoda aZvala MD Past Med Surg Social Fam HX - Past Medical History Attestation: Yes The following information was validated with the patient. Source: patient, old records reviewed, nursing notes reviewed Medical history: atrial fibrillation, cancer (Prostate cancer 2010 s/p robotic prostatectomy), GI bleed, hypertension Psychiatric history: no psych history - Past Surgical History Surgical History: other (robotic prostatectomy 2010), pacemaker - Social History Smoking Status: Former smoker Smokeless Tobacco Status: No Alcohol use: none Drug use: none Occupational status: retired Current living situation: Home - Independent Activity Level: Independent ambulation Recent Out of Country Travel Within the Last 8 Weeks: No Exposure or Possible Exposure to Illness During Travel: No Infectious Disease-CN:Meds Atorvastatin Calcium [Lipitor] 20 mg PO HS 03/19/17 [History] Cholecalciferol (Vitamin D3) [Vitamin D] 1,000 unit PO DAILY 03/19/17 [History] Losartan Potassium [Cozaar] 50 mg PO DAILY 03/19/17 [History] Meloxicam [Mobic] 7.5 - 15 mg PO DAILY PRN 03/19/17 [History] Metoprolol XL (24 HR) Succ [Toprol XL] 150 mg PO DAILY 03/19/17 [History] Multivitamin [One Daily Multivitamin] 1 each PO DAILY 03/19/17 [History] Amlodipine Besylate [Amlodipine Besylate] 10 mg PO DAILY 03/21/17 [History] Clopidogrel [Plavix] 75 mg PO DAILY 03/21/17 [History] Warfarin [Coumadin] 5 mg PO 1800 03/21/17 [History] 3 Allergy/AdvReac Type Severity Reaction Status Date / Time No Known Allergies Allergy Verified 03/19/17 11:56 All systems: reviewed and no additional remarkable complaints except as stated Exam - Constitutional Vitals: Temp Pulse Resp BP Pulse Ox 98.0 F 63 16 141/81 97 03/25/17 07:00 03/25/17 07:00 03/25/17 07:00 03/25/17 07:00 03/25/17 07:00 General appearance: cooperative, no acute distress, obese - Head Head exam: Present: atraumatic, normal inspection, normocephalic - Eye Eye exam: Present: EOMI, normal appearance, PERRL Pupils: Present: normal accommodation Additional comments: No subconjunctival hemorrhage noted. - ENT ENT exam: Present: mucous membranes moist Additional comments: Poor dentition noted, but no obvious abscess noted. - Neck Neck exam: Present: normal inspection, tenderness (Left posterior/lateral). Absent: full ROM (ROM limited due to left posterolateral neck pain) - Respiratory Respiratory exam: Present: CTAB. Absent: rales, respiratory distress, rhonchi, wheezes - Cardiovascular Cardiovascular exam: Present: irregular rhythm. Absent: tachycardia - GI/Abdominal GI/Abdominal exam: Present: normal bowel sounds, soft. Absent: distended, tenderness - Extremities Exam Extremities exam: Present: normal inspection, tenderness (Bilateral ankles and feet). Absent: joint swelling, pedal edema - Back Exam Additional comments: Bilateral nephrostomy tubes draining clear yellow urine. - Neurological Exam Neurological exam: Present: alert, oriented X3, no focal deficits. Absent: facial droop, speech deficit Additional comments: A/O x 3 with some inappropriate comments during conversation. Has difficulty remembering proper nouns (names, streets, specific locations, etc.). - Psychiatric Psychiatric exam: Present: normal affect, normal mood - Skin Skin exam: Present: dry, intact, normal color, warm Infectious Disease CN: Results - Labs CBC & Chem 7: 03/25/17 05:36 03/25/17 05:36 Cultures: Cultures 03/23/17 11:25 Blood Culture - Preliminary Peripheral Venipuncture No growth. 03/23/17 11:17 Blood Culture - Preliminary Peripheral Venipuncture No growth. 03/23/17 14:35 Gram Stain - Final Cerebral Spinal Fluid CSF Culture - Preliminary Serology: Serology 03/23/17 03/23/17 03/19/17 Range/Units 14:35 12:10 18:59 Urine Color Yellow (Yellow) Urine Clarity Cloudy A (Clear) Urine pH 6.0 (5.0-8.0) pH Units Ur Specific [place] > 1.030 H (1.010-1.025) Urine Protein 100 H (Neg-Trace) mg/dL Urine Glucose (UA) Normal (Normal) mg/dL Urine Ketones Negative (Negative) mg/dL Urine Blood Large H (Negative) Urine Nitrite Negative (Negative) Urine Bilirubin Negative (Negative) Urine Urobilinogen Normal (Normal) mg/dL Ur Leukocyte Esterase Negative (Negative) Urine Microscopic RBC TNTC H (0-3) per hpf Urine Microscopic WBC 5-15 H (0-3) per hpf Ur Squamous Epith Cells Many H (None-Few) per lpf Urine Bacteria None Seen (None-Few) per hpf Hyaline Casts None Seen (None-Few) per lpf CSF Volume 7.0 mL CSF Appearance Clear (Clear) CSF Color Colorless (Colorless) CSF RBC < 0.002 (0.000 - 0.002) M/mcL CSF Tot Nucleated Cells < 3 (0-5) TNC/mcL CSF Seg Neutrophils TNP CSF Band Neutrophils % TNP CSF Lymphocytes % TNP CSF Monocytes % TNP CSF Eosinophils % TNP CSF Basophils % TNP CSF Other Cells % TNP CSF Glucose 108 H (40-70) mg/dL CSF Xanth Comm Not Observed (Not Observe) CSF Total Protein 42 (15-45) mg/dL Hepatitis A IgM Ab (Nonreactive) Hep Bs Antigen (Nonreactive) Hep Bs Antibody 0.64 mIU/mL Hep B Core IgM Ab (Nonreactive) Hepatitis C Ab Screen (Nonreactive) 03/19/17 Range/Units 18:59 Urine Color (Yellow) Urine Clarity (Clear) Urine pH (5.0-8.0) pH Units Ur Specific [place] (1.010-1.025) Urine Protein (Neg-Trace) mg/dL Urine Glucose (UA) (Normal) mg/dL Urine Ketones (Negative) mg/dL Urine Blood (Negative) Urine Nitrite (Negative) Urine Bilirubin (Negative) Urine Urobilinogen (Normal) mg/dL Ur Leukocyte Esterase (Negative) Urine Microscopic RBC (0-3) per hpf Urine Microscopic WBC (0-3) per hpf Ur Squamous Epith Cells (None-Few) per lpf Urine Bacteria (None-Few) per hpf Hyaline Casts (None-Few) per lpf CSF Volume mL CSF Appearance (Clear) CSF Color (Colorless) CSF RBC (0.000 - 0.002) M/mcL CSF Tot Nucleated Cells (0-5) TNC/mcL CSF Seg Neutrophils CSF Band Neutrophils % CSF Lymphocytes % CSF Monocytes % CSF Eosinophils % CSF Basophils % CSF Other Cells % CSF Glucose (40-70) mg/dL CSF Xanth Comm (Not Observe) CSF Total Protein (15-45) mg/dL Hepatitis A IgM Ab Nonreactive (Nonreactive) Hep Bs Antigen Nonreactive (Nonreactive) Hep Bs Antibody mIU/mL Hep B Core IgM Ab Nonreactive (Nonreactive) Hepatitis C Ab Screen Nonreactive (Nonreactive) - VTE Documentation of Mechanical Device: Intermittent pneumatic compression device Consult Discharge Plan - Plan Referrals: Roseann Marinelli DO [Primary Care Provider] -
--- NOTE | 2017-03-25 11:04 | Neurology Progress Note ---
Date of Encounter: 03/25/17 Time of Encounter: 08:30 Assessment and Plan (1) Acute encephalopathy Current Visit: Yes Status: Acute Patient continued to show this encephalopathic picture without any focal sign of meningitis on his exam detailed on his CSF. EEG also shows generalized slowing consistent with mild encephalopathy. ID services has been consulted so far no source of infection has been isolated. He did have an occipital infarct but I do not think that should be the cause of his fever or mental status changes due to the fact that it was only in the occipital lobe. With this significant stenosis in his carotid as well as vertebral system perhaps he could be having hypoperfusion and that may explain his fluctuating mental status but at the same time he also has multiple conditions and metabolic reason for his mental status changes. As far as critical stenosis in his carotid and vertebral along with the stroke I would suggest that we should start him at least on a coated regular aspirin along with the statin for secondary stroke prevention, if there is no sign of active bleeding otherwise do not have much option and he remained at high risk for any Devastating stroke. Vascular surgery has been consulted for critical stenosis awaits Recommendations. Patient condition as well as imaging studies results were discussed with the son who is at the bedside (2) Occipital infarction Current Visit: Yes Status: Acute (3) Bilateral hydronephrosis Current Visit: Yes Status: Acute (4) DAVE (acute kidney injury) Current Visit: Yes Status: Acute Subjective Principal diagnosis: DAVE, hyperkalemia, bilateral hydronephrosis Interval history: The patient is stable , still having some confusion. neck pain is improved not complaining as much now, some tenderness, CSF negative for any acute infectious etiology white count has been negative as well as Gram stain proteins were also within normal limits cultures are pending. She did not have any new focal motor weakness. He was also found to have significant bilateral carotid stenosis 70% along with intracranial focal stenosis in both vertebrals. He did have an occipital infarct but apparently off all anticoagulation as well as any antiplatelet agent due to the hematuria and had tube placement because of hydronephrosis he also has a prostate cancer. Objective - Constitutional Vitals: Temp Pulse Resp BP Pulse Ox 98.0 F 63 16 141/81 97 03/25/17 07:00 03/25/17 07:00 03/25/17 07:00 03/25/17 07:00 03/25/17 07:00 - Neurological Exam Sensorimotor examination: Present: intact Motor Examination: Present: grossly full strength in all extremities Motor examination - left side: 5/5: deltoids, biceps, triceps, wrist flexion, wrist extension, hip flexors, molder operator, quadriceps, tibialis Anterior, toe extension (EHL), plantarflexion Sensation intact: Present: intact Posture: Present: other (None) Reflex and gait examination: other (Gait not assessed) Reflexes: Biceps: 1+, Triceps: 1+, Brachioradialis: 1+, Patella: 1+, Achilles: 1 + Mental Status Examination: Present: awake, alert, oriented to person, oriented to place, makes eye contact, follows simple commands, localizes noxious stimulation Cranial nerve examination: Present: PERRL, EOMI (decrease vision in lEFT visual field ( Left Hemianopsia) ), sensory to face intact, no facial asymmetry is present, no dysarthria, hearing is intact symmetrically Cerebellar examination: Present: no dysmetria - VTE Documentation of Mechanical Device: Intermittent pneumatic compression device Results - Laboratory Findings CBC and BMP: 03/25/17 05:36 03/25/17 05:36 Abnormal lab findings: Abnormal lab results WBC 17.0 K/mcL (4.3-11.1) H 03/25/17 05:36 MCH 27.9 pg (28.0-33.3) L 03/25/17 05:36 Neutrophils # 12.5 K/mcL (1.6-8.9) H 03/22/17 08:14 Monocytes # 1.5 K/mcL (0.0-1.3) H 03/22/17 08:14 Immature Plt Fraction 9.8 % (1.1-6.1) H 03/22/17 08:14 PT 13.7 Seconds (9.4-12.1) H 03/23/17 11:17 APTT 25.2 Seconds (26.0-36.0) L 03/23/17 11:17 ABG pH 7.50 pH Units (7.32-7.45) H 03/23/17 10:14 ABG pCO2 30 mmHg (35-45) L 03/23/17 10:14 ABG pO2 64 mmHg (85-104) L 03/23/17 10:14 ABG O2 Saturation 94 % (95-98) L 03/23/17 10:14 BUN 63 mg/dL (8-26) H 03/25/17 05:36 Creatinine 7.22 mg/dL (0.72-1.25) H 03/25/17 05:36 Est GFR ( Amer) 9 (> 60) L 03/25/17 05:36 Est GFR (Non-Af Amer) 8 (> 60) L 03/25/17 05:36 Glucose 172 mg/dL (70-99) H 03/25/17 05:36 POC Glucose 139 (58-89) H 03/22/17 04:45 Hemoglobin A1c 6.1 % (-5.6) H 03/20/17 06:34 Calculated Osmolality 308 (280-300) H 03/25/17 05:36 Phosphorus 6.4 mg/dL (2.3-4.7) H 03/20/17 06:34 Total Bilirubin 1.5 mg/dL (0.2-1.2) H 03/23/17 11:27 Direct Bilirubin 0.6 mg/dL (0.0-0.5) H 03/23/17 11:27 Troponin I 0.11 ng/mL (0-0.03) H* 03/22/17 08:14 B-Natriuretic Peptide 552 pg/mL (0-100) H 03/19/17 18:59 Serum Total Protein 8.9 g/dL (6.0-8.3) H 03/23/17 11:27 Globulin 5.0 g/dL (2.4-3.5) H 03/23/17 11:27 Albumin/Globulin Ratio 0.8 (1.1-2.2) L 03/23/17 11:27 LDL Cholesterol, Calc 111 mg/dL (0-99) H 03/20/17 06:34 HDL Cholesterol 35 mg/dL (40-59) L 03/20/17 06:34 Cholesterol/HDL Ratio 5.0 (0-4.9) H 03/20/17 06:34 Prostate Specific Ag 17.94 ng/mL (0.00-4.00) H 03/19/17 12:56 Urine Clarity Cloudy (Clear) A 03/23/17 12:10 Ur Specific [place] > 1.030 (1.010-1.025) H 03/23/17 12:10 Urine Protein 100 mg/dL (Neg-Trace) H 03/23/17 12:10 Urine Blood Large (Negative) H 03/23/17 12:10 Urine Microscopic RBC TNTC per hpf (0-3) H 03/23/17 12:10 Urine Microscopic WBC 5-15 per hpf (0-3) H 03/23/17 12:10 Ur Squamous Epith Cells Many per lpf (None-Few) H 03/23/17 12:10 CSF Glucose 108 mg/dL (40-70) H 03/23/17 14:35 Consult Discharge Plan - Plan Referrals: Roseann Marinelli DO [Primary Care Provider] -
--- NOTE | 2017-03-25 11:10 | Nephrology Progress Note ---
Date of Encounter: 03/25/17 Time of Encounter: 11:08 - Assessment and Plan (1) DAVE (acute kidney injury) Current Visit: Yes Status: Acute Kidney function worse Scr 7.22, GFR 8 Plan for HD today Re-evaluate tomorrow for need for [employer] again Strict I/Os Avoid nephrotoxins if possible (2) Bilateral hydronephrosis Current Visit: Yes Status: Acute per urology team (3) Malignant neoplasm of prostate Current Visit: Yes Status: Acute per primary team Subjective Principal diagnosis: DAVE, hyperkalemia, bilateral hydronephrosis Interval history: Patient seen and examined. Pleasant and answering questions today; two adult children at bedside. Objective - Vital Signs Vital signs: Vital Signs Temp Pulse Resp BP Pulse Ox 03/25/17 07:00 98.0 F 63 16 141/81 97 03/25/17 05:10 98.3 F 64 20 162/87 98 03/25/17 00:04 98.8 F 63 18 137/74 97 03/24/17 22:41 97 03/24/17 21:43 98.4 F 66 18 145/89 98 03/24/17 17:19 175/87 03/24/17 15:24 97.9 F 60 18 193/95 96 Intake and Output 03/24/17 03/25/17 03/25/17 23:59 07:59 15:59 Intake Total 220 / 220 100 / 100 0 / 0 Output Total 890 / 890 750 / 750 350 / 350 Balance -670 / -670 -650 / -650 -350 / -350 Intake: IV Fluids 220 / 220 100 / 100 Rocephin 2,000 MG In Water for 20 / 20 inj. (sterile) 20 ML @ 600 mls/ hr IVP Q12H KATHLEEN Rx#:[id number] Ampicillin 2 GM In 0.9 % Sodium 200 / 200 100 / 100 Chloride (Mini-Bag +) 100 ML @ 200 mls/hr IVPB Q6H KATHLEEN Rx#: [id number] Oral 0 / 0 0 / 0 0 / 0 Output: Urine 0 / 0 Left Nephrostomy 100 / 100 Right Nephrostomy 200 / 200 Wound Drainage 590 / 590 750 / 750 350 / 350 Left Lower Back 140 / 140 150 / 150 150 / 150 Right Lower Back 450 / 450 600 / 600 200 / 200 Other: Meal Breakfast Percent of Meal Consumed 0% Weight 114.4 kg 114.4 kg Patient Weight 03/25/17 23:59 Weight 114.4 kg - General Appearance General appearance: Present: well-developed, well-nourished EENT: Present: ATNC, mucous membranes moist, hearing intact, vision intact Neck: Present: supple Respiratory: Present: clear Cardiology: Present: edema (mild BLL edema), normal S1, normal S2 Dialysis Vascular Access: Venous Catheter Gastrointestinal: Present: no tenderness, no guarding Integumentary: Present: warm and dry Neurologic: Present: alert and oriented x3 Psychiatric: Present: mood/affect appropriate, cooperative - Lab 03/25/17 05:36 03/25/17 05:36 Most recent lab results ABG pH 7.50 pH Units (7.32-7.45) H 03/23/17 10:14 ABG pCO2 30 mmHg (35-45) L 03/23/17 10:14 ABG pO2 64 mmHg (85-104) L 03/23/17 10:14 ABG HCO3 23 mEq/L (21-27) 03/23/17 10:14 ABG O2 Saturation 94 % (95-98) L 03/23/17 10:14 Calcium 9.7 mg/dL (8.6-10.8) 03/25/17 05:36 Phosphorus 6.4 mg/dL (2.3-4.7) H 03/20/17 06:34 Magnesium 2.6 mg/dL (1.6-2.6) 03/20/17 06:34 - VTE Documentation of Mechanical Device: Intermittent pneumatic compression device Consult Discharge Plan - Plan Referrals: Roseann Marinelli DO [Primary Care Provider] -
--- NOTE | 2017-03-25 13:40 | Urology Progress Note ---
Date of Encounter: 03/25/17 Time of Encounter: 13:38 - Assessment and Plan (1) Elevated serum creatinine Current Visit: Yes Status: Acute (2) Malignant neoplasm of prostate Current Visit: Yes Status: Acute Assessment and plan: on casodex. will start lupron as outpatient. (3) Bilateral hydronephrosis Current Visit: Yes Status: Acute Assessment and plan: sp pcn tubes. keep in place Progress Note Narrative: patient seen while in dialysis. I have been able to confirm that the patient underwent robotic prostatectomy in 2010 at [facility]. Pathology revealed low volume [place] 7 prostate cancer with negative margins. I do not have PSAs after that surgery. Unsure if the patient ever went to 0. Patient's serum creatinine did increase and is on dialysis today. Good drainage from nephrostomy tubes Objective Initial Vital Signs Temp Pulse Resp BP Pulse Ox 98.1 F 61 16 177/111 99 03/19/17 12:22 03/19/17 12:22 03/19/17 12:22 03/19/17 12:22 03/19/17 12:22 - General physical appearance Present: well developed - Abdomen Present: soft - Labs 03/25/17 05:36 03/25/17 05:36 Diabetes panel 03/25/17 Range/Units 05:36 Sodium 138 (136-145) mEq/L Potassium 3.9 (3.5-4.5) mEq/L Chloride 100 (98-109) mEq/L Carbon Dioxide 19 (19-29) mEq/L BUN 63 H (8-26) mg/dL Creatinine 7.22 H (0.72-1.25) mg/dL Glucose 172 H (70-99) mg/dL Calcium 9.7 (8.6-10.8) mg/dL Calcium panel 03/25/17 Range/Units 05:36 Calcium 9.7 (8.6-10.8) mg/dL Pituitary panel 03/25/17 Range/Units 05:36 Sodium 138 (136-145) mEq/L Potassium 3.9 (3.5-4.5) mEq/L Chloride 100 (98-109) mEq/L Carbon Dioxide 19 (19-29) mEq/L BUN 63 H (8-26) mg/dL Creatinine 7.22 H (0.72-1.25) mg/dL Glucose 172 H (70-99) mg/dL Calcium 9.7 (8.6-10.8) mg/dL Adrenal panel 03/25/17 Range/Units 05:36 Sodium 138 (136-145) mEq/L Potassium 3.9 (3.5-4.5) mEq/L Chloride 100 (98-109) mEq/L Carbon Dioxide 19 (19-29) mEq/L BUN 63 H (8-26) mg/dL Creatinine 7.22 H (0.72-1.25) mg/dL Glucose 172 H (70-99) mg/dL Calcium 9.7 (8.6-10.8) mg/dL - VTE Documentation of Mechanical Device: Intermittent pneumatic compression device Consult Discharge Plan - Plan Referrals: Roseann Marinelli DO [Primary Care Provider] -
--- NOTE | 2017-03-25 17:26 | Internal Med Progress Note ---
Date of Encounter: 03/25/17 Time of Encounter: 15:00 - Assessment and plan (1) Hematuria Current Visit: Yes Status: Acute Assessment and plan: Improving. CT abdomen/pelvis showed urinary bladder mass in the inferior part. Urology on board, suspect recurrence of prostate cancer. Status post placement of bilateral percutaneous nephrostomy tubes. Continue Casodex. Monitor hemoglobin closely, currently stable. Qualifiers: Hematuria type: gross Qualified Code(s): R31.0 - Gross hematuria (2) DAVE (acute kidney injury) Current Visit: Yes Status: Acute Assessment and plan: Multifactorial-initially postrenal due to obstruction due to bladder mass. Patient also received IV contrast and vancomycin and noted to have worsening serum creatinine. Has been started on hemodialysis, underwent dialysis today. Nephrology on board, appreciate management. 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 CT angiogram of head and neck showed bilateral significant internal carotid artery stenosis, moderate stenosis of the right vertebral artery, severe stenosis of the right posterior cerebral artery. Vascular surgery has been consulted, patient requires carotid endarterectomy at a later time. Patient subsequently developed worsening encephalopathy/delirium along with left -sided neck pain and nuchal rigidity neurology was consulted and patient underwent lumbar puncture and left occipital nerve block. He has been started on broad-spectrum IV antibiotics for bacterial/viral meningitis-IV vancomycin, Rocephin, ampicillin and acyclovir. Vancomycin has been held yesterday due to worsening renal function. Reviewed CSF analysis, normal CSF glucose and protein levels and normal cell count, no elevated WBC count, Gram stain and culture so far negative. We will hold IV Rocephin and ampicillin at this time. Continue supportive care. Will restart Coumadin in light of vasculopathy as mentioned above. (4) Acute hyperkalemia Current Visit: Yes Status: Resolved (5) Malignant neoplasm of prostate Current Visit: Yes Status: Acute Assessment and plan: Urology on board, trying to obtain records from [facility] regarding previous treatment for prostate cancer. Continue Casodex. (6) Atrial fibrillation Current Visit: Yes Status: Chronic Assessment and plan: Status post pacemaker placement. Rate controlled. Restart anticoagulation with Coumadin. Qualifiers: Atrial fibrillation type: chronic Qualified Code(s): I48.2 - Chronic atrial fibrillation (7) Elevated troponin Current Visit: Yes Status: Resolved (8) Acute encephalopathy Current Visit: Yes Status: Acute Assessment and plan: Stable. Likely related to underlying medical conditions. Noted to have only one episode of low-grade fever at 100.3 about 48 hours ago. Blood, urine cultures remain negative. Gram stain and preliminary culture of CSF so far negative. Infectious disease is on board, will follow-up recommendations. - Subjective Interval history: Just completed hemodialysis session. Able to answer a few questions, however speaks inappropriately and out of context. Denies chest or abdominal pain, hematuria, nausea or vomiting. - Constitutional Vitals: Temp Pulse Resp BP Pulse Ox 97.8 F 66 16 147/80 98 03/25/17 16:08 03/25/17 16:08 03/25/17 16:08 03/25/17 16:08 03/25/17 16:08 General appearance: Present: A&O X 2, pleasant, obese. Absent: answers questions appropriately - Respiratory Respiratory exam: Present: CTAB. Absent: accessory muscle use, rales, rhonchi, wheezes - Cardiovascular Cardiovascular exam: Present: RRR, +S1, +S2. Absent: diastolic murmur, gallop, rubs, systolic murmur - GI/Abdominal GI/Abdominal exam: Present: normal bowel sounds, soft, no peritoneal signs. Absent: distended, tenderness - Extremities Exam Extremities exam: Present: full ROM, warm, radial pulses palpable and symmetrical. Absent: calf tenderness, cyanotic, pedal edema Internal Medicine: Result - Labs CBC & Chem 7: 03/26/17 05:11 03/26/17 05:11 Labs: Short CBC 03/25/17 Range/Units 05:36 WBC 17.0 H (4.3-11.1) K/mcL Hgb 14.4 D (12.9-16.9) g/dL Hct 43.7 (37.5-50.1) % Plt Count 255 (140-400) K/mcL BMP 03/25/17 05:36 Sodium 138 Potassium 3.9 Chloride 100 Carbon Dioxide 19 BUN 63 H Creatinine 7.22 H Glucose 172 H Calcium 9.7 - ABG Interpretation ABG results: ABG ABG pH 7.50 pH Units (7.32-7.45) H 03/23/17 10:14 ABG pCO2 30 mmHg (35-45) L 03/23/17 10:14 ABG pO2 64 mmHg (85-104) L 03/23/17 10:14 ABG O2 Saturation 94 % (95-98) L 03/23/17 10:14 PT/INR, D-dimer PT 13.7 Seconds (9.4-12.1) H 03/23/17 11:17 - Impressions Impressions Head CTA 03/23/17 17:03 IMPRESSION: There is severe, greater than 70%, stenosis of the bilateral internal carotid arteries by NASCET criteria. There is moderate stenosis of the right vertebral artery origin. Moderate narrowing of the distal right M1 segment. Severe focal narrowing of the bilateral intracranial vertebral arteries, proximal to the bilateral PICA origins. Severe stenosis of the right posterior cerebral artery at the P2/P3 junction. Loss of li-white matter differentiation in the medial right occipital and parietal lobes is unchanged and consistent with acute to subacute infarct. Remote small left MCA vascular territory infarct is unchanged. D/ / 03/23/2017 19:56:50 Karthik Trejo MD / david Interpreting Provider: Karthik Trejo MD Neck CTA 03/23/17 17:03 IMPRESSION: There is severe, greater than 70%, stenosis of the bilateral internal carotid arteries by NASCET criteria. There is moderate stenosis of the right vertebral artery origin. Moderate narrowing of the distal right M1 segment. Severe focal narrowing of the bilateral intracranial vertebral arteries, proximal to the bilateral PICA origins. Severe stenosis of the right posterior cerebral artery at the P2/P3 junction. Loss of li-white matter differentiation in the medial right occipital and parietal lobes is unchanged and consistent with acute to subacute infarct. Remote small left MCA vascular territory infarct is unchanged. D/ / 03/23/2017 19:56:50 Karthik Trejo MD / david Interpreting Provider: Karthik Trejo MD - VTE Documentation of Mechanical Device: Intermittent pneumatic compression device Consult Discharge Plan - Plan Referrals: Roseann Marinelli DO [Primary Care Provider] -
[2017-03-25] MEDS ORDERED: Warfarin perPT PO PRN (18:00)
[2017-03-25 19:05] LABS: INR 1.3; Prothrombin Time 13.8 Seconds (9.4-12.1)
[2017-03-25] MEDS ORDERED: *HR* Warfarin 4 MG TABLET PO ONE (20:46)
[2017-03-25] MEDS: Acetaminophen 325 MG TABLET PO PRN (22:21)
[2017-03-26 06:12] LABS: Hematocrit 44.9 % (37.5-50.1); Hemoglobin 15.1 g/dL (12.9-16.9); Mean Corpuscular HGB Conc 33.6 g/dL (31.6-35.5); Mean Corpuscular Hemoglobin 27.8 pg (28.0-33.3); Mean Corpuscular Volume 82.7 fL (83.0-100.0); Mean Platelet Volume 11.9 fL (9.4-12.4); Platelet Count 297 K/mcL (140-400); Red Blood Count 5.43 M/mcL (4.19-5.50); Red Cell Distribution Width 13.7 % (11.5-14.5)
[2017-03-26 06:15] LABS: INR 1.3; Prothrombin Time 13.8 Seconds (9.4-12.1)
[2017-03-26 06:33] LABS: Calcium 10.1 mg/dL (8.6-10.8); Potassium 3.8 mEq/L (3.5-4.5)
[2017-03-26] MEDS: amLODIPine 5 MG TABLET PO SCH (09:20)
[2017-03-26] MEDS: Multivit/Ca/Min/Fe/FA 1 TAB TABLET PO SCH (09:21)
[2017-03-26] MEDS: Bicalutamide 50 MG TABLET PO SCH (09:21)
[2017-03-26] MEDS: Cholecalciferol (D-3) 1,000 UNIT TABLET PO SCH (09:21)
[2017-03-26] MEDS: Metoprolol XL (24 HR) Succ 50 MG TAB.ER.24H PO SCH (09:21)
--- NOTE | 2017-03-26 10:08 | Internal Med Progress Note ---
Date of Encounter: 03/26/17 Time of Encounter: 09:45 - Assessment and plan (1) Hematuria Current Visit: Yes Status: Acute Assessment and plan: Improving. CT abdomen/pelvis showed urinary bladder mass in the inferior part. Urology on board, suspect recurrence of prostate cancer. Status post placement of bilateral percutaneous nephrostomy tubes. Continue Casodex. Monitor hemoglobin closely, currently stable. Discussed with urology, may not be safe to start patient on anticoagulation with Coumadin at this time, will hold off for at least 2 weeks. Start high dose aspirin for stroke prophylaxis. Qualifiers: Hematuria type: gross Qualified Code(s): R31.0 - Gross hematuria (2) DAVE (acute kidney injury) Current Visit: Yes Status: Acute Assessment and plan: Multifactorial-initially postrenal due to obstruction due to bladder mass. Patient also received IV contrast and vancomycin and noted to have worsening serum creatinine. Serum creatinine slightly better today. Has been started on hemodialysis, plan for repeat dialysis today. Nephrology on board, appreciate management. 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 CT angiogram of head and neck showed bilateral significant internal carotid artery stenosis, moderate stenosis of the right vertebral artery, severe stenosis of the right posterior cerebral artery. Vascular surgery has been consulted, patient requires carotid endarterectomy at a later time. Patient subsequently developed worsening encephalopathy/delirium along with left -sided neck pain and nuchal rigidity neurology was consulted and patient underwent lumbar puncture and left occipital nerve block. Reviewed CSF analysis , normal CSF glucose and protein levels and normal cell count, no elevated WBC count, Gram stain and culture so far negative. Hold antibiotics. Continue supportive care. Start high dose aspirin and continue statin for stroke prophylaxis. (4) Acute hyperkalemia Current Visit: Yes Status: Resolved (5) Malignant neoplasm of prostate Current Visit: Yes Status: Acute Assessment and plan: Urology on board, trying to obtain records from [facility] regarding previous treatment for prostate cancer. Continue Casodex. (6) Atrial fibrillation Current Visit: Yes Status: Chronic Assessment and plan: Status post pacemaker placement. Rate controlled. Hold anticoagulation with Coumadin due to recent gross hematuria and percutaneous nephrostomy tube placement. Qualifiers: Atrial fibrillation type: chronic Qualified Code(s): I48.2 - Chronic atrial fibrillation (7) Elevated troponin Current Visit: Yes Status: Resolved (8) Acute encephalopathy Current Visit: Yes Status: Acute Assessment and plan: Stable. Likely related to underlying medical conditions. Noted to have only one episode of low-grade fever at 100.3 about 48 hours ago. Blood, urine cultures remain negative. Gram stain and preliminary culture of CSF so far negative. Infectious disease is on board, agree withholding antibiotics at this time. Continue to monitor. (9) Leukocytosis Current Visit: Yes Status: Acute Assessment and plan: Slightly improving. Could be related to hematuria, hemodialysis initiation, bladder mass. No source of infection identified so far. Qualifiers: Leukocytosis type: unspecified Qualified Code(s): D72.829 - Elevated white blood cell count, unspecified - Subjective Interval history: Continues to be somewhat confused and speaks inappropriately at times but is able to participate in conversation regarding his medical condition; plan of care discussed with son and daughter at bedside; denies hematuria, chest or abdominal pain, fever/chills. - Constitutional Vitals: Temp Pulse Resp BP Pulse Ox 97.7 F 69 16 154/86 96 03/26/17 07:58 03/26/17 07:58 03/26/17 07:58 03/26/17 07:58 03/26/17 07:58 General appearance: Present: A&O X 3, pleasant, obese, answers questions appropriately - Respiratory Respiratory exam: Present: CTAB. Absent: accessory muscle use, rales, rhonchi, wheezes - Cardiovascular Cardiovascular exam: Present: RRR, +S1, +S2. Absent: diastolic murmur, gallop, rubs, systolic murmur - GI/Abdominal GI/Abdominal exam: Present: normal bowel sounds, soft, no peritoneal signs. Absent: distended, tenderness - Extremities Exam Extremities exam: Present: full ROM, warm, radial pulses palpable and symmetrical. Absent: calf tenderness, cyanotic, pedal edema Internal Medicine: Result - Labs CBC & Chem 7: 03/26/17 05:11 03/26/17 05:11 Labs: Short CBC 03/26/17 Range/Units 05:11 WBC 16.3 H (4.3-11.1) K/mcL Hgb 15.1 (12.9-16.9) g/dL Hct 44.9 (37.5-50.1) % Plt Count 297 (140-400) K/mcL BMP 03/26/17 05:11 Sodium 140 Potassium 3.8 Chloride 98 Carbon Dioxide 23 BUN 52 H Creatinine 6.64 H Glucose 130 H Calcium 10.1 - ABG Interpretation ABG results: ABG ABG pH 7.50 pH Units (7.32-7.45) H 03/23/17 10:14 ABG pCO2 30 mmHg (35-45) L 03/23/17 10:14 ABG pO2 64 mmHg (85-104) L 03/23/17 10:14 ABG O2 Saturation 94 % (95-98) L 03/23/17 10:14 PT/INR, D-dimer PT 13.8 Seconds (9.4-12.1) H 03/26/17 05:11 - VTE Documentation of Mechanical Device: Intermittent pneumatic compression device Consult Discharge Plan - Plan Referrals: Roseann Marinelli DO [Primary Care Provider] -
[2017-03-26] MEDS: Aspirin Enteric Coated 325 MG Tablet PO SCH (12:17)
--- NOTE | 2017-03-26 12:19 | Vascular/[facility] Progress Note ---
Date of Encounter: 03/25/17 Time of Encounter: 15:30 - Assessment and plan (1) Cerebrovascular accident (CVA) due to bilateral stenosis of carotid arteries Current Visit: Yes Status: Acute The patient has bilateral 70% internal carotid artery stenosis and a recent right parieto-occipital lobe infarct with resultanat left hemianopsia. The patient denies any acute symptoms of CVA, TIA or amaurosis fugax. He reports persistent visual field deficits. Continue with medical therapy. Begin aspirin when patient is able to tolerate. Carotid endarterectomy can be considered electively after he recovers from his acute issues. (2) DAVE (acute kidney injury) Current Visit: Yes Status: Acute (3) Hypertension Current Visit: Yes Status: Acute Qualifiers: Hypertension type: essential hypertension Qualified Code(s): I10 - Essential (primary) hypertension - Subjective Interval history: The patient reports no acute issues overnight. He feels well today. Nurse reports some confusion. He denies chest pain or shortness of breath. Vital Signs, Last 4 Hours Temp Pulse Resp BP Pulse Ox 03/26/17 11:46 98 F 66 16 143/95 93 - Physical Examination General: Present: Conversant, No Apparent Distress HEENT: Present: Pupils equal Neck: Absent: JVD Cardiac: Present: Reg Rate and Rhythm (paced) Lungs: Present: Normal Breath Sounds, No Wheeze, Rales, Rhonchi Neuro: Present: Alert and responsive, Motor nerves grossly intact, Sensory nerves grossly intact Vascular: Present: Normal capillary refill, Edema (trace), Color/Temperature ( warm). Absent: Cyanosis Abdomen: Present: Soft, Non-tender - VTE Documentation of Mechanical Device: Intermittent pneumatic compression device Results 03/26/17 05:11 03/26/17 05:11 Lab Results, Last 24 hours 03/25/17 03/26/17 03/26/17 18:32 05:11 05:11 WBC 16.3 H Hgb 15.1 Hct 44.9 Plt Count 297 INR 1.3 Sodium 140 Potassium 3.8 Chloride 98 Carbon Dioxide 23 BUN 52 H Creatinine 6.64 H Glucose 130 H Calcium 10.1 03/26/17 05:11 WBC Hgb Hct Plt Count INR 1.3 Sodium Potassium Chloride Carbon Dioxide BUN Creatinine Glucose Calcium Consult Discharge Plan - Plan Referrals: Roseann Marinelli DO [Primary Care Provider] -
[2017-03-26] MEDS ORDERED: *HR* Heparin 10,000 UNIT/10 ML VIAL IV PRN (13:56)
[2017-03-26] MEDS ORDERED: 0.9 % Sodium Chloride 250 ML IVC PRN (13:56)
--- NOTE | 2017-03-26 15:49 | Neurology Progress Note ---
Date of Encounter: 03/26/17 Time of Encounter: 07:40 Assessment and Plan (1) Acute encephalopathy Current Visit: Yes Status: Acute slowly improving no sign of an angitis on clinical exam as well as on CSF examination. Gram stain has been negative. Patient also been evaluated by ID services, they also recommend discontinuation of antibodies as well as antiviral agent. (2) Occipital infarction Current Visit: Yes Status: Acute For his occipital infarct as well as significant carotid and vertebral stenosis certainly patient need to be on either anticoagulation or antiplatelet agent discussed with primary care physician she has already discussed with urology and at this time she does not have any active bleeding anticougulation has been resumed as patient also has history of atrial fibrillation, this time I would recommend only taking Coumadin and not to add another antiplatelet agent due to high risk of bleeding complication (3) Bilateral hydronephrosis Current Visit: Yes Status: Acute Stable at this time he has been followed by urology (4) DAVE (acute kidney injury) Current Visit: Yes Status: Acute Subjective Principal diagnosis: DAVE, hyperkalemia, bilateral hydronephrosis Interval history: The patient is stable , no new symptoms still having some confusion.not as bad , neck pain is improved not complaining as much now, some tenderness, CSF negative for any acute infectious etiology white count has been negative as well as Gram stain proteins were also within normal limits cultures are pending. She did not have any new focal motor weakness. He was also found to have significant bilateral carotid stenosis 70% along with intracranial focal stenosis in both vertebrals. He did have an occipital infarct, has been evaluated by vascular surgery recommended medical treatment at this time as patient is off all antiplatelet agent and also off from anticoagulation due to recent nephrostomy tube placement as well as bleeding from his urine but he is better and not having any bleeding Objective - Constitutional Vitals: Temp Pulse Resp BP Pulse Ox 98 F 66 16 143/95 93 03/26/17 11:46 03/26/17 11:46 03/26/17 11:46 03/26/17 11:46 03/26/17 11:46 - Neurological Exam Sensorimotor examination: Present: intact Motor Examination: Present: grossly full strength in all extremities Motor examination - left side: 5/5: deltoids, biceps, triceps, wrist flexion, wrist extension, hip flexors, associate producer, quadriceps, tibialis Anterior, toe extension (EHL), plantarflexion Sensation intact: Present: intact Posture: Present: other (None) Reflex and gait examination: other (Gait not assessed) Mental Status Examination: Present: awake, alert, oriented to person, oriented to place, makes eye contact, follows simple commands, localizes noxious stimulation Cranial nerve examination: Present: PERRL, EOMI (decrease vision in lEFT visual field ( Left Hemianopsia) ), sensory to face intact, no facial asymmetry is present, no dysarthria, hearing is intact symmetrically Cerebellar examination: Present: no dysmetria - VTE Documentation of Mechanical Device: Intermittent pneumatic compression device Results - Laboratory Findings CBC and BMP: 03/26/17 05:11 03/26/17 05:11 Abnormal lab findings: Abnormal lab results WBC 16.3 K/mcL (4.3-11.1) H 03/26/17 05:11 MCV 82.7 fL (83.0-100.0) L 03/26/17 05:11 MCH 27.8 pg (28.0-33.3) L 03/26/17 05:11 Neutrophils # 12.5 K/mcL (1.6-8.9) H 03/22/17 08:14 Monocytes # 1.5 K/mcL (0.0-1.3) H 03/22/17 08:14 Immature Plt Fraction 9.8 % (1.1-6.1) H 03/22/17 08:14 PT 13.8 Seconds (9.4-12.1) H 03/26/17 05:11 APTT 25.2 Seconds (26.0-36.0) L 03/23/17 11:17 ABG pH 7.50 pH Units (7.32-7.45) H 03/23/17 10:14 ABG pCO2 30 mmHg (35-45) L 03/23/17 10:14 ABG pO2 64 mmHg (85-104) L 03/23/17 10:14 ABG O2 Saturation 94 % (95-98) L 03/23/17 10:14 BUN 52 mg/dL (8-26) H 03/26/17 05:11 Creatinine 6.64 mg/dL (0.72-1.25) H 03/26/17 05:11 Est GFR ( Amer) 10 (> 60) L 03/26/17 05:11 Est GFR (Non-Af Amer) 8 (> 60) L 03/26/17 05:11 Glucose 130 mg/dL (70-99) H 03/26/17 05:11 POC Glucose 139 (58-89) H 03/22/17 04:45 Hemoglobin A1c 6.1 % (-5.6) H 03/20/17 06:34 Calculated Osmolality 306 (280-300) H 03/26/17 05:11 Phosphorus 6.4 mg/dL (2.3-4.7) H 03/20/17 06:34 Total Bilirubin 1.5 mg/dL (0.2-1.2) H 03/23/17 11:27 Direct Bilirubin 0.6 mg/dL (0.0-0.5) H 03/23/17 11:27 Troponin I 0.11 ng/mL (0-0.03) H* 03/22/17 08:14 B-Natriuretic Peptide 552 pg/mL (0-100) H 03/19/17 18:59 Serum Total Protein 8.9 g/dL (6.0-8.3) H 03/23/17 11:27 Globulin 5.0 g/dL (2.4-3.5) H 03/23/17 11:27 Albumin/Globulin Ratio 0.8 (1.1-2.2) L 03/23/17 11:27 LDL Cholesterol, Calc 111 mg/dL (0-99) H 03/20/17 06:34 HDL Cholesterol 35 mg/dL (40-59) L 03/20/17 06:34 Cholesterol/HDL Ratio 5.0 (0-4.9) H 03/20/17 06:34 Prostate Specific Ag 17.94 ng/mL (0.00-4.00) H 03/19/17 12:56 Urine Clarity Cloudy (Clear) A 03/23/17 12:10 Ur Specific [place] > 1.030 (1.010-1.025) H 03/23/17 12:10 Urine Protein 100 mg/dL (Neg-Trace) H 03/23/17 12:10 Urine Blood Large (Negative) H 03/23/17 12:10 Urine Microscopic RBC TNTC per hpf (0-3) H 03/23/17 12:10 Urine Microscopic WBC 5-15 per hpf (0-3) H 03/23/17 12:10 Ur Squamous Epith Cells Many per lpf (None-Few) H 03/23/17 12:10 CSF Glucose 108 mg/dL (40-70) H 03/23/17 14:35 Consult Discharge Plan - Plan Referrals: Roseann Marinelli DO [Primary Care Provider] -
--- NOTE | 2017-03-26 16:34 | Nephrology Progress Note ---
Date of Encounter: 03/26/17 Time of Encounter: 16:30 - Assessment and Plan (1) DAVE (acute kidney injury) Current Visit: Yes Status: Acute Secondary to obstruction. Initial improvement S/p Placement of nephrostomy tube. Patient received vancomycin and CT with contrast 03/23 which resulted in worsening renal function. HD 03/25/17. HD attempted 03/26/17, but there was difficulty with his dialysis line and the patient became diaphoretic so dialysis was discontinued. Will assess for HD need . He may need catheter exchange. Renal dose medications. Avoid nephrotoxins. He may need supplemental fluid. (2) Bilateral hydronephrosis Current Visit: Yes Status: Acute S/p bilateral nephrostomy tubes. Per urology. Good urine output. (3) Atrial fibrillation Current Visit: Yes Status: Chronic Rate controlled. Primary team awaiting clearance by urology for anticoagulation. Qualifiers: Qualified Code(s): I48.2 - Chronic atrial fibrillation (4) Sepsis Current Visit: Yes Status: Acute Patient with sepsis of unclear etiology. Started on empiric antibiotics 03/23. LP without infection. Culture data negative so far. Antibiotics deescalated. Currently afebrile with persistent leukocytosis. Qualifiers: Qualified Code(s): A41.9 - Sepsis, unspecified organism (5) Hypertension Current Visit: Yes Status: Acute Uncontrolled off home antihypertensives. With subacute CVA will slowly add back antihypertensives. Added amlodipine 5mg daily 03/23. Blood pressure better controlled. Qualifiers: Qualified Code(s): I10 - Essential (primary) hypertension (6) Cerebrovascular accident (CVA) due to bilateral stenosis of carotid arteries Current Visit: Yes Status: Acute Per primary team. Neurology following. Vascular surgery evaluated and patient can get elective CEA as an outpatient once acute issues resolve. Patient with significant carotid stenosis and a history of afib. Holding anticoagulation until cleared by urology. Patient may need palliative care to discuss goals of care. Subjective Principal diagnosis: DAVE, hyperkalemia, bilateral hydronephrosis Interval history: Patient seen. No new complaint. Discussed care with primary team. His son and daughter are in the room. Patient asks numerous obtuse questions. Objective - Vital Signs Vital signs: Vital Signs Temp Pulse Resp BP Pulse Ox 03/26/17 11:46 98 F 66 16 143/95 93 03/26/17 07:58 97.7 F 69 16 154/86 96 03/26/17 05:00 98.8 F 62 18 131/72 95 03/25/17 19:00 98.8 F 65 18 158/81 97 Intake and Output 03/26/17 03/26/17 03/26/17 07:59 15:59 23:59 Intake Total 120 / 120 Output Total 250 / 250 250 / 250 Balance -130 / -130 -250 / -250 Intake: Oral 120 / 120 Output: Wound Drainage 250 / 250 250 / 250 Left Lower Back 100 / 100 150 / 150 Right Lower Back 150 / 150 100 / 100 Other: Stool Size Moderate Stool Consistency soft formed Stool Color Brown # Voids 1 Weight 119.9 kg Patient Weight 03/26/17 23:59 Weight 119.9 kg - General Appearance General appearance: Present: well-developed, well-nourished EENT: Present: ATNC Cardiology: Present: regular rate Dialysis Vascular Access: Venous Catheter Neurologic: Present: confused Additional Comments: Alert, but seems confused. Additional Comments: Calm. - Lab 03/26/17 05:11 03/26/17 05:11 Most recent lab results ABG pH 7.50 pH Units (7.32-7.45) H 03/23/17 10:14 ABG pCO2 30 mmHg (35-45) L 03/23/17 10:14 ABG pO2 64 mmHg (85-104) L 03/23/17 10:14 ABG HCO3 23 mEq/L (21-27) 03/23/17 10:14 ABG O2 Saturation 94 % (95-98) L 03/23/17 10:14 Calcium 10.1 mg/dL (8.6-10.8) 03/26/17 05:11 Phosphorus 6.4 mg/dL (2.3-4.7) H 03/20/17 06:34 Magnesium 2.6 mg/dL (1.6-2.6) 03/20/17 06:34 - VTE Documentation of Mechanical Device: Intermittent pneumatic compression device Consult Discharge Plan - Plan Referrals: Roseann Marinelli DO [Primary Care Provider] -
[2017-03-27 06:15] LABS: INR 1.3; Prothrombin Time 14.1 Seconds (9.4-12.1)
[2017-03-27 06:16] LABS: Basophils # 0.1 K/mcL (0.0-0.2); Basophils % 0.4 %; Eosinophils # 0.3 K/mcL (0.0-0.6); Eosinophils % 1.6 %; Hematocrit 43.7 % (37.5-50.1); Hemoglobin 14.6 g/dL (12.9-16.9); Immature Granulocytes % 0.7 % (0-4); Lymphocytes # 1.4 K/mcL (0.6-4.6); Lymphocytes % 8.8 %; Mean Corpuscular HGB Conc 33.4 g/dL (31.6-35.5); Mean Corpuscular Hemoglobin 27.8 pg (28.0-33.3); Mean Corpuscular Volume 83.1 fL (83.0-100.0); Mean Platelet Volume 11.6 fL (9.4-12.4); Monocytes # 1.2 K/mcL (0.0-1.3); Monocytes % 7.7 %; Neutrophils # 12.8 K/mcL (1.6-8.9); Platelet Count 300 K/mcL (140-400); Red Blood Count 5.26 M/mcL (4.19-5.50); Red Cell Distribution Width 13.3 % (11.5-14.5); Segmented Neutrophils % 80.8 %
[2017-03-27 06:24] LABS: Albumin 2.9 g/dL (3.5-5.0); Calcium 9.7 mg/dL (8.6-10.8); Phosphorous 6.6 mg/dL (2.3-4.7); Potassium 3.4 mEq/L (3.5-4.5)
--- NOTE | 2017-03-27 08:32 | Nephrology Progress Note ---
Date of Encounter: 03/27/17 Time of Encounter: 08:28 - Assessment and Plan (1) DAVE (acute kidney injury) Current Visit: Yes Status: Acute Kidney function worse Scr 7.33 and GFR U Plan for HD today; may need catheter exchanged. Strict I/Os Avoid nephrotoxins if possible (2) Hyperphosphatemia Current Visit: Yes Status: Acute Phos level 6.6 Renal diet ordered (3) Hypokalemia Current Visit: Yes Status: Acute K+ 3.4 Will adjust K+ bath in dialysis if needed (4) Bilateral hydronephrosis Current Visit: Yes Status: Acute per urology team (5) Malignant neoplasm of prostate Current Visit: Yes Status: Acute per primary team Subjective Principal diagnosis: DAVE, hyperkalemia, bilateral hydronephrosis Interval history: Patient seen and examined. Very confused today, talks about hoses and valves and freezing. Objective - Vital Signs Vital signs: Vital Signs Temp Pulse Resp BP Pulse Ox 03/27/17 08:14 98.3 F 60 167/92 94 03/27/17 05:08 97.9 F 62 19 156/83 91 03/27/17 00:13 98.7 F 69 19 137/77 92 03/26/17 23:19 96 03/26/17 19:41 98.9 F 63 20 119/83 95 03/26/17 16:20 97.4 F L 18 118/65 03/26/17 16:10 118/65 03/26/17 16:00 80/42 03/26/17 15:30 98.1 F 18 155/86 03/26/17 11:46 98 F 66 16 143/95 93 Intake and Output 03/26/17 03/27/17 03/27/17 23:59 07:59 15:59 Output Total 350 / 350 375 / 375 Balance -350 / -350 -375 / -375 Output: Urine 0 / 0 Total Dialysis (HD) Output 0 / 0 Wound Drainage 350 / 350 375 / 375 Left Lower Back 175 / 175 150 / 150 Right Lower Back 175 / 175 225 / 225 Other: Hemodialysis Net Fluid Removed 0 (mL) - General Appearance General appearance: Present: well-developed, well-nourished EENT: Present: ATNC, mucous membranes moist, hearing intact, vision intact Neck: Present: supple Respiratory: Present: clear Cardiology: Present: edema, normal S1, normal S2 Dialysis Vascular Access: Venous Catheter Gastrointestinal: Present: no tenderness, no guarding Integumentary: Present: warm and dry Neurologic: Present: alert and oriented x3 Psychiatric: Present: mood/affect appropriate, cooperative - Lab 03/27/17 05:54 03/27/17 05:54 Most recent lab results ABG pH 7.50 pH Units (7.32-7.45) H 03/23/17 10:14 ABG pCO2 30 mmHg (35-45) L 03/23/17 10:14 ABG pO2 64 mmHg (85-104) L 03/23/17 10:14 ABG HCO3 23 mEq/L (21-27) 03/23/17 10:14 ABG O2 Saturation 94 % (95-98) L 03/23/17 10:14 Calcium 9.7 mg/dL (8.6-10.8) 03/27/17 05:54 Phosphorus 6.6 mg/dL (2.3-4.7) H 03/27/17 05:54 Magnesium 2.6 mg/dL (1.6-2.6) 03/20/17 06:34 - VTE Documentation of Mechanical Device: Intermittent pneumatic compression device Consult Discharge Plan - Plan Referrals: Roseann Marinelli DO [Primary Care Provider] -
--- NOTE | 2017-03-27 10:15 | Neurology Progress Note ---
Date of Encounter: 03/27/17 Time of Encounter: 08:20 Assessment and Plan (1) Acute encephalopathy Current Visit: Yes Status: Acute To be improving not as much confused as he was before overall is stable no sign of any [employer] meningitis on exam as well as on CSF he has been off antibiotics now Beside any [employer] infectious etiology patient has multiple reason for confusion as well as far fever ID services is following the patient at this time from neurology standpoint he has a stable may notice fluctuating mental status changes which is quite common considering multiple medical condition this patient is experiencing, continue to treat underlying abnormalities, call us if needed thank you (2) Occipital infarction Current Visit: Yes Status: Acute Patient noted to have an occipital infarction he is on antiplatelet therapy only with aspirin and statin now suggested to continue he also has significant carotid stenosis has been evaluated by vascular surgery not a surgical candidate at this time perhaps maybe in the future when he is more stable From neurology standpoint patient seems to be stable I suggested to continue on aspirin along with low-dose statin for now he will follow-up with vascular surgery when he is more stable he will continue to follow-up with urology as well as nephrology (3) Bilateral hydronephrosis Current Visit: Yes Status: Acute (4) DAVE (acute kidney injury) Current Visit: Yes Status: Acute Subjective Principal diagnosis: DAVE, hyperkalemia, bilateral hydronephrosis Interval history: The patient is stable , no new symptoms confusion.not as bad, neck pain is improved CSF negative for any acute infectious etiology white count has been negative as well as Gram stain proteins were also within normal limits cultures are negative as well She did not have any new focal motor weakness. He was also found to have significant bilateral carotid stenosis 70% along with intracranial focal stenosis in both vertebrals. He did have an occipital infarct, has been evaluated by vascular surgery recommended medical treatment, patient was off all antiplatelet agent and also off from anticoagulation due to recent nephrostomy tube placement as well as bleeding from his urine but he is better and not having any bleeding. His has been discussed with neurology by the primary care team suggested to hold on far anticoagulation due to the fact of this recent bleeding suggested to continue on the on an aspirin Objective - Constitutional Vitals: Temp Pulse Resp BP Pulse Ox 98.3 F 60 19 167/92 94 03/27/17 08:14 03/27/17 08:14 03/27/17 05:08 03/27/17 08:14 03/27/17 08:14 - Neurological Exam Sensorimotor examination: Present: intact Motor Examination: Present: grossly full strength in all extremities Motor examination - left side: 5/5: deltoids, biceps, triceps, wrist flexion, wrist extension, hip flexors, cylinder grinder, quadriceps, tibialis Anterior, toe extension (EHL), plantarflexion Sensation intact: Present: intact Posture: Present: other (None) Reflex and gait examination: other (Gait not assessed) Mental Status Examination: Present: awake, alert, oriented to person, oriented to place, makes eye contact, follows simple commands, localizes noxious stimulation Cranial nerve examination: Present: PERRL, EOMI (decrease vision in lEFT visual field ( Left Hemianopsia) ), sensory to face intact, no facial asymmetry is present, no dysarthria, hearing is intact symmetrically Cerebellar examination: Present: no dysmetria - VTE Documentation of Mechanical Device: Intermittent pneumatic compression device Results - Laboratory Findings CBC and BMP: 03/27/17 05:54 03/27/17 05:54 Abnormal lab findings: Abnormal lab results WBC 15.8 K/mcL (4.3-11.1) H 03/27/17 05:54 MCH 27.8 pg (28.0-33.3) L 03/27/17 05:54 Neutrophils # 12.8 K/mcL (1.6-8.9) H 03/27/17 05:54 Immature Plt Fraction 9.8 % (1.1-6.1) H 03/22/17 08:14 PT 14.1 Seconds (9.4-12.1) H 03/27/17 05:54 APTT 25.2 Seconds (26.0-36.0) L 03/23/17 11:17 ABG pH 7.50 pH Units (7.32-7.45) H 03/23/17 10:14 ABG pCO2 30 mmHg (35-45) L 03/23/17 10:14 ABG pO2 64 mmHg (85-104) L 03/23/17 10:14 ABG O2 Saturation 94 % (95-98) L 03/23/17 10:14 Potassium 3.4 mEq/L (3.5-4.5) L 03/27/17 05:54 BUN 68 mg/dL (8-26) H D 03/27/17 05:54 Creatinine 7.33 mg/dL (0.72-1.25) H 03/27/17 05:54 Est GFR ( Amer) 9 (> 60) L 03/27/17 05:54 Est GFR (Non-Af Amer) 7 (> 60) L 03/27/17 05:54 Glucose 143 mg/dL (70-99) H 03/27/17 05:54 POC Glucose 139 (58-89) H 03/22/17 04:45 Hemoglobin A1c 6.1 % (-5.6) H 03/20/17 06:34 Calculated Osmolality 314 (280-300) H 03/27/17 05:54 Phosphorus 6.6 mg/dL (2.3-4.7) H 03/27/17 05:54 Total Bilirubin 1.5 mg/dL (0.2-1.2) H 03/23/17 11:27 Direct Bilirubin 0.6 mg/dL (0.0-0.5) H 03/23/17 11:27 Troponin I 0.11 ng/mL (0-0.03) H* 03/22/17 08:14 B-Natriuretic Peptide 552 pg/mL (0-100) H 03/19/17 18:59 Serum Total Protein 8.9 g/dL (6.0-8.3) H 03/23/17 11:27 Albumin 2.9 g/dL (3.5-5.0) L 03/27/17 05:54 Globulin 5.0 g/dL (2.4-3.5) H 03/23/17 11:27 Albumin/Globulin Ratio 0.8 (1.1-2.2) L 03/23/17 11:27 LDL Cholesterol, Calc 111 mg/dL (0-99) H 03/20/17 06:34 HDL Cholesterol 35 mg/dL (40-59) L 03/20/17 06:34 Cholesterol/HDL Ratio 5.0 (0-4.9) H 03/20/17 06:34 Prostate Specific Ag 17.94 ng/mL (0.00-4.00) H 03/19/17 12:56 Urine Clarity Cloudy (Clear) A 03/23/17 12:10 Ur Specific [place] > 1.030 (1.010-1.025) H 03/23/17 12:10 Urine Protein 100 mg/dL (Neg-Trace) H 03/23/17 12:10 Urine Blood Large (Negative) H 03/23/17 12:10 Urine Microscopic RBC TNTC per hpf (0-3) H 03/23/17 12:10 Urine Microscopic WBC 5-15 per hpf (0-3) H 03/23/17 12:10 Ur Squamous Epith Cells Many per lpf (None-Few) H 03/23/17 12:10 CSF Glucose 108 mg/dL (40-70) H 03/23/17 14:35 Consult Discharge Plan - Plan Referrals: Roseann Marinelli DO [Primary Care Provider] -
[2017-03-27] MEDS ORDERED: Heparin 1,000 UNITS/500 mL NS 500 ML ONE (10:30)
[2017-03-27] MEDS ORDERED: *HR* Heparin 5,000 UNIT/ML VIAL ONE (10:43)
--- NOTE | 2017-03-27 10:57 | IR Procedure Note ---
Date of procedure: 03/27/17 Consent Obtained: Verbal consent Timeout: Correct patient and procedure verified, Correct site verified, Time out performed, Skin prep completed Local anesthetic: Lidocaine 1% Indications: Malfunction temp dialysis catheter Procedure Performed: Exchange temp dialysis catheter Results/Findings: Successful exchange with 15cm length catheter placement Complications: None; Tolerated procedure well (Monitor on floor)
[2017-03-27] MEDS: Aspirin Enteric Coated 325 MG Tablet PO SCH (11:33)
[2017-03-27] MEDS: Bicalutamide 50 MG TABLET PO SCH (11:33)
[2017-03-27] MEDS: Multivit/Ca/Min/Fe/FA 1 TAB TABLET PO SCH (11:34)
[2017-03-27] MEDS: Metoprolol XL (24 HR) Succ 50 MG TAB.ER.24H PO SCH (11:34)
[2017-03-27] MEDS: Cholecalciferol (D-3) 1,000 UNIT TABLET PO SCH (11:34)
[2017-03-27] MEDS: amLODIPine 5 MG TABLET PO SCH (11:35)
--- NOTE | 2017-03-27 11:36 | Infectious Disease Progress No ---
Date of Encounter: 03/27/17 Time of Encounter: 11:34 - Assessment and Plan (1) Leukocytosis Current Visit: Yes Status: Acute The patient's WBC has been elevated since admission. Improved at 15. No bands. Neutrophilic predominance. Etiology unclear, but given the clinical picture, consider non-infectious etiologies (malignancy, stroke, etc.). The patient had one isolated low-grade fever on 03/23/17 and has been afebrile since then. Urine culture is negative. Status post LP. No pleocytosis. Culture is negative. Not likely meningitis. The patient does complain of left posterior/lateral neck pain, but CT of the neck shows no infectious etiologies. Antibiotics discontinued 03/25/17. Continue to monitor off antibiotics. Qualifiers: Leukocytosis type: unspecified Qualified Code(s): D72.829 - Elevated white blood cell count, unspecified (2) Bladder mass Current Visit: Yes Status: Acute CT of the abdomen and pelvis completed 03/19/17 showed bilateral moderate hydronephrosis, likely secondary to a soft tissue mass seen along the inferior aspect of the bladder concerning for recurrence of prostate cancer. Urology consulted and following. Currently on casodex. High index of suspicion that this is recurrence of the patient's prostate cancer. (3) Cerebrovascular accident (CVA) due to bilateral stenosis of carotid arteries Current Visit: Yes Status: Acute The patient presented with confusion and hemianopsia. CT of the head showed an acute infarct involving the right parieto-occipital lobe without associated mass effect or midline shift. Neurology consulted and following. CTA of the head and neck showed severe, greater than 70%, stenosis of the bilateral ICA, moderate stenosis of the right vertebral artery origin, moderate narrowing of the distal right M1 segment, severe focal narrowing of the bilateral intracranial vertebral arteries, proximal to the bilateral PICA origins, and severe stenosis of the right posterior cerebral artery at the P2/ P3 junction. Vascular surgery consulted. Not a surgical candidate at this point, but maybe at a later date. (4) Acute encephalopathy Current Visit: Yes Status: Acute Etiology not clear, but low index of suspicion for infectious etiology. Improved per family's report. The patient's family did tell me that about a year ago they noticed a change in the patient's mental status overall. Repeat CT of the head showed no additional findings. EEG negative for seizures. Continue to monitor closely. (5) DAVE (acute kidney injury) Current Visit: Yes Status: Acute Likely post-renal, secondary to bladder mass. Serum creatinine 11 on arrival. Improved overall, but serum creatinine when back up today. The patient did receive IV contrast and IV Vancomycin that could be contributing to the acute worsening. Nephrology consulted and following. Continue to trend. Avoid nephrotoxins as able. (6) Bilateral hydronephrosis Current Visit: Yes Status: Acute Likely secondary to bladder mass. Status post PCN tube placement 03/20/17 by Interventional Radiology. (7) Hematuria Current Visit: Yes Status: Acute Likely secondary to bladder mass. Resolved. Qualifiers: Hematuria type: gross Qualified Code(s): R31.0 - Gross hematuria (8) Neck pain Current Visit: Yes Status: Acute Etiology unclear, but does not appear to be infectious. CT of the neck is negative for abscess. Status post cervical nerve block. Pain management per the primary team. 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 Rate controlled. Further management per the primary team. Qualifiers: Atrial fibrillation type: chronic Qualified Code(s): I48.2 - Chronic atrial fibrillation - Subjective Interval history: Patient seen and examined. No acute events noted overnight. Patient just returned from IR. States he feels okay, but complains of pain in the right neck where he had his TDC catheter exchanged. Denies fevers or chills. Denies chest pain, shortness of breath, or cough. Denies nausea, vomiting, diarrhea or constipation. Denies abdominal pain or urinary complaints. Denies oral thrush or new skin lesions. States his appetite is okay. Per family, the patient seems better today than he did yesterday. Infect Dis PN-Objective Data - Labs CBC & Chem 7: 03/27/17 05:54 03/27/17 05:54 Labs: Laboratory Results - last 24 hr 03/27/17 03/27/17 03/27/17 05:54 05:54 05:54 WBC 15.8 H RBC 5.26 Hgb 14.6 Hct 43.7 MCV 83.1 MCH 27.8 L MCHC 33.4 RDW 13.3 Plt Count 300 MPV 11.6 Immature Gran % 0.7 Seg Neutrophils % 80.8 Lymphocytes % 8.8 Monocytes % 7.7 Eosinophils % 1.6 Basophils % 0.4 Neutrophils # 12.8 H Lymphocytes # 1.4 Monocytes # 1.2 Eosinophils # 0.3 Basophils # 0.1 PT 14.1 H INR 1.3 Sodium 141 Potassium 3.4 L Chloride 100 Carbon Dioxide 22 BUN 68 H D Creatinine 7.33 H Est GFR ( Amer) 9 L Est GFR (Non-Af Amer) 7 L BUN/Creatinine Ratio 9 Glucose 143 H Calculated Osmolality 314 H Calcium 9.7 Phosphorus 6.6 H Albumin 2.9 L Cultures: Cultures 03/23/17 14:35 Gram Stain - Final Cerebral Spinal Fluid CSF Culture - Final 03/23/17 12:10 Urine Culture - Final Urine,Catheterized No growth. 03/23/17 11:25 Blood Culture - Preliminary Peripheral Venipuncture No growth. 03/23/17 11:17 Blood Culture - Preliminary Peripheral Venipuncture No growth. Serology 03/23/17 03/23/17 03/19/17 Range/Units 14:35 12:10 18:59 Urine Color Yellow (Yellow) Urine Clarity Cloudy A (Clear) Urine pH 6.0 (5.0-8.0) pH Units Ur Specific [place] > 1.030 H (1.010-1.025) Urine Protein 100 H (Neg-Trace) mg/dL Urine Glucose (UA) Normal (Normal) mg/dL Urine Ketones Negative (Negative) mg/dL Urine Blood Large H (Negative) Urine Nitrite Negative (Negative) Urine Bilirubin Negative (Negative) Urine Urobilinogen Normal (Normal) mg/dL Ur Leukocyte Esterase Negative (Negative) Urine Microscopic RBC TNTC H (0-3) per hpf Urine Microscopic WBC 5-15 H (0-3) per hpf Ur Squamous Epith Cells Many H (None-Few) per lpf Urine Bacteria None Seen (None-Few) per hpf Hyaline Casts None Seen (None-Few) per lpf CSF Volume 7.0 mL CSF Appearance Clear (Clear) CSF Color Colorless (Colorless) CSF RBC < 0.002 (0.000 - 0.002) M/mcL CSF Tot Nucleated Cells < 3 (0-5) TNC/mcL CSF Seg Neutrophils TNP CSF Band Neutrophils % TNP CSF Lymphocytes % TNP CSF Monocytes % TNP CSF Eosinophils % TNP CSF Basophils % TNP CSF Other Cells % TNP CSF Glucose 108 H (40-70) mg/dL CSF Xanth Comm Not Observed (Not Observe) CSF Total Protein 42 (15-45) mg/dL Hepatitis A IgM Ab (Nonreactive) Hep Bs Antigen (Nonreactive) Hep Bs Antibody 0.64 mIU/mL Hep B Core IgM Ab (Nonreactive) Hepatitis C Ab Screen (Nonreactive) 03/19/17 Range/Units 18:59 Urine Color (Yellow) Urine Clarity (Clear) Urine pH (5.0-8.0) pH Units Ur Specific [place] (1.010-1.025) Urine Protein (Neg-Trace) mg/dL Urine Glucose (UA) (Normal) mg/dL Urine Ketones (Negative) mg/dL Urine Blood (Negative) Urine Nitrite (Negative) Urine Bilirubin (Negative) Urine Urobilinogen (Normal) mg/dL Ur Leukocyte Esterase (Negative) Urine Microscopic RBC (0-3) per hpf Urine Microscopic WBC (0-3) per hpf Ur Squamous Epith Cells (None-Few) per lpf Urine Bacteria (None-Few) per hpf Hyaline Casts (None-Few) per lpf CSF Volume mL CSF Appearance (Clear) CSF Color (Colorless) CSF RBC (0.000 - 0.002) M/mcL CSF Tot Nucleated Cells (0-5) TNC/mcL CSF Seg Neutrophils CSF Band Neutrophils % CSF Lymphocytes % CSF Monocytes % CSF Eosinophils % CSF Basophils % CSF Other Cells % CSF Glucose (40-70) mg/dL CSF Xanth Comm (Not Observe) CSF Total Protein (15-45) mg/dL Hepatitis A IgM Ab Nonreactive (Nonreactive) Hep Bs Antigen Nonreactive (Nonreactive) Hep Bs Antibody mIU/mL Hep B Core IgM Ab Nonreactive (Nonreactive) Hepatitis C Ab Screen Nonreactive (Nonreactive) Exam - Constitutional Vitals: Temp Pulse Resp BP Pulse Ox 98.0 F 87 16 149/93 96 03/27/17 11:11 03/27/17 11:11 03/27/17 11:11 03/27/17 11:11 03/27/17 11:11 General appearance: cooperative, no acute distress, obese - Head Head exam: Present: atraumatic, normal inspection, normocephalic - Eye Eye exam: Present: EOMI, normal appearance, PERRL Pupils: Present: normal accommodation - ENT ENT exam: Present: mucous membranes moist - Neck Neck exam: Present: normal inspection - Respiratory Respiratory exam: Present: CTAB. Absent: rales, respiratory distress, rhonchi, wheezes - Cardiovascular Cardiovascular exam: Present: irregular rhythm. Absent: tachycardia - GI/Abdominal GI/Abdominal exam: Present: distended (obese), normal bowel sounds, soft. Absent: tenderness - Extremities Exam Extremities exam: Present: normal inspection. Absent: joint swelling, pedal edema, tenderness - Back Exam Additional comments: Bilateral nephrostomy tubes draining clear yellow urine. - Neurological Exam Neurological exam: Present: alert, oriented X3, no focal deficits - Psychiatric Psychiatric exam: Present: normal affect, normal mood - Skin Skin exam: Present: dry, intact, normal color, warm - VTE Documentation of Mechanical Device: Intermittent pneumatic compression device Consult Discharge Plan - Plan Referrals: Roseann Marinelli DO [Primary Care Provider] -
--- NOTE | 2017-03-27 12:46 | Internal Med Progress Note ---
Date of Encounter: 03/27/17 Time of Encounter: 12:15 - Assessment and plan (1) Acute encephalopathy Current Visit: Yes Status: Acute Assessment and plan: Stable. Likely delirium, related to underlying medical conditions. Noted to have only one episode of low-grade fever at 100.3 about 48 hours ago. Blood, urine cultures remain negative. Gram stain and preliminary culture of CSF so far negative. Infectious disease is on board, agree withholding antibiotics at this time. Continue to monitor. (2) Leukocytosis Current Visit: Yes Status: Acute Assessment and plan: Slightly improving. Could be related to hematuria, hemodialysis initiation, bladder mass. No source of infection identified so far. Qualifiers: Leukocytosis type: unspecified Qualified Code(s): D72.829 - Elevated white blood cell count, unspecified (3) Hematuria Current Visit: Yes Status: Acute Assessment and plan: Improving. CT abdomen/pelvis showed urinary bladder mass in the inferior part. Urology on board, suspect recurrence of prostate cancer. Status post placement of bilateral percutaneous nephrostomy tubes. Continue Casodex. Monitor hemoglobin closely, currently stable. Discussed with urology, may not be safe to start patient on anticoagulation with Coumadin at this time, will hold off for at least 2 weeks. Started high dose aspirin for stroke prophylaxis. Qualifiers: Hematuria type: gross Qualified Code(s): R31.0 - Gross hematuria (4) DAVE (acute kidney injury) Current Visit: Yes Status: Acute Assessment and plan: Multifactorial-initially postrenal due to obstruction due to bladder mass. Then , Patient also received IV contrast and vancomycin. Serum creatinine slightly worse today, but noted to have improving urine output. Plan to hold off HD for today and monitor; Nephrology on board, appreciate management. Received replacement of temporary HD catheter today; (5) Occipital infarction Current Visit: Yes Status: Acute Assessment and plan: Presented with left-sided hemianopsia, noted to have acute acute infarct in right parieto-occipital lobe along with old MCA infarct on CT head. CT angiogram of head and neck showed bilateral significant internal carotid artery stenosis, moderate stenosis of the right vertebral artery, severe stenosis of the right posterior cerebral artery. Vascular surgery has been consulted, patient requires carotid endarterectomy at a later time, when stable. Patient subsequently developed worsening encephalopathy/delirium along with left -sided neck pain and nuchal rigidity, neurology was consulted and patient underwent lumbar puncture and left occipital nerve block. No e/o meningitis on CSF analysis. Off antibiotics. Continue supportive care. continue high dose aspirin and statin for stroke prophylaxis. (6) Acute hyperkalemia Current Visit: Yes Status: Resolved (7) Malignant neoplasm of prostate Current Visit: Yes Status: Acute Assessment and plan: Urology on board, trying to obtain records from [facility] regarding previous treatment for prostate cancer. Continue Casodex. (8) Atrial fibrillation Current Visit: Yes Status: Chronic Assessment and plan: Status post pacemaker placement. Rate controlled. Hold anticoagulation with Coumadin due to recent gross hematuria and percutaneous nephrostomy tube placement. Qualifiers: Atrial fibrillation type: chronic Qualified Code(s): I48.2 - Chronic atrial fibrillation (9) Elevated troponin Current Visit: Yes Status: Resolved - Subjective Interval history: Feels tired but no chest or abdominal pain, shortness of breath, palpitations; continues to have some inappropriate speech and confusion. had exchange of temporary HD catheter today., - Constitutional Vitals: Temp Pulse Resp BP Pulse Ox 98.0 F 87 16 149/93 96 03/27/17 11:11 03/27/17 11:11 03/27/17 11:11 03/27/17 11:11 03/27/17 11:11 General appearance: Present: A&O X 2, pleasant, obese, answers questions appropriately - Respiratory Respiratory exam: Present: CTAB. Absent: accessory muscle use, rales, rhonchi, wheezes - Cardiovascular Cardiovascular exam: Present: RRR, +S1, +S2. Absent: diastolic murmur, gallop, rubs, systolic murmur - GI/Abdominal GI/Abdominal exam: Present: normal bowel sounds, soft, no peritoneal signs. Absent: distended, tenderness - Extremities Exam Extremities exam: Present: full ROM, warm, radial pulses palpable and symmetrical. Absent: calf tenderness, cyanotic, pedal edema - Neurological Exam Neurological exam: Present: altered, no focal deficits. Absent: pronater drift , facial droop, speech deficit Internal Medicine: Result - Labs CBC & Chem 7: 03/27/17 05:54 03/27/17 05:54 Labs: Short CBC 03/27/17 Range/Units 05:54 WBC 15.8 H (4.3-11.1) K/mcL Hgb 14.6 (12.9-16.9) g/dL Hct 43.7 (37.5-50.1) % Plt Count 300 (140-400) K/mcL Neutrophils # 12.8 H (1.6-8.9) K/mcL BMP 03/27/17 05:54 Sodium 141 Potassium 3.4 L Chloride 100 Carbon Dioxide 22 BUN 68 H D Creatinine 7.33 H Glucose 143 H Calcium 9.7 Liver Function 03/27/17 Range/Units 05:54 Albumin 2.9 L (3.5-5.0) g/dL - ABG Interpretation ABG results: ABG ABG pH 7.50 pH Units (7.32-7.45) H 03/23/17 10:14 ABG pCO2 30 mmHg (35-45) L 03/23/17 10:14 ABG pO2 64 mmHg (85-104) L 03/23/17 10:14 ABG O2 Saturation 94 % (95-98) L 03/23/17 10:14 PT/INR, D-dimer PT 14.1 Seconds (9.4-12.1) H 03/27/17 05:54 - Impressions Impressions Insertion Non-Tunneled Catheter 03/27/17 00:00 IMPRESSION: 1. Successful fluoroscopic guided exchange of a temporary dialysis catheter as discussed above. D/ / Lakhwinder Pablo MD / Lakhwinder Pablo MD Interpreting Provider: Lakhwinder Pablo MD - VTE Documentation of Mechanical Device: Intermittent pneumatic compression device Consult Discharge Plan - Plan Referrals: Roseann Marinelli DO [Primary Care Provider] -
--- NOTE | 2017-03-27 16:51 | Urology Progress Note ---
Date of Encounter: 03/27/17 Time of Encounter: 16:49 - Assessment and Plan (1) Elevated serum creatinine Current Visit: Yes Status: Acute Assessment and plan: per nephrology (2) Malignant neoplasm of prostate Current Visit: Yes Status: Acute Assessment and plan: on casodex. will need lupron as outpatient. (3) Bilateral hydronephrosis Current Visit: Yes Status: Acute Assessment and plan: sp pcn tubes. ok to slowely start to introduce anticoag meds. Progress Note Narrative: patient seen. serum creatinine not improving. patient with some confusion. Objective Initial Vital Signs Temp Pulse Resp BP Pulse Ox 98.1 F 61 16 177/111 99 03/19/17 12:22 03/19/17 12:22 03/19/17 12:22 03/19/17 12:22 03/19/17 12:22 - General physical appearance Present: well developed - Abdomen Present: soft - Labs 03/27/17 05:54 03/27/17 05:54 Diabetes panel 03/27/17 Range/Units 05:54 Sodium 141 (136-145) mEq/L Potassium 3.4 L (3.5-4.5) mEq/L Chloride 100 (98-109) mEq/L Carbon Dioxide 22 (19-29) mEq/L BUN 68 H D (8-26) mg/dL Creatinine 7.33 H (0.72-1.25) mg/dL Glucose 143 H (70-99) mg/dL Calcium 9.7 (8.6-10.8) mg/dL Albumin 2.9 L (3.5-5.0) g/dL Calcium panel 03/27/17 Range/Units 05:54 Calcium 9.7 (8.6-10.8) mg/dL Phosphorus 6.6 H (2.3-4.7) mg/dL Albumin 2.9 L (3.5-5.0) g/dL Pituitary panel 03/27/17 Range/Units 05:54 Sodium 141 (136-145) mEq/L Potassium 3.4 L (3.5-4.5) mEq/L Chloride 100 (98-109) mEq/L Carbon Dioxide 22 (19-29) mEq/L BUN 68 H D (8-26) mg/dL Creatinine 7.33 H (0.72-1.25) mg/dL Glucose 143 H (70-99) mg/dL Calcium 9.7 (8.6-10.8) mg/dL Adrenal panel 03/27/17 Range/Units 05:54 Sodium 141 (136-145) mEq/L Potassium 3.4 L (3.5-4.5) mEq/L Chloride 100 (98-109) mEq/L Carbon Dioxide 22 (19-29) mEq/L BUN 68 H D (8-26) mg/dL Creatinine 7.33 H (0.72-1.25) mg/dL Glucose 143 H (70-99) mg/dL Calcium 9.7 (8.6-10.8) mg/dL Albumin 2.9 L (3.5-5.0) g/dL - VTE Documentation of Mechanical Device: Intermittent pneumatic compression device Consult Discharge Plan - Plan Referrals: Roseann Marinelli DO [Primary Care Provider] -
[2017-03-27] MEDS: *HR* OxyCODONE/APAP 5/325 TABLET PO PRN (20:02)
[2017-03-28] MEDS: Acetaminophen 325 MG TABLET PO PRN (01:32)
[2017-03-28 05:21] LABS: Basophils # 0.1 K/mcL (0.0-0.2); Basophils % 0.4 %; Eosinophils # 0.3 K/mcL (0.0-0.6); Eosinophils % 1.7 %; Hematocrit 43.1 % (37.5-50.1); Hemoglobin 14.5 g/dL (12.9-16.9); Immature Granulocytes % 0.8 % (0-4); Lymphocytes # 1.4 K/mcL (0.6-4.6); Mean Corpuscular HGB Conc 33.6 g/dL (31.6-35.5); Mean Corpuscular Hemoglobin 27.8 pg (28.0-33.3); Mean Corpuscular Volume 82.6 fL (83.0-100.0); Mean Platelet Volume 10.9 fL (9.4-12.4); Monocytes # 1.6 K/mcL (0.0-1.3); Monocytes % 9.2 %; Neutrophils # 13.6 K/mcL (1.6-8.9); Platelet Count 280 K/mcL (140-400); Red Blood Count 5.22 M/mcL (4.19-5.50); Red Cell Distribution Width 13.2 % (11.5-14.5); Segmented Neutrophils % 79.9 %
[2017-03-28 05:33] LABS: Albumin 2.9 g/dL (3.5-5.0); Calcium 9.8 mg/dL (8.6-10.8); Phosphorous 5.9 mg/dL (2.3-4.7); Potassium 3.4 mEq/L (3.5-4.5)
--- NOTE | 2017-03-28 07:14 | Internal Med Progress Note ---
<Fredrick Smiley - Last Filed: 03/28/17 17:48> Date of Encounter: 03/28/17 Time of Encounter: 07:14 - Assessment and plan (1) Cerebrovascular accident (CVA) due to bilateral stenosis of carotid arteries Current Visit: Yes Status: Acute Assessment and plan: Patient with acute residual left hemianopia 03/19/17 CT head shows acute infarct in right parieto-occipital lobe 03/23/[address] brain reveals subacute right parieto-occipital infarct. No new acute abnormality. Unable to get MRI of brain due to pacemaker placement Echo LVEF 50-55%. Overall, LV systolic function appears normal. There is atypical septal motion present. Carotid U/S revealed left ICA 60-79% stenosis and calcified plaque. Right carotid unable to image due to tubing in neck CTA of the head and neck showed severe, greater than 70%, stenosis of the bilateral ICA, moderate stenosis of the right vertebral artery origin, moderate narrowing of the distal right M1 segment, severe focal narrowing of the bilateral intracranial vertebral arteries, proximal to the bilateral PICA origins, and severe stenosis of the right posterior cerebral artery at the P2/ P3 junction. Vascular surgery consulted. Not a surgical candidate at this point, but maybe at a later date. EEG Abnormal study. This study demonstrated evidence of generalized Mild slowing, which is a nonspecific pattern predominantly seen in patient with diffuse cortical dysfunction, consistent with Mild encephalopathy No epileptiform discharges or any other paroxysmal activities or focal abnormalities seen. Neurology consult appreciated, recommended to continue anticoagulation with full dose ASA. Continue statin Anticipate discharge to SNF once cleared by consultants. (2) Hematuria Current Visit: Yes Status: Resolved Assessment and plan: Improving. CT abdomen/pelvis showed urinary bladder mass in the inferior part. Urology on board, suspect recurrence of prostate cancer. Status post placement of bilateral percutaneous nephrostomy tubes. Continue Casodex. Monitor hemoglobin closely, currently stable. Discussed with urology, may not be safe to start patient on anticoagulation with Coumadin at this time, will hold off for at least 2 weeks. Started on high dose aspirin for stroke prophylaxis. Qualifiers: Hematuria type: gross Qualified Code(s): R31.0 - Gross hematuria (3) DAVE (acute kidney injury) Current Visit: Yes Status: Acute Assessment and plan: Multifactorial-initially postrenal due to obstruction due to bladder mass. Then , Patient also received IV contrast and vancomycin. Serum creatinine slightly improved today, but noted to have improving urine output. Plan to hold off HD for today and monitor; Nephrology on board, appreciate management. Received replacement of temporary HD catheter 03/27/17 Anticipate discharge to SNF once cleared by consultants. (4) Malignant neoplasm of prostate Current Visit: Yes Status: Acute Assessment and plan: Urology on board, trying to obtain records from [facility] regarding previous treatment for prostate cancer. Continue Casodex. (5) Sepsis Current Visit: Yes Status: Acute Assessment and plan: Patient met sepsis criteria with tachypnea RR 38, Temp 100.3F, and encephalopathic The patient's WBC has been elevated since admission. Stable. No bands. Neutrophilic predominance. Etiology unclear, but given the clinical picture, consider non-infectious etiologies (malignancy, stroke, etc.). The patient had one isolated low-grade fever on 03/23/17 and has been afebrile since then. Urine culture is negative. Status post LP. No pleocytosis. Culture is negative. Not likely meningitis. The patient does complain of left posterior/lateral neck pain, but CT of the neck shows no infectious etiologies. Antibiotics discontinued 03/25/17. Continue to monitor off antibiotics. Qualifiers: Sepsis type: sepsis due to unspecified organism Qualified Code(s): A41.9 - Sepsis, unspecified organism (6) Acute encephalopathy Current Visit: Yes Status: Acute Assessment and plan: Stable. Likely delirium, related to underlying medical conditions. Noted to have only one episode of low-grade fever at 100.3 on 03/23/17. Blood, urine cultures remain negative. Gram stain and preliminary culture of CSF so far negative. Infectious disease is on board, agree withholding antibiotics at this time. Continue to monitor. Sitter discontinued Started on Seroquel qHS (7) Acute hyperkalemia Current Visit: Yes Status: Acute Assessment and plan: Continue replacement prn Continue to monitor (8) Elevated troponin Current Visit: Yes Status: Resolved Assessment and plan: Likely due to volume overload and acute renal failure; continue telemetry Downtrending serial troponins (9) Atrial fibrillation Current Visit: Yes Status: Chronic Assessment and plan: Status post pacemaker placement. Rate controlled. Hold anticoagulation with Coumadin due to recent gross hematuria and percutaneous nephrostomy tube placement. Qualifiers: Atrial fibrillation type: chronic Qualified Code(s): I48.2 - Chronic atrial fibrillation (10) Obesity (BMI 30-39.9) Current Visit: Yes Status: Acute Assessment and plan: BMI 39.0 He has not been eating for the past 1 week according to family. Consider Marinol for appetite stimulation prn (11) DVT prophylaxis Current Visit: Yes Status: Acute Assessment and plan: SCDs, resume anticoagulation with Coumadin when cleared by Urology - Subjective Interval history: Patient seen and examined. He has not been eating for the past 1 week according to family. Patient is A&O x1 but denies fever, chills, CP, SOB, abd pain, N/V/D , or leg edema. Sitter and son are at bedside. Anticipate discharge to SNF once cleared by consultants. - Constitutional Vitals: Temp Pulse Resp BP Pulse Ox 98.5 F 60 17 158/86 96 03/27/17 23:58 03/27/17 23:58 03/27/17 23:58 03/27/17 23:58 03/27/17 23:58 General appearance: Present: A&O X 0, pleasant, no acute distress, obese. Absent: answers questions appropriately - Head Head exam: Present: atraumatic, normal inspection, normocephalic - Eye Eye exam: Present: conjuntiva pink, sclera anicteric - ENT ENT exam: Present: mucous membranes moist, normal oropharynx - Neck Additional comments: TDC right neck with transparent dressing C/D/I. - Respiratory Respiratory exam: Present: CTAB. Absent: rhonchi, wheezes - Cardiovascular Cardiovascular exam: Present: RRR, +S1, +S2 - GI/Abdominal GI/Abdominal exam: Present: distended, normal bowel sounds, soft. Absent: guarding, tenderness - Additional comments: Bilateral nephrostomy tubes draining clear yellow urine - Extremities Exam Extremities exam: Present: normal inspection, radial pulses palpable and symmetrical. Absent: pedal edema - Back Exam Back exam: Present: normal inspection. Absent: paraspinal tenderness, tenderness Additional comments: Bilateral nephrostomy tubes draining clear yellow urine - Neurological Exam Neurological exam: Present: altered, no focal deficits. Absent: oriented X3, speech deficit - Psychiatric Psychiatric exam: Present: depressed, flat affect - Skin Skin exam: Present: dry, intact, normal color, warm Internal Medicine: Result - Labs CBC & Chem 7: 03/28/17 04:57 03/28/17 04:57 Labs: Short CBC 03/28/17 Range/Units 04:57 WBC 17.0 H (4.3-11.1) K/mcL Hgb 14.5 (12.9-16.9) g/dL Hct 43.1 (37.5-50.1) % Plt Count 280 (140-400) K/mcL Neutrophils # 13.6 H (1.6-8.9) K/mcL BMP 03/28/17 04:57 Sodium 140 Potassium 3.4 L Chloride 100 Carbon Dioxide 23 BUN 68 H Creatinine 6.65 H Glucose 134 H Calcium 9.8 Liver Function 03/28/17 Range/Units 04:57 Albumin 2.9 L (3.5-5.0) g/dL - ABG Interpretation ABG results: ABG ABG pH 7.50 pH Units (7.32-7.45) H 03/23/17 10:14 ABG pCO2 30 mmHg (35-45) L 03/23/17 10:14 ABG pO2 64 mmHg (85-104) L 03/23/17 10:14 ABG O2 Saturation 94 % (95-98) L 03/23/17 10:14 PT/INR, D-dimer PT 14.1 Seconds (9.4-12.1) H 03/27/17 05:54 - Pulse Oximetry Interpretation Digit-Finger Pulse Oximetry Readin (2L via NC) Actions taken: none - Impressions Impressions Insertion Non-Tunneled Catheter 03/27/17 00:00 IMPRESSION: 1. Successful fluoroscopic guided exchange of a temporary dialysis catheter as discussed above. D/ / Lakhwinder Pablo MD / Lakhwinder Pablo MD Interpreting Provider: Lakhwinder Pablo MD - VTE Documentation of Mechanical Device: Intermittent pneumatic compression device Consult Discharge Plan - Plan Instructions: Atrial Fibrillation (DC), Hemodialysis (DC), Hemodialysis (GEN), Dialysis Diet (DC), Dialysis Diet (GEN), Peripheral Vascular Disorders (DC), Sepsis (DC), Ischemic Stroke (DC), Ischemic Stroke (GEN), Chronic Hypertension ( DC) Referrals: Roseann Marinelli DO [Primary Care Provider] - <SheldonWoody Claude - Last Filed: 03/28/17 18:44> Date of Encounter: 03/28/17 - Assessment and plan (1) Toxic encephalopathy Current Visit: Yes Status: Acute (2) Cerebrovascular accident (CVA) due to bilateral stenosis of carotid arteries Current Visit: Yes Status: Acute (3) Renal failure Current Visit: Yes Status: Suspected Qualifiers: Renal failure chronicity: acute Acute renal failure type: with acute renal cortical necrosis Qualified Code(s): N17.1 - Acute kidney failure with acute cortical necrosis (4) Hypertension Current Visit: Yes Status: Acute Qualifiers: Hypertension type: essential hypertension Qualified Code(s): I10 - Essential (primary) hypertension (5) Atrial fibrillation Current Visit: Yes Status: Chronic Qualifiers: Atrial fibrillation type: chronic Qualified Code(s): I48.2 - Chronic atrial fibrillation (6) Obesity (BMI 30-39.9) Current Visit: Yes Status: Acute - Constitutional Vitals: Temp Pulse Resp BP Pulse Ox 98.1 F 60 18 139/84 98 03/28/17 14:58 03/28/17 14:58 03/28/17 14:58 03/28/17 14:58 03/28/17 14:58 Internal Medicine: Result - Labs CBC & Chem 7: 03/28/17 04:57 03/28/17 04:57 Labs: Short CBC 03/28/17 Range/Units 04:57 WBC 17.0 H (4.3-11.1) K/mcL Hgb 14.5 (12.9-16.9) g/dL Hct 43.1 (37.5-50.1) % Plt Count 280 (140-400) K/mcL Neutrophils # 13.6 H (1.6-8.9) K/mcL BMP 03/28/17 04:57 Sodium 140 Potassium 3.4 L Chloride 100 Carbon Dioxide 23 BUN 68 H Creatinine 6.65 H Glucose 134 H Calcium 9.8 Liver Function 03/28/17 Range/Units 04:57 Albumin 2.9 L (3.5-5.0) g/dL - ABG Interpretation ABG results: ABG ABG pH 7.50 pH Units (7.32-7.45) H 03/23/17 10:14 ABG pCO2 30 mmHg (35-45) L 03/23/17 10:14 ABG pO2 64 mmHg (85-104) L 03/23/17 10:14 ABG O2 Saturation 94 % (95-98) L 03/23/17 10:14 PT/INR, D-dimer PT 14.1 Seconds (9.4-12.1) H 03/27/17 05:54 - Attending Attestation I examined this patient and my medical decision-making was reviewed with the Resident Physician on 03/28/17. I agree with the documented findings, disposition and treatment plan as described except to the extent set forth below. Mr Reich is currently admitted for acute CVA and DAVE due to bilateral renal obstruction. He remains moderate to high risk due to potential for worsening neuro and clinical status. Mr Reich is ok at this time. No CP or SOB. No fever or chills now. Still gets agitated quite frequently. Exam Alert. Comfortable now. Heart reg No wheeze Abd soft No edema I/P 1. CVA 2. DAVE Further diagnoses and plan as above.
[2017-03-28] MEDS: Aspirin Enteric Coated 325 MG Tablet PO SCH (09:43)
[2017-03-28] MEDS: Metoprolol XL (24 HR) Succ 50 MG TAB.ER.24H PO SCH (09:43)
[2017-03-28] MEDS: Cholecalciferol (D-3) 1,000 UNIT TABLET PO SCH (09:43)
[2017-03-28] MEDS: Bicalutamide 50 MG TABLET PO SCH (09:43)
[2017-03-28] MEDS: amLODIPine 5 MG TABLET PO SCH (09:43)
[2017-03-28] MEDS: Multivit/Ca/Min/Fe/FA 1 TAB TABLET PO SCH (09:43)
--- NOTE | 2017-03-28 10:17 | Infectious Disease Progress No ---
Date of Encounter: 03/28/17 Time of Encounter: 10:14 - Assessment and Plan (1) Leukocytosis Current Visit: Yes Status: Acute The patient's WBC has been elevated since admission. Stable. No bands. Neutrophilic predominance. Etiology unclear, but given the clinical picture, consider non-infectious etiologies (malignancy, stroke, etc.). The patient had one isolated low-grade fever on 03/23/17 and has been afebrile since then. Urine culture is negative. Status post LP. No pleocytosis. Culture is negative. Not likely meningitis. The patient does complain of left posterior/lateral neck pain, but CT of the neck shows no infectious etiologies. Antibiotics discontinued 03/25/17. Continue to monitor off antibiotics. Qualifiers: Leukocytosis type: unspecified Qualified Code(s): D72.829 - Elevated white blood cell count, unspecified (2) Bladder mass Current Visit: Yes Status: Acute CT of the abdomen and pelvis completed 03/19/17 showed bilateral moderate hydronephrosis, likely secondary to a soft tissue mass seen along the inferior aspect of the bladder concerning for recurrence of prostate cancer. Urology consulted and following. Currently on casodex. High index of suspicion that this is recurrence of the patient's prostate cancer. (3) Cerebrovascular accident (CVA) due to bilateral stenosis of carotid arteries Current Visit: Yes Status: Acute The patient presented with confusion and hemianopsia. CT of the head showed an acute infarct involving the right parieto-occipital lobe without associated mass effect or midline shift. Neurology consulted and following. CTA of the head and neck showed severe, greater than 70%, stenosis of the bilateral ICA, moderate stenosis of the right vertebral artery origin, moderate narrowing of the distal right M1 segment, severe focal narrowing of the bilateral intracranial vertebral arteries, proximal to the bilateral PICA origins, and severe stenosis of the right posterior cerebral artery at the P2/ P3 junction. Vascular surgery consulted. Not a surgical candidate at this point, but maybe at a later date. (4) Acute encephalopathy Current Visit: Yes Status: Acute Etiology not clear, but low index of suspicion for infectious etiology. Improved per family's report. The patient's family did tell me that about a year ago they noticed a change in the patient's mental status overall. Repeat CT of the head showed no additional findings. EEG negative for seizures. Continue to monitor closely. (5) DAVE (acute kidney injury) Current Visit: Yes Status: Acute Likely post-renal, secondary to bladder mass. Serum creatinine 11 on arrival. Improved overall. The patient did receive IV contrast and IV Vancomycin that could be contributing to the acute worsening. HD on hold per nephrology. Nephrology consulted and following. Continue to trend. Avoid nephrotoxins as able. (6) Bilateral hydronephrosis Current Visit: Yes Status: Acute Likely secondary to bladder mass. Status post PCN tube placement 03/20/17 by Interventional Radiology. (7) Hematuria Current Visit: Yes Status: Resolved Likely secondary to bladder mass. Resolved. Qualifiers: Hematuria type: gross Qualified Code(s): R31.0 - Gross hematuria (8) Neck pain Current Visit: Yes Status: Acute Etiology unclear, but does not appear to be infectious. CT of the neck is negative for abscess. Status post cervical nerve block, but continues to have neck pain. Consider dedicated C-spine imaging to evaluate. Pain management per the primary team. 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 Rate controlled. Further management per the primary team. Qualifiers: Atrial fibrillation type: chronic Qualified Code(s): I48.2 - Chronic atrial fibrillation - Subjective Interval history: Patient seen and examined. No acute events noted overnight. Appears a little drowsy and resistant to participating in physical therapy when I walked into the room. Complains of aching "all over." Denies fevers or chills. Denies chest pain, shortness of breath, or cough. Denies nausea, vomiting, diarrhea or constipation. Denies abdominal pain or urinary complaints. Denies oral thrush or new skin lesions. States his appetite is not very good today. Infect Dis PN-Objective Data - Labs CBC & Chem 7: 03/28/17 04:57 03/28/17 04:57 Labs: Laboratory Results - last 24 hr 03/28/17 03/28/17 04:57 04:57 WBC 17.0 H RBC 5.22 Hgb 14.5 Hct 43.1 MCV 82.6 L MCH 27.8 L MCHC 33.6 RDW 13.2 Plt Count 280 MPV 10.9 Immature Gran % 0.8 Seg Neutrophils % 79.9 Lymphocytes % 8.0 Monocytes % 9.2 Eosinophils % 1.7 Basophils % 0.4 Neutrophils # 13.6 H Lymphocytes # 1.4 Monocytes # 1.6 H Eosinophils # 0.3 Basophils # 0.1 Sodium 140 Potassium 3.4 L Chloride 100 Carbon Dioxide 23 BUN 68 H Creatinine 6.65 H Est GFR ( Amer) 10 L Est GFR (Non-Af Amer) 8 L BUN/Creatinine Ratio 10 Glucose 134 H Calculated Osmolality 312 H Calcium 9.8 Phosphorus 5.9 H Albumin 2.9 L Cultures: Cultures 03/26/17 19:49 Blood Culture - Preliminary Peripheral Venipuncture No growth. 03/23/17 14:35 Gram Stain - Final Cerebral Spinal Fluid CSF Culture - Final 03/23/17 12:10 Urine Culture - Final Urine,Catheterized No growth. 03/23/17 11:25 Blood Culture - Preliminary Peripheral Venipuncture No growth. 03/23/17 11:17 Blood Culture - Preliminary Peripheral Venipuncture No growth. Serology 03/23/17 03/23/17 03/19/17 Range/Units 14:35 12:10 18:59 Urine Color Yellow (Yellow) Urine Clarity Cloudy A (Clear) Urine pH 6.0 (5.0-8.0) pH Units Ur Specific [place] > 1.030 H (1.010-1.025) Urine Protein 100 H (Neg-Trace) mg/dL Urine Glucose (UA) Normal (Normal) mg/dL Urine Ketones Negative (Negative) mg/dL Urine Blood Large H (Negative) Urine Nitrite Negative (Negative) Urine Bilirubin Negative (Negative) Urine Urobilinogen Normal (Normal) mg/dL Ur Leukocyte Esterase Negative (Negative) Urine Microscopic RBC TNTC H (0-3) per hpf Urine Microscopic WBC 5-15 H (0-3) per hpf Ur Squamous Epith Cells Many H (None-Few) per lpf Urine Bacteria None Seen (None-Few) per hpf Hyaline Casts None Seen (None-Few) per lpf CSF Volume 7.0 mL CSF Appearance Clear (Clear) CSF Color Colorless (Colorless) CSF RBC < 0.002 (0.000 - 0.002) M/mcL CSF Tot Nucleated Cells < 3 (0-5) TNC/mcL CSF Seg Neutrophils TNP CSF Band Neutrophils % TNP CSF Lymphocytes % TNP CSF Monocytes % TNP CSF Eosinophils % TNP CSF Basophils % TNP CSF Other Cells % TNP CSF Glucose 108 H (40-70) mg/dL CSF Xanth Comm Not Observed (Not Observe) CSF Total Protein 42 (15-45) mg/dL Hepatitis A IgM Ab (Nonreactive) Hep Bs Antigen (Nonreactive) Hep Bs Antibody 0.64 mIU/mL Hep B Core IgM Ab (Nonreactive) Hepatitis C Ab Screen (Nonreactive) 03/19/17 Range/Units 18:59 Urine Color (Yellow) Urine Clarity (Clear) Urine pH (5.0-8.0) pH Units Ur Specific [place] (1.010-1.025) Urine Protein (Neg-Trace) mg/dL Urine Glucose (UA) (Normal) mg/dL Urine Ketones (Negative) mg/dL Urine Blood (Negative) Urine Nitrite (Negative) Urine Bilirubin (Negative) Urine Urobilinogen (Normal) mg/dL Ur Leukocyte Esterase (Negative) Urine Microscopic RBC (0-3) per hpf Urine Microscopic WBC (0-3) per hpf Ur Squamous Epith Cells (None-Few) per lpf Urine Bacteria (None-Few) per hpf Hyaline Casts (None-Few) per lpf CSF Volume mL CSF Appearance (Clear) CSF Color (Colorless) CSF RBC (0.000 - 0.002) M/mcL CSF Tot Nucleated Cells (0-5) TNC/mcL CSF Seg Neutrophils CSF Band Neutrophils % CSF Lymphocytes % CSF Monocytes % CSF Eosinophils % CSF Basophils % CSF Other Cells % CSF Glucose (40-70) mg/dL CSF Xanth Comm (Not Observe) CSF Total Protein (15-45) mg/dL Hepatitis A IgM Ab Nonreactive (Nonreactive) Hep Bs Antigen Nonreactive (Nonreactive) Hep Bs Antibody mIU/mL Hep B Core IgM Ab Nonreactive (Nonreactive) Hepatitis C Ab Screen Nonreactive (Nonreactive) - Impressions Impressions Insertion Non-Tunneled Catheter 03/27/17 00:00 IMPRESSION: 1. Successful fluoroscopic guided exchange of a temporary dialysis catheter as discussed above. D/ / Lakhwinder Pablo MD / Lakhwinder Pablo MD Interpreting Provider: Lakhwinder Pablo MD Exam - Constitutional Vitals: Temp Pulse Resp BP Pulse Ox 98.4 F 65 20 174/79 96 03/28/17 07:40 03/28/17 07:40 03/28/17 07:40 03/28/17 07:40 03/28/17 07:40 General appearance: cooperative, no acute distress, obese - Head Head exam: Present: atraumatic, normal inspection, normocephalic - Eye Eye exam: Present: EOMI, normal appearance, PERRL Pupils: Present: normal accommodation - ENT ENT exam: Present: mucous membranes moist - Neck Neck exam: Present: normal inspection Additional comments: TDC noted to the right neck with transparent dressing C/D/I. - Respiratory Respiratory exam: Present: CTAB. Absent: rales, respiratory distress, rhonchi, wheezes - Cardiovascular Cardiovascular exam: Present: RRR, +S1, +S2 - GI/Abdominal GI/Abdominal exam: Present: distended (obese), normal bowel sounds, soft. Absent: tenderness - Extremities Exam Extremities exam: Present: normal inspection. Absent: joint swelling, pedal edema, tenderness - Back Exam Back exam: Absent: CVA tenderness (L), CVA tenderness (R) Additional comments: Bilateral nephrostomy tubes draining clear yellow urine. - Neurological Exam Neurological exam: Present: alert, oriented X3, no focal deficits - Psychiatric Psychiatric exam: Present: normal affect, normal mood - Skin Skin exam: Present: dry, intact, normal color, warm - VTE Documentation of Mechanical Device: Intermittent pneumatic compression device Consult Discharge Plan - Plan Referrals: Roseann Marinelli DO [Primary Care Provider] -
--- NOTE | 2017-03-28 12:01 | Nephrology Progress Note ---
Date of Encounter: 03/28/17 Time of Encounter: 11:59 - Assessment and Plan (1) DAVE (acute kidney injury) Current Visit: Yes Status: Acute Secondary to obstruction. Initial improvement S/p Placement of nephrostomy tube. Patient received vancomycin and CT with contrast 03/23 which resulted in worsening renal function. HD 03/25/17. HD attempted 03/26/17, but there was difficulty with his dialysis line and the patient became diaphoretic so dialysis was discontinued. HD catheter exchanged 03/27/17 Renal function improved today will hold HD. Renal dose medications. Avoid nephrotoxins. (2) Bilateral hydronephrosis Current Visit: Yes Status: Acute S/p bilateral nephrostomy tubes. Per urology. Good urine output. (3) Atrial fibrillation Current Visit: Yes Status: Chronic Rate controlled. Primary team awaiting clearance by urology for anticoagulation. Qualifiers: Atrial fibrillation type: chronic Qualified Code(s): I48.2 - Chronic atrial fibrillation (4) Sepsis Current Visit: Yes Status: Acute Patient with sepsis of unclear etiology. Started on empiric antibiotics 03/23. LP without infection. Culture data negative so far. Antibiotics deescalated. Currently afebrile with persistent leukocytosis. ID following. Qualifiers: Sepsis type: sepsis due to unspecified organism Qualified Code(s): A41.9 - Sepsis, unspecified organism (5) Hypertension Current Visit: Yes Status: Acute Uncontrolled off home antihypertensives. With subacute CVA will slowly add back antihypertensives. Added amlodipine 5mg daily 03/23. Blood pressure better controlled. Titrate antihypertensives as needed. Qualifiers: Hypertension type: essential hypertension Qualified Code(s): I10 - Essential (primary) hypertension (6) Cerebrovascular accident (CVA) due to bilateral stenosis of carotid arteries Current Visit: Yes Status: Acute Per primary team. Neurology following. Vascular surgery evaluated and patient can get elective CEA as an outpatient once acute issues resolve. Patient with significant carotid stenosis and a history of afib. Holding anticoagulation until cleared by urology. Patient may need palliative care to discuss goals of care. Subjective Principal diagnosis: DAVE, hyperkalemia, bilateral hydronephrosis Interval history: Patient seen. Discussed care with primary team. His son and daughter are in the room. Patient is quiet today. Objective - Vital Signs Vital signs: Vital Signs Temp Pulse Resp BP Pulse Ox 03/28/17 11:42 20 96 03/28/17 11:36 97.9 F 63 20 166/86 96 03/28/17 07:40 98.4 F 65 20 174/79 96 03/27/17 23:58 98.5 F 60 17 158/86 96 03/27/17 19:05 65 138/66 03/27/17 16:50 148/79 03/27/17 16:00 98.4 F 62 18 97 03/27/17 13:58 133/69 03/27/17 13:43 135/79 03/27/17 13:00 146/80 03/27/17 12:58 171/93 03/27/17 12:52 171/93 03/27/17 12:00 190/161 Intake and Output 03/27/17 03/28/17 03/28/17 23:59 07:59 15:59 Output Total 325 / 325 400 / 400 675 / 675 Balance -325 / -325 -400 / -400 -675 / -675 Output: Urine 0 / 0 Wound Drainage 325 / 325 400 / 400 675 / 675 Left Lower Back 200 / 200 200 / 200 425 / 425 Right Lower Back 125 / 125 200 / 200 250 / 250 Other: Weight 119.9 kg Patient Weight 03/28/17 23:59 Weight 119.9 kg - General Appearance General appearance: Present: well-developed, well-nourished EENT: Present: ATNC Cardiology: Present: regular rate Additional Comments: Alert - Lab 03/28/17 04:57 03/28/17 04:57 Most recent lab results ABG pH 7.50 pH Units (7.32-7.45) H 03/23/17 10:14 ABG pCO2 30 mmHg (35-45) L 03/23/17 10:14 ABG pO2 64 mmHg (85-104) L 03/23/17 10:14 ABG HCO3 23 mEq/L (21-27) 03/23/17 10:14 ABG O2 Saturation 94 % (95-98) L 03/23/17 10:14 Calcium 9.8 mg/dL (8.6-10.8) 03/28/17 04:57 Phosphorus 5.9 mg/dL (2.3-4.7) H 03/28/17 04:57 Magnesium 2.6 mg/dL (1.6-2.6) 03/20/17 06:34 - VTE Documentation of Mechanical Device: Intermittent pneumatic compression device Consult Discharge Plan - Plan Referrals: Roseann Marinelli DO [Primary Care Provider] -
[2017-03-28] MEDS ORDERED: Potassium Effervescent 25 MEQ TABLET.EFF PO ONE (18:11)
[2017-03-29 08:41] LABS: Eosinophils % 2.6 %; Hematocrit 42.4 % (37.5-50.1); Immature Granulocytes % 1.6 % (0-4); Lymphocytes % 10.3 %; Mean Corpuscular Hemoglobin 27.9 pg (28.0-33.3); Mean Corpuscular Volume 84.6 fL (83.0-100.0); Mean Platelet Volume 11.8 fL (9.4-12.4); Monocytes % 7.7 %; Platelet Count 279 K/mcL (140-400); Red Blood Count 5.01 M/mcL (4.19-5.50); Red Cell Distribution Width 13.2 % (11.5-14.5); Segmented Neutrophils % 77.2 %
[2017-03-29 08:42] LABS: Basophils # 0.1 K/mcL (0.0-0.2); Basophils % 0.6 %; Eosinophils # 0.4 K/mcL (0.0-0.6); Lymphocytes # 1.5 K/mcL (0.6-4.6); Monocytes # 1.1 K/mcL (0.0-1.3); Neutrophils # 10.8 K/mcL (1.6-8.9)
[2017-03-29 08:56] LABS: Albumin 2.8 g/dL (3.5-5.0); Albumin/Globulin Ratio 0.6 (1.1-2.2); Bilirubin,Total 0.5 mg/dL (0.2-1.2); Calcium 9.6 mg/dL (8.6-10.8); Globulin 4.6 g/dL (2.4-3.5); Magnesium 2.2 mg/dL (1.6-2.6); Potassium 3.2 mEq/L (3.5-4.5); Total Protein 7.4 g/dL (6.0-8.3)
--- NOTE | 2017-03-29 09:19 | Internal Med Progress Note ---
Date of Encounter: 03/29/17 Time of Encounter: 08:30 - Assessment and plan (1) CVA (cerebral vascular accident) Current Visit: Yes Status: Acute Assessment and plan: On full dose ASA at this time. Continue supportive care. Anticipate d/c to rehab early in week. Qualifiers: CVA mechanism: embolism Precerebral and cerebral artery: middle cerebral artery Laterality of affected vessel: right Qualified Code(s): I63.411 - Cerebral infarction due to embolism of right middle cerebral artery (2) Hypokalemia Current Visit: Yes Status: Acute Assessment and plan: Replace today. (3) Leukocytosis Current Visit: Yes Status: Acute Assessment and plan: WBC has improved some today. Will recheck tomorrow. Qualifiers: Leukocytosis type: other Qualified Code(s): D72.828 - Other elevated white blood cell count (4) Toxic encephalopathy Current Visit: Yes Status: Acute Assessment and plan: Continues to be confused but is able to follow commands. Continue supportive care at this time. (5) Renal failure Current Visit: Yes Status: Suspected Assessment and plan: Creatinine slightly better today. Remains nonoliguric. Further plans per renal service. Qualifiers: Renal failure chronicity: acute Acute renal failure type: with acute renal cortical necrosis Qualified Code(s): N17.1 - Acute kidney failure with acute cortical necrosis (6) Hypertension Current Visit: Yes Status: Acute Assessment and plan: Controlled at this time. Qualifiers: Hypertension type: essential hypertension Qualified Code(s): I10 - Essential (primary) hypertension (7) Atrial fibrillation Current Visit: Yes Status: Chronic Assessment and plan: Status post pacemaker placement. Rate controlled. Currently on full dose ASA. Qualifiers: Atrial fibrillation type: chronic Qualified Code(s): I48.2 - Chronic atrial fibrillation (8) Obesity (BMI 30-39.9) Current Visit: Yes Status: Acute Assessment and plan: BMI 39.0 (9) Bilateral hydronephrosis Current Visit: Yes Status: Acute Assessment and plan: S/P bilateral nephrostomy tubes. - Subjective Interval history: Mr. Reich is currently admitted for acute CVA, DAVE due to obstructive uropathy and encephalopathy. He remains moderate to high risk due to potential for worsening clinical and infectious status. Mr Reich is resting comfortably at this time. No fever or chills. No specific complaints to me. Slept OK last night. - Constitutional Vitals: Temp Pulse Resp BP Pulse Ox 97.9 F 62 18 133/67 97 03/29/17 07:47 03/29/17 07:47 03/29/17 07:47 03/29/17 07:47 03/29/17 07:47 General appearance: Present: A&O X 0, obese. Absent: answers questions appropriately - Head Head exam: Present: normocephalic - Eye Eye exam: Present: conjuntiva pink - ENT ENT exam: Present: mucous membranes dry - Respiratory Respiratory exam: Present: decreased breath sounds. Absent: rales, rhonchi, wheezes - Cardiovascular Cardiovascular exam: Present: distant heart sounds, irregular rhythm. Absent: tachycardia - GI/Abdominal GI/Abdominal exam: Present: normal bowel sounds, soft. Absent: tenderness - Extremities Exam Extremities exam: Present: warm. Absent: tenderness - Neurological Exam Neurological exam: Present: alert, altered - Skin Skin exam: Present: dry, warm. Absent: rash Internal Medicine: Result - Labs CBC & Chem 7: 03/29/17 08:15 03/29/17 08:15 Labs: Short CBC 03/29/17 Range/Units 08:15 WBC 14.0 H (4.3-11.1) K/mcL Hgb 14.0 (12.9-16.9) g/dL Hct 42.4 (37.5-50.1) % Plt Count 279 (140-400) K/mcL Neutrophils # 10.8 H (1.6-8.9) K/mcL BMP 03/29/17 08:15 Sodium 138 Potassium 3.2 L Chloride 100 Carbon Dioxide 22 BUN 75 H Creatinine 6.17 H Glucose 228 H Calcium 9.6 Liver Function 03/29/17 Range/Units 08:15 Total Bilirubin 0.5 (0.2-1.2) mg/dL AST 48 H (5-34) Units/L ALT 65 H (0-55) Units/L Alkaline Phosphatase 97 (38-126) Units/L Albumin 2.8 L (3.5-5.0) g/dL - ABG Interpretation ABG results: ABG ABG pH 7.50 pH Units (7.32-7.45) H 03/23/17 10:14 ABG pCO2 30 mmHg (35-45) L 03/23/17 10:14 ABG pO2 64 mmHg (85-104) L 03/23/17 10:14 ABG O2 Saturation 94 % (95-98) L 03/23/17 10:14 PT/INR, D-dimer PT 14.1 Seconds (9.4-12.1) H 03/27/17 05:54 - VTE Documentation of Mechanical Device: Intermittent pneumatic compression device Consult Discharge Plan - Plan Instructions: Atrial Fibrillation (DC), Hemodialysis (DC), Hemodialysis (GEN), Dialysis Diet (DC), Dialysis Diet (GEN), Peripheral Vascular Disorders (DC), Sepsis (DC), Ischemic Stroke (DC), Ischemic Stroke (GEN), Chronic Hypertension ( DC) Referrals: Roseann Marinelli DO [Primary Care Provider] -
[2017-03-29] MEDS: Multivit/Ca/Min/Fe/FA 1 TAB TABLET PO SCH (10:29)
[2017-03-29] MEDS: Aspirin Enteric Coated 325 MG Tablet PO SCH (10:29)
[2017-03-29] MEDS: amLODIPine 5 MG TABLET PO SCH (10:29)
[2017-03-29] MEDS: Cholecalciferol (D-3) 1,000 UNIT TABLET PO SCH (10:29)
[2017-03-29] MEDS: Metoprolol XL (24 HR) Succ 50 MG TAB.ER.24H PO SCH (10:30)
[2017-03-29] MEDS: Bicalutamide 50 MG TABLET PO SCH (10:30)
--- NOTE | 2017-03-29 10:58 | Nephrology Progress Note ---
Date of Encounter: 03/29/17 Time of Encounter: 10:51 - Assessment and Plan (1) DAVE (acute kidney injury) Current Visit: Yes Status: Acute Secondary to obstruction. Initial improvement S/p Placement of nephrostomy tube. Patient received vancomycin and CT with contrast 03/23 which resulted in worsening renal function. HD 03/25/17. HD attempted 03/26/17, but there was difficulty with his dialysis line and the patient became diaphoretic so dialysis was discontinued. HD catheter exchanged 03/27/17 Renal function improved today will hold HD. Renal dose medications. Avoid nephrotoxins. (2) Bilateral hydronephrosis Current Visit: Yes Status: Acute S/p bilateral nephrostomy tubes. Per urology. Good urine output. (3) Atrial fibrillation Current Visit: Yes Status: Chronic Rate controlled. Qualifiers: Atrial fibrillation type: chronic Qualified Code(s): I48.2 - Chronic atrial fibrillation (4) Sepsis Current Visit: Yes Status: Acute Patient with sepsis of unclear etiology. Started on empiric antibiotics 03/23. LP without infection. Culture data negative so far. Antibiotics deescalated. Currently afebrile with improving leukocytosis. ID/primary team following. Qualifiers: Sepsis type: sepsis due to unspecified organism Qualified Code(s): A41.9 - Sepsis, unspecified organism (5) Hypertension Current Visit: Yes Status: Acute Uncontrolled off home antihypertensives. With subacute CVA will slowly add back antihypertensives. Added amlodipine 5mg daily 03/23. Blood pressure better controlled. Titrate antihypertensives as needed. Qualifiers: Hypertension type: essential hypertension Qualified Code(s): I10 - Essential (primary) hypertension (6) Cerebrovascular accident (CVA) due to bilateral stenosis of carotid arteries Current Visit: Yes Status: Acute Per primary team. Neurology following. Vascular surgery evaluated and patient can get elective CEA as an outpatient once acute issues resolve. Patient with significant carotid stenosis and a history of afib. Subjective Principal diagnosis: DAVE, hyperkalemia, bilateral hydronephrosis Interval history: Patient seen. His son is in the room. Patient has no new complaint. He thinks he feels better. Objective - Vital Signs Vital signs: Vital Signs Temp Pulse Resp BP Pulse Ox 03/29/17 07:47 97.9 F 62 18 133/67 97 03/29/17 03:23 98.5 F 61 18 145/82 97 03/28/17 23:32 98.6 F 63 18 132/58 97 03/28/17 19:06 98.8 F 66 17 147/70 94 03/28/17 14:58 98.1 F 60 18 139/84 98 03/28/17 11:42 20 96 03/28/17 11:36 97.9 F 63 20 166/86 96 Intake and Output 03/28/17 03/29/17 03/29/17 23:59 07:59 15:59 Intake Total 500 / 500 0 / 0 Output Total 400 / 400 500 / 500 650 / 650 Balance 100 / 100 -500 / -500 -650 / -650 Intake: Oral 500 / 500 0 / 0 Output: Urine 0 / 0 0 / 0 Left Nephrostomy 250 / 250 Wound Drainage 150 / 150 500 / 500 650 / 650 Left Lower Back 275 / 275 Right Lower Back 150 / 150 225 / 225 650 / 650 Other: Meal Dinner Percent of Meal Consumed 50% Stool Size Large Stool Consistency loose Stool Color Brown # Bowel Movements 1 - General Appearance General appearance: Present: well-developed, well-nourished EENT: Present: ATNC Cardiology: Present: regular rate Additional Comments: Alert - Lab 03/29/17 08:15 03/29/17 08:15 Most recent lab results ABG pH 7.50 pH Units (7.32-7.45) H 03/23/17 10:14 ABG pCO2 30 mmHg (35-45) L 03/23/17 10:14 ABG pO2 64 mmHg (85-104) L 03/23/17 10:14 ABG HCO3 23 mEq/L (21-27) 03/23/17 10:14 ABG O2 Saturation 94 % (95-98) L 03/23/17 10:14 Calcium 9.6 mg/dL (8.6-10.8) 03/29/17 08:15 Phosphorus 5.9 mg/dL (2.3-4.7) H 03/28/17 04:57 Magnesium 2.2 mg/dL (1.6-2.6) 03/29/17 08:15 - VTE Documentation of Mechanical Device: Intermittent pneumatic compression device Consult Discharge Plan - Plan Instructions: Atrial Fibrillation (DC), Hemodialysis (DC), Hemodialysis (GEN), Dialysis Diet (DC), Dialysis Diet (GEN), Peripheral Vascular Disorders (DC), Sepsis (DC), Ischemic Stroke (DC), Ischemic Stroke (GEN), Chronic Hypertension ( DC) Referrals: Roseann Marinelli DO [Primary Care Provider] -
[2017-03-30 09:34] LABS: Potassium 3.8 mEq/L (3.5-4.5)
--- NOTE | 2017-03-30 09:51 | Internal Med Progress Note ---
Date of Encounter: 03/30/17 Time of Encounter: 08:00 - Assessment and plan (1) CVA (cerebral vascular accident) Current Visit: Yes Status: Acute Assessment and plan: Continues to progress with improvement. No new issues overnight. Should be ready to go to rehab at any time. Qualifiers: CVA mechanism: embolism Precerebral and cerebral artery: middle cerebral artery Laterality of affected vessel: right Qualified Code(s): I63.411 - Cerebral infarction due to embolism of right middle cerebral artery (2) Hypokalemia Current Visit: Yes Status: Resolved Assessment and plan: Improved. Recheck tomorrow. (3) Leukocytosis Current Visit: Yes Status: Acute Assessment and plan: Continues to slowly improve. Qualifiers: Leukocytosis type: other Qualified Code(s): D72.828 - Other elevated white blood cell count (4) Toxic encephalopathy Current Visit: Yes Status: Acute Assessment and plan: Slowly improving. Supportive care. (5) Renal failure Current Visit: Yes Status: Suspected Assessment and plan: Improving daily. Fluids added for post ATN diuresis. No planned dialysis in the future. Catheter to be removed soon. Qualifiers: Renal failure chronicity: acute Acute renal failure type: with acute renal cortical necrosis Qualified Code(s): N17.1 - Acute kidney failure with acute cortical necrosis (6) Hypertension Current Visit: Yes Status: Acute Assessment and plan: Controlled at this time. Qualifiers: Hypertension type: essential hypertension Qualified Code(s): I10 - Essential (primary) hypertension (7) Atrial fibrillation Current Visit: Yes Status: Chronic Assessment and plan: Status post pacemaker placement. Rate controlled. Currently on full dose ASA. Qualifiers: Atrial fibrillation type: chronic Qualified Code(s): I48.2 - Chronic atrial fibrillation (8) Obesity (BMI 30-39.9) Current Visit: Yes Status: Acute Assessment and plan: BMI 39.0 (9) Bilateral hydronephrosis Current Visit: Yes Status: Acute Assessment and plan: S/P bilateral nephrostomy tubes. (10) Anorexia Current Visit: Yes Status: Acute Assessment and plan: Related to illness. Marinol started yesterday. Hopefully will continue to increase PO amount. - Subjective Interval history: Mr. Reich is currently admitted for acute CVA, DAVE due to obstructive uropathy and encephalopathy. He remains moderate to high risk due to potential for worsening clinical and infectious status. Mr Reich was awake yesterday and was more oriented. No fever or chills. Still not drinking or eating much. Marinol started yesterday. Renal function continues to slowly improve. No CP or SOB. Able to lie flat. - Constitutional Vitals: Temp Pulse Resp BP Pulse Ox 98.1 F 63 14 154/97 97 03/30/17 07:23 03/30/17 07:23 03/30/17 07:23 03/30/17 07:23 03/30/17 07:23 General appearance: Present: A&O X 2, obese Exam: More alert and oriented yesterday - Head Head exam: Present: normocephalic - Eye Eye exam: Present: EOMI, conjuntiva pink - ENT ENT exam: Present: mucous membranes dry - Respiratory Respiratory exam: Present: decreased breath sounds. Absent: rales, rhonchi, wheezes - Cardiovascular Cardiovascular exam: Present: irregular rhythm. Absent: tachycardia - GI/Abdominal GI/Abdominal exam: Present: soft. Absent: tenderness - Extremities Exam Extremities exam: Present: warm. Absent: tenderness - Neurological Exam Neurological exam: Present: alert, altered - Skin Skin exam: Present: warm. Absent: rash Internal Medicine: Result - Labs CBC & Chem 7: 03/29/17 08:15 03/30/17 09:16 Labs: BMP 03/30/17 09:16 Sodium 141 Potassium 3.8 Chloride 104 Carbon Dioxide 22 BUN 71 H Creatinine 5.25 H Glucose 137 H Calcium 10.0 - ABG Interpretation ABG results: ABG ABG pH 7.50 pH Units (7.32-7.45) H 03/23/17 10:14 ABG pCO2 30 mmHg (35-45) L 03/23/17 10:14 ABG pO2 64 mmHg (85-104) L 03/23/17 10:14 ABG O2 Saturation 94 % (95-98) L 03/23/17 10:14 PT/INR, D-dimer PT 14.1 Seconds (9.4-12.1) H 03/27/17 05:54 - VTE Documentation of Mechanical Device: Intermittent pneumatic compression device Consult Discharge Plan - Plan Instructions: Atrial Fibrillation (DC), Hemodialysis (DC), Hemodialysis (GEN), Dialysis Diet (DC), Dialysis Diet (GEN), Peripheral Vascular Disorders (DC), Sepsis (DC), Ischemic Stroke (DC), Ischemic Stroke (GEN), Chronic Hypertension ( DC) Referrals: Roseann Marinelli DO [Primary Care Provider] -
--- NOTE | 2017-03-30 10:27 | Nephrology Progress Note ---
Date of Encounter: 03/30/17 Time of Encounter: 10:24 - Assessment and Plan (1) DAVE (acute kidney injury) Current Visit: Yes Status: Acute Secondary to obstruction. Initial improvement S/p Placement of nephrostomy tube. Patient received vancomycin and CT with contrast 03/23 which resulted in worsening renal function. HD 03/25/17. HD attempted 03/26/17, but there was difficulty with his dialysis line and the patient became diaphoretic so dialysis was discontinued. HD catheter exchanged 03/27/17 Renal function improved today will continue to hold HD. Will give iv hydration as patient has post ATN diuresis and is not drinking well (net - volume status) Can probably remove HD line early next week. Renal dose medications. Avoid nephrotoxins. (2) Bilateral hydronephrosis Current Visit: Yes Status: Acute S/p bilateral nephrostomy tubes. Per urology. Good urine output. (3) Atrial fibrillation Current Visit: Yes Status: Chronic Rate controlled. Qualifiers: Atrial fibrillation type: chronic Qualified Code(s): I48.2 - Chronic atrial fibrillation (4) Sepsis Current Visit: Yes Status: Acute Patient with sepsis of unclear etiology. Started on empiric antibiotics 03/23. LP without infection. Culture data negative so far. Antibiotics deescalated. Currently afebrile with improving leukocytosis. ID/primary team following. Qualifiers: Sepsis type: sepsis due to unspecified organism Qualified Code(s): A41.9 - Sepsis, unspecified organism (5) Hypertension Current Visit: Yes Status: Acute Uncontrolled off home antihypertensives. With subacute CVA will slowly add back antihypertensives. Added amlodipine 5mg daily 03/23. Blood pressure better controlled. Titrate antihypertensives as needed. There is some fluctuation in his blood pressure readings. Qualifiers: Hypertension type: essential hypertension Qualified Code(s): I10 - Essential (primary) hypertension (6) Cerebrovascular accident (CVA) due to bilateral stenosis of carotid arteries Current Visit: Yes Status: Acute Per primary team. Neurology following. Vascular surgery evaluated and patient can get elective CEA as an outpatient once acute issues resolve. Patient with significant carotid stenosis and a history of afib. Subjective Principal diagnosis: DAVE, hyperkalemia, bilateral hydronephrosis Interval history: Patient seen. His son and daughter are in the room. Patient has no new complaint. He thinks he feels better. He feels tired and does not have much of an appetite. The family is concerned about his lack of an appetite. The patient does not eat much, but does drink. He also is quite fatigued and falls asleep quickly. Objective - Vital Signs Vital signs: Vital Signs Temp Pulse Resp BP Pulse Ox 03/30/17 07:23 98.1 F 63 14 154/97 97 03/30/17 03:35 98.1 F 63 16 145/92 03/29/17 23:27 98.5 F 63 18 136/80 97 03/29/17 18:51 98.7 F 63 18 155/76 96 03/29/17 15:00 98.3 F 63 18 125/68 95 Intake and Output 03/30/17 03/30/17 03/30/17 00:59 07:59 15:59 Output Total Balance Output: Left Nephrostomy Right Nephrostomy Wound Drainage Left Lower Back Right Lower Back Other: Weight Patient Weight 03/30/17 22:59 Weight 116.8 kg - General Appearance General appearance: Present: well-developed, well-nourished, chronically ill EENT: Present: ATNC Neck: Present: supple Cardiology: Present: no edema, regular rate Integumentary: Present: warm and dry Additional Comments: Alert, but quickly falls asleep. Psychiatric: Present: mood/affect appropriate - Lab 03/29/17 08:15 03/30/17 09:16 Most recent lab results ABG pH 7.50 pH Units (7.32-7.45) H 03/23/17 10:14 ABG pCO2 30 mmHg (35-45) L 03/23/17 10:14 ABG pO2 64 mmHg (85-104) L 03/23/17 10:14 ABG HCO3 23 mEq/L (21-27) 03/23/17 10:14 ABG O2 Saturation 94 % (95-98) L 03/23/17 10:14 Calcium 10.0 mg/dL (8.6-10.8) 03/30/17 09:16 Phosphorus 5.9 mg/dL (2.3-4.7) H 03/28/17 04:57 Magnesium 2.2 mg/dL (1.6-2.6) 03/29/17 08:15 - VTE Documentation of Mechanical Device: Intermittent pneumatic compression device Consult Discharge Plan - Plan Instructions: Atrial Fibrillation (DC), Hemodialysis (DC), Hemodialysis (GEN), Dialysis Diet (DC), Dialysis Diet (GEN), Peripheral Vascular Disorders (DC), Sepsis (DC), Ischemic Stroke (DC), Ischemic Stroke (GEN), Chronic Hypertension ( DC) Referrals: Roseann Marinelli DO [Primary Care Provider] -
[2017-03-30] MEDS ORDERED: D5% in 0.9% NACL 1,000 ML IVC SCH (10:30)
[2017-03-30] MEDS: Aspirin Enteric Coated 325 MG Tablet PO SCH (10:33)
[2017-03-30] MEDS: Bicalutamide 50 MG TABLET PO SCH (10:33)
[2017-03-30] MEDS: Cholecalciferol (D-3) 1,000 UNIT TABLET PO SCH (10:33)
[2017-03-30] MEDS: Metoprolol XL (24 HR) Succ 50 MG TAB.ER.24H PO SCH (10:34)
[2017-03-30] MEDS: amLODIPine 5 MG TABLET PO SCH (10:34)
[2017-03-30] MEDS: Multivit/Ca/Min/Fe/FA 1 TAB TABLET PO SCH (10:34)
[2017-03-30] MEDS: Acetaminophen 325 MG TABLET PO PRN (10:39)
[2017-03-30] MEDS: *HR* OxyCODONE/APAP 5/325 TABLET PO PRN (16:18)
[2017-03-31 05:00] LABS: Basophils # 0.1 K/mcL (0.0-0.2); Basophils % 0.6 %; Eosinophils # 0.4 K/mcL (0.0-0.6); Eosinophils % 2.8 %; Hematocrit 42.4 % (37.5-50.1); Hemoglobin 13.7 g/dL (12.9-16.9); Immature Granulocytes % 2.1 % (0-4); Lymphocytes # 1.7 K/mcL (0.6-4.6); Lymphocytes % 12.7 %; Mean Corpuscular HGB Conc 32.3 g/dL (31.6-35.5); Mean Corpuscular Hemoglobin 27.5 pg (28.0-33.3); Mean Platelet Volume 11.1 fL (9.4-12.4); Monocytes # 1.3 K/mcL (0.0-1.3); Monocytes % 9.5 %; Neutrophils # 9.7 K/mcL (1.6-8.9); Platelet Count 329 K/mcL (140-400); Red Blood Count 4.99 M/mcL (4.19-5.50); Red Cell Distribution Width 13.4 % (11.5-14.5); Segmented Neutrophils % 72.3 %
[2017-03-31 05:15] LABS: Potassium 3.9 mEq/L (3.5-4.5)
[2017-03-31 05:16] LABS: Albumin 2.7 g/dL (3.5-5.0); Albumin/Globulin Ratio 0.6 (1.1-2.2); Bilirubin,Total 0.6 mg/dL (0.2-1.2); Calcium 9.8 mg/dL (8.6-10.8); Globulin 4.8 g/dL (2.4-3.5); Total Protein 7.5 g/dL (6.0-8.3)
--- NOTE | 2017-03-31 08:40 | Discharge Summary ---
Date of Encounter: 03/31/17 Time of Encounter: 08:40 - Discharge Diagnosis (1) Cerebrovascular accident (CVA) due to bilateral stenosis of carotid arteries Status: Acute (2) Hematuria Status: Resolved Qualifiers: Hematuria type: gross Qualified Code(s): R31.0 - Gross hematuria (3) DAVE (acute kidney injury) Status: Acute (4) Malignant neoplasm of prostate Status: Acute (5) Sepsis Status: Acute Qualifiers: Sepsis type: sepsis due to unspecified organism Qualified Code(s): A41.9 - Sepsis, unspecified organism (6) Acute encephalopathy Status: Acute (7) Acute hyperkalemia Status: Acute (8) Elevated troponin Status: Resolved (9) Atrial fibrillation Status: Chronic Qualifiers: Atrial fibrillation type: chronic Qualified Code(s): I48.2 - Chronic atrial fibrillation (10) Obesity (BMI 30-39.9) Status: Acute (11) DVT prophylaxis Status: Acute - Discharge Medications Prescriptions: RX: amLODIPine [Norvasc] 5 mg PO DAILY #30 tablet RX: Bicalutamide [Casodex] 50 mg PO DAILY #30 tablet RX: Lidocaine Patch [Lidoderm 5% patch] 1 each TP DAILY #30 adh..patch RX: Omeprazole [PriLOSEC] 20 mg PO DAILY@0730 #30 capsule. Home Medications: RX: Atorvastatin Calcium [Lipitor] 20 mg PO HS 03/19/17 [History] RX: Cholecalciferol (Vitamin D3) [Vitamin D3] 1,000 unit PO DAILY 03/19/17 [ History] RX: Meloxicam [Mobic] 7.5 - 15 mg PO DAILY PRN 03/19/17 [History] RX: Metoprolol XL (24 HR) Succ [Toprol Xl] 150 mg PO DAILY 03/19/17 [History] RX: Multivitamin [One Daily Multivitamin] 1 each PO DAILY 03/19/17 [History] RX: Acetaminophen [Tylenol] 650 mg PO Q6HR PRN tablet 03/31/17 [Rx] RX: Aspirin Enteric Coated [Aspirin EC] 325 mg PO DAILY tablet. 03/31/17 [Rx] RX: Bicalutamide [Casodex] 50 mg PO DAILY #30 tablet 03/31/17 [Rx] RX: DiphenhydraMINE [Benadryl] 25 mg PO HS PRN capsule 03/31/17 [Rx] RX: GuaiFENesin ER [Mucinex] 600 mg PO BID PRN tbbp.12hr 03/31/17 [Rx] RX: Lidocaine Patch [Lidoderm 5% patch] 1 each TP DAILY #30 adh..patch 03/31/17 [Rx] RX: Omeprazole [PriLOSEC] 20 mg PO DAILY@0730 #30 capsule.dr 03/31/17 [Rx] RX: amLODIPine [Norvasc] 5 mg PO DAILY #30 tablet 03/31/17 [Rx] Allergies/Adverse Reactions: 3 Allergy/AdvReac Type Severity Reaction Status Date / Time No Known Allergies Allergy Verified 03/19/17 11:56 Procedures/tests Complete & Pending: Procedures Performed prior 72 hours Category Date Time Status EV venous imaging LE BI Routine Y 03/31/17 00:01 Ordered Date of admission: 03/19/17 18:23 Primary care physician: Roseann Marinelli Consults: 03/20/17 06:00 Consult to Dialysis [CONS] ONCE 03/20/17 07:17 Consult to Interventional Radiology [CONS] Routine Consulting Provider: Radiology Interventional [facility] Reason for Consult: eval for bilateral nephrostomy tubes Call Completed: Yes 03/21/17 06:15 Consult to Dialysis [CONS] ONCE 03/23/17 09:42 Consult to Neurology [CONS] Routine Consulting Provider: Neurology [facility] Reason for Consult: CVA, encephalopathy Time Notified: 09:46 Call Completed: Yes 03/24/17 09:46 Consult to Vascular Surgery [CONS] Routine Consulting Provider: Vascular Surgery [facility] Reason for Consult: CVA, bilateral caroitid stenosis Time Notified: 09:49 Call Completed: Yes 03/24/17 11:19 Consult to Interpret Exam [CONS] Routine Consulting Provider: Barry Cherry I Consult to Interpret Exam: Interpret EEG 03/24/17 12:03 Consult to Infectious Diseases [CONS] Routine Consulting Provider: Infectious Disease [facility] Reason for Consult: [place] Meningitis Time Notified: 12:03 Call Completed: Yes 03/25/17 09:15 Consult to Dialysis [CONS] ONCE 03/26/17 14:00 Consult to Dialysis [CONS] ONCE 03/27/17 09:50 Consult to Interventional Radiology [CONS] Routine Consulting Provider: Radiology Interventional [facility]s Reason for Consult: Patient needs exchange of temp hd catheter. Call Completed: No 03/28/17 14:21 Consult to Funeral Director/Embalmer/Owner [CONS] Routine Reason for SW Consult: PT now recommending inpatient swing bed; [facility] Discharging clinician: Fredrick Smiley Anticipated date of discharge: 04/01/17 - Patient Status Disposition: Transfer Inpatient Rehab Fac Condition: Fair Functional capacity at discharge: uses cane/walker Overall status at discharge: patient is progressing back to baseline - Discharge Instructions Instructions: Atrial Fibrillation (DC), Hemodialysis (DC), Hemodialysis (GEN), Dialysis Diet (DC), Dialysis Diet (GEN), Peripheral Vascular Disorders (DC), Sepsis (DC), Ischemic Stroke (DC), Ischemic Stroke (GEN), Chronic Hypertension ( DC) Follow Up With: Roseann Marinelli DO [Primary Care Provider] - Additional Instructions: Take full dose Aspirin 325mg daily, stop Warfarin. Start taking Casodex. Repeat CBC and BMP blood work in 1 week. Follow up with Embroidery Supervisor in 1 week for lab results Follow up with Urologist in 1-2 weeks. Follow up with PCP in 1-2 weeks. - Diet and Activity Activity: ambulate only with your walker, as per physical therapy, increase activity as tolerated Diet: advance to your usual diet Hospital course: Mr. Reich is a 71 year old male - Time Spent with Patient Total time spent providing and/or coordinating discharge services: - Constitutional Vitals: Temp Pulse Resp BP Pulse Ox 97.8 F 63 15 122/85 99 03/31/17 07:27 03/31/17 07:27 03/31/17 07:27 03/31/17 07:27 03/31/17 07:27 General appearance: Present: A&O X 2, obese - Stroke Contraindication Not Initiating IV-Tpa: Medical contraindication Symptom Onset Unknown: Yes Has Patient Been Evaluated by Rehab for Stroke: Yes - VTE Documentation of Mechanical Device: Intermittent pneumatic compression device
--- NOTE | 2017-03-31 08:42 | Physician Discharge Referral ---
ExtendedCare Referral Info Transfer To: ECF/ Inpatient rehab/ swing bed facility Provider in Charge: Woody Chugn Provider in Charge after Transfer: PCP Institutional Level of Care: Skilled - Diagnosis (1) Cerebrovascular accident (CVA) due to bilateral stenosis of carotid arteries Priority: Primary Status: Acute (2) Hematuria Priority: Primary Status: Resolved (3) DAVE (acute kidney injury) Priority: Primary Status: Acute (4) Malignant neoplasm of prostate Priority: Primary Status: Acute (5) Sepsis Priority: Primary Status: Acute (6) Acute encephalopathy Priority: Primary Status: Acute (7) Acute hyperkalemia Priority: Secondary Status: Acute (8) Elevated troponin Priority: Secondary Status: Resolved (9) Atrial fibrillation Priority: Secondary Status: Chronic (10) Obesity (BMI 30-39.9) Priority: Secondary Status: Acute (11) DVT prophylaxis Priority: Primary Status: Acute Prognosis: Good Aware of Diagnosis: Patient, Family Aware of Prognosis: Patient, Family - Transfer Medications Home Medications: Atorvastatin Calcium [Lipitor] 20 mg PO HS 03/19/17 [History] Cholecalciferol (Vitamin D3) [Vitamin D] 1,000 unit PO DAILY 03/19/17 [History] Losartan Potassium [Cozaar] 50 mg PO DAILY 03/19/17 [History] Meloxicam [Mobic] 7.5 - 15 mg PO DAILY PRN 03/19/17 [History] Metoprolol XL (24 HR) Succ [Toprol XL] 150 mg PO DAILY 03/19/17 [History] Multivitamin [One Daily Multivitamin] 1 each PO DAILY 03/19/17 [History] Amlodipine Besylate [Amlodipine Besylate] 10 mg PO DAILY 03/21/17 [History] Clopidogrel [Plavix] 75 mg PO DAILY 03/21/17 [History] Warfarin [Coumadin] 5 mg PO 1800 03/21/17 [History] Allergies/Adverse Reactions: 3 Allergy/AdvReac Type Severity Reaction Status Date / Time No Known Allergies Allergy Verified 03/19/17 11:56 - Respiratory Orders Smoking Cessation: Smoking cessation has been advised. For more information, call the [place] Tobacco Quit Line at 3-571-ZOVP-NOW. - Mobility Orders Chair - Rehabiliation Orders Rehab Potential: Good Rehab Orders: ROM Exercises, Evaluation for Physical Therapy, Evaluation for Occupational Therapy - Diet Orders Renal House Supplement per Dietary: Vanilla Nepro TID, please send in a cup CERTIFICATION: I certify that the transfer of the above named patient to an Extended Care Facility is necessary for the continuing treatment of the diagnosis listed. The above information is true and accurate reflection of patient's current condition. Confidential - Redisclosure prohibited without a patient's written consent.
[2017-03-31] MEDS: Multivit/Ca/Min/Fe/FA 1 TAB TABLET PO SCH (10:40)
[2017-03-31] MEDS: Metoprolol XL (24 HR) Succ 50 MG TAB.ER.24H PO SCH (10:40)
[2017-03-31] MEDS: Bicalutamide 50 MG TABLET PO SCH (10:40)
[2017-03-31] MEDS: Cholecalciferol (D-3) 1,000 UNIT TABLET PO SCH (10:40)
[2017-03-31] MEDS: amLODIPine 5 MG TABLET PO SCH (10:41)
[2017-03-31] MEDS: Aspirin Enteric Coated 325 MG Tablet PO SCH (10:41)
--- NOTE | 2017-03-31 11:56 | Infectious Disease Progress No ---
Date of Encounter: 03/31/17 Time of Encounter: 11:54 - Assessment and Plan (1) Leukocytosis Current Visit: Yes Status: Acute The patient's WBC has been elevated since admission. Stable. No bands. Neutrophilic predominance. Etiology unclear, but given the clinical picture, likely non-infectious. The patient had one isolated low-grade fever on 03/23/17 and has been afebrile since then. Urine culture is negative. Status post LP. No pleocytosis. Culture is negative. Not likely meningitis. The patient does complain of left posterior/lateral neck pain, but CT of the neck shows no infectious etiologies. Antibiotics discontinued 03/25/17. WBC continues to trend down. No further recommendations from the ID team. Will sign off. Please re-consult if needed. Qualifiers: Leukocytosis type: other Qualified Code(s): D72.828 - Other elevated white blood cell count (2) Bladder mass Current Visit: Yes Status: Acute CT of the abdomen and pelvis completed 03/19/17 showed bilateral moderate hydronephrosis, likely secondary to a soft tissue mass seen along the inferior aspect of the bladder concerning for recurrence of prostate cancer. Urology consulted and following. Currently on casodex. High index of suspicion that this is recurrence of the patient's prostate cancer. (3) Cerebrovascular accident (CVA) due to bilateral stenosis of carotid arteries Current Visit: Yes Status: Acute The patient presented with confusion and hemianopsia. CT of the head showed an acute infarct involving the right parieto-occipital lobe without associated mass effect or midline shift. Neurology consulted and following. CTA of the head and neck showed severe, greater than 70%, stenosis of the bilateral ICA, moderate stenosis of the right vertebral artery origin, moderate narrowing of the distal right M1 segment, severe focal narrowing of the bilateral intracranial vertebral arteries, proximal to the bilateral PICA origins, and severe stenosis of the right posterior cerebral artery at the P2/ P3 junction. Vascular surgery consulted. Not a surgical candidate at this point, but maybe at a later date. (4) Acute encephalopathy Current Visit: Yes Status: Acute Etiology not clear, but low index of suspicion for infectious etiology. Improved per family's report. The patient's family did tell me that about a year ago they noticed a change in the patient's mental status overall. Repeat CT of the head showed no additional findings. EEG negative for seizures. Continue to monitor closely. (5) DAVE (acute kidney injury) Current Visit: Yes Status: Acute Likely post-renal, secondary to bladder mass. Serum creatinine 11 on arrival. Improved overall. The patient did receive IV contrast and IV Vancomycin that could be contributing to the acute worsening. HD on hold per nephrology. Nephrology consulted and following. Continue to trend. Avoid nephrotoxins as able. (6) Bilateral hydronephrosis Current Visit: Yes Status: Acute Likely secondary to bladder mass. Status post PCN tube placement 03/20/17 by Interventional Radiology. (7) Hematuria Current Visit: Yes Status: Resolved Likely secondary to bladder mass. Resolved. Qualifiers: Hematuria type: gross Qualified Code(s): R31.0 - Gross hematuria (8) Neck pain Current Visit: Yes Status: Acute Etiology unclear, but does not appear to be infectious. CT of the neck is negative for abscess. Status post cervical nerve block, but continues to have neck pain. Consider dedicated C-spine imaging to evaluate. Pain management per the primary team. 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 Rate controlled. Further management per the primary team. Qualifiers: Atrial fibrillation type: chronic Qualified Code(s): I48.2 - Chronic atrial fibrillation - Subjective Interval history: Patient seen and examined. Weekend notes reviewed. No acute events noted. Per the patient's son, he is more awake and alert today. Denies fevers or chills. Denies pain. Denies chest pain, shortness of breath, or cough. Denies nausea, vomiting, diarrhea or constipation. Denies abdominal pain or urinary complaints. Denies oral thrush or new skin lesions. Per the notes, the patient has had very little PO intake and Marinol was started recently. Infect Dis PN-Objective Data - Labs CBC & Chem 7: 03/31/17 04:35 03/31/17 04:35 Labs: Laboratory Results - last 24 hr 03/31/17 03/31/17 04:35 04:35 WBC 13.4 H RBC 4.99 Hgb 13.7 Hct 42.4 MCV 85.0 MCH 27.5 L MCHC 32.3 RDW 13.4 Plt Count 329 MPV 11.1 Immature Gran % 2.1 Seg Neutrophils % 72.3 Lymphocytes % 12.7 Monocytes % 9.5 Eosinophils % 2.8 Basophils % 0.6 Neutrophils # 9.7 H Lymphocytes # 1.7 Monocytes # 1.3 Eosinophils # 0.4 Basophils # 0.1 Sodium 144 Potassium 3.9 Chloride 107 Carbon Dioxide 24 BUN 66 H Creatinine 4.66 H Est GFR ( Amer) 15 L Est GFR (Non-Af Amer) 13 L BUN/Creatinine Ratio 14 Glucose 115 H Calculated Osmolality 318 H Calcium 9.8 Total Bilirubin 0.6 AST 68 H ALT 89 H Alkaline Phosphatase 95 Serum Total Protein 7.5 Albumin 2.7 L Globulin 4.8 H Albumin/Globulin Ratio 0.6 L Cultures: Cultures 03/23/17 11:25 Blood Culture - Final Peripheral Venipuncture No growth. 03/23/17 11:17 Blood Culture - Final Peripheral Venipuncture No growth. 03/26/17 19:49 Blood Culture - Preliminary Peripheral Venipuncture No growth. 03/23/17 14:35 Gram Stain - Final Cerebral Spinal Fluid CSF Culture - Final 03/23/17 12:10 Urine Culture - Final Urine,Catheterized No growth. Serology 03/23/17 03/23/17 03/19/17 Range/Units 14:35 12:10 18:59 Urine Color Yellow (Yellow) Urine Clarity Cloudy A (Clear) Urine pH 6.0 (5.0-8.0) pH Units Ur Specific [place] > 1.030 H (1.010-1.025) Urine Protein 100 H (Neg-Trace) mg/dL Urine Glucose (UA) Normal (Normal) mg/dL Urine Ketones Negative (Negative) mg/dL Urine Blood Large H (Negative) Urine Nitrite Negative (Negative) Urine Bilirubin Negative (Negative) Urine Urobilinogen Normal (Normal) mg/dL Ur Leukocyte Esterase Negative (Negative) Urine Microscopic RBC TNTC H (0-3) per hpf Urine Microscopic WBC 5-15 H (0-3) per hpf Ur Squamous Epith Cells Many H (None-Few) per lpf Urine Bacteria None Seen (None-Few) per hpf Hyaline Casts None Seen (None-Few) per lpf CSF Volume 7.0 mL CSF Appearance Clear (Clear) CSF Color Colorless (Colorless) CSF RBC < 0.002 (0.000 - 0.002) M/mcL CSF Tot Nucleated Cells < 3 (0-5) TNC/mcL CSF Seg Neutrophils TNP CSF Band Neutrophils % TNP CSF Lymphocytes % TNP CSF Monocytes % TNP CSF Eosinophils % TNP CSF Basophils % TNP CSF Other Cells % TNP CSF Glucose 108 H (40-70) mg/dL CSF Xanth Comm Not Observed (Not Observe) CSF Total Protein 42 (15-45) mg/dL Hepatitis A IgM Ab (Nonreactive) Hep Bs Antigen (Nonreactive) Hep Bs Antibody 0.64 mIU/mL Hep B Core IgM Ab (Nonreactive) Hepatitis C Ab Screen (Nonreactive) 03/19/17 Range/Units 18:59 Urine Color (Yellow) Urine Clarity (Clear) Urine pH (5.0-8.0) pH Units Ur Specific [place] (1.010-1.025) Urine Protein (Neg-Trace) mg/dL Urine Glucose (UA) (Normal) mg/dL Urine Ketones (Negative) mg/dL Urine Blood (Negative) Urine Nitrite (Negative) Urine Bilirubin (Negative) Urine Urobilinogen (Normal) mg/dL Ur Leukocyte Esterase (Negative) Urine Microscopic RBC (0-3) per hpf Urine Microscopic WBC (0-3) per hpf Ur Squamous Epith Cells (None-Few) per lpf Urine Bacteria (None-Few) per hpf Hyaline Casts (None-Few) per lpf CSF Volume mL CSF Appearance (Clear) CSF Color (Colorless) CSF RBC (0.000 - 0.002) M/mcL CSF Tot Nucleated Cells (0-5) TNC/mcL CSF Seg Neutrophils CSF Band Neutrophils % CSF Lymphocytes % CSF Monocytes % CSF Eosinophils % CSF Basophils % CSF Other Cells % CSF Glucose (40-70) mg/dL CSF Xanth Comm (Not Observe) CSF Total Protein (15-45) mg/dL Hepatitis A IgM Ab Nonreactive (Nonreactive) Hep Bs Antigen Nonreactive (Nonreactive) Hep Bs Antibody mIU/mL Hep B Core IgM Ab Nonreactive (Nonreactive) Hepatitis C Ab Screen Nonreactive (Nonreactive) Exam - Constitutional Vitals: Temp Pulse Resp BP Pulse Ox 97.8 F 63 15 122/85 99 03/31/17 07:27 03/31/17 07:27 03/31/17 07:27 03/31/17 07:27 03/31/17 09:00 General appearance: cooperative, no acute distress, obese - Head Head exam: Present: atraumatic, normal inspection, normocephalic - Eye Eye exam: Present: EOMI, normal appearance, PERRL Pupils: Present: normal accommodation - ENT ENT exam: Present: mucous membranes moist - Neck Neck exam: Present: normal inspection - Respiratory Respiratory exam: Present: CTAB. Absent: rales, respiratory distress, rhonchi, wheezes - Cardiovascular Cardiovascular exam: Present: irregular rhythm, RRR. Absent: tachycardia - GI/Abdominal GI/Abdominal exam: Present: distended (obese), normal bowel sounds, soft. Absent: tenderness - Extremities Exam Extremities exam: Present: normal inspection. Absent: joint swelling, pedal edema, tenderness - Back Exam Back exam: Absent: CVA tenderness (L), CVA tenderness (R) Additional comments: Bilateral nephrostomy tubes draining clear yellow urine. - Neurological Exam Neurological exam: Present: alert, oriented X3, no focal deficits - Psychiatric Psychiatric exam: Present: normal affect, normal mood - Skin Skin exam: Present: dry, intact, normal color, warm - VTE Documentation of Mechanical Device: Intermittent pneumatic compression device Consult Discharge Plan - Plan Instructions: Atrial Fibrillation (DC), Hemodialysis (DC), Hemodialysis (GEN), Dialysis Diet (DC), Dialysis Diet (GEN), Peripheral Vascular Disorders (DC), Sepsis (DC), Ischemic Stroke (DC), Ischemic Stroke (GEN), Chronic Hypertension ( DC) Referrals: Roseann Marinelli DO [Primary Care Provider] -
--- NOTE | 2017-03-31 12:22 | Nephrology Progress Note ---
Date of Encounter: 03/31/17 Time of Encounter: 12:20 - Assessment and Plan (1) DAVE (acute kidney injury) Current Visit: Yes Status: Acute SCr coninues to improve at 4.66, GFR 13, no indication for [employer] today but still warrants close monitoring UOP great at 2830cc in the past 24hrs Continue to avoid nephrotoxins if possible Can discontinue temporary HD catheter at this point, last dialyzed ?03/25/17 Encouraged adequate fluid intake Will need followup on outpatient with nephrology when discharged with labs (2) Bilateral hydronephrosis Current Visit: Yes Status: Acute Per urology Subjective Principal diagnosis: DAVE, hyperkalemia, bilateral hydronephrosis Interval history: Interim noted, pt seen and examined making great UOP at 2830cc in the past 24hrs Objective - Vital Signs Vital signs: Vital Signs Temp Pulse Resp BP Pulse Ox 03/31/17 09:00 99 03/31/17 07:27 97.8 F 63 15 122/85 99 03/31/17 06:00 98.6 F 60 18 132/84 96 03/30/17 19:00 97.6 F 61 20 150/96 94 03/30/17 15:41 97.8 F 66 18 142/83 97 Intake and Output 03/30/17 03/31/17 03/31/17 23:59 07:59 15:59 Intake Total 120 / 120 420 / 420 240 / 240 Output Total 850 / 850 725 / 725 350 / 350 Balance -730 / -730 -305 / -305 -110 / -110 Intake: Oral 120 / 120 420 / 420 240 / 240 Output: Wound Drainage 850 / 850 725 / 725 350 / 350 Left Lower Back 550 / 550 575 / 575 175 / 175 Right Lower Back 300 / 300 150 / 150 175 / 175 Other: Meal Breakfast Percent of Meal Consumed 25% Stool Size Moderate Stool Consistency loose Stool Color Brown Green # Bowel Movements 1 Weight 112.2 kg 112.2 kg Patient Weight 03/31/17 23:59 Weight 112.2 kg - Lab 03/31/17 04:35 03/31/17 04:35 Most recent lab results ABG pH 7.50 pH Units (7.32-7.45) H 03/23/17 10:14 ABG pCO2 30 mmHg (35-45) L 03/23/17 10:14 ABG pO2 64 mmHg (85-104) L 03/23/17 10:14 ABG HCO3 23 mEq/L (21-27) 03/23/17 10:14 ABG O2 Saturation 94 % (95-98) L 03/23/17 10:14 Calcium 9.8 mg/dL (8.6-10.8) 03/31/17 04:35 Phosphorus 5.9 mg/dL (2.3-4.7) H 03/28/17 04:57 Magnesium 2.2 mg/dL (1.6-2.6) 03/29/17 08:15 - VTE Documentation of Mechanical Device: Intermittent pneumatic compression device Consult Discharge Plan - Plan Instructions: Atrial Fibrillation (DC), Hemodialysis (DC), Hemodialysis (GEN), Dialysis Diet (DC), Dialysis Diet (GEN), Peripheral Vascular Disorders (DC), Sepsis (DC), Ischemic Stroke (DC), Ischemic Stroke (GEN), Chronic Hypertension ( DC) Referrals: Roseann Marinelli DO [Primary Care Provider] -
--- NOTE | 2017-03-31 14:33 | Internal Med Progress Note ---
<Fredrick Smiley - Last Filed: 03/31/17 14:31> Date of Encounter: 03/31/17 Time of Encounter: 08:00 - Assessment and plan (1) Cerebrovascular accident (CVA) due to bilateral stenosis of carotid arteries Status: Acute Assessment and plan: Patient with acute residual left hemianopia At this point he is on full dose ASA. No anticoagulation PT/OT recommend swing bed. At this time he is medically able to go to rehab. (2) Hematuria Status: Resolved Assessment and plan: Resolved. CT abdomen/pelvis showed urinary bladder mass in the inferior part. Urology on board, suspect recurrence of prostate cancer/ Obstructive uropathy. Status post placement of bilateral percutaneous nephrostomy tubes. Continue Casodex. Monitor hemoglobin closely, currently stable. Discussed with urology, not safe to resume anticoagulation with Coumadin at this time, will hold off for at least 2 weeks. Started on high dose aspirin for stroke prophylaxis. Qualifiers: Hematuria type: gross Qualified Code(s): R31.0 - Gross hematuria (3) DAVE (acute kidney injury) Status: Acute Assessment and plan: Multifactorial-initially postrenal due to obstruction due to bladder mass. Then , Patient also received IV contrast and vancomycin. Serum creatinine slightly improved today, but noted to have improving urine output. Plan to hold off HD for today and monitor; Nephrology on board, appreciate management. Anticiapte removal of temporary HD catheter when cleared by urology Anticipate discharge to SNF and repeat labs in 1 week (4) Malignant neoplasm of prostate Status: Acute Assessment and plan: Urology on board. Continue Casodex. (5) Sepsis Status: Acute Assessment and plan: Patient met sepsis criteria with leukocytosis 18.9, tachypnea RR 38, Temp 100.3F , and encephalopathic The patient's WBC has been elevated since admission. Stable. No bands. Neutrophilic predominance. Etiology unclear, but given the clinical picture, consider non-infectious etiologies (malignancy, stroke, etc.). The patient had one isolated low-grade fever on 03/23/17 and has been afebrile since then. Urine culture is negative. Status post LP. No pleocytosis. Culture is negative. Not likely meningitis. The patient does complain of left posterior/lateral neck pain, but CT of the neck shows no infectious etiologies. Antibiotics discontinued 03/25/17. Continue to monitor off antibiotics. Qualifiers: Sepsis type: sepsis due to unspecified organism Qualified Code(s): A41.9 - Sepsis, unspecified organism (6) Acute encephalopathy Status: Acute Assessment and plan: resolved. Likely delirium, related to underlying medical conditions. Noted to have only one episode of low-grade fever at 100.3 on 03/23/17. Blood, urine cultures remain negative. Gram stain and preliminary culture of CSF so far negative. Infectious disease is on board, agree withholding antibiotics at this time. Continue to monitor. (7) Acute hyperkalemia Status: Acute Assessment and plan: Continue replacement prn Continue to monitor (8) Elevated troponin Status: Resolved Assessment and plan: Likely due to volume overload and acute renal failure; continue telemetry Downtrending serial troponins (9) Atrial fibrillation Status: Chronic Assessment and plan: Status post pacemaker placement. Rate controlled. Currently on full dose ASA. Qualifiers: Atrial fibrillation type: chronic Qualified Code(s): I48.2 - Chronic atrial fibrillation (10) Obesity (BMI 30-39.9) Status: Acute Assessment and plan: BMI 39.0 Diet modification discussed (11) DVT prophylaxis Status: Acute Assessment and plan: SCDs, now on full dose Asprirn. Resume anticoagulation with Coumadin when cleared by Urology - Subjective Interval history: Patient seen and examined. Patient is sitting up in bed after eating breakfast and is much improved according to family. Patient is A&O x3 and denies fever, chills, CP, SOB, abd pain, N/V/D, or leg edema. Anticipate discharge to SNF once cleared by consultants and placement arranged by counter caser. He will need temporary dalysis catheter removal prior to discharge. - Constitutional Vitals: Temp Pulse Resp BP Pulse Ox 97.8 F 63 15 122/85 99 03/31/17 07:27 03/31/17 07:27 03/31/17 07:27 03/31/17 07:27 03/31/17 09:00 General appearance: Present: cooperative, A&O X 3, pleasant, no acute distress, obese, answers questions appropriately - Head Head exam: Present: atraumatic, normal inspection, normocephalic - Eye Eye exam: Present: conjuntiva pink, sclera anicteric - ENT ENT exam: Present: mucous membranes moist, normal oropharynx - Neck Neck exam general surgery: Present: normal inspection, supple. Absent: tenderness, thyromegaly - Respiratory Respiratory exam: Present: CTAB. Absent: accessory muscle use, decreased breath sounds, respiratory distress, rhonchi, wheezes - Cardiovascular Cardiovascular exam: Present: RRR, +S1, +S2 - GI/Abdominal GI/Abdominal exam: Present: distended, normal bowel sounds, soft. Absent: guarding, tenderness - Additional comments: Bilateral nephrostomy tubes draining clear yellow urine - Extremities Exam Extremities exam: Present: normal inspection, warm. Absent: pedal edema - Incison Incision: Present: clean and dry, intact Comments: Bilateral nephrostomy tubes draining clear yellow urine - Back Exam Back exam: Present: normal inspection. Absent: tenderness Additional comments: Bilateral nephrostomy tubes draining clear yellow urine - Neurological Exam Neurological exam: Present: alert, oriented X3, no focal deficits. Absent: speech deficit - Psychiatric Psychiatric exam: Present: normal affect, normal mood - Skin Skin exam: Present: dry, intact, warm Internal Medicine: Result - Labs CBC & Chem 7: 03/31/17 04:35 03/31/17 04:35 Labs: Short CBC 03/31/17 Range/Units 04:35 WBC 13.4 H (4.3-11.1) K/mcL Hgb 13.7 (12.9-16.9) g/dL Hct 42.4 (37.5-50.1) % Plt Count 329 (140-400) K/mcL Neutrophils # 9.7 H (1.6-8.9) K/mcL BMP 03/31/17 04:35 Sodium 144 Potassium 3.9 Chloride 107 Carbon Dioxide 24 BUN 66 H Creatinine 4.66 H Glucose 115 H Calcium 9.8 Liver Function 03/31/17 Range/Units 04:35 Total Bilirubin 0.6 (0.2-1.2) mg/dL AST 68 H (5-34) Units/L ALT 89 H (0-55) Units/L Alkaline Phosphatase 95 (38-126) Units/L Albumin 2.7 L (3.5-5.0) g/dL - ABG Interpretation ABG results: ABG ABG pH 7.50 pH Units (7.32-7.45) H 03/23/17 10:14 ABG pCO2 30 mmHg (35-45) L 03/23/17 10:14 ABG pO2 64 mmHg (85-104) L 03/23/17 10:14 ABG O2 Saturation 94 % (95-98) L 03/23/17 10:14 PT/INR, D-dimer PT 14.1 Seconds (9.4-12.1) H 03/27/17 05:54 - Pulse Oximetry Interpretation Digit-Finger Pulse Oximetry Readin (on ambiaent air) - Stroke Contraindication Not Initiating IV-Tpa: Medical contraindication - VTE Documentation of Mechanical Device: Intermittent pneumatic compression device Consult Discharge Plan - Plan Instructions: Atrial Fibrillation (DC), Hemodialysis (DC), Hemodialysis (GEN), Dialysis Diet (DC), Dialysis Diet (GEN), Peripheral Vascular Disorders (DC), Sepsis (DC), Ischemic Stroke (DC), Ischemic Stroke (GEN), Chronic Hypertension ( DC) Additional Instructions: Take Aspirin 75mg daily and Plavix, stop Warfarin. Start taking Casodex. Increase Amlodipine to 10mg daily. Repeat CBC and BMP blood work in 1 week. Follow up with A R Specialist in 1 week for lab results Follow up with Urologist in 1-2 weeks. Follow up with Neurologist in 1-2 weeks Schedule follow up appointment with vascular surgery in 1-2 weeks Repeat ultrasound of right leg to rule out progression of DVT. Follow up with PCP in 1-2 weeks. Referrals: Roseann Marinelli DO [Primary Care Provider] - Prescriptions: amLODIPine [Norvasc] 10 mg PO DAILY #60 tablet Aspirin Enteric Coated [Aspirin EC] 81 mg PO DAILY #30 tablet. Bicalutamide [Casodex] 50 mg PO DAILY #30 tablet Clopidogrel [Plavix] 75 mg PO DAILY #30 tablet Lidocaine Patch [Lidoderm 5% patch] 1 each TP DAILY #30 adh..patch Omeprazole [PriLOSEC] 20 mg PO DAILY@0730 #30 capsule. <Woody Chung - Last Filed: 04/07/17 14:15> Date of Encounter: 04/07/17 - Assessment and plan (1) CVA (cerebral vascular accident) Status: Acute Qualifiers: CVA mechanism: embolism Precerebral and cerebral artery: middle cerebral artery Laterality of affected vessel: right Qualified Code(s): I63.411 - Cerebral infarction due to embolism of right middle cerebral artery (2) Hypokalemia Status: Deleted (3) Leukocytosis Status: Acute Qualifiers: Leukocytosis type: other Qualified Code(s): D72.828 - Other elevated white blood cell count (4) Toxic encephalopathy Status: Acute (5) Renal failure Status: Suspected Qualifiers: Renal failure chronicity: acute Acute renal failure type: with acute renal cortical necrosis Qualified Code(s): N17.1 - Acute kidney failure with acute cortical necrosis (6) Hypertension Status: Chronic Qualifiers: Hypertension type: essential hypertension Qualified Code(s): I10 - Essential (primary) hypertension (7) Atrial fibrillation Status: Chronic Qualifiers: Atrial fibrillation type: chronic Qualified Code(s): I48.2 - Chronic atrial fibrillation (8) Obesity (BMI 30-39.9) Status: Acute (9) Bilateral hydronephrosis Status: Acute (10) Anorexia Status: Acute - Constitutional Vitals: Temp Pulse Resp BP Pulse Ox 98.2 F 61 14 165/95 96 04/02/17 14:40 04/02/17 14:40 04/02/17 14:40 04/02/17 14:40 04/02/17 14:40 Internal Medicine: Result - Labs CBC & Chem 7: 04/02/17 06:32 04/02/17 06:32 - ABG Interpretation ABG results: ABG ABG pH 7.50 pH Units (7.32-7.45) H 03/23/17 10:14 ABG pCO2 30 mmHg (35-45) L 03/23/17 10:14 ABG pO2 64 mmHg (85-104) L 03/23/17 10:14 ABG O2 Saturation 94 % (95-98) L 03/23/17 10:14 PT/INR, D-dimer PT 12.6 Seconds (9.4-12.1) H 04/02/17 06:32 - Attending Attestation Not seen this day
[2017-03-31 16:11] LABS: INR 1.2; Prothrombin Time 13.4 Seconds (9.4-12.1)
[2017-03-31 16:13] LABS: Activated Partial Thrombo Time 27.5 Seconds (26.0-36.0)
[2017-03-31] MEDS ORDERED: *HR* Heparin 5,000 UNIT/ML VIAL IVP PRN ×2 (18:09)
[2017-03-31] MEDS ORDERED: Heparin 25,000 UNIT/500 ML D5W 25,000 UNIT/500 ML MLS IVC SCH (18:15)
[2017-03-31] MEDS ORDERED: Aspirin Enteric Coated 325 MG Tablet PO SCH (18:15)
[2017-03-31] MEDS ORDERED: *HR* Warfarin 5 MG TABLET PO ONE (18:21)
--- NOTE | 2017-03-31 18:37 | Event Note ---
Date of Encounter: 03/31/17 Time of Encounter: 18:00 EMR will not allow me to sign progress note at this time. I examined this patient and my medical decision-making was reviewed with the Resident Physician on 03/31/17. I agree with the documented findings, disposition and treatment plan as described except to the extent set forth below. Mr Reich is currently admitted for acute CVA with bilateral carotid stenosis as well as urinary obstruction with bilateral nephrostomy tubes. He remains moderate to high risk due to potential for worsening clinical status. Mr Reich has DVT on ultrasound today. Started on heparin drip. Coumadin to be started as well. No fever or chills. Seems more alert today. Exam Alert. Comfortable Heart reg No wheeze Abd soft I/P 1. CVA 2. DVT R leg 3. Bilateral nephrostomy tubes 4. Hydronephrosis 5. DAVE Further diagnoses and plan as per progress note of today.
[2017-03-31 21:01] LABS: Hematocrit 41.8 % (37.5-50.1); Hemoglobin 13.4 g/dL (12.9-16.9); Mean Corpuscular HGB Conc 32.1 g/dL (31.6-35.5); Mean Corpuscular Hemoglobin 27.6 pg (28.0-33.3); Mean Platelet Volume 11.5 fL (9.4-12.4); Platelet Count 355 K/mcL (140-400); Red Blood Count 4.86 M/mcL (4.19-5.50); Red Cell Distribution Width 13.4 % (11.5-14.5)
[2017-03-31 21:03] LABS: INR 1.2; Prothrombin Time 13.5 Seconds (9.4-12.1)
[2017-03-31 21:22] LABS: Activated Partial Thrombo Time 222.5 Seconds (26.0-36.0)
[2017-03-31 21:35] LABS: Heparin anti-factor XA UFH 1.5 IU/mL (0.30-0.70)
[2017-04-01 04:51] LABS: Basophils # 0.1 K/mcL (0.0-0.2); Eosinophils # 0.6 K/mcL (0.0-0.6); Eosinophils % 4.9 %; Hematocrit 41.1 % (37.5-50.1); Hemoglobin 13.2 g/dL (12.9-16.9); Immature Granulocytes % 2.5 % (0-4); Lymphocytes # 1.9 K/mcL (0.6-4.6); Lymphocytes % 15.3 %; Mean Corpuscular HGB Conc 32.1 g/dL (31.6-35.5); Mean Corpuscular Hemoglobin 27.6 pg (28.0-33.3); Mean Corpuscular Volume 85.8 fL (83.0-100.0); Mean Platelet Volume 11.6 fL (9.4-12.4); Monocytes # 1.1 K/mcL (0.0-1.3); Monocytes % 8.7 %; Neutrophils # 8.3 K/mcL (1.6-8.9); Platelet Count 330 K/mcL (140-400); Red Blood Count 4.79 M/mcL (4.19-5.50); Red Cell Distribution Width 13.3 % (11.5-14.5); Segmented Neutrophils % 67.6 %
[2017-04-01 05:02] LABS: Activated Partial Thrombo Time 70.7 Seconds (26.0-36.0)
[2017-04-01 05:04] LABS: Calcium 9.8 mg/dL (8.6-10.8); Potassium 3.9 mEq/L (3.5-4.5)
--- NOTE | 2017-04-01 07:33 | Internal Med Progress Note ---
<Fredrick Smiley - Last Filed: 04/01/17 14:30> Date of Encounter: 04/01/17 Time of Encounter: 07:31 - Assessment and plan (1) DVT (deep venous thrombosis) Current Visit: Yes Status: Acute Assessment and plan: Acute right tibial deep vein thrombosis on ultrasound 03/31/17. Risk of pulmonary embolus from isolated tibial vein thrombosis is low. Continue PT/OT. Patient developed dark red blood in his right nephrostomy tube after starting Heparin drip and Coumadin 03/31/17 Will stop both Heparin and Coumadin and switch to ASA and Plavix per Vascular surgery/ recommendations. Repeat venous duplex in 2 weeks to make sure that the DVT has not progressed. If patient requires transfusion, Aspirin and Plavix will need to be stopped and inferior vena cava filter placed. Case discussed with Urologist, Dr. Fernández who recommends continued surveillance and IR consult if patient continues to bleed. Qualifiers: DVT location: lower extremity Affected thrombotic vein of extremity: tibial Chronicity: acute Laterality: right Qualified Code(s): I82.441 - Acute embolism and thrombosis of right tibial vein (2) Cerebrovascular accident (CVA) due to bilateral stenosis of carotid arteries Current Visit: Yes Status: Acute Assessment and plan: Patient with acute residual left hemianopia 03/19/17 CT head shows acute infarct in right parieto-occipital lobe 03/23/[address] brain reveals subacute right parieto-occipital infarct. No new acute abnormality. Unable to get MRI of brain due to pacemaker placement PT/OT recommend swing bed. Continue ASA, Plavix, and statin (3) Carotid stenosis, bilateral Current Visit: Yes Status: Acute Assessment and plan: Carotid U/S revealed left ICA 60-79% stenosis and calcified plaque. Right carotid unable to image due to tubing in neck CTA of the head and neck showed severe, greater than 70%, stenosis of the bilateral ICA, moderate stenosis of the right vertebral artery origin, moderate narrowing of the distal right M1 segment, severe focal narrowing of the bilateral intracranial vertebral arteries, proximal to the bilateral PICA origins, and severe stenosis of the right posterior cerebral artery at the P2/ P3 junction. Vascular surgery consulted. Not a surgical candidate at this point, but maybe at a later date. 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 Urology on board, suspect recurrence of prostate cancer/ Obstructive uropathy. Status post placement of bilateral percutaneous nephrostomy tubes. Continue Casodex. Monitor hemoglobin closely, currently stable. Patient developed dark red blood in his right nephrostomy tube after starting Heparin drip and Coumadin Case discussed with Urologist, Dr. Fernández who recommends continued surveillance and IR consult if patient continues to bleed. Qualifiers: Hematuria type: gross Qualified Code(s): R31.0 - Gross hematuria (5) DAVE (acute kidney injury) Current Visit: Yes Status: Acute Assessment and plan: Multifactorial-initially postrenal due to obstruction due to bladder mass. Then , patient also received IV contrast and Vancomycin. Serum creatinine slightly improved today, but noted to have improving urine output. Plan to hold off HD for today and monitor; Nephrology on board, appreciate management. Anticipate removal of temporary HD catheter today Will need repeat labs in 1 week and outpatient nephrology follow up (6) Malignant neoplasm of prostate Current Visit: Yes Status: Acute Assessment and plan: Urology on board. Continue Casodex. (7) Atrial fibrillation Current Visit: Yes Status: Chronic Assessment and plan: Status post pacemaker placement. CHADS-VASc Score 4 Currently rate-controlled; continue beta juan pablo Coumadin held in anticipation of Cystoscopy to evaluate hematuria Echo LVEF 50-55%. Overall, LV systolic function appears normal. There is atypical septal motion present. TSH 2.628 Currently on ASA and Plavix for CVA prophylaxis Qualifiers: Atrial fibrillation type: chronic Qualified Code(s): I48.2 - Chronic atrial fibrillation (8) Sepsis Current Visit: Yes Status: Acute Assessment and plan: Patient met sepsis criteria with leukocytosis 18.9, tachypnea RR 38, Temp 100.3F , and encephalopathic The patient's WBC has been elevated since admission. Stable. No bands. Neutrophilic predominance. Etiology unclear, but given the clinical picture, consider non-infectious etiologies (malignancy, stroke, etc.). The patient had one isolated low-grade fever on 03/23/17 and has been afebrile since then. Urine culture is negative. Status post LP. No pleocytosis. Culture is negative. Not likely meningitis. The patient does complain of left posterior/lateral neck pain, but CT of the neck shows no infectious etiologies. Antibiotics discontinued 03/25/17. Continue to monitor off antibiotics. Qualifiers: Sepsis type: sepsis due to unspecified organism Qualified Code(s): A41.9 - Sepsis, unspecified organism (9) Acute encephalopathy Current Visit: Yes Status: Acute Assessment and plan: Resolving Likely delirium, related to underlying medical conditions. Noted to have only one episode of low-grade fever at 100.3 on 03/23/17. Blood, urine cultures remain negative. Gram stain and preliminary culture of CSF so far negative. Infectious disease is on board, agree withholding antibiotics at this time. Discontinued Seroquel. Continue to monitor. (10) Acute hyperkalemia Current Visit: Yes Status: Acute Assessment and plan: Continue replacement prn Continue to monitor (11) Elevated troponin Current Visit: Yes Status: Resolved Assessment and plan: Likely due to volume overload and acute renal failure; continue telemetry Downtrending serial troponins (12) Anorexia Current Visit: Yes Status: Acute Assessment and plan: Related to illness. Hopefully will continue to increase PO amount. Patient has lost 9 kg during hospital stay Patient has decreased appetite today Continue Marinol for appetite stimulation Continue Nepro TID Profile Shaper Operator following (13) Obesity (BMI 30-39.9) Current Visit: Yes Status: Acute Assessment and plan: BMI 39.0 Diet modification discussed (14) DVT prophylaxis Current Visit: Yes Status: Acute Assessment and plan: Now on Aspirin and Plavix. Resume anticoagulation with Coumadin when cleared by Urology as an outpatient - Subjective Interval history: Patient seen and examined. Patient is laying in bed today and will not eat breakfast. He has dark red blood in his right nephrostomy tube today after starting Heparin drip and Coumadin. Case discussed with family at bedside. Will stop both Heparin and Coumadin and switch to ASA and Plavix per Vascular surgery recommendations. Patient denies fever, chills, CP, SOB, abd pain, N/V/D , or leg edema. - Constitutional Vitals: Temp Pulse Resp BP Pulse Ox 98.2 F 63 18 145/88 96 04/01/17 06:30 04/01/17 06:30 04/01/17 06:30 04/01/17 06:30 04/01/17 06:30 General appearance: Present: cooperative, mild distress, A&O X 3, obese, answers questions appropriately - Head Head exam: Present: atraumatic, normal inspection, normocephalic - Eye Eye exam: Present: EOMI, conjuntiva pink, sclera anicteric - ENT ENT exam: Present: mucous membranes moist, normal oropharynx - Neck Neck exam general surgery: Present: normal inspection, supple, trachea midline Additional comments: HD cath right IJ in place, Lidocaine patch C-spine - Respiratory Respiratory exam: Present: CTAB. Absent: rhonchi, wheezes - Cardiovascular Cardiovascular exam: Present: irregular rhythm, +S1, +S2 - GI/Abdominal GI/Abdominal exam: Present: distended, normal bowel sounds, soft. Absent: guarding, tenderness - Additional comments: Bilateral nephrostomy tubes in place, gross hematuria right, clear yellow urine on left - Extremities Exam Extremities exam: Present: calf tenderness (RLE), normal inspection, warm, radial pulses palpable and symmetrical. Absent: joint swelling, pedal edema - Back Exam Additional comments: Bilateral nephrostomy tubes in place, gross hematuria right, clear yellow urine on left - Neurological Exam Neurological exam: Present: alert, oriented X3, no focal deficits. Absent: speech deficit - Psychiatric Psychiatric exam: Present: depressed, flat affect - Skin Skin exam: Present: dry, intact, warm Internal Medicine: Result - Labs CBC & Chem 7: 04/01/17 04:30 04/01/17 04:30 Labs: Short CBC 03/31/17 04/01/17 Range/Units 20:11 04:30 WBC 13.5 H 12.2 H (4.3-11.1) K/mcL Hgb 13.4 13.2 (12.9-16.9) g/dL Hct 41.8 41.1 (37.5-50.1) % Plt Count 355 330 (140-400) K/mcL Neutrophils # 8.3 (1.6-8.9) K/mcL BMP 04/01/17 04:30 Sodium 144 Potassium 3.9 Chloride 107 Carbon Dioxide 24 BUN 60 H Creatinine 4.12 H Glucose 115 H Calcium 9.8 - ABG Interpretation ABG results: ABG ABG pH 7.50 pH Units (7.32-7.45) H 03/23/17 10:14 ABG pCO2 30 mmHg (35-45) L 03/23/17 10:14 ABG pO2 64 mmHg (85-104) L 03/23/17 10:14 ABG O2 Saturation 94 % (95-98) L 03/23/17 10:14 PT/INR, D-dimer PT 13.5 Seconds (9.4-12.1) H 03/31/17 20:11 - Pulse Oximetry Interpretation Digit-Finger Pulse Oximetry Readin (on ambient air) - Impressions 03/31/17 14:42 - Vascular Preliminary by Katelynn Linares Acct Num: [id number] : 1945 Patient Age: 71 Bilateral venous doppler completed. Patient appears to have a DVT in right PTV in the right mid calf. Patient appears to be negative for DVT in the left lower extremity. Bilaterally patient is negative for SVT. Initialized on 03/31/17 14:42 - END OF NOTE - Stroke Contraindication Not Initiating IV-Tpa: Medical contraindication - VTE Documentation of Mechanical Device: Intermittent pneumatic compression device Consult Discharge Plan - Plan Instructions: Atrial Fibrillation (DC), Hemodialysis (DC), Hemodialysis (GEN), Dialysis Diet (DC), Dialysis Diet (GEN), Peripheral Vascular Disorders (DC), Sepsis (DC), Ischemic Stroke (DC), Ischemic Stroke (GEN), Chronic Hypertension ( DC) Additional Instructions: Take full dose Aspirin 325mg daily, stop Warfarin. Start taking Casodex. Repeat CBC and BMP blood work in 1 week. Follow up with Hydrotechnical Specialist in 1 week for lab results Follow up with Urologist in 1-2 weeks. Follow up with PCP in 1-2 weeks. Referrals: Roseann Marinelli DO [Primary Care Provider] - Prescriptions: amLODIPine [Norvasc] 5 mg PO DAILY #30 tablet Bicalutamide [Casodex] 50 mg PO DAILY #30 tablet Lidocaine Patch [Lidoderm 5% patch] 1 each TP DAILY #30 adh..patch Omeprazole [PriLOSEC] 20 mg PO DAILY@729 #30 capsule. <Kasandra Walden - Last Filed: 04/01/17 18:20> Date of Encounter: 04/01/17 - Constitutional Vitals: Temp Pulse Resp BP Pulse Ox 98.5 F 61 16 159/89 96 04/01/17 15:28 04/01/17 15:28 04/01/17 15:28 04/01/17 15:28 04/01/17 15:28 Internal Medicine: Result - Labs CBC & Chem 7: 04/01/17 04:30 04/01/17 04:30 Labs: Short CBC 03/31/17 04/01/17 Range/Units 20:11 04:30 WBC 13.5 H 12.2 H (4.3-11.1) K/mcL Hgb 13.4 13.2 (12.9-16.9) g/dL Hct 41.8 41.1 (37.5-50.1) % Plt Count 355 330 (140-400) K/mcL Neutrophils # 8.3 (1.6-8.9) K/mcL BMP 04/01/17 04:30 Sodium 144 Potassium 3.9 Chloride 107 Carbon Dioxide 24 BUN 60 H Creatinine 4.12 H Glucose 115 H Calcium 9.8 - ABG Interpretation ABG results: ABG ABG pH 7.50 pH Units (7.32-7.45) H 03/23/17 10:14 ABG pCO2 30 mmHg (35-45) L 03/23/17 10:14 ABG pO2 64 mmHg (85-104) L 03/23/17 10:14 ABG O2 Saturation 94 % (95-98) L 03/23/17 10:14 PT/INR, D-dimer PT 13.5 Seconds (9.4-12.1) H 04/01/17 04:30 - Attending Attestation I have seen and examined the patient independently. I have discussed with resident physician Dr Smiley regarding the management plan. Agree with the documentation. Patient feels fine. Denies any pain. Vitals are stable. Still has hematuria especially on right side nephrostomy bag. Will hold heparin drip and Coumadin and switched to aspirin and Plavix per vascular surgeon recommendation. Renal function has improved but not normalized. Patient has complicated comorbidities and difficult to manage, hold anticoagulation will increase the risk of recurrent CVA. Prognosis is guarded.
[2017-04-01 07:36] LABS: INR 1.2; Prothrombin Time 13.5 Seconds (9.4-12.1)
--- NOTE | 2017-04-01 08:27 | Vascular/Endovasc Consult Note ---
Date of Encounter: 03/31/17 Time of Encounter: 18:00 Assessment and Plan (1) DVT (deep venous thrombosis) Current Visit: Yes Status: Acute The patient has an acute right tibial deep vein thrombosis. Risk of pulmonary embolus from isolated tibial vein thrombosis is low. I do not believe that this low risk warrents vena cava filter placement. The hematuria has resolved. The hematuria developed on Coumadin. He has 2 indications for anticoagulation. Atrial fibrillation and he vein thrombosis. There is no correct answer as to how to proceed, only a balance of risk. At this time I would recommend aspirin and Plavix therapy to allow the deep vein thrombosis to resolve and to prevent propagation of the clot. I would recommend venous duplex in 2 weeks to make sure that the DVT has not progressed. If the patient develops hematuria on aspirin and Plavix. The degree of hematuria needs to be assessed. If this is worsening his renal function or requires transfusion and aspirin and Plavix will need to be stopped and inferior vena cava filter placed. If indeed this is the case this places him at a very high stroke risk from his atrial fibrillation. Qualifiers: DVT location: lower extremity Affected thrombotic vein of extremity: tibial Chronicity: acute Laterality: right Qualified Code(s): I82.441 - Acute embolism and thrombosis of right tibial vein - History of Present Illness Consult date: 03/31/17 Consult reason: Deep vein thrombosis Chief complaint: Abnormal venous duplex History of present illness: Mr. Reich is a 71 year old male Is a highly complex patient with a personal history of atrial fibrillation on Coumadin developed hematuria. He has a bladder mass consistent with recurrent prostate cancer that has resulted in bilateral obstructive uropathy. He developed hematuria and his Coumadin was discontinued. He was placed on high dosed aspirin for stroke prophylaxis. He has bilateral nephrostomy tubes. During recent evaluation he was found to have an acute deep vein thrombosis of the right posterior tibial vein. This is localized to the tibial vein and does not extend into the popliteal. The specific question posed by the hospitalist team is whether the patient should be anticoagulated or a [place] filter should be placed. There is no history of pulmonary embolism. This poses a very difficult question with no correct answer. [place] filter placement or inferior vena cava filter is not without complication or risk. The degree of hematuria is also important. At this point the patient has not had pulmonary embolus. He has 2 indications for anticoagulation. Atrial fibrillation and deep vein thrombosis. He has bled on Coumadin with hematuria. He is currently not having hematuria. My recommendation is to proceed with aspirin and Plavix and discontinue these only if there is more hematuria requiring transfusion. This should allow the posterior tibial deep vein thrombosis to resolve without the risk of inferior vena cava filter placement. If the patient continues to have hematuria that affects renal function or requires transfusion, the aspirin and Plavix should be discontinued and consideration of inferior vena cava filter should be made at that time. Past Med Surg Social Fam HX - Past Medical History Medical history: atrial fibrillation, cancer, GI bleed, hypertension Psychiatric history: no psych history - Past Surgical History Surgical History: other, pacemaker - Social History Smoking Status: Former smoker Smokeless Tobacco Status: No Alcohol use: none Drug use: none Medications and Allergies Atorvastatin Calcium [Lipitor] 20 mg PO HS 03/19/17 [History] Cholecalciferol (Vitamin D3) [Vitamin D3] 1,000 unit PO DAILY 03/19/17 [History] Meloxicam [Mobic] 7.5 - 15 mg PO DAILY PRN 03/19/17 [History] Metoprolol XL (24 HR) Succ [Toprol Xl] 150 mg PO DAILY 03/19/17 [History] Multivitamin [One Daily Multivitamin] 1 each PO DAILY 03/19/17 [History] Acetaminophen [Tylenol] 650 mg PO Q6HR PRN tablet 03/31/17 [Rx] Aspirin Enteric Coated [Aspirin EC] 325 mg PO DAILY tablet. 03/31/17 [Rx] Bicalutamide [Casodex] 50 mg PO DAILY #30 tablet 03/31/17 [Rx] DiphenhydraMINE [Benadryl] 25 mg PO HS PRN capsule 03/31/17 [Rx] GuaiFENesin ER [Mucinex] 600 mg PO BID PRN tbbp.12hr 03/31/17 [Rx] Lidocaine Patch [Lidoderm 5% patch] 1 each TP DAILY #30 adh..patch 03/31/17 [Rx] Omeprazole [PriLOSEC] 20 mg PO DAILY@0730 #30 capsule. 03/31/17 [Rx] amLODIPine [Norvasc] 5 mg PO DAILY #30 tablet 03/31/17 [Rx] 3 Allergy/AdvReac Type Severity Reaction Status Date / Time No Known Allergies Allergy Verified 03/19/17 11:56 All Systems Review: A 10-system review of systems was performed and is negative for pertinent findings except as documented above in the HPI. Exam Vital Signs, Last 4 Hours Temp Pulse Resp BP Pulse Ox 04/01/17 06:30 98.2 F 63 18 145/88 96 04/01/17 05:20 97.9 F 63 15 129/78 General: Present: Other (Chronically ill with bilateral nephrostomy tubes) HEENT: Present: Atraumatic, Normocephaly, Trachea midline, Pupils equal Neck: Present: Left Carotid bruit, Right Carotid bruit, Other (Neck is supple with no evidence of limited range of motion) Cardiac: Present: Irregular Rhythm, Other (Left ventricular flow murmur) Lungs: Present: Decreased breath sounds, Other (Mild wheezing both bases) Neuro: Present: Alert and responsive, No focal deficits noted, Cranial nerves grossly intact Abdomen: Present: Soft, Non-tender, Other (Masses) Vascular: Present: Bruit (Bilateral carotid bruit) Musculoskeletal: Present: No Chest Wall Tenderness Consult Discharge Plan - Plan Instructions: Atrial Fibrillation (DC), Hemodialysis (DC), Hemodialysis (GEN), Dialysis Diet (DC), Dialysis Diet (GEN), Peripheral Vascular Disorders (DC), Sepsis (DC), Ischemic Stroke (DC), Ischemic Stroke (GEN), Chronic Hypertension ( DC) Additional Instructions: Take full dose Aspirin 325mg daily, stop Warfarin. Start taking Casodex. Repeat CBC and BMP blood work in 1 week. Follow up with Manager Payment in 1 week for lab results Follow up with Urologist in 1-2 weeks. Follow up with PCP in 1-2 weeks. Referrals: Roseann Marinelli DO [Primary Care Provider] - Prescriptions: amLODIPine [Norvasc] 5 mg PO DAILY #30 tablet Bicalutamide [Casodex] 50 mg PO DAILY #30 tablet Lidocaine Patch [Lidoderm 5% patch] 1 each TP DAILY #30 adh..patch Omeprazole [PriLOSEC] 20 mg PO DAILY@729 #30 capsule.
[2017-04-01] MEDS: Cholecalciferol (D-3) 1,000 UNIT TABLET PO SCH (09:10)
[2017-04-01] MEDS: Bicalutamide 50 MG TABLET PO SCH (09:10)
[2017-04-01] MEDS: amLODIPine 5 MG TABLET PO SCH (09:10)
[2017-04-01] MEDS: Metoprolol XL (24 HR) Succ 50 MG TAB.ER.24H PO SCH (09:11)
[2017-04-01] MEDS: Multivit/Ca/Min/Fe/FA 1 TAB TABLET PO SCH (09:25)
[2017-04-01] MEDS ORDERED: Sennosides/Docusate Sodium TABLET PO PRN (09:38)
[2017-04-01] MEDS: Aspirin Enteric Coated 81 MG Tablet PO SCH (12:13)
[2017-04-01] MEDS ORDERED: Warfarin perPT PO PRN (18:00)
--- NOTE | 2017-04-01 23:36 | Nephrology Progress Note ---
Date of Encounter: 04/01/17 Time of Encounter: 11:40 - Assessment and Plan (1) DAVE (acute kidney injury) Current Visit: Yes Status: Acute SCr continues to improve at 4.12, GFR 14, no indication for PHOTOVOLTAIC TECHNICIAN today but still warrants close monitoring UOP still very good approx. 2liters in the past 24hrs Continue to avoid nephrotoxins if possible Can discontinue temporary HD catheter at this point, last dialyzed ?03/25/17 Encouraged adequate fluid intake Will need followup on outpatient with nephrology when discharged with labs (2) Bilateral hydronephrosis Current Visit: Yes Status: Acute Per urology Subjective Principal diagnosis: DAVE, hyperkalemia, bilateral hydronephrosis Interval history: Interim noted, pt seen and examined with son at bedside feeling lethargic today. Per son, drinking lots of fluids with good UOP. Heparin gtt stopped due to hematuria Objective - Vital Signs Vital signs: Vital Signs Temp Pulse Resp BP Pulse Ox 04/01/17 19:00 97.7 F 65 15 148/82 93 04/01/17 15:28 98.5 F 61 16 159/89 96 04/01/17 06:30 98.2 F 63 18 145/88 96 04/01/17 05:20 97.9 F 63 15 129/78 04/01/17 03:51 97.7 F 63 15 129/78 04/01/17 00:00 96 Intake and Output 04/01/17 04/01/17 04/01/17 07:59 15:59 23:59 Intake Total 220 / 220 120 / 120 60 / 60 Output Total 550 / 550 525 / 525 600 / 600 Balance -330 / -330 -405 / -405 -540 / -540 Intake: IV Fluids 160 / 160 Heparin 25,000 UNIT/500 ML D5W 160 / 160 25,000 unit In 500 ml @ 14 UNIT /KG/HR 31.416 mls/hr IVC . [id number] [facility] Rx#:[id number] Oral 60 / 60 120 / 120 60 / 60 Output: Urine 0 / 0 100 / 100 Left Nephrostomy 250 / 250 Right Nephrostomy 250 / 250 Wound Drainage 550 / 550 525 / 525 Left Lower Back 200 / 200 350 / 350 Right Lower Back 350 / 350 175 / 175 Other: Meal Breakfast Percent of Meal Consumed 75% Stool Size Moderate Stool Consistency soft Stool Color Brown # Voids 1 Weight 110.8 kg Patient Weight 11/07/17 23:59 Weight 110.8 kg - General Appearance General appearance: Present: chronically ill (NAD), fatigue EENT: Present: ATNC, mucous membranes moist Neck: Present: supple Respiratory: Present: clear (ant bilat) Cardiology: Present: no edema, normal S1, normal S2 Dialysis Vascular Access: Venous Catheter (temp HD line) Gastrointestinal: Present: no tenderness, no guarding, obese Integumentary: Present: warm and dry Neurologic: Present: no focal deficit Musculoskeletal: Present: no deformities Psychiatric: Present: mood/affect appropriate, cooperative - Lab 04/01/17 04:30 04/01/17 04:30 Most recent lab results ABG pH 7.50 pH Units (7.32-7.45) H 03/23/17 10:14 ABG pCO2 30 mmHg (35-45) L 03/23/17 10:14 ABG pO2 64 mmHg (85-104) L 03/23/17 10:14 ABG HCO3 23 mEq/L (21-27) 03/23/17 10:14 ABG O2 Saturation 94 % (95-98) L 03/23/17 10:14 Calcium 9.8 mg/dL (8.6-10.8) 04/01/17 04:30 Phosphorus 5.9 mg/dL (2.3-4.7) H 03/28/17 04:57 Magnesium 2.2 mg/dL (1.6-2.6) 03/29/17 08:15 - Stroke Contraindication Not Initiating IV-Tpa: Medical contraindication - VTE Documentation of Mechanical Device: Intermittent pneumatic compression device Consult Discharge Plan - Plan Instructions: Atrial Fibrillation (DC), Hemodialysis (DC), Hemodialysis (GEN), Dialysis Diet (DC), Dialysis Diet (GEN), Peripheral Vascular Disorders (DC), Sepsis (DC), Ischemic Stroke (DC), Ischemic Stroke (GEN), Chronic Hypertension ( DC) Additional Instructions: Take full dose Aspirin 325mg daily, stop Warfarin. Start taking Casodex. Repeat CBC and BMP blood work in 1 week. Follow up with Theater Usher in 1 week for lab results Follow up with Urologist in 1-2 weeks. Follow up with PCP in 1-2 weeks. Referrals: Roseann Marinelli DO [Primary Care Provider] - Prescriptions: amLODIPine [Norvasc] 5 mg PO DAILY #30 tablet Bicalutamide [Casodex] 50 mg PO DAILY #30 tablet Lidocaine Patch [Lidoderm 5% patch] 1 each TP DAILY #30 adh..patch Omeprazole [PriLOSEC] 20 mg PO DAILY@0730 #30 capsule.
[2017-04-02 06:39] LABS: Hematocrit 42.5 % (37.5-50.1); Mean Corpuscular HGB Conc 32.9 g/dL (31.6-35.5); Mean Corpuscular Hemoglobin 27.9 pg (28.0-33.3); Mean Corpuscular Volume 84.8 fL (83.0-100.0); Mean Platelet Volume 10.7 fL (9.4-12.4); Platelet Count 342 K/mcL (140-400); Red Blood Count 5.01 M/mcL (4.19-5.50); Red Cell Distribution Width 13.2 % (11.5-14.5)
[2017-04-02 06:45] LABS: INR 1.2; Prothrombin Time 12.6 Seconds (9.4-12.1)
[2017-04-02 06:48] LABS: Activated Partial Thrombo Time 28.5 Seconds (26.0-36.0)
[2017-04-02 06:51] LABS: Calcium 9.8 mg/dL (8.6-10.8); Phosphorous 3.7 mg/dL (2.3-4.7); Potassium 4.1 mEq/L (3.5-4.5)
--- NOTE | 2017-04-02 08:31 | Internal Med Progress Note ---
<Fredrick Smiley - Last Filed: 04/02/17 13:40> Date of Encounter: 04/02/17 Time of Encounter: 08:31 - Assessment and plan (1) DVT (deep venous thrombosis) Current Visit: Yes Status: Acute Assessment and plan: Acute right tibial deep vein thrombosis on ultrasound 03/31/17. Risk of pulmonary embolus from isolated tibial vein thrombosis is low. Continue PT/OT. Patient developed dark red blood in his right nephrostomy tube after starting Heparin drip and Coumadin 03/31/17 Will stop both Heparin and Coumadin and switch to ASA and Plavix per Vascular surgery/ recommendations. Repeat venous duplex in 2 weeks to make sure that the DVT has not progressed. If patient requires transfusion, Aspirin and Plavix will need to be stopped and inferior vena cava filter placed. Case discussed with Urologist, Dr. Fernández who recommends continued surveillance and IR consult if patient continues to bleed. Qualifiers: DVT location: lower extremity Affected thrombotic vein of extremity: tibial Chronicity: acute Laterality: right Qualified Code(s): I82.441 - Acute embolism and thrombosis of right tibial vein (2) Cerebrovascular accident (CVA) due to bilateral stenosis of carotid arteries Current Visit: Yes Status: Acute Assessment and plan: Patient with acute residual left hemianopia 03/19/17 CT head shows acute infarct in right parieto-occipital lobe 03/23/[address] brain reveals subacute right parieto-occipital infarct. No new acute abnormality. Unable to get MRI of brain due to pacemaker placement PT/OT recommend swing bed. Continue ASA, Plavix, and statin (3) Carotid stenosis, bilateral Current Visit: Yes Status: Acute Assessment and plan: Carotid U/S revealed left ICA 60-79% stenosis and calcified plaque. Right carotid unable to image due to tubing in neck CTA of the head and neck showed severe, greater than 70%, stenosis of the bilateral ICA, moderate stenosis of the right vertebral artery origin, moderate narrowing of the distal right M1 segment, severe focal narrowing of the bilateral intracranial vertebral arteries, proximal to the bilateral PICA origins, and severe stenosis of the right posterior cerebral artery at the P2/ P3 junction. Vascular surgery consulted. Not a surgical candidate at this point, but maybe at a later date. 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 Urology on board, suspect recurrence of prostate cancer/ Obstructive uropathy. Status post placement of bilateral percutaneous nephrostomy tubes. Continue Casodex. Monitor hemoglobin closely, currently stable. Patient developed dark red blood in his right nephrostomy tube after starting Heparin drip and Coumadin Case discussed with Urologist, Dr. Fernández who recommends continued surveillance and IR consult if patient continues to bleed. Qualifiers: Hematuria type: gross Qualified Code(s): R31.0 - Gross hematuria (5) DAVE (acute kidney injury) Current Visit: Yes Status: Acute Assessment and plan: Multifactorial-initially postrenal due to obstruction due to bladder mass. Then , patient also received IV contrast and Vancomycin. Serum creatinine slightly improved today, but noted to have improving urine output. Plan to hold off HD for today and monitor; Nephrology on board, appreciate management. Removed temporary HD catheter today Will need repeat labs in 1 week and outpatient nephrology follow up (6) Malignant neoplasm of prostate Current Visit: Yes Status: Acute Assessment and plan: Urology on board. Continue Casodex. (7) Atrial fibrillation Current Visit: Yes Status: Chronic Assessment and plan: Status post pacemaker placement. CHADS-VASc Score 4 Currently rate-controlled; continue beta juan pablo Coumadin held in anticipation of Cystoscopy to evaluate hematuria Echo LVEF 50-55%. Overall, LV systolic function appears normal. There is atypical septal motion present. TSH 2.628 Currently on ASA and Plavix for CVA prophylaxis Qualifiers: Atrial fibrillation type: chronic Qualified Code(s): I48.2 - Chronic atrial fibrillation (8) Sepsis Current Visit: Yes Status: Acute Assessment and plan: Patient met sepsis criteria with leukocytosis 18.9, tachypnea RR 38, Temp 100.3F , and encephalopathic The patient's WBC has been elevated since admission. Stable. No bands. Neutrophilic predominance. Etiology unclear, but given the clinical picture, consider non-infectious etiologies (malignancy, stroke, etc.). The patient had one isolated low-grade fever on 03/23/17 and has been afebrile since then. Urine culture is negative. Status post LP. No pleocytosis. Culture is negative. Not likely meningitis. The patient does complain of left posterior/lateral neck pain, but CT of the neck shows no infectious etiologies. Antibiotics discontinued 03/25/17. Continue to monitor off antibiotics. Qualifiers: Sepsis type: sepsis due to unspecified organism Qualified Code(s): A41.9 - Sepsis, unspecified organism (9) Acute encephalopathy Current Visit: Yes Status: Acute Assessment and plan: Resolved. Likely delirium, related to underlying medical conditions. Noted to have only one episode of low-grade fever at 100.3 on 03/23/17. Blood, urine cultures remain negative. Gram stain and preliminary culture of CSF so far negative. Infectious disease is on board, agree withholding antibiotics at this time. Discontinued Seroquel. Continue to monitor. (10) Acute hyperkalemia Current Visit: Yes Status: Acute Assessment and plan: Continue replacement prn Continue to monitor (11) Elevated troponin Current Visit: Yes Status: Resolved Assessment and plan: Likely due to volume overload and acute renal failure; continue telemetry Downtrending serial troponins (12) Anorexia Current Visit: Yes Status: Acute Assessment and plan: Related to illness. Hopefully will continue to increase PO amount. Patient has lost 9 kg during hospital stay Patient has decreased appetite Continue Marinol for appetite stimulation Continue Nepro TID Medical Transcription Supervisor following (13) Obesity (BMI 30-39.9) Current Visit: Yes Status: Acute Assessment and plan: BMI 39.0 --> 36.3 Diet modification discussed (14) DVT prophylaxis Current Visit: Yes Status: Acute Assessment and plan: Now on Aspirin and Plavix. Resume anticoagulation with Coumadin when cleared by Urology as an outpatient Encourage ambulation. Awaiting PT/OT evaluation prior to placement. - Subjective Interval history: Patient seen and examined. Patient is laying in bed today and would like to ambulate. Awaiting PT/OT evaluation prior to placement. He does not have any blood in his right nephrostomy tube today while taking ASA and Plavix per Vascular surgery recommendations. Patient denies fever, chills, CP, SOB, abd pain, N/V/D, or leg edema. - Constitutional Vitals: Temp Pulse Resp BP Pulse Ox 97.8 F 68 14 162/87 96 04/02/17 06:34 04/02/17 06:34 04/02/17 06:34 04/02/17 06:34 04/02/17 06:34 General appearance: Present: cooperative, mild distress, A&O X 3, pleasant, obese, answers questions appropriately - Head Head exam: Present: atraumatic, normal inspection, normocephalic - Eye Eye exam: Present: EOMI, conjuntiva pink, sclera anicteric - ENT ENT exam: Present: mucous membranes moist, normal oropharynx - Neck Neck exam general surgery: Present: normal inspection, supple - Respiratory Respiratory exam: Present: CTAB. Absent: rhonchi, tachypnea - Cardiovascular Cardiovascular exam: Present: irregular rhythm, +S1, +S2 - GI/Abdominal GI/Abdominal exam: Present: normal bowel sounds, soft. Absent: firm, guarding - Additional comments: clear yellow urine in bilateral nephrostomy tubes - Extremities Exam Extremities exam: Present: normal inspection, warm. Absent: pedal edema, tenderness - Back Exam Back exam: Present: normal inspection Additional comments: clear yellow urine in bilateral nephrostomy tubes - Neurological Exam Neurological exam: Present: alert, oriented X3, no focal deficits. Absent: speech deficit - Psychiatric Psychiatric exam: Present: normal affect, normal mood - Skin Skin exam: Present: dry, normal color, warm Internal Medicine: Result - Labs CBC & Chem 7: 04/02/17 06:32 04/02/17 06:32 Labs: Short CBC 04/02/17 Range/Units 06:32 WBC 13.1 H (4.3-11.1) K/mcL Hgb 14.0 (12.9-16.9) g/dL Hct 42.5 (37.5-50.1) % Plt Count 342 (140-400) K/mcL BMP 04/02/17 06:32 Sodium 142 Potassium 4.1 Chloride 106 Carbon Dioxide 23 BUN 60 H Creatinine 4.01 H Glucose 132 H Calcium 9.8 - ABG Interpretation ABG results: ABG ABG pH 7.50 pH Units (7.32-7.45) H 03/23/17 10:14 ABG pCO2 30 mmHg (35-45) L 03/23/17 10:14 ABG pO2 64 mmHg (85-104) L 03/23/17 10:14 ABG O2 Saturation 94 % (95-98) L 03/23/17 10:14 PT/INR, D-dimer PT 12.6 Seconds (9.4-12.1) H 04/02/17 06:32 - Pulse Oximetry Interpretation Digit-Finger Pulse Oximetry Readin (On RA) - Stroke Contraindication Not Initiating IV-Tpa: Medical contraindication - VTE Documentation of Mechanical Device: Intermittent pneumatic compression device Consult Discharge Plan - Plan Instructions: Atrial Fibrillation (DC), Hemodialysis (DC), Hemodialysis (GEN), Dialysis Diet (DC), Dialysis Diet (GEN), Peripheral Vascular Disorders (DC), Sepsis (DC), Ischemic Stroke (DC), Ischemic Stroke (GEN), Chronic Hypertension ( DC) Additional Instructions: Take full dose Aspirin 325mg daily, stop Warfarin. Start taking Casodex. Repeat CBC and BMP blood work in 1 week. Follow up with G[employer] Pole Operator in 1 week for lab results Follow up with Urologist in 1-2 weeks. Follow up with PCP in 1-2 weeks. Referrals: Roseann Marinelli DO [Primary Care Provider] - Prescriptions: amLODIPine [Norvasc] 5 mg PO DAILY #30 tablet Bicalutamide [Casodex] 50 mg PO DAILY #30 tablet Lidocaine Patch [Lidoderm 5% patch] 1 each TP DAILY #30 adh..patch Omeprazole [PriLOSEC] 20 mg PO DAILY@0730 #30 capsule. <Kasandra Walden - Last Filed: 04/02/17 14:07> Date of Encounter: 04/02/17 - Constitutional Vitals: Temp Pulse Resp BP Pulse Ox 97.9 F 60 14 175/97 93 04/02/17 10:58 04/02/17 10:58 04/02/17 10:58 04/02/17 10:58 04/02/17 10:58 Internal Medicine: Result - Labs CBC & Chem 7: 04/02/17 06:32 04/02/17 06:32 Labs: Short CBC 04/02/17 Range/Units 06:32 WBC 13.1 H (4.3-11.1) K/mcL Hgb 14.0 (12.9-16.9) g/dL Hct 42.5 (37.5-50.1) % Plt Count 342 (140-400) K/mcL BMP 04/02/17 06:32 Sodium 142 Potassium 4.1 Chloride 106 Carbon Dioxide 23 BUN 60 H Creatinine 4.01 H Glucose 132 H Calcium 9.8 - ABG Interpretation ABG results: ABG ABG pH 7.50 pH Units (7.32-7.45) H 03/23/17 10:14 ABG pCO2 30 mmHg (35-45) L 03/23/17 10:14 ABG pO2 64 mmHg (85-104) L 03/23/17 10:14 ABG O2 Saturation 94 % (95-98) L 03/23/17 10:14 PT/INR, D-dimer PT 12.6 Seconds (9.4-12.1) H 04/02/17 06:32 - Attending Attestation I have seen and examined the patient independently. I have discussed with resident physician Dr Smiley regarding the management plan. Agree with the documentation. Patient denies shortness of breath. His hematuria resolved. His vitals are stable. Hemoglobin level is stable. Will continue PTOT and social work is working on placement.
[2017-04-02] MEDS: Bicalutamide 50 MG TABLET PO SCH (10:36)
[2017-04-02] MEDS: Metoprolol XL (24 HR) Succ 50 MG TAB.ER.24H PO SCH (10:36)
[2017-04-02] MEDS: Aspirin Enteric Coated 81 MG Tablet PO SCH (10:37)
[2017-04-02] MEDS: Cholecalciferol (D-3) 1,000 UNIT TABLET PO SCH (10:37)
[2017-04-02] MEDS: Multivit/Ca/Min/Fe/FA 1 TAB TABLET PO SCH (10:37)
[2017-04-02] MEDS: amLODIPine 5 MG TABLET PO SCH (10:38)
[2017-04-02 14:44] VITALS: BP 165/95
--- NOTE | 2017-04-02 16:19 | Discharge Summary ---
<Fredrick Smiley - Last Filed: 04/02/17 17:25> Date of Encounter: 04/02/17 Time of Encounter: 16:46 - Discharge Diagnosis (1) Cerebrovascular accident (CVA) due to bilateral stenosis of carotid arteries Priority: Primary Status: Acute Comments: Patient with acute residual left hemianopia 03/19/17 CT head shows acute infarct in right parieto-occipital lobe 03/23/[address] brain reveals subacute right parieto-occipital infarct. No new acute abnormality. Unable to get MRI of brain due to pacemaker placement PT/OT recommend swing bed. Continue ASA, Plavix, and statin (2) DVT (deep venous thrombosis) Priority: Primary Status: Acute Comments: Acute right tibial deep vein thrombosis on ultrasound 03/31/17. Risk of pulmonary embolus from isolated tibial vein thrombosis is low. Continue PT/OT. Patient developed dark red blood in his right nephrostomy tube after starting Heparin drip and Coumadin 03/31/17 Will stop both Heparin and Coumadin and switch to ASA and Plavix per Vascular surgery/ recommendations. Repeat venous duplex in 2 weeks to make sure that the DVT has not progressed. If patient requires transfusion, Aspirin and Plavix will need to be stopped and inferior vena cava filter placed. Case discussed with Urologist, Dr. Fernández who recommends continued surveillance and IR consult if patient continues to bleed. Qualifiers: DVT location: lower extremity Affected thrombotic vein of extremity: tibial Chronicity: acute Laterality: right Qualified Code(s): I82.441 - Acute embolism and thrombosis of right tibial vein (3) Carotid stenosis, bilateral Priority: Primary Status: Acute Comments: Carotid U/S revealed left ICA 60-79% stenosis and calcified plaque. Right carotid unable to image due to tubing in neck CTA of the head and neck showed severe, greater than 70%, stenosis of the bilateral ICA, moderate stenosis of the right vertebral artery origin, moderate narrowing of the distal right M1 segment, severe focal narrowing of the bilateral intracranial vertebral arteries, proximal to the bilateral PICA origins, and severe stenosis of the right posterior cerebral artery at the P2/ P3 junction. Vascular surgery consulted. Not a surgical candidate at this point, but maybe at a later date. 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 Urology on board, suspect recurrence of prostate cancer/ Obstructive uropathy. Status post placement of bilateral percutaneous nephrostomy tubes. Continue Casodex. Monitor hemoglobin closely, currently stable. Patient developed dark red blood in his right nephrostomy tube after starting Heparin drip and Coumadin, which has now resolved Case discussed with Urologist, Dr. Fernández who recommends continued surveillance and IR consult if patient continues to bleed. Qualifiers: Hematuria type: gross Qualified Code(s): R31.0 - Gross hematuria (5) DAVE (acute kidney injury) Priority: Primary Status: Acute Comments: Multifactorial-initially postrenal due to obstruction due to bladder mass. Then , patient also received IV contrast and Vancomycin. Serum creatinine slightly improved today, but noted to have improving urine output. Plan to hold off HD for today and monitor; Nephrology on board, appreciate management. Removed temporary HD catheter today Will need repeat labs in 1 week and outpatient nephrology follow up (6) Malignant neoplasm of prostate Priority: Primary Status: Acute Comments: Urology on board. Continue Casodex. (7) Atrial fibrillation Priority: Primary Status: Chronic Comments: Status post pacemaker placement. CHADS-VASc Score 4 Currently rate-controlled; continue beta juan pablo Coumadin held in anticipation of Cystoscopy to evaluate hematuria Echo LVEF 50-55%. Overall, LV systolic function appears normal. There is atypical septal motion present. TSH 2.628 Currently on ASA and Plavix for CVA prophylaxis Qualifiers: Atrial fibrillation type: chronic Qualified Code(s): I48.2 - Chronic atrial fibrillation (8) Sepsis Priority: Primary Status: Acute Comments: Patient met sepsis criteria with leukocytosis 18.9, tachypnea RR 38, Temp 100.3F , and encephalopathic The patient's WBC has been elevated since admission. Stable. No bands. Neutrophilic predominance. Etiology unclear, but given the clinical picture, consider non-infectious etiologies (malignancy, stroke, etc.). The patient had one isolated low-grade fever on 03/23/17 and has been afebrile since then. Urine culture is negative. Status post LP. No pleocytosis. Culture is negative. Not likely meningitis. The patient does complain of left posterior/lateral neck pain, but CT of the neck shows no infectious etiologies. Antibiotics discontinued 03/25/17. Continue to monitor off antibiotics. Qualifiers: Sepsis type: sepsis due to unspecified organism Qualified Code(s): A41.9 - Sepsis, unspecified organism (9) Acute encephalopathy Priority: Primary Status: Acute Comments: Resolved. Likely delirium, related to underlying medical conditions. Noted to have only one episode of low-grade fever at 100.3 on 03/23/17. Blood, urine cultures remain negative. Gram stain and preliminary culture of CSF so far negative. Infectious disease is on board, agree withholding antibiotics at this time. Discontinued Seroquel. Continue to monitor. (10) Acute hyperkalemia Priority: Primary Status: Resolved Comments: Continue replacement prn Continue to monitor (11) Hypertension Priority: Secondary Status: Chronic Comments: Increased Amlodipine to 10mg PO daily Qualifiers: Hypertension type: essential hypertension Qualified Code(s): I10 - Essential (primary) hypertension (12) Elevated troponin Priority: Primary Status: Resolved Comments: Likely due to volume overload and acute renal failure; continue telemetry Downtrending serial troponins (13) Anorexia Priority: Primary Status: Acute Comments: Related to illness. Hopefully will continue to increase PO amount. Patient has lost 9 kg during hospital stay Patient has decreased appetite Continue Marinol for appetite stimulation Continue Nepro TID Claims Adjuster Supervisor following (14) Obesity (BMI 30-39.9) Priority: Primary Status: Acute Comments: BMI 39.0 --> 36.3 Diet modification discussed (15) DVT prophylaxis Priority: Primary Status: Acute Comments: Now on Aspirin and Plavix. Resume anticoagulation with Coumadin when cleared by Urology as an outpatient Encourage ambulation. PT/OT evaluation: SNF placement - Discharge Medications Prescriptions: amLODIPine [Norvasc] 10 mg PO DAILY #60 tablet Aspirin Enteric Coated [Aspirin EC] 81 mg PO DAILY #30 tablet. Bicalutamide [Casodex] 50 mg PO DAILY #30 tablet Clopidogrel [Plavix] 75 mg PO DAILY #30 tablet Lidocaine Patch [Lidoderm 5% patch] 1 each TP DAILY #30 adh..patch Omeprazole [PriLOSEC] 20 mg PO DAILY@0730 #30 capsule. Home Medications: Atorvastatin Calcium [Lipitor] 20 mg PO HS 03/19/17 [History] Cholecalciferol (Vitamin D3) [Vitamin D3] 1,000 unit PO DAILY 03/19/17 [History] Metoprolol XL (24 HR) Succ [Toprol Xl] 150 mg PO DAILY 03/19/17 [History] Multivitamin [One Daily Multivitamin] 1 each PO DAILY 03/19/17 [History] Acetaminophen [Tylenol] 650 mg PO Q6HR PRN tablet 03/31/17 [Rx] Bicalutamide [Casodex] 50 mg PO DAILY #30 tablet 03/31/17 [Rx] DiphenhydraMINE [Benadryl] 25 mg PO HS PRN capsule 03/31/17 [Rx] GuaiFENesin ER [Mucinex] 600 mg PO BID PRN tbbp.12hr 03/31/17 [Rx] Lidocaine Patch [Lidoderm 5% patch] 1 each TP DAILY #30 adh..patch 03/31/17 [Rx] Omeprazole [PriLOSEC] 20 mg PO DAILY@0730 #30 capsule. 03/31/17 [Rx] Aspirin Enteric Coated [Aspirin EC] 81 mg PO DAILY #30 tablet. 04/02/17 [Rx] Clopidogrel [Plavix] 75 mg PO DAILY #30 tablet 04/02/17 [Rx] amLODIPine [Norvasc] 10 mg PO DAILY #60 tablet 04/02/17 [Rx] Allergies/Adverse Reactions: 3 Allergy/AdvReac Type Severity Reaction Status Date / Time No Known Allergies Allergy Verified 03/19/17 11:56 Procedures/tests Complete & Pending: Procedures Performed prior 72 hours Category Date Time Status EV venous imaging LE BI Routine Y 03/31/17 00:01 Completed Date of admission: 03/19/17 18:23 Primary care physician: Roseann Marinelli Consults: 03/20/17 06:00 Consult to Dialysis [CONS] ONCE 03/20/17 07:17 Consult to Interventional Radiology [CONS] Routine Consulting Provider: Radiology Interventional Cols Reason for Consult: eval for bilateral nephrostomy tubes Call Completed: Yes 03/21/17 06:15 Consult to Dialysis [CONS] ONCE 03/23/17 09:42 Consult to Neurology [CONS] Routine Consulting Provider: Neurology [facility] Reason for Consult: CVA, encephalopathy Time Notified: 09:46 Call Completed: Yes 03/24/17 11:19 Consult to Interpret Exam [CONS] Routine Consulting Provider: Barry Cherry I Consult to Interpret Exam: Interpret EEG 03/24/17 12:03 Consult to Infectious Diseases [CONS] Routine Consulting Provider: Infectious Disease [place] Reason for Consult: Lilely Meningitis Time Notified: 12:03 Call Completed: Yes 03/25/17 09:15 Consult to Dialysis [CONS] ONCE 03/26/17 14:00 Consult to Dialysis [CONS] ONCE 03/27/17 09:50 Consult to Interventional Radiology [CONS] Routine Consulting Provider: Radiology Interventional Cols Reason for Consult: Patient needs exchange of temp hd catheter. Call Completed: No 03/28/17 14:21 Consult to Wildlife Biology Technician [CONS] Routine Reason for SW Consult: PT now recommending inpatient swing bed; Na aware 03/31/17 15:14 Consult to Vascular Surgery [CONS] Routine Consulting Provider: Vascular Surgery [facility] Reason for Consult: CVA, bilateral caroitid stenosis, acute DVT Time Notified: 15:15 Call Completed: Yes 04/01/17 09:40 Consult to Physical Therapy [CONS] Routine Comment: Evaluate, develop and implement POC Reason for Consult: Resume eval ant treamtent OT [Consult to Occupational Therapy] [CONS] Routine Comment: Evaluate, develop and implement POC Reason for Consult: Resume eval and treatment Discharging clinician: Fredrick Smiley Anticipated date of discharge: 04/02/17 - Patient Status Disposition: Transfer Inpatient Rehab Fac Condition: Fair Functional capacity at discharge: uses cane/walker Overall status at discharge: patient is progressing back to baseline - Ambulatory Orders Ambulatory Orders: Dietary Supplement Time Frame: 04/02/17, Location: N/A EV venous imaging UE BI Time Frame: 04/14/17, Location: N/A Basic Metabolic Panel [CHEM] Time Frame: 04/07/17, Location: N/A Complete Blood Count [HEME] Time Frame: 04/07/17, Location: N/A - Discharge Instructions Instructions: Atrial Fibrillation (DC), Hemodialysis (DC), Hemodialysis (GEN), Dialysis Diet (DC), Dialysis Diet (GEN), Peripheral Vascular Disorders (DC), Sepsis (DC), Ischemic Stroke (DC), Ischemic Stroke (GEN), Chronic Hypertension ( DC) Follow Up With: Roseann Marinelli DO [Primary Care Provider] - Additional Instructions: Take Aspirin 75mg daily and Plavix, stop Warfarin. Start taking Casodex. Increase Amlodipine to 10mg daily. Repeat CBC and BMP blood work in 1 week. Follow up with Pan Reclaim Processor in 1 week for lab results Follow up with Urologist in 1-2 weeks. Follow up with Neurologist in 1-2 weeks Schedule follow up appointment with vascular surgery in 1-2 weeks Repeat ultrasound of right leg to rule out progression of DVT. Follow up with PCP in 1-2 weeks. - Diet and Activity Activity: as per physical therapy, increase activity as tolerated Diet: low fat, low cholesterol, other (renal, Ensure pus TID) Hospital course: Mr. Reich is a 71 year old male with a PMH of prostate cancer, A-fib, HTN, HLD, and obesity presented from home on 03/19/17 c/o blurred vision in his right eye and not feeling well for 2 days after he was taken off Coumadin for 2 weeks in anticipation of cystoscopy to evaluate hematuria. In the ED, patient had acute left hemianopia and CT head revealed acute infarct in right parieto-occipital lobe. Patient was unable to get MRI of brain due to pacemaker placement. Patient was found to have hydronephrosis with acute renal failure due to obstructive uropathy from suspected recurrence of prostate cancer. He underwent placement of bilateral percutaneous nephrostomy tubes and required several days of temporary hemodialysis. Patient met sepsis criteria with leukocytosis 18.9, tachypnea RR 38, Temp 100.3F, encephalopathy, and significant neck stiffness. He was started on empiric treatment for meningitis and ID was consulted. Antibiotics were discontinued after lumbar puncture revealed no pleocytosis and CSF cultures were negative. Further CVA work up revealed severe bilateral carotid stenosis but vascular surgery determined he was a surgical candidate at this point. Anticoagulation was held due to persistent hematuria and he was start Casodex per urology. On hospital day 12, patient was found to have acute right tibial deep vein thrombosis on ultrasound and developed recurrent dark red blood in his right nephrostomy tube after starting Heparin drip and Coumadin. Vascular surgery re-evaluated the patient and recommended switching to ASA and Plavix. Patient's hematuria resolved by hospital day 14 and he was discharged to an inpatient rehab facility per PT/OT recommendation with follow up appointments scheduled with PCP, Urologist, Neurologist, Vascular surgeon, and Pan Reclaim Processor in 1- 2 weeks. Patient was instructed to have repeat CBC and BMP in 1 week and repeat ultrasound of right leg to rule out progression of DVT in 2 weeks. Patient and family understood, agreed to, and repeated the plan. Time spent discussing smoking cessation with patient: more than 10 minutes - Time Spent with Patient Total time spent providing and/or coordinating discharge services: 30 minutes Greater than 30 minutes (Discharge planning, discuss need for follow up appointments, labs, and imaging) - Constitutional Vitals: Temp Pulse Resp BP Pulse Ox 98.2 F 61 14 165/95 96 04/02/17 14:40 04/02/17 14:40 04/02/17 14:40 04/02/17 14:40 04/02/17 14:40 General appearance: Present: cooperative, mild distress, A&O X 3, pleasant, obese, answers questions appropriately Exam: - Head Head exam: Present: atraumatic, normal inspection, normocephalic - Eye Eye exam: Present: EOMI, conjuntiva pink, sclera anicteric - ENT ENT exam: Present: mucous membranes moist, normal oropharynx - Neck Neck exam general surgery: Present: normal inspection, supple - Respiratory Respiratory exam: Present: CTAB. Absent: rhonchi, tachypnea - Cardiovascular Cardiovascular exam: Present: irregular rhythm, +S1, +S2 - GI/Abdominal GI/Abdominal exam: Present: normal bowel sounds, soft. Absent: firm, guarding - Additional comments: clear yellow urine in bilateral nephrostomy tubes - Extremities Exam Extremities exam: Present: normal inspection, warm. Absent: pedal edema, tenderness - Back Exam Back exam: Present: normal inspection Additional comments: clear yellow urine in bilateral nephrostomy tubes - Neurological Exam Neurological exam: Present: alert, oriented X3, no focal deficits. Absent: speech deficit - Psychiatric Psychiatric exam: Present: normal affect, normal mood - Skin Skin exam: Present: dry, normal color, warm - Stroke Contraindication Not Initiating IV-Tpa: Medical contraindication Has Patient Been Evaluated by Rehab for Stroke: Yes - VTE Deep Vein Thrombosis/Pulmonary Embolism Present on Admission: No <Kasandra Walden - Last Filed: 04/02/17 18:12> Date of Encounter: 04/02/17 Procedures/tests Complete & Pending: Procedures Performed prior 72 hours Category Date Time Status EV venous imaging LE BI Routine Y 03/31/17 00:01 Completed Date of admission: 03/19/17 18:23 Primary care physician: Roseann Marinelli Consults: 03/20/17 06:00 Consult to Dialysis [CONS] ONCE 03/20/17 07:17 Consult to Interventional Radiology [CONS] Routine Consulting Provider: Radiology Interventional Cols Reason for Consult: eval for bilateral nephrostomy tubes Call Completed: Yes 03/21/17 06:15 Consult to Dialysis [CONS] ONCE 03/23/17 09:42 Consult to Neurology [CONS] Routine Consulting Provider: Neurology [facility] Reason for Consult: CVA, encephalopathy Time Notified: 09:46 Call Completed: Yes 03/24/17 11:19 Consult to Interpret Exam [CONS] Routine Consulting Provider: Barry Cherry I Consult to Interpret Exam: Interpret EEG 03/24/17 12:03 Consult to Infectious Diseases [CONS] Routine Consulting Provider: Infectious Disease [facility] Reason for Consult: Lilely Meningitis Time Notified: 12:03 Call Completed: Yes 03/25/17 09:15 Consult to Dialysis [CONS] ONCE 03/26/17 14:00 Consult to Dialysis [CONS] ONCE 03/27/17 09:50 Consult to Interventional Radiology [CONS] Routine Consulting Provider: Radiology Interventional Cols Reason for Consult: Patient needs exchange of temp hd catheter. Call Completed: No 03/28/17 14:21 Consult to Wildlife Biology Technician [CONS] Routine Reason for SW Consult: PT now recommending inpatient swing bed; Na bocanegra 03/31/17 15:14 Consult to Vascular Surgery [CONS] Routine Consulting Provider: Vascular Surgery [facility] Reason for Consult: CVA, bilateral caroitid stenosis, acute DVT Time Notified: 15:15 Call Completed: Yes 04/01/17 09:40 Consult to Physical Therapy [CONS] Routine Comment: Evaluate, develop and implement POC Reason for Consult: Resume eval ant mariumt OT [Consult to Occupational Therapy] [CONS] Routine Comment: Evaluate, develop and implement POC Reason for Consult: Resume eval and treatment Hospital course: Mr. Reich is a 71 year old male - Time Spent with Patient Total time spent providing and/or coordinating discharge services: - Constitutional Vitals: Temp Pulse Resp BP Pulse Ox 98.2 F 61 14 165/95 96 04/02/17 14:40 04/02/17 14:40 04/02/17 14:40 04/02/17 14:40 04/02/17 14:40 - Attending Attestation I have seen and examined pt this afternoon. I have discussed with Dr Smiley regarding the discharge plan. Agree with documentation. Pt has no further complain. Vitals stable. Will discharge to ECF for further management as there is no acute issues warranting continuous hospitalization at this point. I have discussed with family and pt regarding further management. Pt has A Fib with acute CVA and acute DVT, need anticoagulation, however, anticoagulation has to be discontinued as pt developped hematuria. Pt was place on ASA and plavix and his hematuria stopped on this regime. Will cont ASA and plavix instead of coumadin upon discharge but this will increase the risk of recurrent CVA. Pt will recheck US leg for DVT status after 2 weeks per vascular consult. Pt and family verbalized understanding and agreement. Reevaluate risk/ benefit of anticoagulation upon PCP follow-up.
--- NOTE | 2017-04-02 23:27 | Nephrology Progress Note ---
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 1.7liters in the past 24hrs Continue to avoid nephrotoxins if possible Encouraged adequate fluid intake Will need followup on outpatient with nephrology when discharged with labs (2) Bilateral hydronephrosis Status: Acute Per urology Subjective Principal diagnosis: DAVE, hyperkalemia, bilateral hydronephrosis Interval history: Interim noted, pt seen and examined with son at bedside with no new complaints. Eager to be discharged soon. Per son, awaiting PT eval and walking Objective - Vital Signs Vital signs: Vital Signs Temp Pulse Resp BP Pulse Ox 04/02/17 14:40 98.2 F 61 14 165/95 96 04/02/17 10:58 97.9 F 60 14 175/97 93 04/02/17 06:34 97.8 F 68 14 162/87 96 04/02/17 04:06 62 15 140/86 96 04/02/17 00:00 63 16 137/83 96 Intake and Output 04/02/17 04/02/17 04/02/17 07:59 15:59 23:59 Intake Total 120 / 120 240 / 240 120 / 120 Output Total 850 / 850 300 / 300 Balance -730 / -730 -60 / -60 120 / 120 Intake: Oral 120 / 120 240 / 240 120 / 120 Output: Left Nephrostomy 350 / 350 Right Nephrostomy 250 / 250 Wound Drainage 250 / 250 300 / 300 Left Lower Back 200 / 200 300 / 300 Right Lower Back 50 / 50 Other: Meal Lunch Dinner Percent of Meal Consumed 65% 30% Weight 111.4 kg Patient Weight 04/02/17 23:59 Weight 111.4 kg - General Appearance General appearance: Present: chronically ill (NAD) EENT: Present: ATNC, mucous membranes moist Neck: Present: no JVD, supple Respiratory: Present: clear (ant bilat) Cardiology: Present: no edema, normal S1, normal S2 Gastrointestinal: Present: no tenderness, no guarding, obese Integumentary: Present: warm and dry Neurologic: Present: no focal deficit Musculoskeletal: Present: no deformities Psychiatric: Present: mood/affect appropriate, cooperative - Lab 04/02/17 06:32 04/02/17 06:32 Most recent lab results ABG pH 7.50 pH Units (7.32-7.45) H 03/23/17 10:14 ABG pCO2 30 mmHg (35-45) L 03/23/17 10:14 ABG pO2 64 mmHg (85-104) L 03/23/17 10:14 ABG HCO3 23 mEq/L (21-27) 03/23/17 10:14 ABG O2 Saturation 94 % (95-98) L 03/23/17 10:14 Calcium 9.8 mg/dL (8.6-10.8) 04/02/17 06:32 Phosphorus 3.7 mg/dL (2.3-4.7) 04/02/17 06:32 Magnesium 2.0 mg/dL (1.6-2.6) 04/02/17 06:32 - Stroke Contraindication Not Initiating IV-Tpa: Medical contraindication - VTE Documentation of Mechanical Device: Intermittent pneumatic compression device Deep Vein Thrombosis/Pulmonary Embolism Present on Admission: No Consult Discharge Plan - Plan Instructions: Atrial Fibrillation (DC), Hemodialysis (DC), Hemodialysis (GEN), Dialysis Diet (DC), Dialysis Diet (GEN), Peripheral Vascular Disorders (DC), Sepsis (DC), Ischemic Stroke (DC), Ischemic Stroke (GEN), Chronic Hypertension ( DC) Additional Instructions: Take Aspirin 75mg daily and Plavix, stop Warfarin. Start taking Casodex. Increase Amlodipine to 10mg daily. Repeat CBC and BMP blood work in 1 week. Follow up with Sailing Master in 1 week for lab results Follow up with Urologist in 1-2 weeks. Follow up with Neurologist in 1-2 weeks Schedule follow up appointment with vascular surgery in 1-2 weeks Repeat ultrasound of right leg to rule out progression of DVT. Follow up with PCP in 1-2 weeks. Referrals: Roseann Marinelli DO [Primary Care Provider] - Prescriptions: amLODIPine [Norvasc] 10 mg PO DAILY #60 tablet Aspirin Enteric Coated [Aspirin EC] 81 mg PO DAILY #30 tablet. Bicalutamide [Casodex] 50 mg PO DAILY #30 tablet Clopidogrel [Plavix] 75 mg PO DAILY #30 tablet Lidocaine Patch [Lidoderm 5% patch] 1 each TP DAILY #30 adh..patch Omeprazole [PriLOSEC] 20 mg PO DAILY@729 #30 capsule.
[2017-04-03] MEDS ORDERED: amLODIPine 5 MG TABLET PO SCH (09:00)
== END 2017-04-02 18:44 | DRG 853 ==
LOC: EMEROO 12:20 → 2NENU 12:20 → SUATTDRO 18:23
PROVIDERS: ADMIT Internal Medicine; ATTEND Internal Medicine

== ENCOUNTER 2017-04-13 03:41 | Inpatient (IN) ==
--- NOTE | 2017-04-13 03:28 | Internal Med History&Physical ---
<Shiv Del Angel - Last Filed: 04/13/17 03:52> Date of Encounter: 04/13/17 Time of Encounter: 03:21 Assessment and Plan (1) Severe sepsis Current visit: Yes Status: Acute - Secondary to likely pyelonephritis seen on CT scan at [facility]. - Bilateral L>R perinephric fat stranding on CT - Febrile at 101 and WBC of 30.5 at [facility]. - Non septic on presentation to [facility]. Received vancomycin and cefepime and 3L NS at [facility] - Will repeat lactic acid and labs with AM draw. - Further management as below. (2) Pyelonephritis Current visit: Yes Status: Acute - As demonstrated on CT scan. - Bilateral with nephrostomy tubes. - UA in [facility] showing infection likely with leukocyte esterase large. - Non septic at presentation to [facility]. - Continue vanc and cefepime, IVF at 100 mL/hr for 2 bags. - Urology consulted. Appreciate recs. - Blood and urine cultures pending. (3) DAVE (acute kidney injury) Current visit: Yes Status: Acute - Noted DAVE at last visit last week with Cr of 11 - [facility] Cr of 3.0 - Likely new baseline. - Continue to monitor and avoid nephrotoxic agents. (4) Atrial fibrillation Current visit: Yes Status: Chronic - Ventricular pacemaker with rate of 60 on EKG - Not on A/C due to GI bleeds and hematuria - Continue on home BB Qualifiers: Atrial fibrillation type: chronic Qualified Code(s): I48.2 - Chronic atrial fibrillation (5) Hypertension Current visit: Yes Status: Chronic - Well controlled. Continue home meds. Qualifiers: Hypertension type: essential hypertension Qualified Code(s): I10 - Essential (primary) hypertension (6) Pelvic mass Current visit: Yes Status: Chronic - As seen on CT scan at previous visit. - Likely related to known previous malignancy of prostate s/p prostectomy 4 years ago. - To be managed as outpatient. (7) DVT prophylaxis Current visit: Yes Status: Acute - Heparin 5000 units. Monitor for evidence of hematuria of GI bleed given history Internal Medicine - H&P: HPI Chief complaint: left flank pain Admitted From: Hospital to Hospital Transfer Plans for Post Hospital Care: Home History of present illness: Mr. Reich is a 71 year old male presenting from [facility] was complaining of left flank pain 2 days. He has a past medical history of prostate cancer status post septectomy 4 years ago which he recently had bilateral nephrostomy tube placement. He is recently discharged from [facility] due to acute CVA, DVT, with DAVE when the nephrostomy tubes were placed. He was discharged on 04/11. He was not placed on anticoagualtion due to hematuria. He was discharged home with home health. Pt states that he had sudden onset dull flank pain that was intermittent. He denies seeing blood in the nephrostomy bags. He does admit to feeling very chilled but denies any symptoms of fevers, CP, SOB, abdominal pain , change in BM. At [facility], patient was noted to be in severe sepsis with a temperature of 101.9 and white count of 30.5. His lactate was 2.1. He received 3 L of normal saline with improvement of vital signs. Urinalysis revealed large leukocyte esterase, cloudy appearance, occasional epithelial cells. Other labs that were significant include magnesium of 1.7, BUN/creatinine of 30/3.06. CT abdomen and pelvis revealed bilateral right more pronounced on left sided perinephric fat stranding. Patient has bilateral nephrostomy tubes. EKG was ventricular paced rhythm at 61. He was started on vancomycin and Maxipime. He was transferred to [facility] due to urology coverage. Past Med Surg Social Fam HX - Past Medical History Medical history: atrial fibrillation, cancer, CVA, GI bleed, hypertension Psychiatric history: no psych history - Past Surgical History Surgical History: other (prostectomy), pacemaker - Social History Smoking Status: Former smoker Smokeless Tobacco Status: No Alcohol use: none Drug use: none Internal Medicine - H&P: Meds Atorvastatin Calcium [Lipitor] 20 mg PO HS 03/19/17 [History] Cholecalciferol (Vitamin D3) [Vitamin D3] 1,000 unit PO DAILY 03/19/17 [History] Metoprolol XL (24 HR) Succ [Toprol Xl] 150 mg PO DAILY 03/19/17 [History] Multivitamin [One Daily Multivitamin] 1 each PO DAILY 03/19/17 [History] Acetaminophen [Tylenol] 650 mg PO Q6HR PRN tablet 03/31/17 [Rx] Bicalutamide [Casodex] 50 mg PO DAILY #30 tablet 03/31/17 [Rx] DiphenhydraMINE [Benadryl] 25 mg PO HS PRN capsule 03/31/17 [Rx] GuaiFENesin ER [Mucinex] 600 mg PO BID PRN tbbp.12hr 03/31/17 [Rx] Lidocaine Patch [Lidoderm 5% patch] 1 each TP DAILY #30 adh..patch 03/31/17 [Rx] Omeprazole [PriLOSEC] 20 mg PO DAILY@0730 #30 capsule. 03/31/17 [Rx] Aspirin Enteric Coated [Aspirin EC] 81 mg PO DAILY #30 tablet. 04/02/17 [Rx] Clopidogrel [Plavix] 75 mg PO DAILY #30 tablet 04/02/17 [Rx] amLODIPine [Norvasc] 10 mg PO DAILY #60 tablet 04/02/17 [Rx] 3 Allergy/AdvReac Type Severity Reaction Status Date / Time No Known Allergies Allergy Verified 03/19/17 11:56 All Systems PM: A 10-system review of systems was performed and is negative for pertinent findings except as documented above in the HPI. - Constitutional Constitutional: chills, no fatigue, no fever(s), no lethargy, no malaise - Cardiovascular Cardiovascular ROS IM: no chest pain, no diaphoresis, no dyspnea, no dyspnea on exertion, no edema - Respiratory Respiratory: no cough, no dyspnea, no dyspnea on exertion - Gastrointestinal Gastrointestinal: nausea, no abdominal pain, no change in bowel habits, no constipation, no diarrhea, no vomiting - Genitourinary Genitourinary ROS male: flank pain, no dysuria, no hematuria - Integumentary Integumentary IM: no rash - Constitutional Vitals: Temp Pulse Resp BP Pulse Ox 98.6 F 59 18 132/81 99 04/13/17 02:26 04/13/17 02:26 04/13/17 02:26 04/13/17 02:26 04/13/17 02:26 Exam: Gen.: Vitals noted. No acute distress. AAOx3 HEENT: PERRL/EOMI, oropharynx clear, Normocephalic, atraumatic, MMM Cardiac: RRR, no murmur, +S1/S2 Pulmonary: CTA bilaterally, no wheezes, rales or rhonchi, equal chest expansion Abdomen: soft, nontender, BS noted, no guarding Back: Nephrostomy tubes in place, no hematuria in bag. Light yellow in color. Bilateral flank pain, L>R Extremities: no BLE edema, nontender calf, no cyanosis or clubbing Neuro: A&Ox3, moves all extremities Psych: Appropriate mood and behavior <EmmanuelDaniel T - Last Filed: 04/13/17 04:30> Date of Encounter: 04/13/17 Internal Medicine - H&P: HPI History of present illness: Mr. Reich is a 71 year old male All Systems PM: A 10-system review of systems was performed and is negative for pertinent findings except as documented above in the HPI. - Constitutional Vitals: Temp Pulse Resp BP Pulse Ox 98.6 F 59 18 132/81 99 04/13/17 02:26 04/13/17 02:26 04/13/17 02:26 04/13/17 02:26 04/13/17 02:26 - Attending Attestation I have independently seen and examined this patient on 04/13/17 and discussed plan of care with the patient, his at the bedside and the resident physician 71 M with hx of CVA, DVT not on anticoagulation, pelvic Mass, recent DAVE and bilateral nephrostomies placement, discharged from [place] [facility] 04/11 Presented to outside facility with L flank pain and fever, Tmax 101.9, found to have severe sepsis, lactic acidosis, Pyelonephritis and transferred to [facility] for further management. Labs and Imaging reviewed: Leukocytosis WBC 30, Lactate 2.1. UA with large LE, Abd CT with cystitis, pyelonephritis At time of review, he is awake and alert, not in distress, able to make a conversation, No neuro deficits, Chest is clear, HS S1, S2 only, nephrostomies have clear urine bilaterally. No abdominal tenderness A/P: Severe sepsis with lactic acidosis secondary to pyelonephritis, received Cefepime and Vanco at referral hosp, send blood and urine cultures, repeat lactate, continue Vanco and Cefepime, renally dosed. Resume home meds Renal function is at baseline, he probably has CKD Rest of details as in resident physicians documentation
[~2017-04-13 03:41] MED LIST: *HR* Morphine 2 MG/ML SYRINGE IVP PRN; Acetaminophen 325 MG TABLET PO PRN; Naloxone 0.4 MG/ML INJ IVP PRN; Ondansetron 4 MG/2 ML VIAL IVP PRN
[2017-04-13] MEDS: 0.9 % Sodium Chloride 1,000 ML IVC SCH ×2 (03:43→21:27)
[2017-04-13] MEDS ORDERED: Vancomycin 1,750 MG in D5% in Water 250 ML IVPB SCH (04:00)
[2017-04-13 04:54] LABS: Basophils % 0.2 %; Red Cell Distribution Width 14.1 % (11.5-14.5)
[2017-04-13 04:55] LABS: Basophils # 0.1 K/mcL (0.0-0.2); Hematocrit 34.9 % (37.5-50.1); Hemoglobin 11.5 g/dL (12.9-16.9); Immature Granulocytes % 1.4 % (0-4); Lymphocytes % 3.1 %; Mean Corpuscular Volume 84.9 fL (83.0-100.0); Mean Platelet Volume 11.5 fL (9.4-12.4); Monocytes # 2.1 K/mcL (0.0-1.3); Monocytes % 6.6 %; Platelet Count 251 K/mcL (140-400); Red Blood Count 4.11 M/mcL (4.19-5.50); Segmented Neutrophils % 88.7 %
[2017-04-13 05:00] LABS: Neutrophils # 27.7 K/mcL (1.6-8.9)
[2017-04-13 05:07] LABS: Calcium 8.3 mg/dL (8.6-10.8); Magnesium 1.3 mg/dL (1.6-2.6); Potassium 3.4 mEq/L (3.5-4.5)
[2017-04-13 05:22] LABS: Platelet Estimate Normal (Normal)
[2017-04-13] MEDS: *HR* Heparin 5,000 UNIT/ML VIAL SQ SCH ×2 (05:57→16:43)
[2017-04-13] MEDS ORDERED: Potassium Chloride Elixir 20 MEQ/15 ML UDC PO ONE (08:05)
--- NOTE | 2017-04-13 08:11 | Urology - Consult Note ---
Date of Encounter: 04/13/17 Time of Encounter: 08:06 - Assessment and Plan (1) Pyelonephritis Current Visit: Yes Status: Acute Assessment and plan: based on labs and presentation I suspect pyelonephritis from the nephrostomy tubes. no imaging at this time. obtain CT scan if pt does not improve. I recommend IVF and IV ABX. need to obtain outsie cultures from [facility]. Nephrostomy tubes are draining well and were just placed 3 weeks ago. no need to replace at this time. will follow closely. (2) Pelvic mass Current Visit: Yes Status: Chronic Assessment and plan: mass is prostate cancer which has presumably obstructed both ureters. resume casodex. He may have developed a testosterone flare after Lupron injection as he described new GH and symptoms after injecton. Urology CN:HPI Consult date: 04/13/17 History of present illness: patient known to the Urology service. In February was found to have a Cr of 12, hydronephrosis and PSA 17. He had a distant history of prostate cancer and CT imaging demonstrated a mass in the bladder (thought to be recurrent prostate cancer). Bilateral Nephrostomy tubes were placed and he was subsequently discharged. He was given his first Lupron injection last week and the plan was to continue nephrostomy tubes and repeat CT scan in a few months. if the pelvic mass had decreased significantly and PSA responded, then would consider nephrostomy tube removal. transfered from outside hospital with concern for sepsis. WBC >30. +Gross hematuria after lupron. feeling better with less pain in flank. Past Med Surg Social Fam HX - Past Medical History Medical history: atrial fibrillation, cancer, CVA, GI bleed, hypertension Psychiatric history: no psych history - Past Surgical History Surgical History: other (prostectomy), pacemaker - Social History Smoking Status: Former smoker Smokeless Tobacco Status: No Alcohol use: none Drug use: none Medications and Allergies Atorvastatin Calcium [Lipitor] 20 mg PO HS 03/19/17 [History] Cholecalciferol (Vitamin D3) [Vitamin D3] 1,000 unit PO DAILY 03/19/17 [History] Metoprolol XL (24 HR) Succ [Toprol Xl] 150 mg PO DAILY 03/19/17 [History] Multivitamin [One Daily Multivitamin] 1 each PO DAILY 03/19/17 [History] Acetaminophen [Tylenol] 650 mg PO Q6HR PRN tablet 03/31/17 [Rx] Bicalutamide [Casodex] 50 mg PO DAILY #30 tablet 03/31/17 [Rx] DiphenhydraMINE [Benadryl] 25 mg PO HS PRN capsule 03/31/17 [Rx] GuaiFENesin ER [Mucinex] 600 mg PO BID PRN tbbp.12hr 03/31/17 [Rx] Lidocaine Patch [Lidoderm 5% patch] 1 each TP DAILY #30 adh..patch 03/31/17 [Rx] Omeprazole [PriLOSEC] 20 mg PO DAILY@0730 #30 capsule. 03/31/17 [Rx] Aspirin Enteric Coated [Aspirin EC] 81 mg PO DAILY #30 tablet. 04/02/17 [Rx] Clopidogrel [Plavix] 75 mg PO DAILY #30 tablet 04/02/17 [Rx] amLODIPine [Norvasc] 10 mg PO DAILY #60 tablet 04/02/17 [Rx] 3 Allergy/AdvReac Type Severity Reaction Status Date / Time No Known Allergies Allergy Verified 03/19/17 11:56 Review of Systems - Constitutional chills, fever(s), malaise - EENT Nose, mouth and throat: no dizziness - Cardiovascular no chest pain - Respiratory no cough - Gastrointestinal abdominal pain, nausea - Genitourinary flank pain, hematuria - Musculoskeletal back pain - Integumentary no erythema - Neurological confusion - Psychiatric no anxiety - Hematologic/Lymphatic no easy bleeding - Allergic/Immunologic no throat swelling Exam Initial Vital Signs Temp Pulse Resp BP Pulse Ox 98.6 F 59 18 132/81 99 04/13/17 02:26 04/13/17 02:26 04/13/17 02:26 04/13/17 02:26 04/13/17 02:26 - General physical appearance Present: no distress, chronically ill - Eyes Present: PERRL - ENT Present: normal nares - Neck Present: no masses - Respiratory Present: normal respiratory effort - Cardiovascular Cardiovascular exam IM: RRR - Abdomen Abdomen: Present: soft - Integumentary Present: no rash, no growths - Neurologic Present: normal coordination. Absent: disoriented, confused - Additional Findings Bilateral nephrostomy tubes in place. Urology Results - Labs 04/13/17 04:44 04/13/17 04:44 Abnormal lab results WBC 31.2 K/mcL (4.3-11.1) H* D 04/13/17 04:44 RBC 4.11 M/mcL (4.19-5.50) L 04/13/17 04:44 Hgb 11.5 g/dL (12.9-16.9) L D 04/13/17 04:44 Hct 34.9 % (37.5-50.1) L 04/13/17 04:44 Neutrophils # 27.7 K/mcL (1.6-8.9) H 04/13/17 04:44 Monocytes # 2.1 K/mcL (0.0-1.3) H 04/13/17 04:44 Potassium 3.4 mEq/L (3.5-4.5) L 04/13/17 04:44 Chloride 110 mEq/L (98-109) H 04/13/17 04:44 Carbon Dioxide 18 mEq/L (19-29) L 04/13/17 04:44 BUN 27 mg/dL (8-26) H 04/13/17 04:44 Creatinine 2.48 mg/dL (0.72-1.25) H 04/13/17 04:44 Est GFR ( Amer) 31 (> 60) L 04/13/17 04:44 Est GFR (Non-Af Amer) 26 (> 60) L 04/13/17 04:44 Glucose 143 mg/dL (70-99) H 04/13/17 04:44 Calcium 8.3 mg/dL (8.6-10.8) L 04/13/17 04:44 Magnesium 1.3 mg/dL (1.6-2.6) L 04/13/17 04:44 Diabetes panel 04/13/17 Range/Units 04:44 Sodium 137 (136-145) mEq/L Potassium 3.4 L (3.5-4.5) mEq/L Chloride 110 H (98-109) mEq/L Carbon Dioxide 18 L (19-29) mEq/L BUN 27 H (8-26) mg/dL Creatinine 2.48 H (0.72-1.25) mg/dL Glucose 143 H (70-99) mg/dL Calcium 8.3 L (8.6-10.8) mg/dL Calcium panel 04/13/17 Range/Units 04:44 Calcium 8.3 L (8.6-10.8) mg/dL Pituitary panel 04/13/17 Range/Units 04:44 Sodium 137 (136-145) mEq/L Potassium 3.4 L (3.5-4.5) mEq/L Chloride 110 H (98-109) mEq/L Carbon Dioxide 18 L (19-29) mEq/L BUN 27 H (8-26) mg/dL Creatinine 2.48 H (0.72-1.25) mg/dL Glucose 143 H (70-99) mg/dL Calcium 8.3 L (8.6-10.8) mg/dL Adrenal panel 04/13/17 Range/Units 04:44 Sodium 137 (136-145) mEq/L Potassium 3.4 L (3.5-4.5) mEq/L Chloride 110 H (98-109) mEq/L Carbon Dioxide 18 L (19-29) mEq/L BUN 27 H (8-26) mg/dL Creatinine 2.48 H (0.72-1.25) mg/dL Glucose 143 H (70-99) mg/dL Calcium 8.3 L (8.6-10.8) mg/dL All other labs normal. Consult Discharge Plan - Plan Referrals: Roseann Marinelli DO [Primary Care Provider] -
--- NOTE | 2017-04-13 08:43 | Internal Med Progress Note ---
Date of Encounter: 04/13/17 Time of Encounter: 08:41 - Assessment and plan (1) Severe sepsis Current Visit: Yes Status: Acute Assessment and plan: Presented with fever, tachycardia, leukocytosis and possible pyelonephritis. Follow-up cultures and continue IV antibiotics. Lactic acid noted to be within normal limits. Monitor blood pressure and heart rate closely. Remaining plan as below. (2) Pyelonephritis Current Visit: Yes Status: Suspected Assessment and plan: Suspected left-sided pyelonephritis based on clinical presentation. Continue broad-spectrum IV antibiotics-vancomycin and cefepime. Follow-up blood and urine cultures. IV hydration. Monitor vitals and WBC count. Urology consult appreciated, agree with medical management. Do not recommend removal of nephrostomy tubes at this time. Monitor urine output. (3) DAVE (acute kidney injury) Current Visit: Yes Status: Chronic Assessment and plan: Patient presented with acute renal failure likely due to obstructive uropathy and ATN, during last admission and received temporary hemodialysis. Serum creatinine is currently improving compared to his recent discharge from rehabilitation, 2.48 today. Antibiotics to be dosed according to current GFR. Monitor urine output closely. (4) Malignant neoplasm of prostate Current Visit: Yes Status: Chronic Assessment and plan: Follow-up with urology as outpatient. (5) Atrial fibrillation Current Visit: Yes Status: Chronic Assessment and plan: Currently regular and rate controlled. Continue beta juan pablo. Has been taken off anticoagulation during previous admission due to hematuria and placement of nephrostomy tubes. Continue aspirin. Qualifiers: Atrial fibrillation type: chronic Qualified Code(s): I48.2 - Chronic atrial fibrillation (6) Hypertension Current Visit: Yes Status: Chronic Assessment and plan: Blood pressure appropriately controlled. Resume home medications. Qualifiers: Hypertension type: essential hypertension Qualified Code(s): I10 - Essential (primary) hypertension (7) CVA (cerebral vascular accident) Current Visit: Yes Status: Chronic Assessment and plan: Diagnosed with right parietal occipital stroke during previous admission. Follow-up with vascular surgery as outpatient for left ICA 60-79% stenosis. Continue aspirin, Plavix and statin. Qualifiers: CVA mechanism: embolism Precerebral and cerebral artery: middle cerebral artery Laterality of affected vessel: right Qualified Code(s): I63.411 - Cerebral infarction due to embolism of right middle cerebral artery (8) DVT (deep venous thrombosis) Current Visit: Yes Status: Acute Assessment and plan: Diagnosed with acute right posterior tibial thrombosis during previous admission , was not started on anticoagulation due to hematuria and receiving nephrostomy tubes. Vascular surgery recommended repeating VD in 2 weeks to assess for resolution of DVT; Qualifiers: DVT location: lower extremity Affected thrombotic vein of extremity: tibial Chronicity: acute Laterality: right Qualified Code(s): I82.441 - Acute embolism and thrombosis of right tibial vein - Subjective Interval history: Feels better; had subjective fever and chills at home; just discharged from rehab 2 days ago; also has left flank pain; no nausea, vomiting, nephrostomy tubes draining well; - Constitutional Vitals: Temp Pulse Resp BP Pulse Ox 98.9 F 60 18 119/72 98 04/13/17 08:03 04/13/17 08:03 04/13/17 08:03 04/13/17 08:03 04/13/17 08:03 General appearance: Present: A&O X 3, answers questions appropriately - Respiratory Respiratory exam: Present: CTAB. Absent: accessory muscle use, rales, rhonchi, wheezes - Cardiovascular Cardiovascular exam: Present: RRR, +S1, +S2. Absent: diastolic murmur, gallop, rubs, systolic murmur - GI/Abdominal GI/Abdominal exam: Present: normal bowel sounds, soft, no peritoneal signs. Absent: distended, tenderness - Extremities Exam Extremities exam: Present: full ROM, warm, radial pulses palpable and symmetrical. Absent: calf tenderness, cyanotic, pedal edema - Back Exam Back exam: Present: CVA tenderness (L) Additional comments: B/L nephrostomy tubes draining yellowish clear urine; - Neurological Exam Neurological exam: Present: CN II-XII intact, oriented X3, no focal deficits. Absent: pronater drift, facial droop, speech deficit Internal Medicine: Result - Labs CBC & Chem 7: 04/14/17 08:35 04/14/17 08:35 Labs: Short CBC 04/13/17 Range/Units 04:44 WBC 31.2 H* D (4.3-11.1) K/mcL Hgb 11.5 L D (12.9-16.9) g/dL Hct 34.9 L (37.5-50.1) % Plt Count 251 (140-400) K/mcL Neutrophils # 27.7 H (1.6-8.9) K/mcL BMP 04/13/17 04:44 Sodium 137 Potassium 3.4 L Chloride 110 H Carbon Dioxide 18 L BUN 27 H Creatinine 2.48 H Glucose 143 H Calcium 8.3 L Consult Discharge Plan - Plan Referrals: Roseann Marinelli DO [Primary Care Provider] -
[2017-04-13] MEDS: amLODIPine 5 MG TABLET PO SCH (09:49)
[2017-04-13] MEDS: Bicalutamide 50 MG TABLET PO SCH (09:50)
[2017-04-13] MEDS: Aspirin Enteric Coated 81 MG Tablet PO SCH (09:50)
[2017-04-13] MEDS: Metoprolol XL (24 HR) Succ 50 MG TAB.ER.24H PO SCH (09:51)
[2017-04-13] MEDS: Cefepime HCl 2,000 MG in Water for inj. (sterile) 20 ML IVP SCH ×2 (10:04→21:28)
[2017-04-13 15:55] LABS: Bilirubin,Urine Negative (Negative); Blood,Urine Small (Negative); Clarity,Urine Cloudy (Clear); Color,Urine Yellow (Yellow); Glucose,Urine (UA) Normal (Normal); Ketones,Urine Negative (Negative); Leukocyte Esterase,Urine Small (Negative); Nitrite,Urine Negative (Negative); PH,Urine 6.5 pH Units (5.0-8.0); Protein,Urine 100 mg/dL (Neg-Trace); Specific Gravity,Urine 1.009 (1.010-1.025); Urobilinogen,Urine Normal (Normal)
[2017-04-13 15:58] LABS: Bacteria,Urine None Seen per hpf (None-Few); Hyaline Casts,Urine None Seen per lpf (None-Few); Squamous Epithelial Cell,Urine Many per lpf (None-Few); WBC,Urine 30-50 per hpf (0-3)
[2017-04-14] MEDS: Vancomycin 1,250 MG in D5% in Water 250 ML IVPB SCH ×2 (00:43→23:48)
[2017-04-14] MEDS: *HR* HYDROcodone/Acet 5/325 mg TABLET PO PRN ×2 (00:50→21:36)
[2017-04-14] MEDS: *HR* Heparin 5,000 UNIT/ML VIAL SQ SCH ×2 (04:37→18:34)
[2017-04-14] MEDS ORDERED: Acetaminophen 325 MG TABLET PO PRN (08:09)
[2017-04-14 08:57] LABS: Basophils % 0.4 %; Eosinophils % 1.6 %; Hematocrit 34.6 % (37.5-50.1); Hemoglobin 11.2 g/dL (12.9-16.9); Immature Granulocytes % 0.7 % (0-4); Lymphocytes % 4.9 %; Mean Corpuscular HGB Conc 32.4 g/dL (31.6-35.5); Mean Corpuscular Hemoglobin 28.1 pg (28.0-33.3); Mean Corpuscular Volume 86.7 fL (83.0-100.0); Mean Platelet Volume 11.6 fL (9.4-12.4); Monocytes % 6.5 %; Platelet Count 247 K/mcL (140-400); Red Blood Count 3.99 M/mcL (4.19-5.50); Red Cell Distribution Width 14.4 % (11.5-14.5); Segmented Neutrophils % 85.9 %
[2017-04-14 08:58] LABS: Basophils # 0.1 K/mcL (0.0-0.2); Eosinophils # 0.3 K/mcL (0.0-0.6); Lymphocytes # 0.9 K/mcL (0.6-4.6); Monocytes # 1.2 K/mcL (0.0-1.3); Neutrophils # 15.4 K/mcL (1.6-8.9)
[2017-04-14 09:08] LABS: Calcium 9.1 mg/dL (8.6-10.8); Magnesium 1.8 mg/dL (1.6-2.6); Potassium 3.6 mEq/L (3.5-4.5)
[2017-04-14] MEDS: Cefepime HCl 2,000 MG in Water for inj. (sterile) 20 ML IVP SCH ×2 (09:27→22:05)
[2017-04-14] MEDS: Bicalutamide 50 MG TABLET PO SCH (09:28)
[2017-04-14] MEDS: Metoprolol XL (24 HR) Succ 50 MG TAB.ER.24H PO SCH (09:28)
[2017-04-14] MEDS: amLODIPine 5 MG TABLET PO SCH (09:30)
[2017-04-14] MEDS: Aspirin Enteric Coated 81 MG Tablet PO SCH (09:30)
--- NOTE | 2017-04-14 10:15 | Internal Med Progress Note ---
Date of Encounter: 04/14/17 Time of Encounter: 10:10 - Assessment and plan (1) DAVE (acute kidney injury) Current Visit: Yes Status: Chronic Assessment and plan: Patient presented with acute renal failure likely due to obstructive uropathy and ATN, during last admission and received temporary hemodialysis. Serum creatinine is currently improving compared to his recent discharge from rehabilitation, 2.39 today. Antibiotics to be dosed according to current GFR. Monitor urine output closely. (2) Malignant neoplasm of prostate Current Visit: Yes Status: Chronic Assessment and plan: Follow-up with urology as outpatient. Continue Casodex and Lupron; (3) Atrial fibrillation Current Visit: Yes Status: Chronic Assessment and plan: Currently regular and rate controlled. Continue beta juan pablo. Has been taken off anticoagulation during previous admission due to hematuria and placement of nephrostomy tubes. Continue aspirin. Qualifiers: Atrial fibrillation type: chronic Qualified Code(s): I48.2 - Chronic atrial fibrillation (4) Hypertension Current Visit: Yes Status: Chronic Qualifiers: Hypertension type: essential hypertension Qualified Code(s): I10 - Essential (primary) hypertension (5) CVA (cerebral vascular accident) Current Visit: Yes Status: Chronic Assessment and plan: Diagnosed with right parietal occipital stroke during previous admission. Follow-up with vascular surgery as outpatient for left ICA 60-79% stenosis. Continue aspirin, Plavix and statin. Qualifiers: CVA mechanism: embolism Precerebral and cerebral artery: middle cerebral artery Laterality of affected vessel: right Qualified Code(s): I63.411 - Cerebral infarction due to embolism of right middle cerebral artery (6) DVT (deep venous thrombosis) Current Visit: Yes Status: Acute Assessment and plan: Diagnosed with acute right posterior tibial thrombosis during previous admission , was not started on anticoagulation due to hematuria and receiving nephrostomy tubes. Vascular surgery recommended repeating VD in 2 weeks to assess for resolution of DVT; will repeat VD of right LE today; Qualifiers: DVT location: lower extremity Affected thrombotic vein of extremity: tibial Chronicity: acute Laterality: right Qualified Code(s): I82.441 - Acute embolism and thrombosis of right tibial vein (7) Severe sepsis Current Visit: Yes Status: Acute Assessment and plan: Presented with fever, tachycardia, leukocytosis and possible pyelonephritis. continue IV antibiotics. Preliminary blood and urine cultures negative; Lactic acid noted to be within normal limits. Monitor blood pressure and heart rate closely. Remaining plan as below. (8) Pyelonephritis Current Visit: Yes Status: Suspected Assessment and plan: Suspected left-sided pyelonephritis based on clinical presentation. Continue broad-spectrum IV antibiotics-vancomycin and cefepime. Preliminary blood and urine cultures negative. Improving leukocytosis; Urology consult appreciated, agree with medical management. Do not recommend removal of nephrostomy tubes at this time. Monitor urine output. - Subjective Interval history: Reports doing well today; improved left flank pain; able to get out of bed and ambulate; tolerates oral diet; - Constitutional Vitals: Temp Pulse Resp BP Pulse Ox 97.8 F 66 17 142/81 96 04/14/17 07:18 04/14/17 07:18 04/14/17 07:18 04/14/17 07:18 04/14/17 07:18 General appearance: Present: A&O X 3, answers questions appropriately - Respiratory Respiratory exam: Present: CTAB. Absent: accessory muscle use, rales, rhonchi, wheezes - Cardiovascular Cardiovascular exam: Present: RRR, +S1, +S2. Absent: diastolic murmur, gallop, rubs, systolic murmur - GI/Abdominal GI/Abdominal exam: Present: normal bowel sounds, soft, no peritoneal signs. Absent: distended, tenderness - Extremities Exam Extremities exam: Present: full ROM, warm, radial pulses palpable and symmetrical. Absent: calf tenderness, cyanotic, pedal edema - Back Exam Back exam: Absent: CVA tenderness (L), CVA tenderness (R) Additional comments: nephrostomy tubes in place - Neurological Exam Neurological exam: Present: CN II-XII intact, oriented X3, no focal deficits. Absent: pronater drift, facial droop, speech deficit Internal Medicine: Result - Labs CBC & Chem 7: 04/14/17 08:35 04/14/17 08:35 Labs: Short CBC 04/14/17 Range/Units 08:35 WBC 17.9 H (4.3-11.1) K/mcL Hgb 11.2 L (12.9-16.9) g/dL Hct 34.6 L (37.5-50.1) % Plt Count 247 (140-400) K/mcL Neutrophils # 15.4 H (1.6-8.9) K/mcL BMP 04/14/17 08:35 Sodium 140 Potassium 3.6 Chloride 111 H Carbon Dioxide 22 BUN 25 Creatinine 2.39 H Glucose 107 H Calcium 9.1 Urine 04/13/17 Range/Units 15:46 Urine Color Yellow (Yellow) Urine Clarity Cloudy A (Clear) Urine pH 6.5 (5.0-8.0) pH Units Ur Specific [place] 1.009 L (1.010-1.025) Urine Protein 100 H (Neg-Trace) mg/dL Urine Glucose (UA) Normal (Normal) mg/dL Consult Discharge Plan - Plan Referrals: Roseann Marinelli DO [Primary Care Provider] -
[2017-04-14] MEDS ORDERED: *HR* HYDROcodone/Acet 10/325 mg TABLET PO PRN (13:05)
--- NOTE | 2017-04-14 16:10 | Urology Progress Note ---
Date of Encounter: 04/14/17 Time of Encounter: 16:10 Progress Note Narrative: patient seen. doing well. WBC and creatinine improved. Objective Initial Vital Signs Temp Pulse Resp BP Pulse Ox 98.6 F 59 18 132/81 99 04/13/17 02:26 04/13/17 02:26 04/13/17 02:26 04/13/17 02:26 04/13/17 02:26 - General physical appearance Present: well developed - Abdomen Present: soft - Labs 04/14/17 08:35 04/14/17 08:35 Diabetes panel 04/14/17 Range/Units 08:35 Sodium 140 (136-145) mEq/L Potassium 3.6 (3.5-4.5) mEq/L Chloride 111 H (98-109) mEq/L Carbon Dioxide 22 (19-29) mEq/L BUN 25 (8-26) mg/dL Creatinine 2.39 H (0.72-1.25) mg/dL Glucose 107 H (70-99) mg/dL Calcium 9.1 (8.6-10.8) mg/dL Calcium panel 04/14/17 Range/Units 08:35 Calcium 9.1 (8.6-10.8) mg/dL Pituitary panel 04/14/17 Range/Units 08:35 Sodium 140 (136-145) mEq/L Potassium 3.6 (3.5-4.5) mEq/L Chloride 111 H (98-109) mEq/L Carbon Dioxide 22 (19-29) mEq/L BUN 25 (8-26) mg/dL Creatinine 2.39 H (0.72-1.25) mg/dL Glucose 107 H (70-99) mg/dL Calcium 9.1 (8.6-10.8) mg/dL Adrenal panel 04/14/17 Range/Units 08:35 Sodium 140 (136-145) mEq/L Potassium 3.6 (3.5-4.5) mEq/L Chloride 111 H (98-109) mEq/L Carbon Dioxide 22 (19-29) mEq/L BUN 25 (8-26) mg/dL Creatinine 2.39 H (0.72-1.25) mg/dL Glucose 107 H (70-99) mg/dL Calcium 9.1 (8.6-10.8) mg/dL Consult Discharge Plan - Plan Referrals: Roseann Marinelli DO [Primary Care Provider] -
--- NOTE | 2017-04-14 16:12 | Event Note ---
Date of Encounter: 04/14/17 Time of Encounter: 16:10 link to progress note A/P: 1. leukocytosis -0 improving. awaiting cultures 2. 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 no new tx.
[2017-04-15] MEDS: *HR* Heparin 5,000 UNIT/ML VIAL SQ SCH ×2 (05:28→17:39)
[2017-04-15 06:22] LABS: Basophils # 0.1 K/mcL (0.0-0.2); Basophils % 0.7 %; Eosinophils # 0.4 K/mcL (0.0-0.6); Eosinophils % 3.6 %; Hematocrit 36.1 % (37.5-50.1); Hemoglobin 11.6 g/dL (12.9-16.9); Lymphocytes # 0.9 K/mcL (0.6-4.6); Lymphocytes % 8.8 %; Mean Corpuscular HGB Conc 32.1 g/dL (31.6-35.5); Mean Corpuscular Hemoglobin 27.6 pg (28.0-33.3); Mean Corpuscular Volume 85.7 fL (83.0-100.0); Mean Platelet Volume 11.9 fL (9.4-12.4); Monocytes # 0.9 K/mcL (0.0-1.3); Monocytes % 8.4 %; Neutrophils # 8.1 K/mcL (1.6-8.9); Platelet Count 250 K/mcL (140-400); Red Blood Count 4.21 M/mcL (4.19-5.50); Red Cell Distribution Width 14.4 % (11.5-14.5); Segmented Neutrophils % 77.5 %
[2017-04-15 06:29] LABS: Calcium 9.2 mg/dL (8.6-10.8); Magnesium 1.7 mg/dL (1.6-2.6); Potassium 3.7 mEq/L (3.5-4.5)
[2017-04-15] MEDS: amLODIPine 5 MG TABLET PO SCH (08:44)
[2017-04-15] MEDS: Metoprolol XL (24 HR) Succ 50 MG TAB.ER.24H PO SCH (08:44)
[2017-04-15] MEDS: Bicalutamide 50 MG TABLET PO SCH (08:44)
[2017-04-15] MEDS: Aspirin Enteric Coated 81 MG Tablet PO SCH (08:44)
[2017-04-15] MEDS: *HR* HYDROcodone/Acet 5/325 mg TABLET PO PRN (08:47)
[2017-04-15] MEDS: Cefepime HCl 2,000 MG in Water for inj. (sterile) 20 ML IVP SCH ×2 (11:17→21:40)
--- NOTE | 2017-04-15 17:29 | Urology Progress Note ---
Date of Encounter: 04/15/17 Time of Encounter: 17:27 - Assessment and Plan (1) Malignant neoplasm of prostate Current Visit: Yes Status: Chronic Assessment and plan: needs to continue with casodex. keep scheduled f/u (2) Leukocytosis Current Visit: No Status: Acute Assessment and plan: improving. call with questions. Qualifiers: Leukocytosis type: other Qualified Code(s): D72.828 - Other elevated white blood cell count Progress Note Narrative: patient seen. sleeping today. labs improved. Objective Initial Vital Signs Temp Pulse Resp BP Pulse Ox 98.6 F 59 18 132/81 99 04/13/17 02:26 04/13/17 02:26 04/13/17 02:26 04/13/17 02:26 04/13/17 02:26 - General physical appearance Present: well developed - Abdomen Present: soft - Labs 04/15/17 05:15 04/15/17 05:15 Diabetes panel 04/15/17 Range/Units 05:15 Sodium 140 (136-145) mEq/L Potassium 3.7 (3.5-4.5) mEq/L Chloride 111 H (98-109) mEq/L Carbon Dioxide 20 (19-29) mEq/L BUN 22 (8-26) mg/dL Creatinine 2.17 H (0.72-1.25) mg/dL Glucose 96 (70-99) mg/dL Calcium 9.2 (8.6-10.8) mg/dL Calcium panel 04/15/17 Range/Units 05:15 Calcium 9.2 (8.6-10.8) mg/dL Pituitary panel 04/15/17 Range/Units 05:15 Sodium 140 (136-145) mEq/L Potassium 3.7 (3.5-4.5) mEq/L Chloride 111 H (98-109) mEq/L Carbon Dioxide 20 (19-29) mEq/L BUN 22 (8-26) mg/dL Creatinine 2.17 H (0.72-1.25) mg/dL Glucose 96 (70-99) mg/dL Calcium 9.2 (8.6-10.8) mg/dL Adrenal panel 04/15/17 Range/Units 05:15 Sodium 140 (136-145) mEq/L Potassium 3.7 (3.5-4.5) mEq/L Chloride 111 H (98-109) mEq/L Carbon Dioxide 20 (19-29) mEq/L BUN 22 (8-26) mg/dL Creatinine 2.17 H (0.72-1.25) mg/dL Glucose 96 (70-99) mg/dL Calcium 9.2 (8.6-10.8) mg/dL Consult Discharge Plan - Plan Referrals: Roseann Marinelli DO [Primary Care Provider] -
--- NOTE | 2017-04-15 20:47 | Internal Med Progress Note ---
Date of Encounter: 04/15/17 Time of Encounter: 10:31 - Assessment and plan (1) Dyspnea Current Visit: No Status: Acute Assessment and plan: Breath sounds were clear on exam. He was in no acute distress, no labored breathing. Currently on broad spectrum antibiotics. No pain and patient has no tachypnea, currently on ASA/Plavix. Chest x-ray in AM Qualifiers: Dyspnea type: unspecified Qualified Code(s): R06.00 - Dyspnea, unspecified (2) Severe sepsis Current Visit: Yes Status: Acute Assessment and plan: Presented with fever, tachycardia, leukocytosis and possible pyelonephritis. continue Cefepime/Vancomycin. Preliminary blood and urine cultures negative; Lactic acid noted to be within normal limits. Monitor blood pressure and heart rate closely. (3) Malignant neoplasm of prostate Current Visit: Yes Status: Chronic Assessment and plan: Follow-up with Urology as outpatient. Continue Casodex and Lupron; Patient/family insist for an Oncology consult because they have not seen an Oncologist in years. Patient is currently being managed by Urology and treated with Casodex and Lupron with nephrostomy tubes. I explained to patient/family there that I am unsure if a Oncology consult would be beneficial during this admission. I appreciate Urology's input on this. (4) Atrial fibrillation Current Visit: Yes Status: Chronic Assessment and plan: Currently regular and rate controlled. Continue beta juan pablo. Has been taken off anticoagulation during previous admission due to hematuria and placement of nephrostomy tubes. Continue aspirin /Plavix. Qualifiers: Atrial fibrillation type: chronic Qualified Code(s): I48.2 - Chronic atrial fibrillation (5) DAVE (acute kidney injury) Current Visit: Yes Status: Chronic Assessment and plan: Patient presented with acute renal failure likely due to obstructive uropathy and ATN, during last admission and received temporary hemodialysis. Serum creatinine is currently improving compared to his recent discharge from rehabilitation, currently 2.17, was 2.39 yesterday. Antibiotics to be dosed according to current GFR. Monitor urine output closely. (6) Pyelonephritis Current Visit: Yes Status: Suspected Assessment and plan: Suspected left-sided pyelonephritis based on clinical presentation. Continue broad-spectrum IV antibiotics-vancomycin and cefepime. Preliminary blood and urine cultures negative. Improving leukocytosis; Urology consult appreciated, agree with medical management. Do not recommend removal of nephrostomy tubes at this time. Monitor urine output. 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 Family and patient request inpatient consult. I do not think there will be much addition at this time for him as he is not having any focal neruo defecits. Seems as no indication for any invasive procedures in regards to carotid stenosis. Follow-up with vascular surgery as outpatient for left ICA 60 -79% stenosis. Continue aspirin, Plavix and statin. Qualifiers: CVA mechanism: embolism Precerebral and cerebral artery: middle cerebral artery Laterality of affected vessel: right Qualified Code(s): I63.411 - Cerebral infarction due to embolism of right middle cerebral artery (9) DVT (deep venous thrombosis) Current Visit: Yes Status: Acute Assessment and plan: Diagnosed with acute right posterior tibial thrombosis during previous admission , was not started on anticoagulation due to hematuria and receiving nephrostomy tubes. Vascular surgery recommended repeating VD in 2 weeks to assess for resolution of DVT; will repeat VD of right LE today; Currently on ASA/Plavix Qualifiers: DVT location: lower extremity Affected thrombotic vein of extremity: tibial Chronicity: acute Laterality: right Qualified Code(s): I82.441 - Acute embolism and thrombosis of right tibial vein - Subjective Interval history: Patient states he has had some shortness of breath that is gradually occurring. He denies chest pain, n/v, fevers/chills. - Constitutional Vitals: Temp Pulse Resp BP Pulse Ox 97.6 F 61 16 130/81 97 04/15/17 19:50 04/15/17 19:50 04/15/17 19:50 04/15/17 19:50 04/15/17 19:50 General appearance: Present: A&O X 3, answers questions appropriately Exam: - Respiratory Respiratory exam: Present: CTAB. Absent: accessory muscle use, rales, rhonchi, wheezes - Cardiovascular Cardiovascular exam: Present: RRR, +S1, +S2. Absent: diastolic murmur, gallop, rubs, systolic murmur - GI/Abdominal GI/Abdominal exam: Present: normal bowel sounds, soft, no peritoneal signs. Absent: distended, tenderness - Extremities Exam Extremities exam: Present: full ROM, warm, radial pulses palpable and symmetrical. Absent: calf tenderness, cyanotic, pedal edema - Back Exam Back exam: Absent: CVA tenderness (L), CVA tenderness (R) Additional comments: nephrostomy tubes in place - Neurological Exam Neurological exam: Present: CN II-XII intact, oriented X3, no focal deficits. Absent: pronater drift, facial droop, speech deficit Internal Medicine: Result - Labs CBC & Chem 7: 04/15/17 05:15 04/15/17 05:15 Labs: Short CBC 04/15/17 Range/Units 05:15 WBC 10.4 (4.3-11.1) K/mcL Hgb 11.6 L (12.9-16.9) g/dL Hct 36.1 L (37.5-50.1) % Plt Count 250 (140-400) K/mcL Neutrophils # 8.1 (1.6-8.9) K/mcL BMP 04/15/17 05:15 Sodium 140 Potassium 3.7 Chloride 111 H Carbon Dioxide 20 BUN 22 Creatinine 2.17 H Glucose 96 Calcium 9.2 Consult Discharge Plan - Plan Referrals: Roseann Marinelli DO [Primary Care Provider] -
[2017-04-16 05:15] LABS: Basophils # 0.1 K/mcL (0.0-0.2); Basophils % 1.2 %; Eosinophils # 0.5 K/mcL (0.0-0.6); Eosinophils % 5.1 %; Hematocrit 38.2 % (37.5-50.1); Hemoglobin 12.2 g/dL (12.9-16.9); Immature Granulocytes % 2.1 % (0-4); Lymphocytes # 1.4 K/mcL (0.6-4.6); Lymphocytes % 13.8 %; Mean Corpuscular HGB Conc 31.9 g/dL (31.6-35.5); Mean Corpuscular Hemoglobin 27.4 pg (28.0-33.3); Mean Corpuscular Volume 85.7 fL (83.0-100.0); Mean Platelet Volume 11.6 fL (9.4-12.4); Monocytes % 9.8 %; Neutrophils # 6.7 K/mcL (1.6-8.9); Platelet Count 289 K/mcL (140-400); Red Blood Count 4.46 M/mcL (4.19-5.50); Red Cell Distribution Width 14.3 % (11.5-14.5)
[2017-04-16 05:24] LABS: Calcium 9.4 mg/dL (8.6-10.8); Potassium 3.6 mEq/L (3.5-4.5)
[2017-04-16] MEDS: *HR* Heparin 5,000 UNIT/ML VIAL SQ SCH ×2 (05:49→18:53)
[2017-04-16] MEDS ORDERED: Vancomycin 1,000 MG in D5% in Water 250 ML IVPB SCH (09:00)
[2017-04-16] MEDS: Metoprolol XL (24 HR) Succ 50 MG TAB.ER.24H PO SCH (10:11)
[2017-04-16] MEDS: Bicalutamide 50 MG TABLET PO SCH (10:11)
[2017-04-16] MEDS: Aspirin Enteric Coated 81 MG Tablet PO SCH (10:11)
[2017-04-16] MEDS: amLODIPine 5 MG TABLET PO SCH (10:11)
[2017-04-16] MEDS: Cefepime HCl 2,000 MG in Water for inj. (sterile) 20 ML IVP SCH (10:13)
[2017-04-16] MEDS: Cefepime HCl 1,000 MG in Water for inj. (sterile) 10 ML IVP SCH (20:56)
--- NOTE | 2017-04-16 21:38 | Internal Med Progress Note ---
Date of Encounter: 04/16/17 Time of Encounter: 17:35 - Assessment and plan (1) Severe sepsis Current Visit: Yes Status: Resolved Assessment and plan: Presented with fever, tachycardia, leukocytosis and possible pyelonephritis. continue Cefepime/Vancomycin. Preliminary (obtained 04/13) blood and urine cultures no growth to date; Lactic acid noted to be within normal limits. Hemodynamically stable. Resolved. (2) DAVE (acute kidney injury) Current Visit: Yes Status: Chronic Assessment and plan: Patient presented with acute renal failure likely due to obstructive uropathy and ATN, during last admission and received temporary hemodialysis. Serum creatinine is currently improving compared to his recent discharge from rehabilitation. Slight worsening of creatinine today. Antibiotics to be dosed according to current GFR. Monitor urine output closely. (3) Malignant neoplasm of prostate Current Visit: Yes Status: Chronic Assessment and plan: Follow-up with Urology as outpatient. Continue Casodex and Lupron; 04/15: Patient/family insist for an Oncology consult because they have not seen an Oncologist in years. Patient is currently being managed by Urology and treated with Casodex and Lupron with nephrostomy tubes. I explained to patient/ family there that I am unsure if a Oncology consult would be beneficial during this admission. I appreciate Urology's input on this. 04/16: not present today, is unsure if she is in an emergent situation. Will hold off from a Oncology consult as patient wants his to be involved with all medical decisions. (4) Pyelonephritis Current Visit: Yes Status: Suspected (5) Atrial fibrillation Current Visit: Yes Status: Chronic Assessment and plan: Currently regular and rate controlled. Continue beta juan pablo. Has been taken off anticoagulation during previous admission due to hematuria and placement of nephrostomy tubes. Continue aspirin /Plavix. Qualifiers: Atrial fibrillation type: chronic Qualified Code(s): I48.2 - Chronic atrial fibrillation (6) Dyspnea Current Visit: No Status: Resolved Assessment and plan: Breath sounds were clear on exam. He was in no acute distress, no labored breathing. Currently on broad spectrum antibiotics. No pain and patient has no tachypnea, currently on ASA/Plavix. 04/16 states has resolved. Qualifiers: Dyspnea type: unspecified Qualified Code(s): R06.00 - Dyspnea, unspecified (7) DVT prophylaxis Current Visit: Yes Status: Acute (8) CVA (cerebral vascular accident) Current Visit: Yes Status: Chronic Qualifiers: CVA mechanism: embolism Precerebral and cerebral artery: middle cerebral artery Laterality of affected vessel: right Qualified Code(s): I63.411 - Cerebral infarction due to embolism of right middle cerebral artery (9) DVT (deep venous thrombosis) Current Visit: Yes Status: Acute Qualifiers: DVT location: lower extremity Affected thrombotic vein of extremity: tibial Chronicity: acute Laterality: right Qualified Code(s): I82.441 - Acute embolism and thrombosis of right tibial vein - Subjective Interval history: 04/15: patient complained of episodic dyspnea 04/16: dyspnea resolved. He has no complaints, no acute events. Patient and requested a Oncology consult 04/15 although there is current treatment of prostate cancer. His is main historian for him, but she is not at bedside today. He has not heard from her today and is unsure if she is okay, she has a recent history of back injury. Oncology not consulted for now. - Constitutional Vitals: Temp Pulse Resp BP Pulse Ox 98.2 F 63 18 137/83 99 04/16/17 19:46 04/16/17 19:46 04/16/17 19:46 04/16/17 19:46 04/16/17 19:46 General appearance: Present: A&O X 3, answers questions appropriately Exam: - Respiratory Respiratory exam: Present: CTAB. Absent: accessory muscle use, rales, rhonchi, wheezes - Cardiovascular Cardiovascular exam: Present: RRR, +S1, +S2. Absent: diastolic murmur, gallop, rubs, systolic murmur - GI/Abdominal GI/Abdominal exam: Present: normal bowel sounds, soft, no peritoneal signs. Absent: distended, tenderness - Extremities Exam Extremities exam: Present: full ROM, warm, radial pulses palpable and symmetrical. Absent: calf tenderness, cyanotic, pedal edema - Back Exam Back exam: Absent: CVA tenderness (L), CVA tenderness (R) Additional comments: nephrostomy tubes in place - Neurological Exam Neurological exam: Present: CN II-XII intact, oriented X3, no focal deficits. Absent: pronater drift, facial droop, speech deficit Internal Medicine: Result - Labs CBC & Chem 7: 04/16/17 04:12 04/16/17 04:12 Labs: Short CBC 04/16/17 Range/Units 04:12 WBC 9.8 (4.3-11.1) K/mcL Hgb 12.2 L (12.9-16.9) g/dL Hct 38.2 (37.5-50.1) % Plt Count 289 (140-400) K/mcL Neutrophils # 6.7 (1.6-8.9) K/mcL BMP 04/16/17 04:12 Sodium 142 Potassium 3.6 Chloride 110 H Carbon Dioxide 22 BUN 24 Creatinine 2.33 H Glucose 92 Calcium 9.4 Consult Discharge Plan - Plan Referrals: Roseann Marinelli DO [Primary Care Provider] -
[2017-04-17 05:33] LABS: Basophils # 0.2 K/mcL (0.0-0.2); Basophils % 1.8 %; Eosinophils # 0.4 K/mcL (0.0-0.6); Eosinophils % 4.4 %; Hematocrit 39.3 % (37.5-50.1); Hemoglobin 12.8 g/dL (12.9-16.9); Lymphocytes # 1.5 K/mcL (0.6-4.6); Lymphocytes % 15.4 %; Mean Corpuscular HGB Conc 32.6 g/dL (31.6-35.5); Mean Platelet Volume 11.1 fL (9.4-12.4); Neutrophils # 6.3 K/mcL (1.6-8.9); Platelet Count 283 K/mcL (140-400); Red Blood Count 4.57 M/mcL (4.19-5.50); Red Cell Distribution Width 14.3 % (11.5-14.5); Segmented Neutrophils % 63.4 %
[2017-04-17 05:51] LABS: Potassium 3.6 mEq/L (3.5-4.5)
[2017-04-17] MEDS: *HR* Heparin 5,000 UNIT/ML VIAL SQ SCH ×2 (06:16→20:06)
[2017-04-17] MEDS: Cefepime HCl 1,000 MG in Water for inj. (sterile) 10 ML IVP SCH ×2 (10:02→20:06)
[2017-04-17] MEDS: Metoprolol XL (24 HR) Succ 50 MG TAB.ER.24H PO SCH (10:03)
[2017-04-17] MEDS: Bicalutamide 50 MG TABLET PO SCH (10:03)
[2017-04-17] MEDS: amLODIPine 5 MG TABLET PO SCH (10:03)
[2017-04-17] MEDS: Aspirin Enteric Coated 81 MG Tablet PO SCH (10:04)
[2017-04-17] MEDS: Vancomycin 750 MG in D5% in Water 250 ML IVPB SCH (10:04)
--- NOTE | 2017-04-17 21:47 | Internal Med Progress Note ---
Date of Encounter: 04/17/17 Time of Encounter: 18:02 - Assessment and plan (1) Severe sepsis Current Visit: Yes Status: Resolved Assessment and plan: Presented with fever, tachycardia, leukocytosis and possible pyelonephritis. continue Cefepime/Vancomycin. Preliminary (obtained 04/13) blood and urine cultures no growth to date; Lactic acid noted to be within normal limits. Hemodynamically stable. Resolved. Continue Cefepime/Vancomycin (2) DAVE (acute kidney injury) Current Visit: Yes Status: Chronic Assessment and plan: Recent acute kidney injury with creatinine up to 13 since 02/2017, has been steadily improving since then. Patient presented with acute renal failure likely due to obstructive uropathy and ATN, during last admission and received temporary hemodialysis. Serum creatinine is steadily improving over this past 4 weeks. Likely improved after treatment of obstructive uropathy. Likely sepsis contributed as well. Antibiotics are currently dosed according to current GFR. He seems to be at new baseline 2.1-2.3 since 04/14/17. (3) Weakness Current Visit: Yes Status: Acute Assessment and plan: For past several days he has refused PT/OT several times and so a formal evaluation could not be completed. His daughter and were present today, they were unaware that he refused this multiple times. He is now willing to do PT/OT as they encourage him to do so. They do state his home situation is poor and he cannot take care of himself since he lives alone. He is prone to falls as well. If he accepts PT/OT eval tomorrow, we will use this for disposition planning. (4) Pyelonephritis Current Visit: Yes Status: Suspected Assessment and plan: Suspected left-sided pyelonephritis based on clinical presentation. Continue broad-spectrum IV antibiotics-vancomycin and cefepime. Preliminary blood and urine cultures negative (04/13). Improving leukocytosis. (5) Malignant neoplasm of prostate Current Visit: Yes Status: Chronic Assessment and plan: Follow-up with Urology as outpatient. Continue Casodex and Lupron; 04/15: Patient/family insist for an Oncology consult because they have not seen an Oncologist in years. Patient is currently being managed by Urology and treated with Casodex and Lupron with nephrostomy tubes. I explained to patient/ family there that I am unsure if a Oncology consult would be beneficial during this admission. I appreciate Urology's input on this. 04/16: not present today, is unsure if she is in an emergent situation. Will hold off from a Oncology consult as patient wants his to be involved with all medical decisions. 04/17: We discussed there may not be many changes made if Oncology comes to evaluate patient. Also, there is a chance they evaluate patient at a time that a family member is not present. It would be most beneficial to discuss an Oncology consultation during outpatient visit. Currently treated with Casodex and Leupron. (6) Normal findings on evaluation of ability to make decisions regarding care Current Visit: Yes Status: Acute Assessment and plan: Patient does have competency to make medical decisions based on my assessment: 1 ) he is able to make medical choices - informed me he does not like nephrostomy tubes but keeps it to preserve renal function, 2) understands relevant information - notably his need for nephrostomy tubes and severity of sepsis. 3) he appreciates the situation of his renal function and cancer and its consequences. 4) he has engaged in rational process to decide upon treatment options. Patient requests that his is present to make medical decisions. If patient wants POA to be son, they will need to arrange for papers to be signed. We discussed this with the psychiatric social worker production tool engineer. (7) Atrial fibrillation Current Visit: Yes Status: Chronic Assessment and plan: Currently regular and rate controlled. Continue beta juan pablo. Has been taken off anticoagulation during previous admission due to hematuria and placement of nephrostomy tubes. Continue aspirin /Plavix. Qualifiers: Atrial fibrillation type: chronic Qualified Code(s): I48.2 - Chronic atrial fibrillation (8) Dyspnea Current Visit: No Status: Resolved Assessment and plan: Breath sounds were clear on exam. He was in no acute distress, no labored breathing. Currently on broad spectrum antibiotics. No pain and patient has no tachypnea, currently on ASA/Plavix. 04/16 states has resolved. Qualifiers: Dyspnea type: unspecified Qualified Code(s): R06.00 - Dyspnea, unspecified (9) DVT prophylaxis Current Visit: Yes Status: Acute (10) CVA (cerebral vascular accident) Current Visit: Yes Status: Chronic Qualifiers: CVA mechanism: embolism Precerebral and cerebral artery: middle cerebral artery Laterality of affected vessel: right Qualified Code(s): I63.411 - Cerebral infarction due to embolism of right middle cerebral artery (11) DVT (deep venous thrombosis) Current Visit: Yes Status: Acute Qualifiers: DVT location: lower extremity Affected thrombotic vein of extremity: tibial Chronicity: acute Laterality: right Qualified Code(s): I82.441 - Acute embolism and thrombosis of right tibial vein - Subjective Interval history: 04/15: episodic dyspnea resolved. He has no complaints, no acute events. 04/16: Patient was alone at bedside in the AM. He was not comfortable to make decisions on his own without support from his . They wanted an Oncology consult but she was not available at the moment, possibly from an emergency situation. Oncology consult was not made since patient was not comfortable with discussing care alone. 04/17: Patient notes he is still SOB with walking, likely from little physical activity. Patient has refused PT/OT multiple times and has not evaluated patient. - Constitutional Vitals: Temp Pulse Resp BP Pulse Ox 98.3 F 65 17 136/65 97 04/17/17 20:03 04/17/17 20:03 04/17/17 20:03 04/17/17 20:03 04/17/17 20:03 General appearance: Present: A&O X 3, answers questions appropriately Exam: - Respiratory Respiratory exam: Present: CTAB. Absent: accessory muscle use, rales, rhonchi, wheezes - Cardiovascular Cardiovascular exam: Present: RRR, +S1, +S2. Absent: diastolic murmur, gallop, rubs, systolic murmur - GI/Abdominal GI/Abdominal exam: Present: normal bowel sounds, soft, no peritoneal signs. Absent: distended, tenderness - Extremities Exam Extremities exam: Present: full ROM, warm, radial pulses palpable and symmetrical. Absent: calf tenderness, cyanotic, pedal edema - Back Exam Back exam: Absent: CVA tenderness (L), CVA tenderness (R) Additional comments: nephrostomy tubes in place - Neurological Exam Neurological exam: Present: CN II-XII intact, oriented X3, no focal deficits. Absent: pronater drift, facial droop, speech deficit Internal Medicine: Result - Labs CBC & Chem 7: 04/17/17 05:16 04/17/17 05:16 Labs: Short CBC 04/17/17 Range/Units 05:16 WBC 9.9 (4.3-11.1) K/mcL Hgb 12.8 L (12.9-16.9) g/dL Hct 39.3 (37.5-50.1) % Plt Count 283 (140-400) K/mcL Neutrophils # 6.3 (1.6-8.9) K/mcL BMP 04/17/17 05:16 Sodium 142 Potassium 3.6 Chloride 108 Carbon Dioxide 24 BUN 21 Creatinine 2.21 H Glucose 100 H Calcium 10.0 - Impressions Impressions Chest X-Ray 04/17/17 06:00 IMPRESSION: No acute process. Subsegmental atelectasis at the right lung base D/ / Bruce Quigley MD / Bruce Quigley MD Interpreting Provider: Bruce Quigley MD Consult Discharge Plan - Plan Referrals: Roseann Marinelli DO [Primary Care Provider] -
[2017-04-18 04:44] LABS: Hematocrit 38.3 % (37.5-50.1); Hemoglobin 12.4 g/dL (12.9-16.9); Mean Corpuscular HGB Conc 32.4 g/dL (31.6-35.5); Mean Corpuscular Hemoglobin 27.6 pg (28.0-33.3); Mean Corpuscular Volume 85.3 fL (83.0-100.0); Mean Platelet Volume 11.1 fL (9.4-12.4); Platelet Count 326 K/mcL (140-400); Red Blood Count 4.49 M/mcL (4.19-5.50); Red Cell Distribution Width 14.1 % (11.5-14.5)
[2017-04-18 05:01] LABS: Calcium 9.6 mg/dL (8.6-10.8); Potassium 3.6 mEq/L (3.5-4.5)
[2017-04-18 05:21] LABS: Eosinophils # 0.5 K/mcL (0.0-0.6); Lymphocytes # 2.1 K/mcL (0.6-4.6); Monocytes # 1.4 K/mcL (0.0-1.3); Neutrophils # 7.6 K/mcL (1.6-8.9); Platelet Estimate Normal (Normal)
[2017-04-18 05:22] LABS: Reactive Lymphocytes Present (Not Present)
[2017-04-18] MEDS: *HR* Heparin 5,000 UNIT/ML VIAL SQ SCH ×2 (05:53→18:04)
[2017-04-18] MEDS: Aspirin Enteric Coated 81 MG Tablet PO SCH (07:45)
[2017-04-18] MEDS: Metoprolol XL (24 HR) Succ 50 MG TAB.ER.24H PO SCH (07:45)
[2017-04-18] MEDS: amLODIPine 5 MG TABLET PO SCH (07:45)
[2017-04-18] MEDS: Bicalutamide 50 MG TABLET PO SCH (07:45)
[2017-04-18] MEDS: Cefepime HCl 1,000 MG in Water for inj. (sterile) 10 ML IVP SCH ×2 (07:46→20:19)
[2017-04-18] MEDS: Vancomycin 750 MG in D5% in Water 250 ML IVPB SCH (11:57)
--- NOTE | 2017-04-18 18:18 | Internal Med Progress Note ---
Date of Encounter: 04/18/17 Time of Encounter: 18:16 - Assessment and plan (1) Environmental safety problem Current Visit: Yes Status: Acute Assessment and plan: d/w SW please see note for details. (2) Weakness Current Visit: Yes Status: Acute Assessment and plan: For past several days he has refused PT/OT several times and so a formal evaluation could not be completed. His daughter and were present today, they were unaware that he refused this multiple times. He is now willing to do PT/OT as they encourage him to do so. They do state his home situation is poor and he cannot take care of himself since he lives alone. He is prone to falls as well. If he accepts PT/OT eval tomorrow, we will use this for disposition planning. (3) Severe sepsis Current Visit: Yes Status: Resolved Assessment and plan: Presented with fever, tachycardia, leukocytosis and possible pyelonephritis. continue Cefepime/Vancomycin. Preliminary (obtained 04/13) blood and urine cultures no growth to date; Lactic acid noted to be within normal limits. Hemodynamically stable. Resolved. Continue Cefepime/Vancomycin to complete total of 14 days. (4) DAVE (acute kidney injury) Current Visit: Yes Status: Chronic Assessment and plan: Recent acute kidney injury with creatinine up to 13 since 02/2017, has been steadily improving since then. Patient presented with acute renal failure likely due to obstructive uropathy and ATN, during last admission and received temporary hemodialysis. Serum creatinine is steadily improving over this past 4 weeks. Likely improved after treatment of obstructive uropathy. Likely sepsis contributed as well. Antibiotics are currently dosed according to current GFR. He seems to be at new baseline 2.1-2.3 since 04/14/17. (5) Pyelonephritis Current Visit: Yes Status: Suspected Assessment and plan: Suspected left-sided pyelonephritis based on clinical presentation. Continue broad-spectrum IV antibiotics-vancomycin and cefepime. Preliminary blood and urine cultures negative (04/13). Improving leukocytosis. (6) Malignant neoplasm of prostate Current Visit: Yes Status: Chronic Assessment and plan: Follow-up with Urology as outpatient. Continue Casodex and Lupron; 04/15: Patient/family insist for an Oncology consult because they have not seen an Oncologist in years. Patient is currently being managed by Urology and treated with Casodex and Lupron with nephrostomy tubes. I explained to patient/ family there that I am unsure if a Oncology consult would be beneficial during this admission. I appreciate Urology's input on this. 04/16: not present today, is unsure if she is in an emergent situation. Will hold off from a Oncology consult as patient wants his to be involved with all medical decisions. 04/17: We discussed there may not be many changes made if Oncology comes to evaluate patient. Also, there is a chance they evaluate patient at a time that a family member is not present. It would be most beneficial to discuss an Oncology consultation during outpatient visit. Currently treated with Casodex and Leupron. (7) Normal findings on evaluation of ability to make decisions regarding care Current Visit: Yes Status: Acute Assessment and plan: Patient does have competency to make medical decisions based on my assessment: 1 ) he is able to make medical choices - informed me he does not like nephrostomy tubes but keeps it to preserve renal function, 2) understands relevant information - notably his need for nephrostomy tubes and severity of sepsis. 3) he appreciates the situation of his renal function and cancer and its consequences. 4) he has engaged in rational process to decide upon treatment options. Patient requests that his is present to make medical decisions. If patient wants POA to be son, they will need to arrange for papers to be signed. We discussed this with the renal social worker licensed nuclear control room operator. (8) Atrial fibrillation Current Visit: Yes Status: Chronic Assessment and plan: Currently regular and rate controlled. Continue beta juan pablo. Has been taken off anticoagulation during previous admission due to hematuria and placement of nephrostomy tubes. Continue aspirin /Plavix. Qualifiers: Atrial fibrillation type: chronic Qualified Code(s): I48.2 - Chronic atrial fibrillation (9) Dyspnea Current Visit: No Status: Resolved Assessment and plan: Breath sounds were clear on exam. He was in no acute distress, no labored breathing. Currently on broad spectrum antibiotics. No pain and patient has no tachypnea, currently on ASA/Plavix. 04/16 states has resolved. Qualifiers: Dyspnea type: unspecified Qualified Code(s): R06.00 - Dyspnea, unspecified (10) DVT prophylaxis Current Visit: Yes Status: Acute (11) CVA (cerebral vascular accident) Current Visit: Yes Status: Chronic Assessment and plan: Diagnosed with right parietal occipital stroke during previous admission. Continue aspirin, Plavix and statin. Qualifiers: CVA mechanism: embolism Precerebral and cerebral artery: middle cerebral artery Laterality of affected vessel: right Qualified Code(s): I63.411 - Cerebral infarction due to embolism of right middle cerebral artery (12) DVT (deep venous thrombosis) Current Visit: Yes Status: Acute Qualifiers: DVT location: lower extremity Affected thrombotic vein of extremity: tibial Chronicity: acute Laterality: right Qualified Code(s): I82.441 - Acute embolism and thrombosis of right tibial vein - Subjective Interval history: 04/15: episodic dyspnea resolved. He has no complaints, no acute events. 04/16: Patient was alone at bedside in the AM. He was not comfortable to make decisions on his own without support from his . They wanted an Oncology consult but she was not available at the moment, possibly from an emergency situation. Oncology consult was not made since patient was not comfortable with discussing care alone. 04/17: Patient notes he is still SOB with walking, likely from little physical activity. 04/18: Patient allowed PT/OT to evaluate him. Patient ambulates in halls without issue. - Constitutional Vitals: Temp Pulse Resp BP Pulse Ox 98.2 F 60 16 136/75 98 04/18/17 13:42 04/18/17 17:57 04/18/17 17:57 04/18/17 17:57 04/18/17 17:57 General appearance: Present: A&O X 3, answers questions appropriately Exam: - Respiratory Respiratory exam: Present: CTAB. Absent: accessory muscle use, rales, rhonchi, wheezes - Cardiovascular Cardiovascular exam: Present: RRR, +S1, +S2. Absent: diastolic murmur, gallop, rubs, systolic murmur - GI/Abdominal GI/Abdominal exam: Present: normal bowel sounds, soft, no peritoneal signs. Absent: distended, tenderness - Extremities Exam Extremities exam: Present: full ROM, warm, radial pulses palpable and symmetrical. Absent: calf tenderness, cyanotic, pedal edema - Back Exam Back exam: Absent: CVA tenderness (L), CVA tenderness (R) Additional comments: nephrostomy tubes in place Internal Medicine: Result - Labs CBC & Chem 7: 04/18/17 03:48 04/18/17 03:48 Labs: Short CBC 04/18/17 Range/Units 03:48 WBC 11.5 H (4.3-11.1) K/mcL Hgb 12.4 L (12.9-16.9) g/dL Hct 38.3 (37.5-50.1) % Plt Count 326 (140-400) K/mcL Neutrophils # 7.6 (1.6-8.9) K/mcL BMP 04/18/17 03:48 Sodium 142 Potassium 3.6 Chloride 110 H Carbon Dioxide 22 BUN 20 Creatinine 2.23 H Glucose 100 H Calcium 9.6 Consult Discharge Plan - Plan Referrals: Roseann Marinelli DO [Primary Care Provider] -
[2017-04-19] MEDS: *HR* Heparin 5,000 UNIT/ML VIAL SQ SCH ×2 (06:12→17:32)
[2017-04-19 06:20] LABS: Basophils # 0.2 K/mcL (0.0-0.2); Basophils % 1.6 %; Eosinophils # 0.4 K/mcL (0.0-0.6); Eosinophils % 3.2 %; Hematocrit 38.6 % (37.5-50.1); Hemoglobin 12.4 g/dL (12.9-16.9); Immature Granulocytes % 6.1 % (0-4); Lymphocytes # 2.1 K/mcL (0.6-4.6); Lymphocytes % 18.6 %; Mean Corpuscular HGB Conc 32.1 g/dL (31.6-35.5); Mean Corpuscular Hemoglobin 27.6 pg (28.0-33.3); Mean Platelet Volume 10.8 fL (9.4-12.4); Monocytes # 0.9 K/mcL (0.0-1.3); Monocytes % 7.6 %; Neutrophils # 7.1 K/mcL (1.6-8.9); Platelet Count 351 K/mcL (140-400); Red Blood Count 4.49 M/mcL (4.19-5.50); Red Cell Distribution Width 14.2 % (11.5-14.5); Segmented Neutrophils % 62.9 %
[2017-04-19 06:36] LABS: Calcium 9.6 mg/dL (8.6-10.8); Potassium 3.4 mEq/L (3.5-4.5)
[2017-04-19] MEDS: Metoprolol XL (24 HR) Succ 50 MG TAB.ER.24H PO SCH (08:25)
[2017-04-19] MEDS: Cefepime HCl 1,000 MG in Water for inj. (sterile) 10 ML IVP SCH ×2 (08:26→20:28)
[2017-04-19] MEDS: Bicalutamide 50 MG TABLET PO SCH (08:26)
[2017-04-19] MEDS: Aspirin Enteric Coated 81 MG Tablet PO SCH (08:26)
[2017-04-19] MEDS: amLODIPine 5 MG TABLET PO SCH (08:26)
[2017-04-19] MEDS: *HR* HYDROcodone/Acet 5/325 mg TABLET PO PRN (08:32)
[2017-04-19] MEDS ORDERED: *HR* LORazepam 2 MG/ML VIAL IVP PRN (09:42)
[2017-04-19] MEDS: Vancomycin 500 MG in D5% in Water 100 ML IVPB SCH (09:44)
--- NOTE | 2017-04-19 17:06 | Internal Med Progress Note ---
Date of Encounter: 04/19/17 Time of Encounter: 17:04 - Assessment and plan (1) Weakness Current Visit: Yes Status: Acute Assessment and plan: For past several days he has refused PT/OT several times and so a formal evaluation could not be completed. His daughter and were present today, they were unaware that he refused this multiple times. He is now willing to do PT/OT as they encourage him to do so. They do state his home situation is poor and he cannot take care of himself since he lives alone. He is prone to falls as well. If he accepts PT/OT eval tomorrow, we will use this for disposition planning. (2) ADVE (acute kidney injury) Current Visit: Yes Status: Chronic (3) Severe sepsis Current Visit: Yes Status: Resolved Assessment and plan: Presented with fever, tachycardia, leukocytosis and possible pyelonephritis. continue Cefepime/Vancomycin. Preliminary (obtained 04/13) blood and urine cultures no growth to date; Lactic acid noted to be within normal limits. Hemodynamically stable. Resolved. Continue Cefepime/Vancomycin to complete total of 14 days. (4) History of CVA (cerebrovascular accident) Current Visit: Yes Status: Acute Assessment and plan: And has known history of CVA, which per family members has changed his behavior recently. She does note that he is acting a little different today and complains of neck pain. He did have recent carotid ultrasounds done that showed severe stenosis in his left carotid artery but was not able to visualize the right carotid artery. Able to ambulate the halls without any difficulties. He does not show any neurological deficits on exam. We will get ultrasound of carotids hopefully to visualize the right carotid better. Patient is already on aspirin and Plavix, and Lipitor. We will increase Lipitor to 40 mg. Patient's notes that he has a follow-up visit but missed the follow-up visit with vascular specialist because he is here in the hospital. She was told by a colleague at their convenience consult to follow him while he is here. However vascular surgery is not available over the weekend. So we will consult on Friday if patient is still here. He is currently pending placement. (5) Pyelonephritis Current Visit: Yes Status: Suspected Assessment and plan: Suspected left-sided pyelonephritis based on clinical presentation. Continue broad-spectrum IV antibiotics-vancomycin and cefepime. Preliminary blood and urine cultures negative (04/13). Improving leukocytosis. (6) Malignant neoplasm of prostate Current Visit: Yes Status: Chronic Assessment and plan: Follow-up with Urology as outpatient. Continue Casodex and Lupron; 04/15: Patient/family insist for an Oncology consult because they have not seen an Oncologist in years. Patient is currently being managed by Urology and treated with Casodex and Lupron with nephrostomy tubes. I explained to patient/ family there that I am unsure if a Oncology consult would be beneficial during this admission. I appreciate Urology's input on this. 04/16: not present today, is unsure if she is in an emergent situation. Will hold off from a Oncology consult as patient wants his to be involved with all medical decisions. 04/17: We discussed there may not be many changes made if Oncology comes to evaluate patient. Also, there is a chance they evaluate patient at a time that a family member is not present. It would be most beneficial to discuss an Oncology consultation during outpatient visit. Currently treated with Casodex and Leupron. (7) Normal findings on evaluation of ability to make decisions regarding care Current Visit: Yes Status: Acute Assessment and plan: Patient does have competency to make medical decisions based on my assessment: 1 ) he is able to make medical choices - informed me he does not like nephrostomy tubes but keeps it to preserve renal function, 2) understands relevant information - notably his need for nephrostomy tubes and severity of sepsis. 3) he appreciates the situation of his renal function and cancer and its consequences. 4) he has engaged in rational process to decide upon treatment options. Patient requests that his is present to make medical decisions. If patient wants POA to be son, they will need to arrange for papers to be signed. We discussed this with the social work case manager special education classroom aide. (8) Atrial fibrillation Current Visit: Yes Status: Chronic Assessment and plan: Currently regular and rate controlled. Continue beta juan pablo. Has been taken off anticoagulation during previous admission due to hematuria and placement of nephrostomy tubes. Continue aspirin /Plavix. Qualifiers: Atrial fibrillation type: chronic Qualified Code(s): I48.2 - Chronic atrial fibrillation (9) Dyspnea Current Visit: No Status: Resolved Assessment and plan: Breath sounds were clear on exam. He was in no acute distress, no labored breathing. Currently on broad spectrum antibiotics. No pain and patient has no tachypnea, currently on ASA/Plavix. 04/16 states has resolved. Qualifiers: Dyspnea type: unspecified Qualified Code(s): R06.00 - Dyspnea, unspecified (10) DVT prophylaxis Current Visit: Yes Status: Acute (11) CVA (cerebral vascular accident) Current Visit: Yes Status: Chronic Assessment and plan: Diagnosed with right parietal occipital stroke during previous admission. Continue aspirin, Plavix and statin. Qualifiers: CVA mechanism: embolism Precerebral and cerebral artery: middle cerebral artery Laterality of affected vessel: right Qualified Code(s): I63.411 - Cerebral infarction due to embolism of right middle cerebral artery (12) DVT (deep venous thrombosis) Current Visit: Yes Status: Acute Qualifiers: DVT location: lower extremity Affected thrombotic vein of extremity: tibial Chronicity: acute Laterality: right Qualified Code(s): I82.441 - Acute embolism and thrombosis of right tibial vein - Subjective Interval history: 04/15: episodic dyspnea resolved. He has no complaints, no acute events. 04/16: Patient was alone at bedside in the AM. He was not comfortable to make decisions on his own without support from his . They wanted an Oncology consult but she was not available at the moment, possibly from an emergency situation. Oncology consult was not made since patient was not comfortable with discussing care alone. 04/17: Patient notes he is still SOB with walking, likely from little physical activity. 04/18: Patient allowed PT/OT to evaluate him. Patient ambulates in halls without issue. 04/19: notes that patient has been acting a little strange today and complained of neck pain. Concerned as he does have a history of CVA with carotid artery stenosis history. He walks to the halls multiple times per day without issue. - Constitutional Vitals: Temp Pulse Resp BP Pulse Ox 98.0 F 63 17 149/78 96 04/19/17 16:19 04/19/17 16:19 04/19/17 16:19 04/19/17 16:19 04/19/17 16:19 General appearance: Present: A&O X 3, answers questions appropriately Exam: - Respiratory Respiratory exam: Present: CTAB. Absent: accessory muscle use, rales, rhonchi, wheezes - Cardiovascular Cardiovascular exam: Present: RRR, +S1, +S2. Absent: diastolic murmur, gallop, rubs, systolic murmur - GI/Abdominal GI/Abdominal exam: Present: normal bowel sounds, soft, no peritoneal signs. Absent: distended, tenderness - Extremities Exam Extremities exam: Present: full ROM, warm, radial pulses palpable and symmetrical. Absent: calf tenderness, cyanotic, pedal edema - Back Exam Back exam: Absent: CVA tenderness (L), CVA tenderness (R) Additional comments: nephrostomy tubes in place - Neurological Exam Neurological exam: Present: CN II-XII intact, oriented X3, no focal deficits. Absent: pronater drift, facial droop, speech deficit Internal Medicine: Result - Labs CBC & Chem 7: 04/19/17 04:30 04/19/17 04:30 Labs: Short CBC 04/19/17 Range/Units 04:30 WBC 11.3 H (4.3-11.1) K/mcL Hgb 12.4 L (12.9-16.9) g/dL Hct 38.6 (37.5-50.1) % Plt Count 351 (140-400) K/mcL Neutrophils # 7.1 (1.6-8.9) K/mcL BMP 04/19/17 04:30 Sodium 140 Potassium 3.4 L Chloride 107 Carbon Dioxide 24 BUN 23 Creatinine 2.48 H Glucose 100 H Calcium 9.6 - Impressions Impressions Head CT 04/19/17 09:36 IMPRESSION: No acute intracranial abnormality. D/ / Haris Oh MD / Haris Oh MD Interpreting Provider: Haris Oh MD Soft Tissue Neck CT 04/19/17 09:36 IMPRESSION: No acute abnormality of the soft tissue structures of the neck. Severe bilateral internal carotid artery stenosis. D/ / Calin Vazquez MD / Calin Vazquez MD Interpreting Provider: Calin Vazquez MD Consult Discharge Plan - Plan Referrals: Roseann Marinelli DO [Primary Care Provider] -
[2017-04-20] MEDS: *HR* Heparin 5,000 UNIT/ML VIAL SQ SCH ×2 (06:28→17:41)
[2017-04-20] MEDS: amLODIPine 5 MG TABLET PO SCH (09:04)
[2017-04-20] MEDS: Cefepime HCl 1,000 MG in Water for inj. (sterile) 10 ML IVP SCH ×2 (09:04→22:22)
[2017-04-20] MEDS: Metoprolol XL (24 HR) Succ 50 MG TAB.ER.24H PO SCH (09:05)
[2017-04-20] MEDS: Aspirin Enteric Coated 81 MG Tablet PO SCH (09:05)
[2017-04-20] MEDS: Bicalutamide 50 MG TABLET PO SCH (09:05)
[2017-04-20] MEDS: *HR* HYDROcodone/Acet 5/325 mg TABLET PO PRN (09:20)
[2017-04-20 10:00] LABS: Basophils # 0.2 K/mcL (0.0-0.2); Hematocrit 40.4 % (37.5-50.1); Hemoglobin 12.8 g/dL (12.9-16.9); Mean Corpuscular HGB Conc 31.7 g/dL (31.6-35.5); Mean Corpuscular Hemoglobin 27.2 pg (28.0-33.3); Mean Corpuscular Volume 85.8 fL (83.0-100.0); Mean Platelet Volume 10.3 fL (9.4-12.4); Platelet Count 390 K/mcL (140-400); Red Blood Count 4.71 M/mcL (4.19-5.50); Red Cell Distribution Width 14.3 % (11.5-14.5)
[2017-04-20 10:02] LABS: Calcium 9.8 mg/dL (8.6-10.8); Potassium 3.7 mEq/L (3.5-4.5)
[2017-04-20 10:57] LABS: Eosinophils # 0.8 K/mcL (0.0-0.6); Lymphocytes # 1.2 K/mcL (0.6-4.6); Monocytes # 0.2 K/mcL (0.0-1.3); Neutrophils # 6.9 K/mcL (1.6-8.9)
[2017-04-20 10:58] LABS: Platelet Estimate Normal (Normal)
[2017-04-20 10:59] LABS: Reactive Lymphocytes Present (Not Present)
[2017-04-20] MEDS: Vancomycin 500 MG in D5% in Water 100 ML IVPB SCH (12:08)
--- NOTE | 2017-04-20 18:07 | Internal Med Progress Note ---
Date of Encounter: 04/20/17 Time of Encounter: 12:05 - Assessment and plan (1) Severe sepsis Current Visit: Yes Status: Resolved Assessment and plan: Presented with fever, tachycardia, leukocytosis and possible pyelonephritis. continue Cefepime/Vancomycin. Blood and urine cultures obtained 04/13 have no growth; Lactic acid noted to be within normal limits. Hemodynamically stable. Continue Cefepime/Vancomycin to complete total of 14 days (around 04/27/17). Has powerglide in. Patient and his son would like to make sure that they are not overcharged for unnecessary fees. In particular, there were multiple attempts to have blood drawn from him overnight, and would like to make sure there are no charges for this. Will review with or other hospital resource. Since his leukocytosis resolved today and renal function is at new baseline, we can DC labs as well. Telemetry monitoring was discontinued when patient was no longer septic. Pending placement. He lives at home and is unable to safely take care of himself. (2) DAVE (acute kidney injury) Current Visit: Yes Status: Chronic Assessment and plan: Recent acute kidney injury with creatinine up to 13 since 02/2017, has been steadily improving since then. Patient presented with acute renal failure likely due to obstructive uropathy and ATN, during last admission and received temporary hemodialysis. Serum creatinine is steadily improving over this past 4 weeks. Likely improved after treatment of obstructive uropathy. Likely sepsis contributed as well. Antibiotics are currently dosed according to current GFR. He seems to be at new baseline 2.1-2.4 since 04/14/17. (3) Weakness Current Visit: Yes Status: Acute Assessment and plan: For past several days he has refused PT/OT several times and so a formal evaluation could not be completed. His daughter and were present today, they were unaware that he refused this multiple times. He is now willing to do PT/OT as they encourage him to do so. They do state his home situation is poor and he cannot take care of himself since he lives alone. He is prone to falls as well. If he accepts PT/OT eval tomorrow, we will use this for disposition planning. (4) History of CVA (cerebrovascular accident) Current Visit: Yes Status: Acute Assessment and plan: And has known history of CVA, which per family members has changed his behavior recently. She does note that he is acting a little different today and complains of neck pain. He did have recent carotid ultrasounds done that showed severe stenosis in his left carotid artery but was not able to visualize the right carotid artery. Able to ambulate the halls without any difficulties. He does not show any neurological deficits on exam. We will get ultrasound of carotids hopefully to visualize the right carotid better. Patient is already on aspirin and Plavix, and Lipitor. We will increase Lipitor to 40 mg. Patient's notes that he has a follow-up visit but missed the follow-up visit with vascular specialist because he is here in the hospital. She was told by a colleague at their convenience consult to follow him while he is here. However vascular surgery is not available over the weekend. So we will consult on Friday if patient is still here. He is currently pending placement. (5) Pyelonephritis Current Visit: Yes Status: Suspected (6) Malignant neoplasm of prostate Current Visit: Yes Status: Chronic (7) Normal findings on evaluation of ability to make decisions regarding care Current Visit: Yes Status: Acute (8) Atrial fibrillation Current Visit: Yes Status: Chronic Qualifiers: Atrial fibrillation type: chronic Qualified Code(s): I48.2 - Chronic atrial fibrillation (9) Dyspnea Current Visit: No Status: Resolved Qualifiers: Dyspnea type: unspecified Qualified Code(s): R06.00 - Dyspnea, unspecified (10) DVT prophylaxis Current Visit: Yes Status: Acute (11) CVA (cerebral vascular accident) Current Visit: Yes Status: Chronic Qualifiers: CVA mechanism: embolism Precerebral and cerebral artery: middle cerebral artery Laterality of affected vessel: right Qualified Code(s): I63.411 - Cerebral infarction due to embolism of right middle cerebral artery (12) DVT (deep venous thrombosis) Current Visit: Yes Status: Acute Qualifiers: DVT location: lower extremity Affected thrombotic vein of extremity: tibial Chronicity: acute Laterality: right Qualified Code(s): I82.441 - Acute embolism and thrombosis of right tibial vein - Subjective Interval history: No acute events overnight. Patient denies fevers/chills, chest pain, shortness of breath. - Constitutional Vitals: Temp Pulse Resp BP Pulse Ox 98.1 F 64 19 135/88 96 04/20/17 15:31 04/20/17 15:31 04/20/17 15:31 04/20/17 15:31 04/20/17 15:31 General appearance: Present: A&O X 3, answers questions appropriately Exam: CVS: RRR Lungs: CTAB Abd: NT/ND Nephrostomy tubes in place, draining clear green fluid Ext: no edema Internal Medicine: Result - Labs CBC & Chem 7: 04/20/17 09:36 04/20/17 09:36 Labs: Short CBC 04/20/17 Range/Units 09:36 WBC 9.9 (4.3-11.1) K/mcL Hgb 12.8 L (12.9-16.9) g/dL Hct 40.4 (37.5-50.1) % Plt Count 390 (140-400) K/mcL Neutrophils # 6.9 (1.6-8.9) K/mcL BMP 04/20/17 09:36 Sodium 138 Potassium 3.7 Chloride 106 Carbon Dioxide 23 BUN 24 Creatinine 2.38 H Glucose 151 H Calcium 9.8 Consult Discharge Plan - Plan Referrals: Roseann Marinelli DO [Primary Care Provider] -
[2017-04-21] MEDS: *HR* Heparin 5,000 UNIT/ML VIAL SQ SCH ×2 (06:16→16:27)
[2017-04-21] MEDS: Metoprolol XL (24 HR) Succ 50 MG TAB.ER.24H PO SCH (07:56)
[2017-04-21] MEDS: Aspirin Enteric Coated 81 MG Tablet PO SCH (07:56)
[2017-04-21] MEDS: amLODIPine 5 MG TABLET PO SCH (07:56)
[2017-04-21] MEDS: Cefepime HCl 1,000 MG in Water for inj. (sterile) 10 ML IVP SCH ×2 (07:57→21:09)
[2017-04-21] MEDS: Bicalutamide 50 MG TABLET PO SCH (08:07)
[2017-04-21] MEDS: Vancomycin 500 MG in D5% in Water 100 ML IVPB SCH (09:45)
--- NOTE | 2017-04-22 01:00 | Internal Med Progress Note ---
Date of Encounter: 04/21/17 Time of Encounter: 11:39 - Assessment and plan (1) Severe sepsis Current Visit: Yes Status: Resolved Assessment and plan: Summary: Mr. Reich is a 72 year old male who presented to [facility] complaining of a two day history of left flank pain. He has a history of prostate cancer status post septectomy 4 years ago. He currently has bilateral nephrostomy tubes placed 3 weeks ago for hydronephrosis secondary to prostate cancer. He was recently discharged from from [place] on 04/11 after an acute CVA, DVT, and DAVE at the time the nephrostomy tubes were placed. He is not on anticoagulation due to hematuria. He was discharged with home health care at that time. He began noticing blood in the nephrostomy bags when he had flank pain. He had chills but denied fevers, chest pain, nausea/vomiting, abdominal pain, change in bowel movements, hematochezia, melena. When patient presented to [facility] he was severely septic with temperature of 101.0, WBCs of 30.5, lactic acid of 2.1. He received 3 L of normal saline with improvement of vital signs. Urinalysis was positive for UTI. He had a creatinine of 3.06, though one month ago his creatinine was 12 and has trended down in a linear fashion. A CT abdomen/ Pelvis showed bilateral perinephric fat stranding. Cultures were obtained. He was started on Vancomycin and cefepime. He was transferred to [facility] for Urology consultation during admission. Urology evaluated patient and agreed with IV fluids and IV antibiotics. Nephrostomy tubes are planned to stay in until repeat CT scans show decrease in pelvic masses after Lupron and Casodex therapy. Peripheral cultures and urine cultures obtained on 04/13 have resulted in no growth. He has remained afebrile and hemodynamically stable. He currently has an extended peripheral IV in. Within the past month his creatinine was in 12-14 range and steadily plateaued now to 2.2-2.4 range. Upon Discharge: -Continue cefepime/vancomycin to complete total of 14 days (around 04/27/17). -Consider a vancomycin troph level, CBC, BMP in one week. -Follow-up with Urology, has scheduled appointment. Disposition: He is currently pending placement, some delay after holiday weekend. PT/OT evaluated patient and they stated he does not need placement to an ECF. He lives at home and there is concern that he may not be able to take care of himself, especially with the maintenance of nephrostomy tubes and IV infusion therapy. (2) DAVE (acute kidney injury) Current Visit: Yes Status: Chronic Assessment and plan: Recent acute kidney injury with creatinine up to 13 since 02/2017, has been steadily improving since then. Patient presented with acute on chronic renal failure likely due to obstructive uropathy and ATN, during last admission and received temporary hemodialysis. Serum creatinine is steadily improving over this past 4 weeks. Likely renal function was improved after treatment of obstructive uropathy. Antibiotics are currently renally dosed. Reached new baseline of 2.1-2.4. (3) Weakness Current Visit: Yes Status: Acute Assessment and plan: For several days he has refused PT/OT several times and so a formal evaluation could not be completed. His daughter and convinced him to get evaluated. Patient was able to ambulate in the hallways without issue. PT/OT evaluated patient and deemed no need for ECF. His family does note however that he had a few falls at home, especially after recent CVA. (4) History of CVA (cerebrovascular accident) Current Visit: Yes Status: Acute Assessment and plan: And has known history of CVA, which per family members has changed his behavior recently. She does note that he is acting a little different today and complains of neck pain. He did have recent carotid ultrasounds done that showed severe stenosis in his left carotid artery but was not able to visualize the right carotid artery. Able to ambulate the halls without any difficulties. He does not show any neurological deficits on exam. We will get ultrasound of carotids hopefully to visualize the right carotid better. Patient is already on aspirin and Plavix, and Lipitor. We will increase Lipitor to 40 mg. Patient's notes that he has a follow-up visit but missed the follow-up visit with vascular specialist because he is here in the hospital. She was told by a colleague at their convenience consult to follow him while he is here. However vascular surgery was not available over the weekend. (5) Pyelonephritis Current Visit: Yes Status: Suspected Assessment and plan: Suspected left-sided pyelonephritis based on clinical presentation. Continue broad-spectrum IV antibiotics-vancomycin and cefepime plan to complete 14 day course. Blood/Urine cultures negative (04/13). Resolved fever and leukocytosis. (6) Malignant neoplasm of prostate Current Visit: Yes Status: Chronic Assessment and plan: Follow-up with Urology as outpatient. Continue Casodex and Lupron as per regular treatment. Family did inquire about an Oncology consult. Urology is currently managing prostate cancer. Discussed request with Urology, may benefit to discuss this in office as currently is being treated for acute illness. (7) Normal findings on evaluation of ability to make decisions regarding care Current Visit: Yes Status: Acute Assessment and plan: Patient does have competency to make medical decisions based on assessment this admission. Patient requests that his , daughter, and son (POA) are involved with all decisions in his medical care. They were actively involved in assisting patient making informed decisions. Family was notified of his progress daily. (8) Atrial fibrillation Current Visit: Yes Status: Chronic Assessment and plan: Currently regular and rate controlled. Continue beta juan pablo. Has been taken off anticoagulation during previous admission due to hematuria and placement of nephrostomy tubes. Continue aspirin/Plavix. Qualifiers: Atrial fibrillation type: chronic Qualified Code(s): I48.2 - Chronic atrial fibrillation (9) Dyspnea Current Visit: No Status: Resolved Assessment and plan: Gradual SOB on 04/14-04/15, which resolved on its own. He was in no acute distress, breath sounds were clear, he had no labored breathing. A 2V chest x- ray showed no acute process. He denied any pain or tachypnea. Qualifiers: Dyspnea type: unspecified Qualified Code(s): R06.00 - Dyspnea, unspecified (10) DVT prophylaxis Current Visit: Yes Status: Acute (11) CVA (cerebral vascular accident) Current Visit: Yes Status: Chronic Assessment and plan: Diagnosed with right parietal occipital stroke during previous admission. Continue aspirin, Plavix and statin. Qualifiers: CVA mechanism: embolism Precerebral and cerebral artery: middle cerebral artery Laterality of affected vessel: right Qualified Code(s): I63.411 - Cerebral infarction due to embolism of right middle cerebral artery (12) DVT (deep venous thrombosis) Current Visit: Yes Status: Acute Assessment and plan: Diagnosed with acute right posterior tibial thrombosis during previous admission , was not started on anticoagulation due to hematuria and receiving nephrostomy tubes. Vascular surgery recommended repeating VD in 2 weeks to assess for resolution of DVT; will repeat VD of right LE today; Currently on ASA/Plavix Qualifiers: DVT location: lower extremity Affected thrombotic vein of extremity: tibial Chronicity: acute Laterality: right Qualified Code(s): I82.441 - Acute embolism and thrombosis of right tibial vein - Subjective Interval history: No acute events overnight. Patient denies fevers/chills, chest pain, shortness of breath. - Constitutional Vitals: Temp Pulse Resp BP Pulse Ox 98.3 F 66 17 126/75 98 04/21/17 23:48 04/21/17 23:48 04/21/17 23:48 04/21/17 23:48 04/21/17 23:48 General appearance: Present: A&O X 3, answers questions appropriately Exam: - Respiratory Respiratory exam: Present: CTAB. Absent: accessory muscle use, rales, rhonchi, wheezes - Cardiovascular Cardiovascular exam: Present: RRR, +S1, +S2. Absent: diastolic murmur, gallop, rubs, systolic murmur - GI/Abdominal GI/Abdominal exam: Present: normal bowel sounds, soft, no peritoneal signs. Absent: distended, tenderness - Extremities Exam Extremities exam: Present: full ROM, warm, radial pulses palpable and symmetrical. Absent: calf tenderness, cyanotic, pedal edema - Back Exam Back exam: Absent: CVA tenderness (L), CVA tenderness (R) Additional comments: nephrostomy tubes in place - Neurological Exam Neurological exam: Present: CN II-XII intact, oriented X3, no focal deficits. Absent: pronater drift, facial droop, speech deficit Internal Medicine: Result - Labs CBC & Chem 7: 04/20/17 09:36 04/20/17 09:36 Consult Discharge Plan - Plan Referrals: Roseann Marinelli DO [Primary Care Provider] - (waiting to see discharge needs. Home vs. ECF)
[2017-04-22] MEDS: *HR* Heparin 5,000 UNIT/ML VIAL SQ SCH ×2 (05:46→18:13)
[2017-04-22] MEDS: Aspirin Enteric Coated 81 MG Tablet PO SCH (10:05)
[2017-04-22] MEDS: Metoprolol XL (24 HR) Succ 50 MG TAB.ER.24H PO SCH (10:05)
[2017-04-22] MEDS: Bicalutamide 50 MG TABLET PO SCH (10:05)
[2017-04-22] MEDS: Cefepime HCl 1,000 MG in Water for inj. (sterile) 10 ML IVP SCH (10:06)
[2017-04-22] MEDS: amLODIPine 5 MG TABLET PO SCH (10:06)
[2017-04-22] MEDS: Vancomycin 500 MG in D5% in Water 100 ML IVPB SCH (12:11)
--- NOTE | 2017-04-22 12:29 | Discharge Summary ---
Date of Encounter: 04/22/17 Time of Encounter: 12:25 - Discharge Diagnosis (1) Atrial fibrillation Priority: Secondary Status: Chronic Qualifiers: Atrial fibrillation type: chronic Qualified Code(s): I48.2 - Chronic atrial fibrillation (2) Hematuria Priority: Primary Status: Resolved Qualifiers: Hematuria type: gross Qualified Code(s): R31.0 - Gross hematuria (3) Hypertension Priority: Secondary Status: Chronic Qualifiers: Hypertension type: essential hypertension Qualified Code(s): I10 - Essential (primary) hypertension (4) Cerebrovascular accident (CVA) due to bilateral stenosis of carotid arteries Priority: Secondary Status: Chronic (5) Obesity (BMI 30-39.9) Priority: Secondary Status: Chronic (6) DVT (deep venous thrombosis) Priority: Secondary Status: Chronic Qualifiers: DVT location: lower extremity Affected thrombotic vein of extremity: tibial Chronicity: acute Laterality: right Qualified Code(s): I82.441 - Acute embolism and thrombosis of right tibial vein (7) Severe sepsis Priority: Primary Status: Resolved (8) Pyelonephritis Priority: Primary Status: Resolved (9) DVT prophylaxis Priority: Primary Status: Resolved (10) Weakness Priority: Primary Status: Acute (11) Normal findings on evaluation of ability to make decisions regarding care Priority: Primary Status: Acute (12) History of CVA (cerebrovascular accident) Priority: Secondary Status: Chronic - Discharge Medications Home Medications: Atorvastatin Calcium [Lipitor] 20 mg PO HS 03/19/17 [History] Cholecalciferol (Vitamin D3) [Vitamin D3] 1,000 unit PO DAILY 03/19/17 [History] Metoprolol XL (24 HR) Succ [Toprol Xl] 150 mg PO DAILY 03/19/17 [History] Multivitamin [One Daily Multivitamin] 1 each PO DAILY 03/19/17 [History] Bicalutamide [Casodex] 50 mg PO DAILY #30 tablet 03/31/17 [Rx] DiphenhydraMINE [Benadryl] 25 mg PO HS PRN capsule 03/31/17 [Rx] GuaiFENesin ER [Mucinex] 600 mg PO BID PRN tbbp.12hr 03/31/17 [Rx] Lidocaine Patch [Lidoderm 5% patch] 1 each TP DAILY #30 adh..patch 03/31/17 [Rx] Omeprazole [PriLOSEC] 20 mg PO DAILY@0730 #30 capsule. 03/31/17 [Rx] Aspirin Enteric Coated [Aspirin EC] 81 mg PO DAILY #30 tablet. 04/02/17 [Rx] Clopidogrel [Plavix] 75 mg PO DAILY #30 tablet 04/02/17 [Rx] amLODIPine [Norvasc] 10 mg PO DAILY #60 tablet 04/02/17 [Rx] Acetaminophen [Tylenol] 650 mg PO Q6HR PRN tablet 04/22/17 [Rx] Amoxicillin/Clavulanate [Augmentin] 875 mg PO BIDWM tablet 04/22/17 [Rx] Docusate [Colace] 100 mg PO BID PRN capsule 04/22/17 [Rx] Allergies/Adverse Reactions: 3 Allergy/AdvReac Type Severity Reaction Status Date / Time No Known Allergies Allergy Verified 04/13/17 09:54 Procedures/tests Complete & Pending: Procedures Performed prior 72 hours Category Date Time Status EV carotid duplex imaging BI Routine Y 04/19/17 17:10 Completed Date of admission: 04/13/17 03:41 Primary care physician: Roseann Marinelli Consults: 04/13/17 03:51 Consult to Urology [CONS] Routine Consulting Provider: Urology Roslyn Reason for Consult: pyelonephritis. b/l nephrostomy tubes Call Completed: No 04/14/17 13:42 Consult to Occupational Therapy [CONS] Routine Comment: Evaluate, develop and implement POC Reason for Consult: Weakness, general deconditioning, recently d/c from rehab Consult to Physical Therapy [CONS] Routine Comment: Evaluate, develop and implement POC Reason for Consult: Weakness, general deconditioning, recently d/c from rehab 04/18/17 14:22 Consult to Invasive Line Access Team [CONS] Routine Reason for Consult: IV ATB AT HOME Line Type: Midline 04/19/17 09:41 Consult to Vascular Surgery [CONS] Routine Consulting Provider: Vascular Surgery Roslyn Reason for Consult: history of CVA. Unavailable over weekend to contact Call Completed: No 04/22/17 08:24 Consult to Property Claims Manager [CONS] Routine Reason for SW Consult: pt family wants ecf Discharging clinician: Daniel Benitez Anticipated date of discharge: 04/22/17 - Patient Status Disposition: Transfer Inpatient Rehab Fac Condition: Fair Functional capacity at discharge: independent ambulation Overall status at discharge: patient is progressing back to baseline - Discharge Instructions Follow Up With: Roseann Marinelli DO [Primary Care Provider] - (waiting to see discharge needs. Home vs. ECF) - Diet and Activity Activity: resume usual activities as tolerated Diet: diabetic diet, low fat, low cholesterol, low salt diet Interval History: 71 M with hx of CVA, DVT not on anticoagulation, pelvic Mass, recent DAVE and bilateral nephrostomies placement, discharged from [place] [facility] 04/11 Presented to outside facility with L flank pain and fever, Tmax 101.9, found to have severe sepsis, lactic acidosis, Pyelonephritis and transferred to [facility] for further management. Labs and Imaging reviewed: Leukocytosis WBC 30, Lactate 2.1. UA with large LE, Abd CT with cystitis, pyelonephritis Per microbiology from referral hospital patient grew Pseudomonas in blood and urine culture from 04/13 which was sensitive to Zosyn/Meropenem/Tobramycun among others. Patient received Cefepime and Vancomycin here and his sepsis has resolved Blood and urine cultures here were negative without growth He has been afebrile, his leukocytosis has resolved His hospital stay also revealed DAVE which has resolved He has a hx of AFib anf DVT and not on anticoagulation due to hematuria He is seen and evaluated at bedside this morning, he has no new complains He is clinically stable to be discharged to SNF to complete 6 more days of po Augmentin. to make a total of 14 days of antibiotics His other chronic medical conditions remain stable Hospital course: Mr. Reich is a 72 year old male - Time Spent with Patient Total time spent providing and/or coordinating discharge services: Greater than 30 minutes (>45 minutes spent reviewing this chart, face to face encounter with the patient and documentation, as well as med rec and prescription. Time also spent with manager home improvementmanager general dicharge) - Constitutional Vitals: Temp Pulse Resp BP Pulse Ox 97.9 F 60 17 143/82 96 04/22/17 11:05 04/22/17 11:05 04/22/17 11:05 04/22/17 11:05 04/22/17 11:05 General appearance: Present: A&O X 3, pleasant, no acute distress, obese, answers questions appropriately - Head Head exam: Present: atraumatic, normocephalic - Eye Eye exam: Present: PERRL, conjuntiva pink, sclera anicteric Pupils: Present: PERRL - Neck Neck exam general surgery: Present: supple, trachea midline. Absent: lymphadenopathy - Respiratory Respiratory exam: Present: CTAB. Absent: accessory muscle use, rales, rhonchi, wheezes - Cardiovascular Cardiovascular exam: Present: RRR, +S1, +S2. Absent: diastolic murmur, gallop, rubs, systolic murmur - GI/Abdominal GI/Abdominal exam: Present: normal bowel sounds, soft, no peritoneal signs. Absent: distended, tenderness - Extremities Exam Extremities exam: Present: warm, radial pulses palpable and symmetrical. Absent : calf tenderness, cyanotic, pedal edema - Back Exam Additional comments: Nephrostomy with clear urine - Neurological Exam Neurological exam: Present: alert, CN II-XII intact, oriented X3, no focal deficits. Absent: pronater drift, facial droop, speech deficit - Skin Skin exam: Present: dry, intact
--- NOTE | 2017-04-22 12:38 | Physician Discharge Referral ---
ExtendedCare Referral Info Transfer To: [facility] Provider in Charge: Aaron Benitez Provider in Charge after Transfer: PCP Institutional Level of Care: Skilled - Diagnosis (1) Atrial fibrillation Priority: Secondary Status: Chronic (2) Hematuria Priority: Primary Status: Resolved (3) Hypertension Priority: Secondary Status: Chronic (4) Cerebrovascular accident (CVA) due to bilateral stenosis of carotid arteries Priority: Secondary Status: Chronic (5) Obesity (BMI 30-39.9) Priority: Secondary Status: Chronic (6) DVT (deep venous thrombosis) Priority: Secondary Status: Chronic (7) Severe sepsis Priority: Primary Status: Resolved (8) Pyelonephritis Priority: Primary Status: Resolved (9) DVT prophylaxis Priority: Primary Status: Resolved (10) Weakness Priority: Primary Status: Acute (11) Normal findings on evaluation of ability to make decisions regarding care Priority: Primary Status: Acute (12) History of CVA (cerebrovascular accident) Priority: Secondary Status: Chronic Prognosis: Fair Aware of Diagnosis: Patient Aware of Prognosis: Patient - Transfer Medications Home Medications: Atorvastatin Calcium [Lipitor] 20 mg PO HS 03/19/17 [History] Cholecalciferol (Vitamin D3) [Vitamin D3] 1,000 unit PO DAILY 03/19/17 [History] Metoprolol XL (24 HR) Succ [Toprol Xl] 150 mg PO DAILY 03/19/17 [History] Multivitamin [One Daily Multivitamin] 1 each PO DAILY 03/19/17 [History] Bicalutamide [Casodex] 50 mg PO DAILY #30 tablet 03/31/17 [Rx] DiphenhydraMINE [Benadryl] 25 mg PO HS PRN capsule 03/31/17 [Rx] GuaiFENesin ER [Mucinex] 600 mg PO BID PRN tbbp.12hr 03/31/17 [Rx] Lidocaine Patch [Lidoderm 5% patch] 1 each TP DAILY #30 adh..patch 03/31/17 [Rx] Omeprazole [PriLOSEC] 20 mg PO DAILY@0730 #30 capsule. 03/31/17 [Rx] Aspirin Enteric Coated [Aspirin EC] 81 mg PO DAILY #30 tablet. 04/02/17 [Rx] Clopidogrel [Plavix] 75 mg PO DAILY #30 tablet 04/02/17 [Rx] amLODIPine [Norvasc] 10 mg PO DAILY #60 tablet 04/02/17 [Rx] Acetaminophen [Tylenol] 650 mg PO Q6HR PRN tablet 04/22/17 [Rx] Amoxicillin/Clavulanate [Augmentin] 875 mg PO BIDWM tablet 04/22/17 [Rx] Docusate [Colace] 100 mg PO BID PRN capsule 04/22/17 [Rx] Allergies/Adverse Reactions: 3 Allergy/AdvReac Type Severity Reaction Status Date / Time No Known Allergies Allergy Verified 04/13/17 09:54 - Respiratory Orders Smoking Cessation: Smoking cessation has been advised. For more information, call the [place] [employer] Quit Line at [phone]. - Advance Directives Living Will: Yes Code Status: DNR-Arrest/Don't Intubate - Mobility Orders Ambulate (PEr PT) - Diet Orders Cardiac CERTIFICATION: I certify that the transfer of the above named patient to an Extended Care Facility is necessary for the continuing treatment of the diagnosis listed. The above information is true and accurate reflection of patient's current condition. Confidential - Redisclosure prohibited without a patient's written consent.
[2017-04-22] MEDS ORDERED: Aminoglycoside Consult 1 EACH MC ONE (13:37)
[2017-04-23] MEDS: *HR* HYDROcodone/Acet 5/325 mg TABLET PO PRN (05:15)
[2017-04-23] MEDS: *HR* Heparin 5,000 UNIT/ML VIAL SQ SCH (05:16)
--- NOTE | 2017-04-23 10:18 | Internal Med Progress Note ---
Date of Encounter: 04/23/17 Time of Encounter: 10:18 - Assessment and plan (1) Atrial fibrillation Current Visit: Yes Status: Chronic Assessment and plan: Currently regular and rate controlled. Continue beta juan pablo. Has been taken off anticoagulation during previous admission due to hematuria and placement of nephrostomy tubes. Continue aspirin/Plavix. Qualifiers: Atrial fibrillation type: chronic Qualified Code(s): I48.2 - Chronic atrial fibrillation (2) Hematuria Current Visit: Yes Status: Resolved Qualifiers: Hematuria type: gross Qualified Code(s): R31.0 - Gross hematuria (3) Hypertension Current Visit: Yes Status: Chronic Assessment and plan: Blood pressure appropriately controlled. COntinue current medications. Qualifiers: Hypertension type: essential hypertension Qualified Code(s): I10 - Essential (primary) hypertension (4) Cerebrovascular accident (CVA) due to bilateral stenosis of carotid arteries Current Visit: Yes Status: Chronic Assessment and plan: History of same, (5) Obesity (BMI 30-39.9) Current Visit: No Status: Chronic (6) DVT (deep venous thrombosis) Current Visit: Yes Status: Chronic Assessment and plan: Diagnosed with acute right posterior tibial thrombosis during previous admission , was not started on anticoagulation due to hematuria and receiving nephrostomy tubes. Vascular surgery recommended repeating VD in 2 weeks to assess for resolution of DVT; Doppler repeated, no DVT Continue ASA/Plavix Qualifiers: DVT location: lower extremity Affected thrombotic vein of extremity: tibial Chronicity: acute Laterality: right Qualified Code(s): I82.441 - Acute embolism and thrombosis of right tibial vein (7) Severe sepsis Current Visit: Yes Status: Resolved Assessment and plan: Continue Augmentin and Levaquin for 4 more days He has received 9 days of IV till 04/22 Blood and urine culture grew pseudomonas at [facility] Blood and urine culture done here showed clearance He is clinically stable (8) Pyelonephritis Current Visit: Yes Status: Resolved Assessment and plan: As above (9) DVT prophylaxis Current Visit: Yes Status: Resolved (10) Weakness Current Visit: Yes Status: Acute Assessment and plan: For several days he has refused PT/OT several times and so a formal evaluation could not be completed. His daughter and convinced him to get evaluated. Patient was able to ambulate in the hallways without issue. PT/OT evaluated patient and deemed no need for ECF. His family does note however that he had a few falls at home, especially after recent CVA. For ECF placement for personal care as patient lives home alone (11) Normal findings on evaluation of ability to make decisions regarding care Current Visit: Yes Status: Acute Assessment and plan: Patient does have competency to make medical decisions based on assessment this admission. Patient requests that his , daughter, and son (POA) are involved with all decisions in his medical care. They were actively involved in assisting patient making informed decisions. Family was notified of his progress daily. (12) History of CVA (cerebrovascular accident) Current Visit: Yes Status: Chronic Assessment and plan: And has known history of CVA, which per family members has changed his behavior recently. He does not show any neurological deficits on exam. Repeat Carotid USS noted, on ASA/Plavix/Lipitor, continue same - Subjective Interval history: Seen and examined at bedside he was admitted and being managed for severe sepsis and lactic acidosis secondary to pyelonephritis, and pseudomonas bacteremia, blood and urine cultures here has been negative. He has no new complains and is awaiting placement He has had 9 days of IV Vanco and Cefepime and has been started on Augmentin to to complete 14 days of therapy. - Constitutional Vitals: Temp Pulse Resp BP Pulse Ox 98.8 F 68 18 161/85 95 04/23/17 06:47 04/23/17 06:47 04/23/17 06:47 04/23/17 06:47 04/23/17 06:47 General appearance: Present: A&O X 3, pleasant, no acute distress, obese, answers questions appropriately - Head Head exam: Present: atraumatic, normocephalic - Eye Eye exam: Present: PERRL, conjuntiva pink, sclera anicteric Pupils: Present: PERRL - Neck Neck exam general surgery: Present: supple, trachea midline. Absent: lymphadenopathy - Respiratory Respiratory exam: Present: CTAB. Absent: accessory muscle use, rales, rhonchi, wheezes - Cardiovascular Cardiovascular exam: Present: RRR, +S1, +S2. Absent: diastolic murmur, gallop, rubs, systolic murmur - GI/Abdominal GI/Abdominal exam: Present: normal bowel sounds, soft, no peritoneal signs. Absent: distended, tenderness - Additional comments: Nephrostomies draining clear urine - Extremities Exam Extremities exam: Present: warm, radial pulses palpable and symmetrical. Absent : calf tenderness, cyanotic, pedal edema - Neurological Exam Neurological exam: Present: alert, CN II-XII intact, oriented X3, no focal deficits. Absent: pronater drift, facial droop, speech deficit - Skin Skin exam: Present: dry, intact Internal Medicine: Result - Labs CBC & Chem 7: 04/20/17 09:36 04/20/17 09:36 Consult Discharge Plan - Plan Referrals: Roseann Marinelli DO [Primary Care Provider] - (waiting to see discharge needs. Home vs. ECF)
[2017-04-23] MEDS: Metoprolol XL (24 HR) Succ 50 MG TAB.ER.24H PO SCH (10:28)
[2017-04-23] MEDS: amLODIPine 5 MG TABLET PO SCH (10:28)
[2017-04-23] MEDS: Aspirin Enteric Coated 81 MG Tablet PO SCH (10:28)
[2017-04-23] MEDS: Bicalutamide 50 MG TABLET PO SCH (10:29)
[2017-04-23 11:06] VITALS: BP 145/85
[2017-04-23] MEDS ORDERED: levoFLOXacin 500 MG TABLET PO SCH (12:45)
== END 2017-04-23 13:38 | DRG 698 ==
LOC: 2ANU → SUATTDRO 03:41
PROVIDERS: ADMIT Internal Medicine; ATTEND Internal Medicine